=== PATIENT | female | born 1945 | race Caucasian/White ===

== ENCOUNTER 2019-11-03 13:56 | Outpatient (CLI) | payer MEDICARE, SELFPAY ==
--- NOTE | 2019-11-03 14:03 | XR_ITS ---
WS: [id number] DEXA (DUAL ENERGY X-RAY ABSORPTIOMETRY) Bone mineral density was performed using a [employer] machine. HISTORY: POSTMENOPAUSAL STATUS COMPARISON: 07/11/2016 Lumbar spine BMD (L1-L4): 1.429 g/cm2 T score: 2.1 Z score: 4.0 Total hip BMD: Left: 0.907 g/cm2. T score: -0.8 Z score: 1.1 Right: 0.996 g/cm2. T score: -0.1 Z score: 1.8 10 year probability of a major osteoporotic fracture is 18%. Compared to the prior study from 07/11/2016. Lumbar spine bone mineral density has decreased by 3.1%. Bilateral hips bone mineral density has decreased by 4.1%. XR/XR DEXA axial skeleton* 13702 IMPRESSION: NORMAL BONE MINERAL DENSITY based upon the WHO classification for females. Significant decrease in bone mineral density since the prior study.
== END 2019-11-03 13:57 | disposition home or self-care (01) ==
LOC: RADWPI 13:56
PROVIDERS: Family Provider Family Medicine; PCP Family Medicine; Visit Provider Family Medicine
DX: Z78.0 Asymptomatic menopausal state (principal)
CPT/HCPCS: 77080

== ENCOUNTER 2020-03-15 09:49 | Outpatient (CLI) | payer MEDICARE, SELFPAY ==
--- NOTE | 2020-03-15 10:30 | CT_ITS ---
WS: [id number] CTA ABDOMINAL AORTA WITH RUNOFF TECHNIQUE: Contrast enhanced CTA of the abdominal aorta with bilateral lower extremity runoff. Multip lanar reformatted images were obtained. MIP reformats were also reviewed. CLINICAL INFORMATION: lifestyle limiting claudication COMPARISON: None. DLP: 1248.[address] scans at [facility] use at least one of these dose optimization techniques: automat ed exposure control; mA and/or kV adjustment per patient size (includes targeted exams where dose is matched to clinical indication); or iterative reconstruction. FINDINGS: Diffuse fatty infiltration liver. Cholecystectomy clips. Portal veins and splenic vein are patent. Normal spleen. Normal GE junction. Lung bases are well aerated. Adrenal glands are normal. No rmal pancreas. Chronic advanced atrophy right kidney. Normal left renal parenchymal enhancement. No h ydronephrosis. Normal caliber abdominal aorta. Moderate irregular peripheral mural thrombus with mode rate atheromatous disease. Celiac and SMA origins are patent. VIOLETA origin is patent. Aneurysmal right proximal iliac artery measuring 1.5 CM. Slightly aneurysmal infrarenal abdominal aorta measuring 2.4 x 2.4 CM. Sigmoid diverticulosis. No evidence of acute diverticulitis. No evidence of small or large bowel obst ruction. Tiny incidental fat-containing umbilical hernia. RIGHT: Moderate stenosis of the right common iliac artery origin which remains patent. Heavily calcif ied right common iliac artery with approximately 50% stenosis proximally. Right external and internal iliac arteries are patent. Aneurysmal internal iliac artery with small aneurysms measuring 9 and 10 mm. External iliac artery is patent. Common femoral artery is patent. High-grade segmental stenosis in the superficial femoral artery which is nearly occluded in the mid thigh with severe stenosis just proximal to the stent. Superficial femoral to popliteal stent. Persistent flow in the mid and distal stent. Poor flow in the proximal stent occluded/nearly occluded. Dense calcification with severe yazan nosis in the popliteal artery just above the knee and popliteal fossa. Stenotic popliteal is patent t o the trifurcation with dominant two-vessel runoff to the ankle. Poor posterior tibial runoff. LEFT: Left common iliac artery is patent. Dense calcification involving the lower extremities arterie s. Internal iliac artery is occluded at the origin and and reconstitutes in the mid and distal segmen ts. External iliac artery is patent. Common femoral artery is patent with mild to moderate segmental stenosis. Severe stenosis involving the superficial femoral artery which is nearly occluded. Segmenta l moderate to severe stenosis involving the superficial femoral artery in the thigh. Flow is seen to the adductor hiatus. Popliteal artery is tiny but patent. Popliteal artery is patent to the trifurcat ion with dominant two-vessel runoff to the ankle. Poor flow in the posterior tibial artery. CT/CT angio abd aorta runof 18013 IMPRESSION: 1. Moderate atheromatous disease abdominal aorta with irregular mural thrombus . Slightly aneurysmal infrarenal abdominal aorta measuring 2.4 x 2.4 cm. 2. RIGHT: Approximately 50% stenosis involving the right common iliac artery o rigin. Right common iliac artery aneurysm measuring 1.4 CM. 3. RIGHT: High-grade stenosis with poor flow in the superficial femoral artery proximally which is nearly occluded at the level of the stent. Poor flow in th e proximal stent which may be partially occluded. Normal flow is seen in the mi d and distal stent. 4. LEFT: Common iliac, external iliac and left common femoral arteries are pat ent. 5. LEFT: High-grade stenosis involving the proximal superficial femoral artery with persistent diminutive flow to the popliteal artery. Tiny popliteal artery with moderate to severe segmental stenosis. This is patent to the trifurcation . 6. Dominant two-vessel runoff to BOTH lower extremities with poor flow in the posterior tibial arteries bilaterally. 7. Atrophic right kidney. 8. Celiac and SMA are patent. Left renal artery is patent.
[2020-03-15] MEDS: iohexol 350 mg/mL 100 mL Btl IV (11:53)
[2020-03-18 08:25] LABS: Blood Urea Nitrogen 25 mg/dL (8-23)
== END 2020-03-15 09:50 | disposition home or self-care (01) ==
LOC: RADWPI 09:54
PROVIDERS: Family Provider Family Medicine; PCP Family Medicine; Visit Provider Internal Medicine Cardiovascular Disease
DX: I73.9 Peripheral vascular disease, unspecified (principal); I70.0 Atherosclerosis of aorta; I71.4 Abdominal aortic aneurysm, without rupture; N26.1 Atrophy of kidney (terminal)
CPT/HCPCS: 75635; 82565; 84520; Q9967

== ENCOUNTER → 2020-04-07 09:21 | Outpatient (BNVA) | payer MEDICARE, SELFPAY | PROVIDERS: Family Provider Family Medicine; PCP Family Medicine; Visit Provider Internal Medicine Cardiovascular Disease | DX: Z11.59 Encounter for screening for other viral diseases (principal) | CPT/HCPCS: 87635 ==

== ENCOUNTER 2020-04-12 07:39 | Day surgery (SDC) | payer MEDICARE, SELFPAY ==
[2020-04-07 10:30] LABS: Hematocrit 38.7 % (37.0-47.0); Mean Corpuscular Hemoglobin 29.2 pg (28.0-34.0); Mean Corpuscular Volume 94.2 fL (81-99); Mean Platelet Volume 9.6 fL (7.4-10.4); Platelet Count 317 10^3/cmm (130-400); Red Blood Count 4.11 10^6/uL (4.1-5.3); Red Cell Distribution Width 13.4 % (12.1-15.1); White Blood Count 6.5 10^3/uL (4.0-10.0)
[2020-04-07 10:53] LABS: Anion Gap 15.1 (5-19); Blood Urea Nitrogen 29 mg/dL (8-23); Calcium 9.4 mg/dL (8.5-10.5); Carbon Dioxide 24 mmol/L (22-29); Chloride 96 mmol/L (98-107); Glucose 167 mg/dL (65-115); Osmolality Calculated 284 mOsm/kg (285-295); Potassium 3.1 mmol/L (3.5-5.1); Sodium 132 mmol/L (136-145)
[2020-04-07 10:55] LABS: Absolute Eosinophils 0.1 10^3/cmm (0.0-0.7); Absolute Segmented Neutrophil 3.6 10/cmm (1.6-7.1); Band Neutrophils Absolute 0.2 10^3/cmm (0.0-1.2); Eosinophils 3 %; Lymphocytes 31 %; Monocytes Absolute 0.5 10^3/cmm (0.1-0.6); Segmented Neutrophils 56 %; Total Cells Counted 100 (0-100)
[2020-04-07 10:56] LABS: Absolute Neutrophil 3.8 10^3/cmm (1.4-6.5); Platelet Estimate Normal (Normal); Poikilocytosis 1+; Tear Drop Cells 1+
[2020-04-12] VITALS (42 sets, daily range): BP systolic 97–160; BP diastolic 52–93; PULSE 0–83; RESP 16–18; TEMP 36.8–37; O2SAT 90–96; BMI 26.2
--- NOTE | 2020-04-12 07:50 | XACV_ITS ---
Wt: 63 kg BSA: 1.66 m2 Any Known Allergies: No known allergies Gender: Female : 1945 Exam Type: Invasive Peripheral Vascular Procedure(s): Procedure Description: Peripheral Cath Diagnostic Procedure Procedure Description: Lower extremities' angiography Exam Priority: Routine Conclusions Lifestyle limiting claudication despite of optimization of medicine and the patient with severe peripheral vascular disease. Nonpalpable bilateralAtherosclerotic abdominal aorta without aneurysm. Right and left renal artery does not have any significant stenosis 1. Right ostial severe 80% left ostial severe 80% stenosis of the both common iliac artery. 2. Right and left mid to distal common iliac artery is aneurysmal with severe ectasia. Right external iliac artery has 70% stenosis3-right and left internal iliac artery has severe peripheral vascular disease4-left common iliac artery has severe ectasia with 70% stenosis5-Right chronically occluded SFA. Chronically occluded right mid SFA stent6-Proximal to mid severity disease left SFA6-Bilateral patent popliteal arteries 7-good two-vessel runoff noted below the left knee with patent tibioperoneal trunk on the left side8-patent tibioperoneal trunk on the right side. Due to not enough contrast cannot say much about runoff in the right leg probably patient may have 1-2 vessel runoff . Recommendations Refer to vascular surgery due to severe ectasia and multiple 10 mm bilateral iliac lesion and severe peripheral vascular disease and SFAs. Access Site Site: Right Femoral artery Sheath Size: 6 Fr Hemost... Method: Suture Hemost... Success: Successful Procedure Details Findings Procedure Consent Obtained. Pre-Procedure Time Out. Identified patient by full name and date of as verbalized by the patient/guarantor. Does the consent match the physician's order: Yes. Accurate & Complete Informed Consent: Yes. Inpatient/Outpatient History & Physical on Chart: Yes. If H&P is completed, is and addenduem needed: N/A; If yes, is the addendum complete: N/A. Visualize and Verify Site with Patient/Guarantor: N/A. Relevant Radiology Images available: Yes. Pre-op teaching completed and patient verbalized understanding. The risks, benefits, and alternatives of sedation and/or procedure were discussed by physician. The patient agrees to continue. Procedure started. PERRLA. Strong, equal hand dress marker bilaterally. Lungs clear x 5 lobes. IV Site on Arrival: 20 gauge in the left forearm. IV Fluids: 0.9% NaCl at KVO. 0 mL infused prior to medical laboratory technical officer. Pre Procedural Pulses: bilateral dorsalis pedis was Doppled. Pre Procedural Pulses: right posterior tibial was Absent. Pre Procedural Pulses: left posterior tibial was Doppled. Pre Procedural Pulses: bilateral radial was 2+. Oxygen started at 2liters/min via nasal canula. bilateral groins was prepped with chloroprep then draped in the usual sterile fashion. Physician notified. Equipment: 6F - Femoral. Cardiac Cath Pack. ACIST Manifold Kit Model BT 2000. Heparinized Saline (2 units/mL), 1000 mL bag. Kit, Micropuncture. Baseline sample Acquired. HR: 75 BPM. Physician arrived. Physician scrubbed in. Time out performed with cath team. Immediate Pre-Procedure Time Out. Correct Patient: Yes; Correct Procedure: Yes; Correct Site: Yes; Correct Patient Position: Yes; Correct Supplies: Yes; Dried Flammable Prep: Yes; Blood Products Available: No;. Lidocaine 1% infiltrated to the left groin. Ultrasound called. ultrasound arrived. PT area prep. lidocaine 1% inflitrated to right PT. Lidocaine 1% infiltrated to the left groin. Arterial access obtained with micropuncture set. Patient's family updated. Lidocaine 1% infiltrated to the left groin. Hand injection through sheath. Glidewire inserted. A 6 icelandic Angled Pig catheter in over wire. Abdominal aortogram performed in AP @ 10 mL/sec for a total of 30 mL. Catheter out. Left leg runoff 10 ml/sec for a total of 30ml. A Suture was successful obtaining hemostatsis at the Right Femoral artery insertion site. Sheath(s) sutured into position with 2-0 silk and sterile 4x4's and Op-site applied over the site. No oozing or signs and symptoms of hematoma noted. Arterial sheath flushed and connected to tranducer and pressure bag with heparinized saline. Post Procedure: Pulses reassessed and unchanged. PERRLA. Strong, equal hand dress marker bilaterally. No VTE prophylaxis required. Medication's Wasted: Other = versed 2 mg. Medication's Wasted: Other = fentanyl 50 mcg. Medication's Wasted: Lidocaine 1% = 15 mL. Medication's Wasted: Heparin = 4000 units. Total IV fluids: 99 mL. Fluoro: 3:06. Contrast type used: Visipaque 320 mgI/mL, 500 mL bottle. [id number]. Post-op diagnosis: severe PAD. Complications: none. Estimated blood loss: 5mL-10mL. Procedure completed. Patient transferred by bed to 1st floor. Vital chart was stopped. Procedure Medications Start: 8:41 AM Stop: 8:41 AM Medication: Versed Amount: 1 mg Route: I.V. Start: 8:41 AM Stop: 8:41 AM Medication: Fentanyl Amount: 50 mcg Route: I.V. Start: 8:59 AM Stop: 8:59 AM Medication: Versed Amount: 1 mg Route: I.V. Start: 8:59 AM Stop: 8:59 AM Medication: Fentanyl Amount: 25 mcg Route: I.V. Start: 9:31 AM Stop: 9:31 AM Medication: Versed Amount: 1 mg Route: I.V. Start: 9:31 AM Stop: 9:31 AM Medication: Fentanyl Amount: 25 mcg Route: I.V. Start: 9:31 AM Stop: 9:31 AM Medication: Versed Amount: 1 mg Route: I.V. I, the attending physician, have reviewed and verified all procedure medications. Yes, all medications given per verbal order History/Risk Factors Hypertension: Yes Dyslipidemia: No Peripheral Arterial Disease (PAD): Yes Obesity: No Renal Disease: No Tobacco Use: Current/Recent(w/in 1 year) Prior Interventions PCI: No CABG: No Valve Surgery: No Report Signatures Finalized by Reji White MD on 04/25/2020 05:20 PM
[2020-04-12] MEDS: diphenhydrAMINE 50 mg Capsule PO (08:15)
--- NOTE | 2020-04-12 08:31 | W.PM.OPSFHP ---
Same Day Surgery H&P Indication for Procedure/HPI DATE OF PROCEDURE: April 12, 2020 CHIEF COMPLAINT/INDICATIONFOR SURGICAL PROCEDURE: Worsening of bilateral claudication despite of optimal medical management and cilostazol use. PREOP DIAGNOSIS: Lifestyle limiting claudication failed conservative management PLANNED PROCEDRUE: Operation Date: 04/12/20 08:30 Proposed Procedures p Peripheral Diagnostic(Not Applicable) - Reji White MD 75-year-old female past medical history significant for severe peripheral vascular disease, history of hypertension hyperlipidemia and prior intervention to both legs for worsening of lifestyle limiting claudication underwent conservative management with a regular walking exercise and cilostazol. Since she continues to do worse CTA study was ordered which showed bilateral severe peripheral vascular disease including moderate right common iliac and severe SFA near occlusion of mid SFA to distal stent. Similarly she had left SFA occlusion. Today she brought in for peripheral angiogram and intervention. Today we will perform right leg intervention. We have explained in detail all the risk benefit alternative of the procedure. I have discussed in detail all the risk benefits involvement using drug-coated balloon such as warning from FDA such as increase in mortality in cohort of the patient. Patient would like to use it if needed. Medications/Allergies* Home Medications Medication Instructions Recorded Confirmed Type alprazolam 0.25 mg tablet 0.25 mg PO DAILY 02/15/20 04/11/20 History amlodipine 5 mg tablet 5 mg PO BID tab 02/15/20 04/11/20 History ascorbic acid (vitamin C) 500 mg 1,000 mg PO DAILY 02/15/20 04/11/20 History tablet aspirin 325 mg tablet 325 mg PO DAILY 02/15/20 04/11/20 History atorvastatin 80 mg tablet 80 mg PO DAILY tab 02/15/20 04/11/20 History clonidine HCl 0.2 mg tablet 0.2 mg PO TID 02/15/20 04/11/20 History folic acid 0.8 mg capsule 0.8 mg PO DAILY 02/15/20 04/11/20 History furosemide 20 mg tablet 20 mg PO DAILY tab 02/15/20 04/11/20 History hydrochlorothiazide 25 mg tablet 25 mg PO DAILY tab 02/15/20 04/11/20 History labetalol 200 mg tablet 200 mg PO BID 02/15/20 04/11/20 History levothyroxine 75 mcg tablet 75 mcg PO DAILY tab 02/15/20 04/11/20 History levothyroxine 88 mcg tablet 88 mcg PO DAILY 02/15/20 04/11/20 History meclizine 25 mg tablet 25 mg PO BID 02/15/20 04/11/20 History vitamin E 200 unit capsule 400 unit PO DAILY cap 02/15/20 04/11/20 History lisinopril 40 mg PO DAILY 04/11/20 04/11/20 History Allergies/Adverse Reactions Allergy/AdvReac Type Severity Reaction Status Date / Time No Known Allergies Allergy Verified 04/12/20 08:32 Current Medications: Generic Name Dose Route Start Last Admin Trade Name Freq PRN Reason Stop Dose Admin Sodium Chloride 1,000 mls @ 50 mls/hr 04/12/20 07:51 04/12/20 08:15 Sodium Chloride 0.9% IV 04/13/20 03:50 Not Given .Q20H ONE Pertinent History/Comorbid Conditions* Medical History (Updated 02/19/20 @ 17:57 by Reji White MD) History of hypertension History of peripheral arterial disease Social History Smoking and tobacco status: current every day smoker Quit status (tobacco): not considering quitting Pertinent Exam Findings alert, oriented x 3, clear to auscultation bilaterally, regular rate & rhythm and operative site marked Recommendations Surgery/Procedure today Other Plans: Peripheral angiogram with percutaneous intervention of right leg Coding Level of Care Code Acute In Shop Service Technician for Jacinto Ventura
--- NOTE | 2020-04-12 08:39 | W.PM.OPSUD ---
Surgery/Procedure H&P Update DATE OF PROCEDURE: April 12, 2020 DATE H&P PERFORMED: 02/15/20 H&P UPDATE INFORMATION: I have examined patient prior to procedure and No changes to prior documentation PREOP DIAGNOSIS: Lifestyle limiting claudication failed conservative management PLANNED PROCEDURE: Operation Date: 04/12/20 08:30 Proposed Procedures p Peripheral Diagnostic(Not Applicable) - Reji White MD PATIENT REASSESSED PRIOR TO SEDATION, WITH NO CHANGE NOTED: Yes PHYSICAL EXAM: alert, oriented x 3 and clear to auscultation bilaterally AIRWAY EVAL/ANESTHESIA PLAN: ASA II, Risks, benefits & alternatives of sedation and/or procedure discussed and Patient agrees to continue as planned
[2020-04-12] MEDS: clopidogrel 75 mg Tablet PO (11:28)
--- NOTE | 2020-04-12 14:19 | PC.NURSE ---
Removed left 6 fr aterial sheath. Pressure held for 30 min. small 2x2 in hematoma noted. Reported to Dr White. No new orders. Will monitor. cleansed with betadine and covered with 2x2 guaze and tegraderm. Vivi well
[2020-04-12] MEDS: cloNIDine 0.1 mg Tablet 0.2 MG PO ×2 (15:04→19:15)
[2020-04-12] MEDS: acetaminophen 325 mg Tablet 650 MG PO (15:05)
[2020-04-12] MEDS: labetalol 200 mg Tablet PO (18:27)
--- NOTE | 2020-04-12 19:35 | PC.NURSE ---
Patient ambulated in the ma with nurse. Patient's VSS, left groin site WNL. Patient has no complaints at this time. IV was removed with catheter intact.
--- NOTE | 2020-04-12 19:38 | PC.NURSE ---
Patient's oxygen saturation on finger on left hand was 84-87 percent on room air. Pulse ox probe placed on forehead and reading was 92-93 percent on room air. Dr. White notified. Ordered to discharge patient.
--- NOTE | 2020-04-12 19:45 | PC.NURSE ---
Patient was given discharge instructions and verbalized understanding. Patient signed discharge paper. Patient will be leaving by wheelchair with daughter as pick up and delivery driver.
== END 2020-04-12 20:00 | disposition home or self-care (01) ==
LOC: CCL 07:41 → CSU 09:02
PROVIDERS: PCP Family Medicine; Visit Provider Internal Medicine Cardiovascular Disease
DX: I70.203 Unspecified atherosclerosis of native arteries of extremities, bilateral legs (principal); I10 Essential (primary) hypertension; E78.5 Hyperlipidemia, unspecified; Z79.82 Long term (current) use of aspirin; F17.210 Nicotine dependence, cigarettes, uncomplicated
CPT/HCPCS: 12345; 36415; 75625; 80048; 85007; 85027; C1769; C1887; C1894; J1644; J2250; J3010; J7030; Q0163; Q9967

== ENCOUNTER → 2020-04-19 12:02 | Outpatient (BNVA) | payer MEDICARE, SELFPAY | PROVIDERS: PCP Family Medicine; Visit Provider Nurse Practitioner Family | DX: Z86.79 Personal history of other diseases of the circulatory system (principal) | CPT/HCPCS: 80048 ==

== ENCOUNTER 2020-06-02 11:35 | Outpatient (CLI) | payer MEDICARE, SELFPAY ==
--- NOTE | 2020-06-02 12:11 | XR_ITS ---
WS: [id number] CHEST, 1 view. 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 Minimal atelectasis adjacent to the RIGHT heart. No pneumonia. Normal vasculature. No pleural effusio n or pneumothorax. Cardiac size: Normal. Mediastinum/Aorta: Moderate atherosclerosis aorta. No mediastinal widening. No osseous abnormality seen. XR/XR chest 1V 36770 IMPRESSION: 1. Moderate atherosclerosis aorta. 2. Minimal subsegmental atelectasis versus scar adjacent to the RIGHT heart. N o pneumonia.
[2020-06-02 12:48] LABS: Basophils # 0.1 10^3/uL (0.0-0.1); Basophils % 1.4 %; Eosinophils # 0.2 10^3/uL (0.0-0.8); Eosinophils % 2.4 %; Hematocrit 37.7 % (37.0-47.0); Hemoglobin 12.1 g/dL (11.5-15.3); Lymphocytes # 1.7 10^3/uL (0.8-4.8); Lymphocytes % 25.2 %; Mean Corpuscular HGB Conc 32.1 g/dL (30.0-36.0); Mean Corpuscular Hemoglobin 28.7 pg (28.0-34.0); Mean Corpuscular Volume 89.5 fL (81-99); Mean Platelet Volume 9.5 fL (7.4-10.4); Monocytes # 0.5 10^3/uL (0.2-0.9); Monocytes % 7.9 %; Neutrophils # 4.13 10^3/uL (1.8-7.7); Neutrophils % 62.9 %; Nucleated Red Blood Cells % 0 %; Platelet Count 358 10^3/cmm (130-400); Red Blood Count 4.21 10^6/uL (4.1-5.3); Red Cell Distribution Width 13.5 % (12.1-15.1); White Blood Count 6.6 10^3/uL (4.0-10.0)
[2020-06-02 13:13] LABS: Anion Gap 11.7 (5-19); Blood Urea Nitrogen 24 mg/dL (8-23); Calcium 9.6 mg/dL (8.5-10.5); Carbon Dioxide 28 mmol/L (22-29); Chloride 99 mmol/L (98-107); Glucose 111 mg/dL (65-115); Osmolality Calculated 285 mOsm/kg (285-295); Potassium 3.7 mmol/L (3.5-5.1); Sodium 135 mmol/L (136-145)
== END 2020-06-02 11:36 | disposition home or self-care (01) ==
PROVIDERS: PCP Family Medicine; Visit Provider Surgery
DX: I74.09 Other arterial embolism and thrombosis of abdominal aorta (principal); I70.213 Atherosclerosis of native arteries of extremities with intermittent claudication, bilateral legs; I72.3 Aneurysm of iliac artery; I77.1 Stricture of artery; I70.203 Unspecified atherosclerosis of native arteries of extremities, bilateral legs; F17.200 Nicotine dependence, unspecified, uncomplicated; N28.0 Ischemia and infarction of kidney; I71.9 Aortic aneurysm of unspecified site, without rupture; I70.0 Atherosclerosis of aorta; J98.11 Atelectasis
CPT/HCPCS: 36415; 71045; 80048; 85025; 85610

== ENCOUNTER → 2020-07-18 10:37 | Outpatient (BNVA) | payer MEDICARE, SELFPAY | PROVIDERS: PCP Family Medicine; Visit Provider Internal Medicine Cardiovascular Disease | DX: I10 Essential (primary) hypertension (principal); I73.9 Peripheral vascular disease, unspecified; Z86.79 Personal history of other diseases of the circulatory system; Z98.890 Other specified postprocedural states | CPT/HCPCS: 80048 ==

== ENCOUNTER → 2020-08-15 10:18 | Outpatient (BNVA) | payer MEDICARE, SELFPAY | PROVIDERS: PCP Family Medicine; Visit Provider Podiatrist Foot & Ankle Surgery | DX: M79.671 Pain in right foot (principal); L97.512 Non-pressure chronic ulcer of other part of right foot with fat layer exposed; I73.9 Peripheral vascular disease, unspecified | CPT/HCPCS: 73630 ==

== ENCOUNTER 2020-08-18 08:16 | Outpatient (CLI) | payer MEDICARE, SELFPAY | END 2020-08-18 08:17 | disposition home or self-care (01) | LOC: WOUND 08:19 | PROVIDERS: PCP Family Medicine; Visit Provider Nurse Practitioner Family | DX: I73.9 Peripheral vascular disease, unspecified (principal); L97.512 Non-pressure chronic ulcer of other part of right foot with fat layer exposed | CPT/HCPCS: G0463; L3260 ==

== ENCOUNTER 2020-08-25 09:11 | Outpatient (CLI) | payer MEDICARE, SELFPAY | END 2020-08-25 09:12 | disposition home or self-care (01) | LOC: WOUND 09:12 | PROVIDERS: PCP Family Medicine; Visit Provider Nurse Practitioner Family | DX: I73.9 Peripheral vascular disease, unspecified (principal); L97.512 Non-pressure chronic ulcer of other part of right foot with fat layer exposed | CPT/HCPCS: 11042 ==

== ENCOUNTER 2020-09-01 09:24 | Outpatient (CLI) | payer MEDICARE, SELFPAY | END 2020-09-01 09:25 | disposition home or self-care (01) | LOC: WOUND 09:25 | PROVIDERS: PCP Family Medicine; Visit Provider Nurse Practitioner Family | DX: I73.9 Peripheral vascular disease, unspecified (principal); L97.512 Non-pressure chronic ulcer of other part of right foot with fat layer exposed | CPT/HCPCS: 97597 ==

== ENCOUNTER 2020-09-08 09:22 | Outpatient (CLI) | payer MEDICARE, SELFPAY | END 2020-09-08 09:23 | disposition home or self-care (01) | LOC: WOUND 09:24 | PROVIDERS: PCP Family Medicine; Visit Provider Nurse Practitioner Family | DX: I87.2 Venous insufficiency (chronic) (peripheral) (principal); L97.512 Non-pressure chronic ulcer of other part of right foot with fat layer exposed; I96 Gangrene, not elsewhere classified; F17.210 Nicotine dependence, cigarettes, uncomplicated | CPT/HCPCS: 11042 ==

== ENCOUNTER 2020-09-15 09:18 | Outpatient (CLI) | payer MEDICARE, SELFPAY | END 2020-09-15 09:19 | disposition home or self-care (01) | LOC: WOUND 09:19 | PROVIDERS: PCP Family Medicine; Visit Provider Nurse Practitioner Family | DX: I87.2 Venous insufficiency (chronic) (peripheral) (principal); L97.512 Non-pressure chronic ulcer of other part of right foot with fat layer exposed; F17.210 Nicotine dependence, cigarettes, uncomplicated | CPT/HCPCS: 11042 ==

== ENCOUNTER 2020-09-29 09:03 | Outpatient (CLI) | payer MEDICARE, SELFPAY | END 2020-09-29 09:04 | disposition home or self-care (01) | LOC: WOUND 09:05 | PROVIDERS: PCP Family Medicine; Visit Provider Nurse Practitioner Family | DX: I73.9 Peripheral vascular disease, unspecified (principal); L97.512 Non-pressure chronic ulcer of other part of right foot with fat layer exposed | CPT/HCPCS: G0463 ==

== ENCOUNTER 2021-05-24 09:46 | Outpatient (CLI) | payer MEDICARE, SELFPAY ==
--- NOTE | 2021-05-24 09:51 | MM_ITS ---
WS: [id number] Exam: [id number] Date/Time of Exam: 05/24/2021 9:58 AM Reason For Exam: SCREENING VIEWS: MLO and CC views both breasts. Comparison made with prior exam of 10/05/2011, 02/17/2015, 03/26/2019,. Findings: There was no sign of mass, architectural distortion or suspicious calcification in either breast. Fa tty MM/[id number] Impression: BI-RADS: 2-Benign FOLLOW-UP: 1 Year Follow-up This mammogram was also analyzed by the Computer Aided Detection System [employer] [place].
== END 2021-05-24 09:47 | disposition home or self-care (01) ==
LOC: RADSHAW 09:49
PROVIDERS: PCP Family Medicine; Visit Provider Family Medicine
DX: Z12.31 Encounter for screening mammogram for malignant neoplasm of breast (principal)
CPT/HCPCS: 77067

== ENCOUNTER → 2021-11-03 14:26 | Outpatient (BNVA) | payer MEDICARE, SELFPAY | PROVIDERS: PCP Family Medicine; Visit Provider Family Medicine | DX: R73.03 Prediabetes (principal); I10 Essential (primary) hypertension; E03.9 Hypothyroidism, unspecified | CPT/HCPCS: 80053; 83036; 84439; 84443; 85025 ==

== ENCOUNTER → 2021-11-08 13:42 | Outpatient (BNVA) | payer MEDICARE, SELFPAY | PROVIDERS: PCP Family Medicine; Visit Provider Internal Medicine Cardiovascular Disease | DX: I73.9 Peripheral vascular disease, unspecified (principal); I10 Essential (primary) hypertension; J44.9 Chronic obstructive pulmonary disease, unspecified; Z98.890 Other specified postprocedural states; Z86.79 Personal history of other diseases of the circulatory system | CPT/HCPCS: 99213; 99214 ==

== ENCOUNTER 2021-11-08 15:17 | Outpatient (CLI) | payer MEDICARE, SELFPAY ==
--- NOTE | 2021-11-08 16:34 | XR_ITS ---
WS: [id number] LUMBAR SPINE: 3 VIEWS TECHNIQUE: AP, lateral and L5-S1 spot. HISTORY: LOW BACK PAIN COMPARISON: None available. LEFT rotoscoliosis of the lumbar spine. Scoliosis makes it difficult to evaluate the lumbar vertebral bodies in the lateral projection. Disc spaces are narrowed throughout. No fractures are identified. Facet joints are narrowed with diffuse facet joint arthritis. Large clawlike osteophytes at each disc level. SI joints are narrowed. Prior cholecystectomy. Endovascular aortobiiliac graft. Pain pump over the RIGHT abdomen. Prior LEFT hip replacement. XR/XR lumbar spine 2-3V* [id number] IMPRESSION: Advanced degenerative LEFT rotoscoliosis of the lumbar spine. Moderate diffuse facet and disc space narrowing.
== END 2021-11-08 15:18 | disposition home or self-care (01) ==
LOC: RAD 15:23
PROVIDERS: PCP Family Medicine; Visit Provider Family Medicine
DX: M54.16 Radiculopathy, lumbar region (principal); M47.816 Spondylosis without myelopathy or radiculopathy, lumbar region; M41.86 Other forms of scoliosis, lumbar region
CPT/HCPCS: 72100

== ENCOUNTER → 2022-03-01 09:08 | Outpatient (BNVA) | payer MEDICARE, SELFPAY | PROVIDERS: PCP Family Medicine; Visit Provider Family Medicine | DX: Z86.79 Personal history of other diseases of the circulatory system (principal); Z86.39 Personal history of other endocrine, nutritional and metabolic disease | CPT/HCPCS: 80053; 83036; 84439; 84443; 85025 ==

== ENCOUNTER 2022-04-09 07:01 | Outpatient (CLI) | payer MEDICARE, SELFPAY ==
--- NOTE | 2022-04-09 07:15 | US_ITS ---
WS: [id number] RIGHT UPPER QUADRANT ULTRASOUND HISTORY: RUQ abd pain, hepatomegaly, elevated alkaline phosphatase COMPARISON: 03/29/2010 Liver: 11.7 cm in length. Normal size liver. No bile duct dilatation or mass. Portal Vein: Normal hepatopetal flow with monophasic waveform. Gallbladder: Status post cholecystectomy. CBD: 0.3 cm Pancreas: Normal size and echogenicity. Right kidney: 7.4 cm in length. Severe atrophy and severe increased echogenicity involving the entire RIGHT kidney. Marked cortical thinning and very poor corticomedullary differentiation. Progression o f chronic medical renal disease since 2009. Aorta and IVC: Mild atherosclerosis aorta. No aneurysm. Normal IVC. No ascites. US/US abdomen limited [id number] IMPRESSION: 1. Prior cholecystectomy. 2. Severe progressive atrophy and chronic medical renal disease RIGHT kidney s oscar 2009.
== END 2022-04-09 07:02 | disposition home or self-care (01) ==
LOC: RAD 07:02
PROVIDERS: PCP Family Medicine; Visit Provider Family Medicine
DX: R74.8 Abnormal levels of other serum enzymes (principal); R16.0 Hepatomegaly, not elsewhere classified
CPT/HCPCS: 76705

== ENCOUNTER → 2022-05-16 13:47 | Outpatient (BNVA) | payer MEDICARE, SELFPAY | PROVIDERS: PCP Family Medicine; Visit Provider Internal Medicine Cardiovascular Disease | DX: I10 Essential (primary) hypertension (principal); Z86.79 Personal history of other diseases of the circulatory system; Z98.890 Other specified postprocedural states; E78.5 Hyperlipidemia, unspecified; J44.9 Chronic obstructive pulmonary disease, unspecified; Z87.891 Personal history of nicotine dependence | CPT/HCPCS: 99214 ==

== ENCOUNTER 2022-05-25 09:50 | Outpatient (CLI) | payer MEDICARE, SELFPAY ==
--- NOTE | 2022-05-25 09:56 | MM_ITS ---
WS: [id number] SCREENING DIGITAL TOMOSYNTHESIS MAMMOGRAM WITH CAD HISTORY: SCREENING COMPARISON: 05/24/2021, 03/26/2019 and 03/12/2018 Bilateral CC and MLO with tomosynthesis views submitted. Synthetic mammography reviewed. Computer aid ed detection analyzed. Breast composition: The breasts are almost entirely fatty. No suspicious masses, microcalcifications or architectural distortion. Benign calcifications in each breast. MM/[id number] IMPRESSION: BI-RADS: 2-Benign FOLLOW UP: 1 Year Follow-up
== END 2022-05-25 09:51 | disposition home or self-care (01) ==
LOC: RAD 09:50
PROVIDERS: PCP Family Medicine; Visit Provider Family Medicine
DX: Z12.31 Encounter for screening mammogram for malignant neoplasm of breast (principal)
CPT/HCPCS: 77063; 77067

== ENCOUNTER → 2022-05-31 08:51 | Outpatient (BNVA) | payer MEDICARE, SELFPAY | PROVIDERS: PCP Family Medicine; Visit Provider Family Medicine | DX: R16.0 Hepatomegaly, not elsewhere classified (principal); R74.8 Abnormal levels of other serum enzymes; Z86.39 Personal history of other endocrine, nutritional and metabolic disease; Z51.81 Encounter for therapeutic drug level monitoring; E11.9 Type 2 diabetes mellitus without complications; I10 Essential (primary) hypertension | CPT/HCPCS: 80053; 83036; 85025; 86141 ==

== ENCOUNTER → 2022-08-21 09:11 | Outpatient (BNVA) | payer MEDICARE, SELFPAY | PROVIDERS: PCP Family Medicine; Visit Provider Family Medicine | DX: E11.9 Type 2 diabetes mellitus without complications (principal); E03.9 Hypothyroidism, unspecified; E55.9 Vitamin D deficiency, unspecified; I73.9 Peripheral vascular disease, unspecified; R16.0 Hepatomegaly, not elsewhere classified; Z51.81 Encounter for therapeutic drug level monitoring; Z13.220 Encounter for screening for lipoid disorders; Z86.79 Personal history of other diseases of the circulatory system | CPT/HCPCS: 80053; 80061; 82306; 83036; 84439; 84443; 85025 ==

== ENCOUNTER → 2022-11-07 13:43 | Outpatient (BNVA) | payer MEDICARE, SELFPAY | PROVIDERS: PCP Family Medicine; Visit Provider Internal Medicine Cardiovascular Disease | DX: I10 Essential (primary) hypertension (principal); Z98.890 Other specified postprocedural states; E78.5 Hyperlipidemia, unspecified; I73.9 Peripheral vascular disease, unspecified; Z87.891 Personal history of nicotine dependence; Z79.82 Long term (current) use of aspirin | CPT/HCPCS: 99214 ==

== ENCOUNTER → 2022-12-14 08:00 | Outpatient (BNVA) | payer MEDICARE, SELFPAY | PROVIDERS: PCP Family Medicine; Visit Provider Family Medicine | DX: Z51.81 Encounter for therapeutic drug level monitoring (principal); E11.9 Type 2 diabetes mellitus without complications; E03.9 Hypothyroidism, unspecified; I10 Essential (primary) hypertension | CPT/HCPCS: 80053; 83036; 85025 ==

== ENCOUNTER → 2023-04-19 08:14 | Outpatient (BNVA) | payer MEDICARE, SELFPAY | PROVIDERS: PCP Family Medicine; Visit Provider Family Medicine | DX: E53.8 Deficiency of other specified B group vitamins (principal); Z51.81 Encounter for therapeutic drug level monitoring; E11.9 Type 2 diabetes mellitus without complications; E03.9 Hypothyroidism, unspecified; I10 Essential (primary) hypertension | CPT/HCPCS: 80053; 82607; 83036; 84439; 84443; 85025 ==

== ENCOUNTER 2023-05-14 13:27 | Emergency (ER) | payer MEDICARE, SELFPAY ==
[2023-05-14 13:38] VITALS: BP 139/71; PULSE 78; RESP 16; TEMP 36.9; O2SAT 95; BMI 22.1
--- NOTE | 2023-05-14 14:24 | ECG_ITS ---
[facility] Test Date: 2023-05-14 Pat Name: Viry Selby Department: Room: Gender: Female Manager Fire: : 1945 Requested By: Gibson Barreto Order Number: [id number] Phill MD: Carole Jha M.D. Measurements Intervals [place] Rate: 78 P: 63 CT: 199 QRS: -11 QRSD: 111 T: 71 QT: 433 QTc: 495 Interpretive Statements SINUS RHYTHM Nonspecific ST changes. Abnormal EKG No previous ECG available for comparison Electronically Signed On 05-14-2023 16:51:09 BEET FLUMER by Carole Jha M.D. [email or web address] care [id number]
--- NOTE | 2023-05-14 14:24 | W.ED.WEAKNES ---
HPI - Weakness General: Chief complaint: Weakness Stated complaint: falling, weakness, Nausea Time Seen by Provider: 05/14/23 14:47 History of Present Illness: Patient presents to the ER with complaints of nausea and vomiting and weakness for the last 2 days. Patient Nuys any diarrhea or fever. Patient does not had any vomiting this morning. Patient is eating or drinking makes it worse. Patient has not found anything that makes it better. It just comes and goes on its own. Patient is getting weaker to the point of having to rely on her walker now. Patient did not have to use her walker around her house in the past only when she went out. Patient is following twice today and twice yesterday. Patient Nuys any injury. Review of Systems General: Reports: 10 or more systems reviewed and unremarkable except in HPI and below PFSH ED PFSH: Medical History History of hypothyroidism History of COPD Hx of hyperlipidemia History of peripheral arterial disease Surgical History S/P hip replacement Hx of cholecystectomy Hx of section S/P AAA repair Family History Other Clotting disorder Hyperlipidemia Hypertension Lung disease Stroke Social History Smoking and tobacco/nicotine status: former use of tobacco/nicotine Quit status (tobacco/nicotine): has quit using Former quit date comment: 05/18/21 Alcohol intake: never Substance/Drug Use: never Physical Exam Const: COMMON NORMALS: no acute distress, average body habitus, patient oriented x3, no limitations, healthy appearing, alert and well nourished HENMT: COMMON NORMALS: normocephalic, atraumatic, hearing grossly normal bilaterally, external ears normal, Normal external nose present, moist oral mucous membranes and oropharynx normal HEAD & SCALP: normocephalic and atraumatic NOSE: Normal external nose present EXTERNAL EAR: Yes external ears normal Eye: COMMON NORMALS: Equal, round and reactive pupils present, EOMs intact bilaterally, conjunctivae normal and no scleral icterus CONJUNCTIVA: Yes conjunctivae normal PUPIL: Yes Equal, round and reactive pupils present Neck/C-Spine: COMMON NORMALS: full ROM, no lymphadenopathy, supple, no meningeal signs, no JVD and Thyroid normal THYROID: Thyroid normal Chest: COMMONS NORMALS: normal inspection of the chest and normal palpation of entire chest wall Resp: COMMON NORMALS: normal respiratory effort, No retractions, No use of accessory muscles and clear to auscultation bilaterally AUSCULTATION: clear to auscultation bilaterally Cardio: COMMON NORMALS: no JVD, regular rate, regular rhythm, S1 normal heart sound present, S2 normal heart sound present, No gallops present (Cardio), No clicks present (Cardio), No murmurs present (Cardio) and No rub (Cardio) RATE: regular rate RHYTHM: regular rhythm HEART SOUNDS: S1 normal heart sound present and S2 normal heart sound present GI: COMMON NORMALS: Normal to inspection, nondistended, normoactive bowel sounds present, Soft to palpation, non-tender, No hepatosplenomegaly present and no masses PALPATION: Yes Soft to palpation and Yes No hepatosplenomegaly present : COMMON NORMALS: Yes no CVA tenderness BLADDER/KIDNEY EXAM: Yes no CVA tenderness Back/Pelvis: COMMON NORMALS: no CVA tenderness Neuro: COMMON NORMALS: patient oriented x3 SENSORIUM/ORIENTATION: Yes alert MENINGEAL SIGNS: Yes no meningeal signs Course Vital Signs: Vital signs: Vital Signs Temperature 97.6 F 05/14/23 18:31 Pulse Rate 79 05/14/23 18:31 Respiratory Rate 18 05/14/23 18:31 Blood Pressure 121/72 05/14/23 18:31 Pulse Oximetry 93 05/14/23 18:31 Oxygen Delivery Me thod Room Air 05/14/23 16:13 MDM - Weakness Medical Decision Making Patient presented to the ER for nausea vomiting, weakness, multiple falls, patient was worked up with labs and chest x-rays, he EKG, all of which essentially benign. Patient did have elevated BUN/creatinine of 47 and 1.4, and elevated BNP of 2600. Chest x-ray was read off as normal by the radiologist. Patient will be discharged home to follow-up with her PCP for further evaluation and testing. Lab Data 05/14/23 14:39 05/14/23 14:39 Radiology Impressions Chest X-Ray 05/14/23 16:50 IMPRESSION: No acute findings. Laboratory Results WBC 11.09 10^3/uL (3.29-11.43) 05/14/23 14:39 RBC 4.25 10^6/uL (3.85-5.65) 05/14/23 14:39 Hgb 13.10 g/dL (11.27-16.99) 05/14/23 14:39 Hct 39.0 % (36-47) 05/14/23 14:39 MCV 91.8 fl (85-98) 05/14/23 14:39 MCH 30.8 pg (27-33) 05/14/23 14:39 MCHC 33.6 g/dL (30-55) 05/14/23 14:39 RDW 13.1 % (12.1-15.1) 05/14/23 14:39 Plt Count 342 10^3/cmm (157-399) 05/14/23 14:39 MPV 9.8 fL (7.4-10.4) 05/14/23 14:39 Neut % (Auto) 82.8 % 05/14/23 14:39 Lymph % (Auto) 10.8 % 05/14/23 14:39 Kingfisher % (Auto) 4.8 % 05/14/23 14:39 Eos % (Auto) 0.5 % 05/14/23 14:39 Baso % (Auto) 0.6 % 05/14/23 14:39 Neut # (Auto) 9.19 10^3/uL (1.8-7.7) H 05/14/23 14:39 Lymph # (Auto) 1.2 10^3/uL (0.8-4.8) 05/14/23 14:39 Kingfisher # (Auto) 0.5 10^3/uL (0.2-0.9) 05/14/23 14:39 Eos # (Auto) 0.1 10^3/uL (0.0-0.8) 05/14/23 14:39 Baso # (Auto) 0.1 10^3/uL (0.0-0.1) 05/14/23 14:39 Nucleated RBC % (auto) 0 % 05/14/23 14:39 Nucleated RBCs # 0.0 /100WBC 05/14/23 14:39 PT 13.30 SECONDS (12.1-14.9) 05/14/23 14:39 INR 0.98 (0.8-1.2) 05/14/23 14:39 Sodium 135 mmol/L (136-145) L 05/14/23 14:39 Potassium 3.5 mmol/L (3.5-5.1) 05/14/23 14:39 Chloride 94 mmol/L (98-107) L 05/14/23 14:39 Carbon Dioxide 23 mmol/L (22-29) 05/14/23 14:39 Anion Gap 21.5 (5-19) H 05/14/23 14:39 BUN 47 mg/dL (8-23) H 05/14/23 14:39 Creatinine 1.4 mg/dL (0.5-0.9) H 05/14/23 14:39 GFR Calculation Not Reportable 05/14/23 14:39 Glucose 116 mg/dL (65-115) H 05/14/23 14:39 Calculated Osmolality 293 mOsm/kg (285-295) 05/14/23 14:39 Calcium 10.1 mg/dL (8.5-10.5) 05/14/23 14:39 Magnesium 2.1 mg/dL (1.7-2.3) 05/14/23 14:39 Total Bilirubin 0.3 mg/dL (0.15-1.2) 05/14/23 14:39 AST 23 U/L (0-32) 05/14/23 14:39 ALT 14 U/L (0-33) 05/14/23 14:39 Alkaline Phosphatase 186 U/L (35-105) H 05/14/23 14:39 NT-Pro-B Natriuret Pep 2626 pg/mL (0-450) H 05/14/23 14:39 Total Protein 7.3 g/dL (6.6-8.7) 05/14/23 14:39 Albumin 4.6 g/dL (3.5-5.2) 05/14/23 14:39 Globulin 2.7 g/dL (1.3-4.6) 05/14/23 14:39 TSH 0.48 uIU/mL (0.27-4.20) 05/14/23 14:39 Urine Color Yellow (Yellow) 05/14/23 15:24 Urine Appearance Clear (CLEAR) 05/14/23 15:24 Urine pH 5 (5-7) 05/14/23 15:24 Ur Specific Dante 1.015 (1.005-1.030) 05/14/23 15:24 Urine Protein Neg (Negative) 05/14/23 15:24 Urine Glucose (UA) Norm (Normal) 05/14/23 15:24 Urine Ketones Negative (Negative) 05/14/23 15:24 Urine Blood Neg (Negative) 05/14/23 15:24 Urine Nitrate Negative (Negative) 05/14/23 15:24 Urine Bilirubin Neg (Negative) 05/14/23 15:24 Urine Urobilinogen Norm mg/dL (Negative) 05/14/23 15:24 Ur Leukocyte Esterase Negative (Negative) 05/14/23 15:24 All radiology interpretation(s) finalized by discharge EKG Data EKG 1: I personally reviewed and interpreted this EKG as follows: EKG interpretation date: 05/14/23 EKG interpretation time: 15:08 Prior EKG tracings: not available for review Interpretation: EKG showed ventricular rate 78 beats minute, IA interval 199, QRS duration 111, QTc of 466, sinus rhythm, Discharge Plan Discharge Patient Disposition: Home Clinical Impression: Generalized weakness Nausea & vomiting Qualifiers: Vomiting type: unspecified Qualified Code(s): R11.2 - Nausea with vomiting, unspecified Condition: Stable Prescriptions: New ondansetron HCl 4 mg tablet 4 mg PO Q8H PRN (Reason: nausea and vomiting) Qty: 14 0RF No Action ascorbic acid (vitamin C) 500 mg tablet 1,000 mg PO QAM meclizine 25 mg tablet 25 mg PO BID furosemide 20 mg tablet 40 mg PO QAM cyanocobalamin (vitamin B-12) [Vitamin B-12] 500 mcg tablet 500 mcg PO DAILY Qty: 30 6RF cholecalciferol (vitamin D3) 25 mcg (1,000 unit) capsule 25 mcg PO QAM levothyroxine 75 mcg tablet See Rx Instructions .ROUTE .COMPLEX Qty: 180 0RF Dose Instruction: TAKE 1 TABLET BY MOUTH IN THE MORNING ON THE ODD DAYS OF THE MONTH 1/2 HOUR BEFORE BREAKFAST WITH WATER ONLY Rx Instructions: TAKE 1 TABLET BY MOUTH IN THE MORNING ON THE ODD DAYS OF THE MONTH (1/2 HOUR BEFORE BREAKFAST WITH WATER ONLY) levothyroxine 88 mcg tablet See Rx Instructions .ROUTE .COMPLEX Qty: 45 3RF Dose Instruction: TAKE 1 TABLET BY MOUTH IN THE MORNING 1/2 HOUR PRIOR TO EATING TAKE WITH WATER ONLY TAKE ON EVEN DAYS OF THE MONTH Rx Instructions: TAKE 1 TABLET BY MOUTH IN THE MORNING TAKE ON EVEN DAYS OF THE MONTH (1/2 HOUR PRIOR TO EATING TAKE WITH WATER ) aspirin 325 mg Tablet 325 mg PO BEDTIME folic acid 400 mcg Tablet 800 mcg PO QAM Tylenol Ex Str Rapid Release 500 mg Tablet 500 mg PO Q4H PRN (Reason: Pain) ibuprofen 200 mg Tablet 200 mg PO Q4H PRN (Reason: Pain) vitamin E 268 mg (400 unit) Capsule 1 cap PO DAILY metformin 500 mg tablet 500 mg PO QAM atorvastatin 80 mg tablet 80 mg PO BEDTIME labetalol 200 mg tablet 200 mg PO BID clopidogrel 75 mg tablet 75 mg PO QAM amlodipine 5 mg tablet 5 mg PO QAM clonidine HCl 0.2 mg tablet 0.2 mg PO TID alprazolam 0.25 mg tablet 0.25 mg PO BEDTIME potassium chloride 20 mEq tablet,ER particles/crystals 20 meq PO QAM hydrochlorothiazide 25 mg tablet 25 mg PO QAM lisinopril 40 mg tablet 40 mg PO QAM Discharge Orders: Discharge ED (Routine); Ordered 05/14/23 Ordered By: Gibson Barreto Referrals: Jean Claude Nayak MD [Primary Care Provider] - 1 week Patient Instructions: Acute Nausea and Vomiting (ED), Weakness (Generalized) Activity Restrictions/Additional Instructions: Please take all medicine as prescribed. Please get plenty of hydration. Please follow-up with your family practice doctor within the next 7 to 10 days for further evaluation and treatment. If your symptoms worsen please return to the ER. Coding Level of Care Code ED Medical Physics Researcher for Jacinto Ventura
[2023-05-14 14:57] LABS: Basophils # 0.1 10^3/uL (0.0-0.1); Basophils % 0.6 %; Eosinophils # 0.1 10^3/uL (0.0-0.8); Eosinophils % 0.5 %; Lymphocytes # 1.2 10^3/uL (0.8-4.8); Lymphocytes % 10.8 %; Mean Corpuscular HGB Conc 33.6 g/dL (30-55); Mean Corpuscular Hemoglobin 30.8 pg (27-33); Mean Corpuscular Volume 91.8 fl (85-98); Mean Platelet Volume 9.8 fL (7.4-10.4); Monocytes # 0.5 10^3/uL (0.2-0.9); Monocytes % 4.8 %; Neutrophils # 9.19 10^3/uL (1.8-7.7); Neutrophils % 82.8 %; Nucleated Red Blood Cells % 0 %; Platelet Count 342 10^3/cmm (157-399); Red Blood Count 4.25 10^6/uL (3.85-5.65); Red Cell Distribution Width 13.1 % (12.1-15.1); White Blood Count 11.09 10^3/uL (3.29-11.43)
[2023-05-14 15:11] LABS: INR 0.98 (0.8-1.2)
[2023-05-14 15:34] LABS: Alanine Aminotransferase 14 U/L (0-33); Albumin Level 4.6 g/dL (3.5-5.2); Alkaline Phosphatase 186 U/L (35-105); Aspartate Amino Transferase 23 U/L (0-32); Blood Urea Nitrogen 47 mg/dL (8-23); Calcium 10.1 mg/dL (8.5-10.5); Carbon Dioxide 23 mmol/L (22-29); Chloride 94 mmol/L (98-107); Globulin 2.7 g/dL (1.3-4.6); Glucose 116 mg/dL (65-115); Magnesium 2.1 mg/dL (1.7-2.3); NT Pro B Type Natriuretic Pept 2626 pg/mL (0-450); Osmolality Calculated 293 mOsm/kg (285-295); Sodium 135 mmol/L (136-145); Thyroid Stimulating Hormone 0.48 uIU/mL (0.27-4.20); Total Bilirubin 0.3 mg/dL (0.15-1.2); Total Protein 7.3 g/dL (6.6-8.7)
[2023-05-14] MEDS: sodium chloride 0.9% 1,000 ML 999 ML IV (15:36)
[2023-05-14] MEDS: ondansetron 2 mg/ML SDV 2 mL 4 MG IVP (15:37)
[2023-05-14 15:39] LABS: Anion Gap 21.5 (5-19); Potassium 3.5 mmol/L (3.5-5.1)
[2023-05-14 15:45] LABS: Add Urine Microscopic? NO; Charge for UA Resulting for Rev
[2023-05-14 15:50] LABS: Bilirubin Urine Neg (Negative); Blood Urine Neg (Negative); Glucose Urine UA Norm (Normal); Ketones Urine Negative (Negative); Leukocyte Esterase Urine Negative (Negative); Nitrate Urine Negative (Negative); Protein Urine Neg (Negative); Specific Gravity, Urine 1.015 (1.005-1.030); Urine Appearance Clear (CLEAR); Urine Color Yellow (Yellow); Urobilinogen Urine Norm (Negative); pH Urine 5 (5-7)
[2023-05-14 16:13] VITALS: BP 135/50; PULSE 83; RESP 18; O2SAT 92
--- NOTE | 2023-05-14 16:50 | XRR_ITS ---
PROCEDURE INFORMATION: Exam: XR Chest Exam date and time: 05/14/2023 4:59 PM Age: 78 years old Clinical indication: Other: Weakness TECHNIQUE: Imaging protocol: Radiologic exam of the chest. Views: 1 view. COMPARISON: CR XR chest 1V [id number] 06/02/2020 12:19 PM FINDINGS: Lungs: Unremarkable. No consolidation. Pleural spaces: Unremarkable. No pleural effusion. No pneumothorax. Heart/Mediastinum: Unremarkable. No cardiomegaly. Bones/joints: Unremarkable. XR/XR chest 1V portable [id number] IMPRESSION: No acute findings.
[2023-05-14 18:31] VITALS: BP 121/72; PULSE 79; RESP 18; TEMP 36.4; O2SAT 93
== END 2023-05-14 18:33 | disposition home or self-care (01) ==
PROVIDERS: Emergency Provider Emergency Medicine; PCP Family Medicine
DX: R53.1 Weakness (principal); R11.2 Nausea with vomiting, unspecified; Z79.02 Long term (current) use of antithrombotics/antiplatelets; Z79.82 Long term (current) use of aspirin; J44.9 Chronic obstructive pulmonary disease, unspecified; E78.5 Hyperlipidemia, unspecified; Z87.891 Personal history of nicotine dependence
CPT/HCPCS: 36415; 71045; 80053; 81003; 83735; 83880; 84443; 85025; 85610; 93005; 96361; 96374; 99285; J2405; J7030

== ENCOUNTER 2023-06-05 10:10 | Outpatient (CLI) | payer MEDICARE, SELFPAY ==
--- NOTE | 2023-06-05 10:23 | MR_ITS ---
WS: [id number] MRI LUMBAR SPINE NONCONTRAST HISTORY: VERTEBROGENIC LOW BACK PAIN COMPARISON: None available. TECHNIQUE: Sagittal and axial multisequence imaging is submitted. Increase in the cervical lordosis. Disc spaces are narrowed throughout the cervical and thoracic spin es. Very slight anterolisthesis of L3 and L4, less than 2 mm. Mild anterior wedging of T12 from a remote fracture. No retropulsion. Disc spaces are all mildly narrowed. Conus terminates normally at L1-2 disc level. T12-L1: Diffuse annular disc bulging. Moderate bilateral facet joint arthritis encroaching into the t hecal sac. L1-L2: Diffuse annular disc bulging. Shallow LEFT paracentral disc protrusion. Moderate bilateral fac et and ligamentum flavum hypertrophy. Mild central and foraminal narrowing. L2-L3: Diffuse annular disc bulging encroaching upon the ventral thecal sac. Moderate facet arthritis . Mild central, bilateral subarticular recess and foraminal stenosis. L3-L4: Diffuse annular disc bulging. Bilateral foraminal disc protrusions. Severe ligamentum flavum a nd facet arthritis. There is prominent low signal extending superior and posterior to the L3 vertebra l body. This was also present on a CT from 2019 and may be residual of the extruded disc. Not causing any significant compression upon the thecal sac. No contact on the nerve roots. Moderate RIGHT and m ild LEFT foraminal stenosis. Mild central and bilateral subarticular recess encroachment. L4-L5: Diffuse annular disc bulging with ligamentum flavum and facet arthritis. Disc contacts the tra versing L5 nerve roots. Mild central, bilateral subarticular recess and foraminal stenosis. L5-S1: Mild annular disc bulging. Marked facet joint arthritis. Moderate to severe LEFT and moderate RIGHT foraminal stenosis. Atherosclerotic changes within the abdominal aorta. Atrophied RIGHT kidney. IMPRESSION: 1. No acute lumbar spine fracture. 2. Remote 20% T12 compression fracture. 3. Multilevel advanced facet joint arthritis from T12-L1 through L5-S1. 4. L1-2: Shallow LEFT paracentral disc protrusion. Mild central and bilateral foraminal stenosis. 5. L2-3 and L4-5: Mild central, bilateral subarticular recess and foraminal stenosis. 6. L3-4: Bilateral foraminal disc protrusions. Moderate RIGHT and mild LEFT foraminal stenosis. Mild central and bilateral subarticular recess encroachment. 7. L5-S1: Moderate to severe LEFT and moderate RIGHT foraminal stenosis.
== END 2023-06-05 10:11 | disposition home or self-care (01) ==
PROVIDERS: PCP Family Medicine; Visit Provider Nurse Practitioner
DX: M51.26 Other intervertebral disc displacement, lumbar region (principal); M48.061 Spinal stenosis, lumbar region without neurogenic claudication; M48.07 Spinal stenosis, lumbosacral region
CPT/HCPCS: 72148

== ENCOUNTER → 2023-07-10 08:20 | Outpatient (BNVA) | payer MEDICARE, SELFPAY | PROVIDERS: PCP Family Medicine; Visit Provider Family Medicine | DX: Z51.81 Encounter for therapeutic drug level monitoring (principal); E55.9 Vitamin D deficiency, unspecified; R74.8 Abnormal levels of other serum enzymes; Z13.220 Encounter for screening for lipoid disorders; E87.6 Hypokalemia; E11.9 Type 2 diabetes mellitus without complications; E53.8 Deficiency of other specified B group vitamins | CPT/HCPCS: 80053; 80061; 82306; 82607; 83036; 83735; 85025 ==

== ENCOUNTER → 2023-10-04 08:56 | Outpatient (BNVA) | payer MEDICARE, SELFPAY | PROVIDERS: PCP Family Medicine; Visit Provider Family Medicine | DX: Z51.81 Encounter for therapeutic drug level monitoring (principal); E03.9 Hypothyroidism, unspecified; E87.6 Hypokalemia; Z79.899 Other long term (current) drug therapy | CPT/HCPCS: 80053; 83735; 84439; 84443; 85025 ==

== ENCOUNTER → 2023-10-18 08:05 | Outpatient (BNVA) | payer MEDICARE, SELFPAY | PROVIDERS: PCP Family Medicine; Visit Provider Family Medicine | DX: E11.9 Type 2 diabetes mellitus without complications (principal) | CPT/HCPCS: 83036 ==

== ENCOUNTER → 2023-11-28 11:39 | Outpatient (BNVA) | payer MEDICARE, SELFPAY | PROVIDERS: PCP Family Medicine; Visit Provider Internal Medicine Cardiovascular Disease | DX: E11.51 Type 2 diabetes mellitus with diabetic peripheral angiopathy without gangrene (principal); Z98.890 Other specified postprocedural states; Z86.39 Personal history of other endocrine, nutritional and metabolic disease; I10 Essential (primary) hypertension; Z79.4 Long term (current) use of insulin; E03.9 Hypothyroidism, unspecified; Z72.0 Tobacco use | CPT/HCPCS: 99214 ==

== ENCOUNTER → 2024-04-02 08:19 | Outpatient (BNVA) | payer MEDICARE, SELFPAY | PROVIDERS: PCP Family Medicine; Visit Provider Family Medicine | DX: Z51.81 Encounter for therapeutic drug level monitoring (principal); E55.9 Vitamin D deficiency, unspecified; E03.9 Hypothyroidism, unspecified; E53.8 Deficiency of other specified B group vitamins; Z13.220 Encounter for screening for lipoid disorders; E11.9 Type 2 diabetes mellitus without complications | CPT/HCPCS: 80053; 80061; 82306; 82607; 83036; 84439; 84443; 85025 ==

== ENCOUNTER → 2024-06-18 09:16 | Outpatient (BNVA) | payer MEDICARE, SELFPAY | PROVIDERS: PCP Family Medicine; Visit Provider Nurse Practitioner Family | DX: I73.9 Peripheral vascular disease, unspecified (principal); Z98.890 Other specified postprocedural states; I10 Essential (primary) hypertension; J44.9 Chronic obstructive pulmonary disease, unspecified; F17.210 Nicotine dependence, cigarettes, uncomplicated | CPT/HCPCS: 99214 ==

== ENCOUNTER 2024-06-19 09:12 | Outpatient (CLI) | payer MEDICARE, SELFPAY ==
--- NOTE | 2024-06-19 09:16 | MM_ITS ---
WS: [id number] BILATERAL SCREENING DIGITAL TOMOSYNTHESIS MAMMOGRAM WITH CAD HISTORY: SCREENING COMPARISON: 05/25/2022, 05/24/2021 Bilateral CC and MLO views with tomosynthesis and synthetic mammography submitted. Computer aided det ection analyzed. Breast composition: There are scattered areas of fibroglandular density. No suspicious masses, microc alcifications or architectural distortion. Benign calcifications in each breast. MM/MM scr BI tomosynthesis [id number] IMPRESSION: BI-RADS: 2 - Benign. FOLLOW UP: 1 Year Follow-up
== END 2024-06-19 09:13 | disposition home or self-care (01) ==
LOC: RAD 09:13
PROVIDERS: PCP Family Medicine; Visit Provider Family Medicine
DX: Z12.31 Encounter for screening mammogram for malignant neoplasm of breast (principal); R92.323 Mammographic fibroglandular density, bilateral breasts; R92.1 Mammographic calcification found on diagnostic imaging of breast
CPT/HCPCS: 77063; 77067

== ENCOUNTER → 2024-07-03 07:55 | Outpatient (BNVA) | payer MEDICARE, SELFPAY | PROVIDERS: PCP Family Medicine; Visit Provider Family Medicine | DX: Z51.81 Encounter for therapeutic drug level monitoring (principal); E11.9 Type 2 diabetes mellitus without complications; E55.9 Vitamin D deficiency, unspecified; E03.9 Hypothyroidism, unspecified; Z13.220 Encounter for screening for lipoid disorders; E87.6 Hypokalemia; N18.9 Chronic kidney disease, unspecified; Z79.899 Other long term (current) drug therapy | CPT/HCPCS: 80053; 80061; 82306; 83036; 84439; 84443; 85025 ==

== ENCOUNTER → 2024-11-02 09:56 | Outpatient (BNVA) | payer MEDICARE, SELFPAY | PROVIDERS: PCP Family Medicine; Visit Provider Family Medicine | DX: Z51.81 Encounter for therapeutic drug level monitoring (principal); E11.9 Type 2 diabetes mellitus without complications; E53.8 Deficiency of other specified B group vitamins | CPT/HCPCS: 80053; 82607; 83036; 85025 ==

== ENCOUNTER 2024-12-25 07:51 | Observation (INO) | payer MEDICARE, SELFPAY ==
[2024-12-25] VITALS (24 sets, daily range): BP systolic 117–198; BP diastolic 57–88; PULSE 69–92; RESP 13–27; TEMP 36.8–37.1; O2SAT 92–99; BMI 25.1
--- OUTSIDE RECORDS SUMMARY | 2024-12-25 08:02 | XMS_ITS | Encounter Summary ---
Author Organization [facility] Address [address] [place] [address] Care Team Providers Care Hot Saw Helper Name Role Phone Andrey Lanza MD Primary Care Provider Unavailab le Reason for Referral * Radiology Services (Routine) - Closed Specialty Diagnoses / Procedures Referred By Contac t Referred To Contact Diagnoses AAA (abdominal aortic aneurysm) without rupture Procedures IR FLUORO OR OTHER Marito Byoer MD Phone: tel: fax: Referral ID Status Reason Start Date Expiration Date Visits Re quested Visits Authorized [id number] Closed 06/20/2020 07/21/2021 1 1 TION TECHNICIAN Encounter Details Date Type Department Care Team (Late st Contact Info) Description 06/20/2020 Ancillary Orders [facility] Interventional Radiology OR [address] [place] [address] Marito Boyer MD [address] [place] [phone] AAA (abdominal aortic aneurysm) without rupture Social History Tobacco Use Types Packs/Day Years Used Date Smoking Tobacco: Every Day Cigarettes 0.5 40 Smokeless Tobacco: Never Comments:Currently smokes .5 ppd - 05/17/20 Alcohol Use Standard Drinks/Week Comments Not Currently 0 (1 standard drink = 0.6 oz pur e alcohol) Comments No Sex and Gender Information Value Date Recorded Sex Assigned at Not on file Legal Sex Female 3:41 AM AVIATION TECHNICIAN Gender Identity Not on file Sexual Orientation Not on file COVID-19 Exposure Response Date Recorded In the last month, have you been in contact with someone who was confirmed or suspected to have Coronavirus / COVID-19? No / Unsure 06/20/2020 10:40 PM AVIATION TECHNICIAN documented as of this encounter Plan of Treatment Not on file documented as of this encounter Results * IR FLUORO OR OTHER (06/20/2020 3:43 PM AVIATION TECHNICIAN) Narrative 06/20/2020 3:44 PM AVIATION TECHNICIAN Order Auto Finalized. Please see associated Operative Report/Progress Note from the same date. Marito Boyer MD IR ORDERABLES Final R esult documented in this encounter Visit Diagnoses Diagnosis AAA (abdominal aortic aneurysm) without rupture Abdominal aneurysm without mention of rupture AAA (abdominal aortic aneurysm) without rupture Abdominal aneurysm without mention of rupture documented in this encounter Care Teams Hot Saw Helper Relationship Specialty Start Date End Date Andrey Lanza MD NO ADDRESS ON FILE PCP - General 11/27/07 documented as of this encounter
--- OUTSIDE RECORDS SUMMARY | 2024-12-25 08:02 | XMS_ITS | Encounter Summary ---
Author Organization [facility] Address [address] [place] [address] Care Team Providers Care Science Specialist Name Role Phone Andrey Lanza MD Primary Care Provider Emily doran Encounter Details Date Type Department Care Team (Late st Contact Info) Description 10/24/2000 Outpatient Historical [facility] Mark Chavez MD NO ADDRESS ON FILE Calculus of bile duct without mention of cholecystitis or obstruction (Primary Dx) Social History Tobacco Use Types Packs/Day Years Used Date Smoking Tobacco: Never Assessed Comments Unknown Sex and Gender Information Value Date Recorded Sex Assigned at Not on file Legal Sex 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
--- OUTSIDE RECORDS SUMMARY | 2024-12-25 08:02 | XMS_ITS | Encounter Summary ---
Author Organization [facility] Address [address] Alvarez: Epic Prelude ADT [place] [address] Care Team Providers Care Dog And Cat Food Cook Name Role Phone Andrey Lanza MD Primary Care Provider Unavailab le Encounter Details Date Type Department Care Team (Late st Contact Info) Description 09/30/2000 Outpatient Historical Mark Chavez MD NO ADDRESS ON FILE Social History Tobacco Use Types Packs/Day Years Used Date Smoking Tobacco: Never Assessed Comments Unknown Sex and Gender Information Value Date Recorded Sex Assigned at Not on file Legal Sex Female 3:41 AM VP STRATEGY Gender Identity Not on file Sexual Orientation Not on file documented as of this encounter Plan of Treatment Not on file documented as of this encounter Visit Diagnoses Not on filedocumented in this encounter Care Teams Dog And Cat Food Cook Relationship Specialty Start Date End Date Andrey Lanza MD NO ADDRESS ON FILE PCP - General 11/27/07 documented as of this encounter
--- OUTSIDE RECORDS SUMMARY | 2024-12-25 08:02 | XMS_ITS | Clinical Summary ---
Author Organization [facility] tone Address [address] [place] [address] Care Team Providers Care Soap Slabber Name Role Phone Andrey Lanza MD Primary Care Provider Unavailab le Allergies No known active allergies Medications ALPRAZolam (XANAX) 0.25 mg tablet TAKE 1 TABLET BY MOUTH AT BEDTIME NEEDED FOR SLEEP 0 Active amLODIPine (NORVASC) 5 mg tablet Take 5 mg by mouth 2 times daily. BID 0 Active Ascorbic Acid (Vitamin C) 500 mg Capsule, Sustained Release Active aspirin (MARIA LUISA) 325 mg tablet Take 325 mg by mouth daily. Active atorvastatin (LIPITOR) 80 mg tablet Take 80 mg by mouth daily with supper. 0 Active Cholecalciferol , Vitamin D3, (Vitamin D3) 10 mcg (400 unit) capsule Active cloNIDine HCL (CATAPRES) 0.2 mg tablet Take 0.2 mg by mouth 3 times daily. 0 Active clopidogreL (PLAVIX) 75 mg Tablet Take 75 mg by mouth daily. 0 Active furosemide (LASIX) 20 mg tablet Take 20 mg by mouth daily. May take twice daily if needed 0 Active hydroCHLOROthia zide 25 mg tablet Take 25 mg by mouth daily. 0 Active labetaloL (NORMODYNE) 200 mg tablet Take 200 mg by mouth 2 times daily. 0 Active levothyroxine 75 mcg tablet Take 75 mcg by mouth daily. Odd days alternating with 88 mcg on even days 0 Active levothyroxine 88 mcg tablet Take 88 mcg by mouth daily. Alternate with 75 mcg 0 Active lisinopriL (PRINIVIL) 40 mg tablet Take 40 mg by mouth daily. 0 Active meclizine (Motion Sickness, Meclizine,) 25 mg tablet Take 25 mg by mouth 3 times daily as needed. Active vitamin E 400 unit capsule Active folic acid (FOLVITE) 400 mcg Tablet Take 400 mcg by mouth daily. 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 05/17/2020 Atherosclerosis of [place] of both lower extremities with intermittent claudication 05/17/2020 Iliac artery stenosis, bilateral 05/17/2020 Bilateral femoral artery stenosis 05/17/2020 Smoking 05/17/2020 Penetrating atherosclerotic ulcer of aorta 05/17 Renal artery occlusion right side 05/17/2020 Dyspnea on exertion 05/17/2020 Resolved Problems Problem Noted Date Diagnosed Date Resolved Date Hypokalemia 06/24/2020 06/26/2020 Lower GI bleed 06/24/2020 06/26/2020 Femoral artery occlusion, right 06/24/2020 06/26/2020 Aortoiliac occlusive disease 05/17/2020 06/26/2020 Iliac artery aneurysm, right 05/17/2020 06/26/2020 Immunizations Immunization Administration Dates Next Due Influenza Seasonal Unspecified Formulation IM Social History Tobacco Use Types Packs/Day Years Used Date Smoking Tobacco: Every Day Cigarettes 0.5 40 Smokeless Tobacco: Never Comments:Currently smokes .5 ppd - 05/17/20 Alcohol Use Standard Drinks/Week Comments Not Currently 0 (1 standard drink = 0.6 oz pur e alcohol) Comments No Sex and Gender Information Value Date Recorded Sex Assigned at Not on file Legal Sex Female 3:41 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 DESIGNER Gender Identity Not on file Sexual Orientation Not on file Last Filed Vital Signs Vital Sign Reading Time Taken Comments Blood Pressure 128/60 11/18/2020 11:08 AM CDT Pulse 66 11/18/2020 11:08 AM CDT Temperature 37.3 C (99.1 F) 06/26/2020 8:02 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 DESIGNER Respiratory Rate 18 06/26/2020 8:02 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 DESIGNER Oxygen Saturation 96% 11/18/2020 11:08 AM CDT Inhaled Oxygen Concentration - - Weight 61.2 kg (135 lb) 11/18/2020 11:08 AM CDT Height 154.9 cm (5' 1 ) 08/09/2020 12:46 PM INSTRUMENT DESIGNER Body Mass Index 25.51 08/09/2020 12:46 PM INSTRUMENT DESIGNER Plan of Treatment Health Maintenance Due Date Last Done Comments DTAP/TDAP/TD VACCINES (1 - Tdap) 02/02/1963 PNEUMOCOCCAL VACCINE 50+ YEARS (1 of 2 - PCV) 02/02/19 63 ZOSTER VACCINE (1 of 2) 02/02/1994 OSTEOPOROSIS SCREENING 02/02/2009 RSV VACCINE (60+ or ) (1 - 1-dose 75+ series) 02/02/2019 INFLUENZA VACCINE (#1) 2025 03/02/2020 Medical Devices Implanted Type Area Forest Engineer Device Identifier Shelf Expiration Date Model / Serial / Lot Closure Perclose Proglide 88640 - [id number] Implanted:Qty: 1 on 06/20/2020 by Marito Boyer MD at [facility] Closure Device Left: Arterial LEE- VASC DEVICE [id number] 02/14/2022 [id number] / / [id number] Closure Perclose Proglide 27818 - [id number] Implanted:Qty: 1 on 06/20/2020 by Marito Boyer MD at [facility] Closure Device Left: Arterial LEE- VASC DEVICE [id number] 02/14/2022 56799 / / 06/18/03 1 Angio-Seal Vip Closure Dev [id number] - [id number] Implanted:Qty: 1 on 06/20/2020 by Marito Boyer MD at [facility] Closure Device Right: Groin LEE [employer] [id number] 02/14/2021 [id number] / / [id number] Coil Azur Cx Detach 035 19cm [id number] - [id number] Implanted:Qty: 1 on 06/20/2020 by Marito Boyer MD at [facility] Coil Right: Arterial TERUMO- Living Indie DANIEL 06/16/2024 [id number] Description:Right hypogastri c artery Coil Azur Cx Detach 035 19cm [id number] - [id number] Implanted:Qty: 1 on 06/20/2020 by Marito Boyer MD at [facility] Coil Right: Arterial TERUMO- MED DANIEL 11/14/2024 [id number] Description:Right hypogastri c artery Stent Afx Ii Bifur Czg20-32/I16-4 0 - [id number] Implanted:Qty: 1 on 06/20/2020 by Marito Boyer MD at [facility] Stent N/A: Aorta [employer] 11/26/2022 FAN97-10 /I16-40 / [id number] / Stent Lifestream [id number] - [id number] Implanted:Qty: 1 on 06/20/2020 by Marito Boyer MD at [facility] Stent Right: Iliac Artery CR BARD- DERRICK [employer]ASC [employer] [id number] 01/14/2023 [id number] / / [id number] Description:Right external i liac Stent Lifestream [id number] - [id number] Implanted:Qty: 1 on 06/20/2020 by Marito Boyer MD at [facility] Stent Right: Iliac Artery CR BARD- DERRICK [employer]ASC INC [id number] 03/16/2023 [id number] 858 / / [id number] Stent Lifestream Cvr 2b80u16 [id number] - [id number] Implanted:Qty: 1 on 06/20/2020 by Marito Boyer MD at [facility] Stent Right: Iliac Artery CR BARD- DERRICK [employer]ASC [employer] [id number] 06/16/2022 [id number] / / [id number] Stent Lifestream Cvr [id number] - [id number] Implanted:Qty: 1 on 06/24/2020 by Marito Boyer MD at [facility] Stent Left: Leg CR BARD- DERRICK [employer]ASC INC [id number] / / Insurance [facility] DUAL COMPLETE MCR PPO D-SNP RX OPTUM RX Member Subscriber Plan / Payer (Ef fective 2015-Present) Name:Viry Castillo Relation to Subscriber:Self Name:VIRY CASTILLO Payer ID:Not on file Group ID:[id number] Type:RX Medicare Part D Address: [address] Advance Directives For more information, please contact: [phone] Documents on File Type Date Recorded 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
--- OUTSIDE RECORDS SUMMARY | 2024-12-25 08:02 | XMS_ITS | Encounter Summary ---
Author Organization [facility] Address [address] [place] [address] Care Team Providers Care Delinquency Prevention Social Worker Name Role Phone Andrey Lanza MD Primary Care Provider Emily doran Encounter Details Date Type Department Care Team (Latest Contact Info) Description 09/25/2000 Outpatient Historical [facility] Gen Spec Surg [place] [address] [place] [address] Mark Drummond MD NO ADDRESS ON FILE Calculus of gallbladder and bile duct with acute cholecystitis, without mention of obstruction (Primary Dx); Follow-up examination, following unspecified surgery Social History Tobacco Use Types Packs/Day Years Used Date Smoking Tobacco: Never Assessed Comments Unknown Sex and Gender Information Value Date Recorded Sex Assigned at Not on file Legal Sex Female 3:41 AM SECOND RIGGER Gender Identity Not on file Sexual Orientation Not on file documented as of this encounter Plan of Treatment Not on file documented as of this encounter Visit Diagnoses Diagnosis Calculus of gallbladder and bile duct with acute cholecystitis, without mention of obstruction- Primary Follow-up examination, following unspecified surgery documented in this encounter Care Teams Delinquency Prevention Social Worker Relationship Specialty Start Date End Date Andrey Lanza MD NO ADDRESS ON FILE PCP - General 11/27/07 documented as of this encounter
--- OUTSIDE RECORDS SUMMARY | 2024-12-25 08:02 | XMS_ITS | Encounter Summary ---
Author Organization [facility] Address [address] [place] [address] Care Team Providers Care Catering Chef Name Role Phone Andrey Lanza MD Primary Care Provider Unavailab le Reason for Referral * Radiology Services (Routine) - Closed Specialty Diagnoses / Procedures Referred By Contac t Referred To Contact Diagnoses Aortoiliac occlusive disease (CMS/HCC) Iliac artery aneurysm Iliac artery stenosis, bilateral Penetrating ulcer of aorta Procedures US AORTA IVC ILIAC DUPLEX LTD Rochelle Rodriguez NP Phone: tel: fax: Referral ID Status Reason Start Date Expiration Date Visits Re quested Visits Authorized [id number] Closed 08/03/2020 09/03/2021 1 1 TECHNOLOGIST * Radiology Services (Routine) - Closed Specialty Diagnoses / Procedures Referred By Contac t Referred To Contact Diagnoses Aortoiliac occlusive disease (CMS/HCC) Iliac artery aneurysm Iliac artery stenosis, bilateral Penetrating ulcer of aorta Procedures US AORTA Rochelle Rodriguez NP Phone: tel: fax: Referral ID Status Reason Start Date Expiration Date Visits Re quested Visits Authorized [id number] Closed 08/03/2020 09/03/2021 1 1 TECHNOLOGIST Encounter Details Date Type Department Care Team (Late st Contact Info) Description 08/03/2020 Ancillary Orders [facility] Cardiac Thoracic Vascular Surg [place] [address] [place] [id number] Rochelle Rodriguez, CRISTIANA [address] [place] [id number] Aortoiliac occlusive disease (CMS/HCC); Iliac artery aneurysm; Iliac artery stenosis, bilateral; Penetrating ulcer of aorta Social History Tobacco Use Types Packs/Day Years Used Date Smoking Tobacco: Every Day Cigarettes 0.5 40 Smokeless Tobacco: Never Comments:Currently smokes .5 ppd - 05/17/20 Alcohol Use Standard Drinks/Week Comments Not Currently 0 (1 standard drink = 0.6 oz pur e alcohol) Comments No Sex and Gender Information Value Date Recorded Sex Assigned at Not on file Legal Sex Female 3:41 AM CYTOTECHNOLOGIST Gender Identity Not on file Sexual Orientation Not on file documented as of this encounter Plan of Treatment Not on file documented as of this encounter Results * US AORTA IVC ILIAC DUPLEX LTD (08/09/2020 1:25 PM CYTOTECHNOLOGIST) Anatomical Region Laterality Modality Abdomen Ultrasound 08/09/2020 1:25 PM CYTOTECHNOLOGIST Narrative 08/10/2020 12:15 PM CYTOTECHNOLOGIST See the ultrasound of the aorta obtained on the same day for the images and full report (accession number [id number]). Procedure Note Barron Ca MD - 08/10/2020 See the ultrasound of the aorta obtained on the same day for the images and full report (accession number [id number]). us Rochelle Rodriguez NP US ORDERABLES Final Resul t * US AORTA (08/09/2020 1:25 PM CYTOTECHNOLOGIST) Anatomical Region Laterality Modality Abdomen Ultrasound 08/09/2020 1:25 PM CYTOTECHNOLOGIST Impressions 08/11/2020 6:14 AM CYTOTECHNOLOGIST IMPRESSION: 1. Endovascular repair of the infrarenal abdominal aorta and bilateral common iliac arteries. The aorta measures 2.1 x 2.4 cm. 2. Velocities suggest a possible due to a significant stenosis in the right external iliac artery or right external iliac artery. 3. 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 Narrative 08/11/2020 6:14 AM CYTOTECHNOLOGIST EXAM: US AORTA, DIAGNOSIS/REASON FOR EXAM: Aortoiliac occlusive disease; Iliac artery aneurysm; Iliac artery stenosis, bilateral; Penetrating ulcer of aorta. DATE: 08/09/2020. COMPARISON: None. TECHNIQUE: Real-time multiplanar ultrasonography of the aorta using saldivar-scale imaging, supplemented by color and spectral Doppler. FINDINGS: There are postsurgical changes of an endovascular repair of an infrarenal abdominal aorta and bilateral common iliac arteries. Vascular flow is demonstrated within the endovascular stent graft and its limbs. Aortic diameter: * Proximal: 2.1 x 2.5 cm * Mid: 1.6 x 1.6 cm * Distal: 2.1 x 2.4 cm Right common iliac artery diameter: 1.2 cm Left common iliac artery diameter: 1.1 cm Proximal aorta: 0.55 m/s. Right renal artery: 1.5 m/s. Left renal artery: 2.2 m/s. Aorta, proximal stent: 0.53 m/s. Aorta, stent body: 0.63 m/s. Right common iliac artery, proximal: Not visualized. Right common iliac artery, mid: 0.80 m/s. Right common iliac artery, distal: 0.80 m/s. Right internal iliac artery: Not visualized. Right external iliac artery: 2.2 m/s. Right common femoral artery: 2.2 m/s. Right superficial femoral artery: Not visualized. Right profunda femoral artery: Not visualized. Left common iliac artery, proximal: 0.9 m/s. Left common iliac artery, mid: 0.9 m/s. Left common iliac artery, distal: 1.3 m/s. Left internal iliac artery: Not visualized. Left external iliac artery: 1.4 m/s. Left common femoral artery: 1.2 m/s. Left superficial femoral artery: 1.0 m/s. Left profunda femoral artery: 0.5 m/s. Other: In the subcutaneous tissue of the left groin adjacent to the femoral vessels, there is a 2.7 x 1.9 x 2.7 cm ovoid well-circumscribed heterogeneous lesion. No vascular flow is seen within this lesion. Procedure Note Roby, Barron Ross, MD - 08/11/2020 EXAM: US AORTA, DIAGNOSIS/REASON FOR EXAM: Aortoiliac occlusive disease; Iliac artery aneurysm; Iliac artery stenosis, bilateral; Penetrating ulcer of aorta. DATE: 08/09/2020. COMPARISON: None. TECHNIQUE: Real-time multiplanar ultrasonography of the aorta using saldivar-scale imaging, supplemented by color and spectral Doppler. FINDINGS: There are postsurgical changes of an endovascular repair of an infrarenal abdominal aorta and bilateral common iliac arteries. Vascular flow is demonstrated within the endovascular stent graft and its limbs. Aortic diameter: * Proximal: 2.1 x 2.5 cm * Mid: 1.6 x 1.6 cm * Distal: 2.1 x 2.4 cm Right common iliac artery diameter: 1.2 cm Left common iliac artery diameter: 1.1 cm Proximal aorta: 0.55 m/s. Right renal artery: 1.5 m/s. Left renal artery: 2.2 m/s. Aorta, proximal stent: 0.53 m/s. Aorta, stent body: 0.63 m/s. Right common iliac artery, proximal: Not visualized. Right common iliac artery, mid: 0.80 m/s. Right common iliac artery, distal: 0.80 m/s. Right internal iliac artery: Not visualized. Right external iliac artery: 2.2 m/s. Right common femoral artery: 2.2 m/s. Right superficial femoral artery: Not visualized. Right profunda femoral artery: Not visualized. Left common iliac artery, proximal: 0.9 m/s. Left common iliac artery, mid: 0.9 m/s. Left common iliac artery, distal: 1.3 m/s. Left internal iliac artery: Not visualized. Left external iliac artery: 1.4 m/s. Left common femoral artery: 1.2 m/s. Left superficial femoral artery: 1.0 m/s. Left profunda femoral artery: 0.5 m/s. Other: In the subcutaneous tissue of the left groin adjacent to the femoral vessels, there is a 2.7 x 1.9 x 2.7 cm ovoid well-circumscribed heterogeneous lesion. No vascular flow is seen within this lesion. IMPRESSION: 1. Endovascular repair of the infrarenal abdominal aorta and bilateral common iliac arteries. The aorta measures 2.1 x 2.4 cm. 2. Velocities suggest a possible due to a significant stenosis in the right external iliac artery or right external iliac artery. 3. 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 us Rochelle Rodriguez NP US ORDERABLES Final Resul t documented in this encounter Visit Diagnoses Diagnosis Aortoiliac occlusive disease (CMS/HCC) Other arterial embolism and thrombosis of abdominal aorta Iliac artery aneurysm Aneurysm of iliac artery Iliac artery stenosis, bilateral Stricture of artery Penetrating ulcer of aorta Aortoiliac occlusive disease (CMS/HCC) Other arterial embolism and thrombosis of abdominal aorta Iliac artery aneurysm Aneurysm of iliac artery Iliac artery stenosis, bilateral Stricture of artery Penetrating ulcer of aorta Aortoiliac occlusive disease (CMS/HCC) Other arterial embolism and thrombosis of abdominal aorta Iliac artery aneurysm Aneurysm of iliac artery Iliac artery stenosis, bilateral Stricture of artery Penetrating ulcer of aorta documented in this encounter Care Teams Catering Chef Relationship Specialty Start Date End Date Andrey Lanza MD NO ADDRESS ON FILE PCP - General 11/27/07 documented as of this encounter
--- OUTSIDE RECORDS SUMMARY | 2024-12-25 08:02 | XMS_ITS | Encounter Summary ---
Author Organization [facility] Address [address] [facility] Attn: Epic Prelude ADT [place] [address] Care Team Providers Care Real Estate Utilization Officer Name Role Phone Andrey Lanza MD Primary Care Provider Unavailab le Encounter Details Date Type Department Care Team (Late st Contact Info) Description 09/19/2000 Outpatient Historical Mark Drummond MD NO ADDRESS ON FILE Social History Tobacco Use Types Packs/Day Years Used Date Smoking Tobacco: Never Assessed Comments Unknown Sex and Gender Information Value Date Recorded Sex Assigned at Not on file Legal Sex Female 3:41 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
--- OUTSIDE RECORDS SUMMARY | 2024-12-25 08:02 | XMS_ITS | Encounter Summary ---
Author Organization [facility] Address [address] [place] [address] Care Team Providers Care Clinical Technologist Name Role Phone Andrey Lanza MD Primary Care Provider Emily le Encounter Details Date Type Department Care Team (Latest Contact Info) Description 09/13/2000 Outpatient Historical [facility] Gen Spec Surg [place] 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
--- OUTSIDE RECORDS SUMMARY | 2024-12-25 08:02 | XMS_ITS | Encounter Summary ---
Author Organization [facility] Address [address] [place] [address] Care Team Providers Care Long Winder Tender Name Role Phone Andrey Lanza MD Primary Care Provider Emily doran Encounter Details Date Type Department Care Team (Latest Contact Info) Description 10/24/2000 Outpatient Historical [facility] Mark Chavez MD NO ADDRESS ON FILE Obstruction of bile duct (CMS/HCC) (Primary Dx) Social History Tobacco Use Types Packs/Day Years Used Date Smoking Tobacco: Never Assessed Comments Unknown Sex and Gender Information Value Date Recorded Sex Assigned at Not on file 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
--- OUTSIDE RECORDS SUMMARY | 2024-12-25 08:03 | XMS_ITS | Patient Health Record ---
Author Organization [facility] Address [address] [place], [place] [id number] Care Team Providers Care Air Support Control Officer Name Role Phone Jean Claude Nayak MD Primary Care Provider Yessica De La Fuente MD, Mom[place] Unavailable [phone] Demetrius George MD Unavailable Unavailable Allergies No Known Allergies Reason For Referral No Information Medications Medication SIG (Take, Route, Frequency, Duration) Notes Start Date End Date Status furosemide 20 mg 2 tab(s) orally once a day, as needed for swelling Active Vitamin B-12 1000 mcg 1 tab(s) orally on ce a day for 30 day(s) Active Folate as directed Active Tylenol PM as needed/directed Active clopidogrel 75 mg 1 tab(s) orally once a day for 30 day(s) Active Tylenol Extra Strength 500 mg 1 tab oral ly Q6H prn pain Active potassium chloride 20 mEq 1 tab(s) orall y once a day Active levothyroxine 88 mcg (0.088 mg) 1 tab(s) orally once a day for 30 day(s) Active labetalol 200 mg 1 tab(s) orally 2 times a day for 30 day(s) Active vitamin E 1000 intl units 1 cap(s) orall y once a day for 30 day(s) Active ibuprofen 200 mg 1 tab orally Q6H prn pain Active Vitamin D3 125 mcg 1 cap(s) orally once a day for 30 day(s) Active hydroCHLOROthiazide 25 mg 1 tab(s) orall y once a day for 30 day(s) Active Vitamin C 1000 mg 1 tab(s) orally once a day for 30 day(s) Active Alexsandra Aspirin 325 mg 1 tab(s) orally as directed Active atorvastatin 80 mg 1 tab(s) orally once a day for 30 day(s) Active metFORMIN 500 mg 1 tab(s) orally once a day Active amLODIPine 5 mg 1 tab(s) orally once a day for 30 day(s) Active meclizine 25 mg 1 tab(s) orally as directed Active ALPRAZolam 0.25 mg 1 tab(s) orally at bedtime Active lisinopril 40 mg 1 tab(s) orally once a day for 30 day(s) Active Social History Tobacco Use: Social History Observation Description Date Details (start date - stop date) Current Smoker NA - NA alcohol Question Answer Notes Did you have a drink containing alcohol in the p ast year? No Points 0 Interpretation Negative Tobacco use: Question Answer Notes : current smoker Are you interested in quitting? Ready to quit How many cigarettes a day do you smoke? 6-10 How often do you smoke cigarettes? every day How soon after you wake up do you smoke your fir st cigarette? 6-30 min When did you start smoking? 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) Active confirmed Problem Long-term current use of drug therapy (938685131) Other chcf (current) drug therapy (Z79.899) Active confirmed Problem History of artificial joint (331174999) Presence of left artificial hip joint (Z96.642) Active confirmed Problem Low back pain (finding) (606447292) Vertebrogenic low back pain (M54.51) Active confirmed Plan Of Treatment No Information Insurance Providers Payer Name Payer Address Payer Phone Subscriber Number Group Number Insured Name Patient Relationship to Insured Coverage Start Date Coverage End Date MEDICARE [facility] [address] [address] [place] [phone] [id number] Viry Alvarado nd Self - patient is the insured Medical (General) History Medical History History ICD Code Chronic pain Low back pain Lumbar spondylosis, disc disease, scolio sis and spinal stenosis Sacroiliitis Remote 20% T12 compression fracture Severe arterial vascular problems / jose pheral vascular disease Diabetes mellitus Hypertension Thyroid hormone Rx use Tobacco use, possible COPD Sleep disorder, hypersomnia Surgical History Surgery Date(Month/Year) Cholecystectomy Tonsillectomy, 1959 section, 1976 Placement of stents, performed at [facility] in [place], [place], 10/2020 Total hip arthroplasty, left , performed at [facility] in [place], [place] by Dr. Haroon George, 10/2021
--- OUTSIDE RECORDS SUMMARY | 2024-12-25 08:03 | XMS_ITS | Clinical Summary ---
Author Organization [facility] tone Address [address] [place] [address] Care Team Providers Care Leather Toggler Name Role Phone Jean Claude Nayak MD Primary Care Provider [phone] Allergies No known active allergies Medications folic acid (FOLVITE) 400 mcg Tablet Take 400 mcg by mouth daily. 05/17/20 Active ALPRAZolam (XANAX) 0.25 mg tablet Take 0.25 mg by mouth daily at bedtime. 04/27/20 Active Ascorbic Acid 500 mg Capsule, Sustained Release Take 500 mg by mouth daily. Active atorvastatin (LIPITOR) 80 mg tablet Take 80 mg by mouth daily with supper. 04/27/20 Active Cholecalcifero l, Vitamin D3, (VITAMIN D3) 10 mcg (400 unit) capsule Take 1 Capsule by mouth daily. Active cloNIDine HCL (CATAPRES) 0.2 mg tablet Take 0.2 mg by mouth 3 times daily. 04/28/20 Active clopidogreL (PLAVIX) 75 mg Tablet Take 75 mg by mouth daily. 04/27/20 Active furosemide (LASIX) 20 mg tablet Take 40 mg by mouth daily. 02/26/20 Active hydroCHLOROthi azide 25 mg tablet Take 25 mg by mouth daily. 02/26/20 Active labetaloL (NORMODYNE) 200 mg tablet Take 200 mg by mouth 3 times daily. 04/27/20 Active levothyroxine 75 mcg tablet Take 75 mcg by mouth daily. 03/31/20 Active levothyroxine 88 mcg tablet Take 88 mcg by mouth daily. 03/31/20 Active lisinopriL 20 mg tablet (PRINIVIL) Take 10 mg by mouth daily. 02/26/20 Active meclizine (ANTIVERT) 25 mg tablet Take 25 mg by mouth every 8 hours as needed. Active vitamin E 400 unit capsule Active potassium chloride (KLOR-CON) 20 mEq Extended Release tablet Take 20 mEq by mouth daily. 08/04/19 Active acetaminophen (TYLENOL) 500 mg tablet Take 1,000 mg by mouth every 8 hours as needed for Pain. Active metFORMIN (GLUCOPHAGE) 500 mg tablet Take 1 Tablet by mouth daily. 03/28/20 Active aspirin (MARIA LUISA CHEWABLE) 81 mg Tablet, Chewable Take 1 Tablet (81 mg) by mouth daily. 90 Tablet 3 12/12/19 Active amLODIPine (NORVASC) 5 mg tablet Take 1 Tablet (5 mg) by mouth daily. 30 Tablet 12/14/2024 4:12 PM CDT 12/16/19 25 025 Active amLODIPine (NORVASC) 5 mg tablet Take 5 mg by mouth 2 times daily. 02/26/20 025 Discontinued(To ld by provider to stop) aspirin (MARIA LUISA) 325 mg tablet Take 325 mg by mouth daily. 05/17/20 025 Discontinued Active Problems Problem Noted Date Diagnosed Date Peripheral arterial disease with history of revascularization 12/11/2024 Hypertensive urgency 12/11/2024 Silicatosis 03/14/2023 Status post total hip replacement, left 09/03/19 22 Dissection of femoral artery 06/26/2020 Femoral artery occlusion, right 06/24/2020 Lower GI bleed 06/24/2020 Pseudoaneurysm following procedure 05/17/2020 Femoral artery stenosis, right 05/17/2020 Renal artery occlusion right side 05/17/2020 Iliac artery stenosis, bilateral 05/17/2020 Penetrating atherosclerotic ulcer of aorta 05/17 Atherosclerosis of [place] of both lower extremities with intermittent claudication 05/17/2020 Smoking 05/17/2020 Dyspnea on exertion 05/17/2020 Thromboembolism PVD (peripheral vascular disease) Hypothyroidism Hyperlipidemia HTN (hypertension) Arthritis Anxiety Preop general physical exam Primary osteoarthritis of left hip Former smoker S/P insertion of iliac artery stent Resolved Problems Problem Noted Date Diagnosed Date Resolved Date Hypokalemia 06/24/2020 06/26/2020 Femoral artery occlusion, right 06/24/2020 06/26/2020 Lower GI bleed 06/24/2020 06/26/2020 Aortoiliac occlusive disease 05/17/2020 06/26/2020 Iliac artery aneurysm, right 05/17/2020 06/26/2020 Encounters Date Type Department Care Team Description 12/15/2024 External Device Data STL ABSTRACTION Provider, Abstract 12/15/2024 External Device Data STL ABSTRACTION Provider, Abstract 12/11/2024 2:43 PM CDT Anesthesia Event [facility] Operating Room [facility] [place] [phone] Micki Galindo MD Delahay, David M, MD 12/11/2024 1:38 PM CDT - 12/11/2024 3:29 PM CDT Surgery [facility] Operating Room [address] [place] [phone] Madan Dodge MD FEMORAL ANGIOGRAPHY WITH INTERVENTION 12/11/2024 8:05 AM CDT - 12/14/2024 4:18 PM CDT Hospital Encounter [facility] 3E Surgical Intensive Care [address] [place] [phone] Madan Dodge MD Anand, Neesha, MD Melton, Gregory A, DO Kam, MD Luis Peripheral arterial disease with history of revascularization Discharge Disposition: Home or Self Care 12/11/2024 6:47 AM CDT - 12/11/2024 11:59 PM CDT Hospital Encounter [facility] Interventional Radiology OR [address] [phone] Madan Dodge MD Discharge Disposition: Home or Self Care 12/09/[address] [facility] Vascular Surgery [place] [address] [place] [phone] Madan Dodge MD Surgery 12/07/2024 10:30 AM CDT - 12/07/2024 11:59 PM CDT Hospital Encounter [facility] Outpatient Laboratory Services [address] [phone] Madan Dodge MD Discharge Disposition: Home or Self Care 12/07/2024 10:28 AM CDT - 12/07/2024 11:59 PM CDT Hospital Encounter [facility] Respiratory Therapy Services [address] [phone] Madan Dodge MD Discharge Disposition: Home or Self Care 12/04/2024 1:45 PM CDT Office Visit [facility] Vascular Surgery [address] [phone] Madan Dodge MD Peripheral arterial disease with history of revascularization (Primary Dx); Tobacco abuse disorder; Encounter for pre-operative examination; Abnormal coagulation profile 12/04/2024 12:30 PM CDT Ancillary Procedure [facility] V[facility] Lab and [facility] Center[address] [phone] Madan Dodge MD Iliac artery stenosis, bilateral; Femoral artery occlusion, right; S/P insertion of iliac artery stent 12/04/2024 12:00 PM CDT Ancillary Procedure [facility] [phone] Madan Dodge MD Bilateral carotid artery stenosis 12/04/[address] [facility] Vascular Surgery [address] [phone] Madan Dodge MD Surgery Talk 11/05/2024 External Device Data STL ABSTRACTION Provider, Abstract 11/05/2024 External Device Data STL ABSTRACTION Provider, Abstract 11/04/2024 External Device Data STL ABSTRACTION Provider, Abstract 10/23/[address] [facility] Vascular Surgery [address] [phone] Madan Dodge MD Iliac artery stenosis, bilateral (Primary Dx); Femoral artery occlusion, right; S/P insertion of iliac artery stent; Bilateral carotid artery stenosis 10/22/[address] [facility] Vascular Surgery [place] [address] [place] [address] Romero Alvarez MD Needs Appointment 09/29/2024 External Device Data STL ABSTRACTION Provider, Abstract from Last 3 Months Immunizations Immunization Administration Dates Next Due (PREVNAR 20)(6 WKS UP) PNEUM OCOCCAL CONJUGATE VACCINE 20-VALENT (PCV20), POLYSACCHARIDE [id number] CONJUGATE, ADJUVANT 0.5 ML (PF) IM 03/04/2024,02/24/2022 INFLUENZA VACCINE HIGH DOSE QUADRIVALENT 65 YR UP PF IM 02/26/2023,02/24/2022 Influenza Seasonal Unspecified Formulation IM Family History Medical History Relation Name Comments Diabetes Brother Pop Leblanc No Known Problems Daughter 1 No Known Problems Daughter 2 Diabetes Mother Princess Leblanc Heart Disease Mother Princess Leblanc Hypertension Mother Princess Leblanc No Known Problems Son Relation Name Status Comments Brother Pop Leblanc Daughter 1 Alive Daughter 2 Alive Father Mother Princess Leblanc Son Alive Social History Tobacco Use Types Packs/Day Years Used Date Smoking Tobacco: Every Day Cigarettes 0.3 60 Smokeless Tobacco: Never Tobacco Cessation:Ready to Q uit: Not Asked; Counseling Given: Not Answered Alcohol Use Standard Drinks/Week Comments Not Currently 0 (1 standard drink = 0.6 oz pur e alcohol) Feeling Safe Answer Date Recorded Are you in a relationship wi th someone who hurts you emotionally and/or physically? 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 CONSULTANT Gender Identity Not on file Sexual Orientation Not on file Last Filed Vital Signs Vital Sign Reading Time Taken Comments Blood Pressure 159/66 12/14/2024 3:00 PM CDT Pulse 67 12/14/2024 3:15 PM CDT Temperature 36.8 C (98.3 F) 12/14/2024 3:00 PM CDT Respiratory Rate 17 12/14/2024 3:30 PM CDT Oxygen Saturation 93% 12/14/2024 3:15 PM CDT Inhaled Oxygen Concentration - - Weight 54.8 kg (120 lb 13 oz) 12/14/2024 12:20 A M CDT Height 149.9 cm (4' 11 ) 12/11/2024 8:20 AM CDT Body Mass Index 24.4 12/11/2024 8:20 AM CDT Plan of Treatment Upcoming Encounters Date Type Department Care Team (Late st Contact Info) Description 01/28/2025 12:30 PM CDT Ancillary Procedure [facility] V[facility] Lab and Vein Center- [address] [phone] Madan Dodge MD [address] [place] [phone] 01/28/2025 1:45 PM CDT Office Visit [facility] Vascular Surgery [address] [phone] Madan Dodge MD [address] [place] [phone] Health Maintenance Due Date Last Done Comments DTAP/TDAP/TD VACCINES (1 - Tdap) 02/02/1963 ZOSTER VACCINE (1 of 2) 02/02/1994 OSTEOPOROSIS SCREENING 02/02/2009 RSV VACCINE (60+ or ) (1 - 1-dose 75+ series) 02/02/2019 COVID-19 Vaccine (5 - 2023-2 5 season) 2024 03/04/2024, 06/06/2021, 09/29/2020, Additional history exists INFLUENZA VACCINE (#1) 2025 , 02/24/2022, 03/02/2020 PNEUMOCOCCAL VACCINE 50+ YEARS Completed 03/04/2024 , 02/24/2022 Medical Devices Implanted Type Area Commutator Inspector Device Identifier Shelf Expiration Date Model / Serial / Lot Angio-Seal Vip Closure Dev [id number] - [id number] Implanted:Qty : 1 on 06/20/2020 by Marito Boyer MD Closure Device Right: Groin LEE [employer] [id number] 02/14/2021 [id number] / / [id number] Closure Perclose Proglide 04873 - [id number] Implanted:Qty : 1 on 06/20/2020 by Marito Boyer MD Closure Device Left: Arterial LEE- VASC DEVICE [id number] 02/14/2022 63700 / / [id number] Closure Perclose Proglide 67382 - [id number] Implanted:Qty : 1 on 06/20/2020 by Marito Boyer MD Closure Device Left: Arterial LEE- VASC DEVICE [id number] 02/14/2022 28535 / / 06/18/ Coil Azur Cx Detach 035 19cm [id number] - [id number] Implanted:Qty : 1 on 06/20/2020 by Marito Boyer MD Coil Right: Arterial TERUMO- MED DANIEL 11/14/2024 [id number] / / [id number] Description:Right hypogastri c artery Coil Azur Cx Detach 035 19cm 45-129146 - [id number] Implanted:Qty : 1 on 06/20/2020 by Marito Boyer MD Coil Right: Arterial TERUMO- MED DANIEL 06/16/2024 [id number] / / [id number] Description:Right hypogastri c artery Cup [place] Porocoat Acet Shell 52mm 1217-22-052 - [id number] Implanted:Qty : 1 on 08/30/2021 by Demetrius George MD at [facility] Hip Left: Hip J[employer]J- [employer] [id number] 06/16/2031 [id number] / / [id number] Liner [place] Altrx 81n03di Nutr 1221-36-052 - [id number] Implanted:Qty : 1 on 08/30/2021 by Demetrius George MD at [facility] Hip Left: Hip [employer] [id number] 06/16/2026 [id number] / / [id number] Head Fem Art/Jose Luis Cer Sz36 1365-36-320 - [id number] Implanted:Qty : 1 on 08/30/2021 by Demetrius George MD at [facility] Hip Left: Hip J&J- DEPUY KEIRA [id number] 03/16/2026 17314 6320 / / [id number] Stem Fem [place] Por Sz3 1570--090 - [id number] Implanted:Qty : 1 on 08/30/2021 by Demetrius George MD at [facility] Hip Left: Hip [employer] [id number] 12/14/2025 1570--090 / / [id number] Screw Canc [place] 6.5x50mm 1217-50-500 - [id number] Implanted:Qty : 1 on 08/30/2021 by Demetrius George MD at [facility] Screw Left: Hip J[employer] [id number] 12/14/2030 1217-50-500 / / [id number] Stent Afx Ii Bifur Vmx10-81/I16- 40 - [id number] Implanted:Qty : 1 on 06/20/2020 by Marito Boyer MD Stent N/A: Aorta [employer] INC 11/26/2022 XIS96-88/I1 6-40 / [id number] / Stent Lifestream [id number] - [id number] Implanted:Qty : 1 on 06/20/2020 by Marito Boyer MD Stent Right: Iliac Artery CR BARD[employer] DERRICK [employer] [id number] 01/14/2023 [id number] / / [id number] Description:Right external i liac Stent Lifestream [id number] - [id number] Implanted:Qty : 1 on 06/20/2020 by Marito Boyer MD Stent Right: Iliac Artery CR BARD[employer]ICK [employer] [id number] 03/16/2023 [id number] / / [id number] Stent Lifestream Cvr [id number] - [id number] Implanted:Qty : 1 on 06/20/2020 by Marito Boyer MD Stent Right: Iliac Artery CR BARD[employer] [id number] 06/16/2022 [id number] / / [id number] Stent Lifestream Cvr [id number] - [id number] Implanted:Qty : 1 on 06/24/2020 by Marito Boyer MD Stent Left: Leg CR BARD[employer] [id number] / / Procedures Procedure Name Priority Date/Time Associated Diagnosis Comments TELEMETRY REPORT 12/15/2024 3:05 PM CDT POC GLUCOSE Routine 12/14/2024 11:11 AM CDT POC GLUCOSE Routine 12/14/2024 7:22 AM CDT POC GLUCOSE Routine 12/14/2024 3:05 AM CDT POC GLUCOSE Routine 12/13/2024 10:58 PM CDT POC GLUCOSE Routine 12/13/2024 7:26 PM CDT POC GLUCOSE Routine 12/13/2024 4:51 PM CDT POC GLUCOSE Routine 12/13/2024 11:17 AM CDT POC GLUCOSE Routine 12/13/2024 6:46 AM CDT BASIC METABOLIC PANEL Routine 12/13/2024 4:06 AM CDT CBC WITH DIFFERENTIAL Routine 12/13/2024 4:06 AM CDT POC GLUCOSE Routine 12/13/2024 3:56 AM CDT POC GLUCOSE Routine 12/13/2024 12:40 AM CDT POC GLUCOSE Routine 12/12/2024 7:55 PM CDT PT EVAL AND TREAT Pending Discharge 12/12/2024 6:28 PM CDT OT EVAL AND TREAT Pending Discharge 12/12/2024 6:28 PM CDT POC GLUCOSE Routine 12/12/2024 4:52 PM CDT POC GLUCOSE Routine 12/12/2024 10:58 AM CDT POC GLUCOSE Routine 12/12/2024 8:35 AM CDT POC GLUCOSE Routine 12/12/2024 4:51 AM CDT BASIC METABOLIC PANEL Routine 12/12/2024 4:43 AM CDT CBC WITH DIFFERENTIAL Routine 12/12/2024 4:43 AM CDT TROPONIN 6 HR, 5TH GEN Timed Study 12/12/2024 4:43 AM CDT POC GLUCOSE Routine 12/12/2024 1:06 AM CDT POC GLUCOSE Routine 12/11/2024 10:46 PM CDT TROPONIN 2 HR, 5TH GEN Timed Study 12/11/2024 10:44 PM CDT EKG 12-LEAD Pending Discharge 12/11/2024 9:03 PM CDT POC GLUCOSE Routine 12/11/2024 8:36 PM CDT TROPONIN BASELINE, 5TH GEN Stat 12/11/2024 8:32 PM CDT BASIC METABOLIC PANEL Routine 12/11/2024 8:32 PM CDT CBC WITHOUT DIFFERENTIAL Routine 12/11/2024 8:32 PM CDT POC GLUCOSE Routine 12/11/2024 4:54 PM CDT IR FLUORO OR OTHER Routine 12/11/2024 4: 49 PM CDT PVD (peripheral vascular disease) [place] TRLML BALO ANGIOP OPEN/PERQ IMG S&I 1ST ART 12/11/2024 1:38 PM CDT Peripheral vascular disease, unspecified CHG ANGIOGRAPHY EXTREMITY UNILATERAL RS&I 12/11/2024 1:38 PM CDT Peripheral vascular disease, unspecified TYPE AND SCREEN Routine 12/11/2024 9:19 AM CDT POC GLUCOSE Routine 12/11/2024 9:15 AM CDT PROTIME-INR Routine 12/07/2024 10:35 AM CDT Encounter for pre-operative examination Abnormal coagulation profile BASIC METABOLIC PANEL Routine 12/07/2024 10:35 AM CDT Encounter for pre-operative examination CBC WITH DIFFERENTIAL Routine 12/07/2024 10:35 AM CDT Encounter for pre-operative examination REFERENCE LAB PROCESSING FEE Routine 12/07/2024 10:35 AM CDT Preop general physical exam US DUPLEX ARTERIAL LEGS BILATERAL Routine 12/04/2024 1:09 PM CDT Iliac artery stenosis, bilateral Femoral artery occlusion, right S/P insertion of iliac artery stent US CAROTID DOPPLER Routine 12/04/2024 1: 09 PM CDT Bilateral carotid artery stenosis from Last 3 Months Results * TELEMETRY REPORT (12/15/2024 3:05 PM CDT) us Provider Scanning ECG ORDERABLES Final Result * (ABNORMAL) POC GLUCOSE (12/14/2024 11:11 AM CDT) Only the most recent of20 resultswithin the time period is included. GLUCOSE POC 145(H) 74 - 99 mg/dL 12/14/2024 11:11 AM CDT [facility] SPECIMEN SOURCE, GLUCOSE POC Capillary 12/14/2024 11:11 AM CDT [facility] Blood, whole 12/14/2024 11:1 1 AM CDT 12/14/2024 1:59 PM CDT Luis Acosta MD POINT OF CARE TESTING Final Resu lt [facility] # [id number] [facility] [address] * (ABNORMAL) CBC WITH DIFFERENTIAL (12/13/2024 4:06 AM CDT) Only the most recent of3 resultswithin the time period is included. Pathologist [facility] WBC 12.0(H) 4.8 - 10.8 K/uL 12/13/2024 4:13 AM T [facility] RBC 3.43(L) 4.20 - 5.40 M/uL 12/13/2024 4:13 AM [facility] HEMOGLOBIN 10.3(L) 12.0 - 16.0 g/dL 12/13/2024 4:13 AM T [facility] HEMATOCRIT 31.8(L) 36.0 - 46.0 % 12/13/2024 4:13 AM T [facility] MCV 92.7 84.0 - 103.0 fL 12/13/2024 4:13 AM T [facility] MCH 30.0 27.0 - 34.0 pg 12/13/2024 4:13 AM T [facility] MCHC 32.4 30.0 - 35.0 g/dL 12/13/2024 4:13 AM T [facility] PLATELETS 272 140 - 440 K/uL 12/13/2024 4:13 AM [facility] MPV 9.8 8.9 - 12.8 fL 12/13/2024 4:13 AM [facility] RDW 13.7 11.0 - 14.5 % 12/13/2024 4:13 AM [facility] RDW-STDEV 46.5 37.0 - 54.0 fL 12/13/2024 4:13 AM [facility] NEUTROPHILS 77(H) 42 - 75 % 12/13/2024 4:13 AM [facility] LYMPHOCYTES 15(L) 24 - 44 % 12/13/2024 4:13 AM [facility] MONOCYTES 7 2 - 10 % 12/13/2024 4:13 AM [facility] [employer] [facility] EOSINOPHILS 0 0 - 7 % 12/13/2024 4:13 AM [facility] BASOPHILS 0 0 - 1 % 12/13/2024 4:13 AM [facility] IMMATURE GRANULOCYTES 0 0 - 2 % 12/13/2024 4:13 AM [facility] NEUTROPHIL ABSOLUTE 9.26(H) 2.00 - 8.00 K/uL 12/13/2024 4:13 AM [facility] LYMPHOCYTE ABSOLUTE 1.83 1.20 - 4.00 K/uL 12/13/2024 4:13 AM [facility] MONOCYTE ABSOLUTE 0.84(H) 0.10 - 0.60 K/uL 12/13/2024 4:13 AM [facility] EOSINOPHIL ABSOLUTE 0.04 0.00 - 0.70 K/uL 12/13/2024 4:13 AM [facility] BASOPHILS ABSOLUTE 0.04 0.00 - 0.20 K/uL 12/13/2024 4:13 AM [facility] IMMATURE GRANULOCYTES ABSOLUTE 0.03 0.00 - 0.10 K/uL 12/13/2024 4:13 AM [facility] SMEAR REVIEWED: NA - Not Applicable 12/13/2024 4:13 AM CDT [facility] Blood Venipuncture / Unknown 12/13/2024 4:06 AM CDT 12/13/2024 4:08 AM CDT us Adrienne Howard NP HEMATOLOGY ORDERABLES Final Resu lt [facility] CLIA # [id number] [address] [place] [address] [place] [address] * (ABNORMAL) BASIC METABOLIC PANEL (12/13/2024 4:06 AM CDT) Only the most recent of4 resultswithin the time period is included. SODIUM 139 136 - 145 mmol/L 12/13/2024 4:44 AM [facility] POTASSIUM 3.8 3.5 - 5.1 mmol/L 12/13/2024 4:44 AM [facility] CHLORIDE 104 98 - 107 mmol/L 12/13/2024 4:44 AM [facility] CO2 25 22 - 29 mmol/L 12/13/2024 4:44 AM [facility] CALCIUM 8.9 8.8 - 10.2 mg/dL 12/13/2024 4:44 AM [facility] BUN 20 8 - 23 mg/dL 12/13/2024 4:44 AM [facility] CREATININE 1.03(H) 0.51 - 0.95 mg/dL 12/13/2024 4:44 AM [facility] Comment:The GFR result is no t clinically significant on patients <18 or >70 years of age. GLUCOSE 100(H) 74 - 99 mg/dL 12/13/2024 4:44 AM [facility] GFR 55 mL/min/1. 73 sq meter 12/13/2024 4:44 AM [facility] Comment:eGFR calculated with 2020 CKD-EPI equation. Vegetarian diet, extremely high or low muscle mass, and may affect results. Cystatin C with Glomerular Filtration Rate is a suitable alternative for these patients. ANION GAP 10 9 - 20 mmol/L 12/13/2024 4:44 AM CDT [facility] [employer] [facility] Blood Venipuncture / Unknown 12/13/2024 4:06 AM CDT 12/13/2024 4:11 AM CDT Adrienne Howard NP CHEMISTRY ORDERABLES Final Resul t Performing Organization Address [facility] Co de Phone Number [facility] CLIA # [id number] [address] [address] [place] [address] * (ABNORMAL) TROPONIN 6 HR, 5TH GEN (12/12/2024 4:43 AM CDT) TROPONIN T, 6 HR 5TH GEN 37(H) <11 ng/L 12/12/2024 5:31 AM CDT [facility] DELTA 6HR TROPONIN T 2 See Interp. 12/12/2024 5:31 AM CDT [facility] Blood Venipuncture / Unknown 12/12/2024 4:43 AM CDT 12/12/2024 4:56 AM CDT Narrative [facility] [employer] [facility] - 12/12/2024 5:31 AM CDT Troponin elevated. Delta indeterminate. Delay in collection of timed specimen beyond recommended collection interval. Results must be interpreted in clinical context. Padmini Rivera MD CHEMISTRY ORDERABLES Final Resul t Performing Organization Address [facility] Co de Phone Number [facility] CLIA # [id number] [address] [address] * (ABNORMAL) TROPONIN 2 HR, 5TH GEN (12/11/2024 10:44 PM CDT) TROPONIN T, 2 HR 5TH GEN 34(H) <=10 ng/L 12/11/2024 11:21 PM CDT [facility] DELTA 2HR TROPONIN T -1 See Interp. 12/11/2024 11:21 PM CDT [facility] Blood Venipuncture / Unknown 12/11/2024 10:44 PM CDT 12/11/2024 10:49 PM CDT Narrative [facility] LABORATORY [facility] - 12/11/2024 11:21 PM CDT Troponin elevated. Delta not changing. us Padmini Rivera MD CHEMISTRY ORDERABLES Final Resul t [facility] CLIA # [id number] [address] [place] [address] * EKG 12-LEAD (12/11/2024 9:03 PM CDT) 12/11/2024 9:03 PM CDT Narrative INTERFACE SYSTEM - 12/13/2024 12:58 PM CDT [address] [address] Test Date: 2024-12-11 Pat Name: VIRY ARIASAND Department: 12 Room: [address] [place] [address] Gender: Female Carpenter Foreman: [id number] : 1945 Requested By: Order Number: [id number] Reading MD: Tanna Hernandez Measurements Intervals [place] Rate: 84 P: 65 [place]: 174 QRS: -34 QRSD: 78 T: 104 QT: 420 QTc: 496 Interpretive Statements Normal sinus rhythm Left axis deviation Anterior infarct, age undetermined QTcB >= 480 msec Abnormal ECG Electronically Signed On 12-13-2024 12:58:29 CDT by Tanna Hernandez Procedure Note Provider, Historical - 12/13/[address] [address] Test Date: 2024-12-11 Pat Name: [facility] Department: 12 Room: [address] [place] [address] Gender: Female Carpenter Foreman: [id number] : 1945 Requested By: Order Number: [id number] Reading MD: Tanna Hernandez Measurements Intervals [place] Rate: 84 P: 65 [place]: 174 QRS: -34 QRSD: 78 T: 104 QT: 420 QTc: 496 Interpretive Statements Normal sinus rhythm Left axis deviation Anterior infarct, age undetermined QTcB >= 480 msec Abnormal ECG Electronically Signed On 12-13-2024 12:58:29 CDT by Tanna Hernandez Padmini Rivera MD ECG ORDERABLES Final Result INTERFACE SYSTEM Refer to clinic/hospital department * (ABNORMAL) TROPONIN BASELINE, 5TH GEN (12/11/2024 8:32 PM CDT) TROPONIN T, BASELINE 5TH GEN 35(H) <=10 ng/L 12/11/2024 9:24 PM CDT [facility] Blood Venipuncture / Unknown 12/11/2024 8:32 PM CDT 12/11/2024 8:45 PM CDT Narrative [facility] - 12/11/2024 9:24 PM CDT Troponin elevated. Padmini Rivera MD CHEMISTRY ORDERABLES Final Resul t Performing Organization Address [facility] Co de Phone Number [facility] CLIA # [id number] [address] [place] [address] * (ABNORMAL) CBC WITHOUT DIFFERENTIAL (12/11/2024 8:32 PM CDT) WBC 12.9(H) 4.8 - 10.8 K/uL 12/11/2024 8:48 PM CDT [facility] RBC 4.27 4.20 - 5.40 M/uL 12/11/2024 8:48 PM CDT [facility] HEMOGLOBIN 12.6 12.0 - 16.0 g/dL 12/11/2024 8:48 PM CDT [facility] HEMATOCRIT 38.4 36.0 - 46.0 % 12/11/2024 8:48 PM CDT [facility] MCV 89.9 84.0 - 103.0 fL 12/11/2024 8:48 PM CDT [facility] MCH 29.5 27.0 - 34.0 pg 12/11/2024 8:48 PM CDT [facility] MCHC 32.8 30.0 - 35.0 g/dL 12/11/2024 8:48 PM CDT [facility] PLATELETS 311 140 - 440 K/uL 12/11/2024 8:48 PM CDT [facility] MPV 9.7 8.9 - 12.8 fL 12/11/2024 8:48 PM CDT [facility] RDW 13.3 11.0 - 14.5 % 12/11/2024 8:48 PM CDT [facility] RDW-STDEV 44.0 37.0 - 54.0 fL 12/11/2024 8:48 PM CDT [facility] Blood Venipuncture / Unknown 12/11/2024 8:32 PM CDT 12/11/2024 8:42 PM CDT Adrienne Howard NP HEMATOLOGY ORDERABLES Final Resu lt [facility] CLIA # [id number] [address] [place] [id number] * IR FLUORO OR OTHER (12/11/2024 4:49 PM CDT) Narrative 12/11/2024 4:50 PM CDT Order Auto Finalized. Please see associated Operative Report/Progress Note/Procedure Note from the same date. Madan Dodge MD IR ORDERABLES Final Result * TYPE AND SCREEN (12/11/2024 9:19 AM CDT) ABO GROUP O 12/11/2024 10:19 AM CDT [facility] RH (D) TYPE Negative 12/11/2024 10:19 AM CDT [facility] ANTIBODY SCREEN Negative 12/11/2024 10:19 AM CDT [facility] Blood Venipuncture / Unknown 12/11/2024 9:19 AM CDT 12/11/2024 9:39 AM CDT Madan Dodge MD BLOOD BANK ORDERABLES Edited Res ult - Final [facility] CLIA#[id number] [address] [place] [address], * REFERENCE LAB PROCESSING FEE (12/07/2024 10:35 AM CDT) [facility] REFERENCE LAB SENDOUT Sent to Ref Lab 12/07/2024 12:00 PM CDT [facility] Other, specify BLOOD SPECIMEN / Unknown Collection / Unknown 12/07/2024 10:35 AM CDT 12/07/2024 10:53 AM CDT Madan Dodge MD CHEMISTRY ORDERABLES Final Resul t Performing Organization Address City/[facility]/ZIP Co de Phone Number [facility] CLIA # [id number] [address] [place] [id number] * PROTIME-INR (12/07/2024 10:35 AM CDT) Pathologist [facility] INR 0.9 [facility] Comment: Reference Range 0.9-1.1 Moderate-intensity Warfarin Therapy 2.0-3.0 Higher-intensity Warfarin Therapy 3.0-4.0 PROTIME 10.1 9.0 - 11.5 sec [facility] Comment: For additional information, please refer to http://education.[email or web address].Pikanote/faq/SDX276 (This link is being provided for informational/ educational purposes only.) Test Performed at: [facility] [address] [place] [address] Evelyn Alatorre MD Blood 12/07/2024 10:3 5 AM CDT 12/08/2024 2:53 AM CDT us Madan Dodge MD HEMATOLOGY ORDERABLES Final Resu lt [facility] [phone] [facility] [address] [place] [address] * US DUPLEX ARTERIAL LEGS BILATERAL (12/04/2024 1:09 PM CDT) Anatomical Region Laterality Modality Lower Extremity Ultrasound 12/04/2024 12:0 8 PM CDT Narrative 12/07/2024 12:28 PM CDT [facility] [address] [place] [address] Noninvasive Vascular Lab Arterial Exam Complete Lower Extremity Duplex Patient: Viry Castillo Study ID: US DUPLEX ARTERI Gender: F : 1945 Age: 79 Room: Height: 150cm Weight: 56.3kg BSA: 1.55m^2 Pt status: Outpatient Study Date: 12/04/2024 Study Time: 12:08:31 PM BSA: 1.55m^2 Ordering: Madan Dodge Interpreting:Madan Dodge Parts Puller: Tim Parnell Indications: Dx: Iliac artery stenosis, bilateral [I77.1 (ICD-10-CM)]; Femoral artery occlusion, 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 Study demonstrates moderate dense atherosclerosis, involving the right lower extremity and the left lower extremity. 2. Study demonstrates greater than 75% stenosis, involving the right distal superficial femoral artery, distal to the stent. Disease progression from the prior ultrasound of 11/27/2023. 3. Study demonstrates 50-75% stenosis, involving the right deep femoral artery and the right mid superficial femoral artery, proximal to the stent. The right superficial femoral artery stent is patent. 4. Study demonstrates 50-75% stenosis, involving the left popliteal artery. 5. Study demonstrates known occlusion of the right posterior tibial artery. The right peroneal was utilized for the ESTUARDO. No change from the prior. 6. Study demonstrates moderate arterial insufficiency at rest involving the right lower extremity. No change from the prior. 7. Study demonstrates mild arterial insufficiency at rest involving the left lower extremity. Disease regression from the prior ultrasound. Study data: Bilateral lower extremity arterial duplex. Duplex scan and ankle-brachial index. Height: 150cm. Height: 59.1in. Weight: 56.3kg. Weight: 124.1lb. BMI: 25kg/m^2. BSA: 1.55m^2. Location: Vascular laboratory. Patient status: Outpatient. Study status: Routine. Procedure: A vascular evaluation was performed with the patient in the supine position. Imaged vessel(s): the right common femoral, right deep femoral, right femoral, right popliteal, right anterior tibial, right posterior tibial, right dorsal pedal, left common femoral, left deep femoral, left femoral, left popliteal, left anterior tibial, left posterior tibial, and left dorsal pedal arteries. Presentation case quality. Arterial flow: - Right common femoral: Right common femoral 1.54m/sec Biphasic - Right deep femoral: Right deep femoral 2.16m/sec Biphasic - Right femoral proximal: Right femoral proximal 0.78m/sec 0m/sec Biphasic - Right femoral mid: Right femoral mid 2.77m/sec 0m/sec Monophasic - Right femoral distal: Right femoral distal 4.17m/sec 0.29m/sec Monophasic - Right popliteal: Right popliteal 0.4m/sec Monophasic - Right popliteal distal: Right popliteal distal 0.71m/sec 0m/sec Monophasic - Right anterior tibial distal: Right anterior tibial distal 0.55m/sec 0.1m/sec Monophasic - Right posterior tibial distal: Right posterior tibial distal 0m/sec 0m/sec Monophasic - Right peroneal distal: Right peroneal distal 0.3m/sec 0m/sec Monophasic - Left common femoral: Left common femoral 0.93m/sec Biphasic - Left deep femoral: Left deep femoral 1.04m/sec Biphasic - Left femoral proximal: Left femoral proximal 1.73m/sec 0m/sec Biphasic - Left femoral mid: Left femoral mid 1.29m/sec 0m/sec Biphasic - Left femoral distal: Left femoral distal 1.4m/sec 0m/sec Biphasic - Left popliteal: Left popliteal 1.79m/sec Biphasic - Left popliteal distal: Left popliteal distal 2.07m/sec 0m/sec Biphasic - Left anterior tibial distal: Left anterior tibial distal 0.79m/sec 0.06m/sec Monophasic - Left posterior tibial distal: Left posterior tibial distal 0.67m/sec 0m/sec Monophasic - Left peroneal distal: Left peroneal distal 0.75m/sec 0m/sec Monophasic Pulse volume recordings: - R ankle Moderately dampened - L ankle Mildly dampened Photoplethysmography: - R 1st toe Mildly dampened TBI 0.50. - R 2nd toe Mildly dampened - R 3rd toe Mildly dampened - R 4th toe Mildly dampened - R 5th toe Mildly dampened - L 1st toe Mildly dampened TBI 0.48. - L 2nd toe Mildly dampened - L 3rd toe Mildly dampened - L 4th toe Mildly dampened - L 5th toe Mildly dampened Ankle brachial indices Baseline Baseline Rt PT: 151mm Hg Rt DP: 155mm Hg Rt brachial: 209mm Hg Rt PT: 0.72 Rt DP: 0.74 Lt PT: 171mm Hg Lt DP: 169mm Hg Lt Brachial: 202mm Hg Lt PT: 0.82 Lt DP: 0.81 Brachial pressures: - Rt brachial pressure (sys): 209mm Hg - Lt brachial pressure (sys): 202mm Hg - Max brachial pressure (sys): 209mm Hg [facility] is accredited with the Intersocietal Commission for the Accreditation of Vascular Laboratories (ICAVL) Prepared and Electronically Authenticated Madan Dodge Confirmed 12/07/2024 12:28 Procedure Note Madan Dodge MD - 12/07/2024 [facility] [address] [place] [id number] Noninvasive Vascular Lab Arterial Exam Complete Lower Extremity Duplex Patient: Viry Castillo Study ID: US DUPLEX ARTERI Gender: F : 1945 Age: 79 Room: Height: 150cm Weight: 56.3kg BSA: 1.55m^2 Pt status: Outpatient Study Date: 12/04/2024 Study Time: 12:08:31 PM BSA: 1.55m^2 Ordering: Madan Dodge Interpreting:Madan Dodge Parts Puller: Tim Parnell Indications: Dx: Iliac artery stenosis, bilateral [I77.1 (ICD-10-CM)]; Femoral artery occlusion, 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 Study demonstrates moderate dense atherosclerosis, involving theright lower extremity and the left lower extremity. 2. Study demonstrates greater than 75% stenosis, involving the rightdistal superficial femoral artery, distal to the stent. Disease progressionfrom the prior ultrasound of 11/27/2023. 3. Study demonstrates 50-75% stenosis, involving the right deep femoralartery and the right mid superficial femoral artery, proximal to the stent.The right superficial femoral artery stent is patent. 4. Study demonstrates 50-75% stenosis, involving the left poplitealartery. 5. Study demonstrates known occlusion of the right posterior tibialartery. The right peroneal was utilized for the ESTUARDO. No change from theprior. 6. Study demonstrates moderate arterial insufficiency at rest involvingthe right lower extremity. No change from the prior. 7. Study demonstrates mild arterial insufficiency at rest involving theleft lower extremity. Disease regression from the prior ultrasound. Study data: Bilateral lower extremity arterial duplex. Duplex scanand ankle-brachial index. Height: 150cm. Height: 59.1in. Weight:56.3kg. Weight: 124.1lb. BMI: 25kg/m^2. BSA: 1.55m^2. Location:Vascular laboratory. Patient status: Outpatient. Study status: Routine. Procedure: A vascular evaluation was performed with the patient in thesupine position. Imaged vessel(s): the right common femoral, right deepfemoral, right femoral, right popliteal, right anterior tibial, right posteriortibial, right dorsal pedal, left common femoral, left deep femoral, left femoral,left popliteal, left anterior tibial, left posterior tibial, and left dorsalpedal arteries. Presentation case quality. Arterial flow: - Right common femoral: Right common femoral 1.54m/sec Biphasic - Right deep femoral: Right deep femoral 2.16m/sec Biphasic - Right femoral proximal: Right femoral proximal 0.78m/sec 0m/secBiphasic - Right femoral mid: Right femoral mid 2.77m/sec 0m/sec Monophasic - Right femoral distal: Right femoral distal 4.17m/sec 0.29m/secMonophasic - Right popliteal: Right popliteal 0.4m/sec Monophasic - Right popliteal distal: Right popliteal distal 0.71m/sec 0m/secMonophasic - Right anterior tibial distal: Right anterior tibial distal 0.55m/sec 0.1m/sec Monophasic - Right posterior tibial distal: Right posterior tibial distal 0m/sec0m/sec Monophasic - Right peroneal distal: Right peroneal distal 0.3m/sec 0m/secMonophasic - Left common femoral: Left common femoral 0.93m/sec Biphasic - Left deep femoral: Left deep femoral 1.04m/sec Biphasic - Left femoral proximal: Left femoral proximal 1.73m/sec 0m/sec Biphasic - Left femoral mid: Left femoral mid 1.29m/sec 0m/sec Biphasic - Left femoral distal: Left femoral distal 1.4m/sec 0m/sec Biphasic - Left popliteal: Left popliteal 1.79m/sec Biphasic - Left popliteal distal: Left popliteal distal 2.07m/sec 0m/sec Biphasic - Left anterior tibial distal: Left anterior tibial distal 0.79m/sec0.06m/sec Monophasic - Left posterior tibial distal: Left posterior tibial distal 0.67m/sec0m/sec Monophasic - Left peroneal distal: Left peroneal distal 0.75m/sec 0m/sec Monophasic Pulse volume recordings: - R ankle Moderately dampened - L ankle Mildly dampened Photoplethysmography: - R 1st toe Mildly dampened TBI 0.50. - R 2nd toe Mildly dampened - R 3rd toe Mildly dampened - R 4th toe Mildly dampened - R 5th toe Mildly dampened - L 1st toe Mildly dampened TBI 0.48. - L 2nd toe Mildly dampened - L 3rd toe Mildly dampened - L 4th toe Mildly dampened - L 5th toe Mildly dampened Ankle brachial indices Baseline Baseline Rt PT: 151mm Hg Rt DP:155mm Hg Rt brachial: 209mm Hg Rt PT: 0.72 Rt DP: 0.74 Lt PT: 171mm Hg Lt DP:169mm Hg Lt Brachial: 202mm Hg Lt PT: 0.82 Lt DP: 0.81 Brachial pressures: - Rt brachial pressure (sys): 209mm Hg - Lt brachial pressure (sys): 202mm Hg - Max brachial pressure (sys): 209mm Hg [facility] is accredited withthe Intersocietal Commission for the Accreditation of Vascular Laboratories (ICAVL) Prepared and Electronically Authenticated Madan Dodge Confirmed 12/07/2024 12:28 us Madan Dodge MD US ORDERABLES Final Result * US CAROTID DOPPLER (12/04/2024 1:09 PM CDT) Anatomical Region Laterality Modality Neck Ultrasound 12/04/2024 11:4 8 AM CDT Narrative 12/07/2024 12:28 PM CDT [facility] [address] [place] [id number] Noninvasive Vascular Lab Cerebrovascular Exam Carotid Duplex Patient: Viry Castillo Study ID: US CAROTID DOPPL Gender: F : 1945 Age: 79 Room: Height: 150cm Weight: 56.3kg BSA: 1.55m^2 Pt status: Outpatient Study Date: 12/04/2024 Study Time: 11:48:38 AM BSA: 1.55m^2 Ordering: Madan Dodge Interpreting:Madan Dodge Parts Puller: Tim Parnell Indications: Dx: Bilateral carotid artery stenosis [I65.23 (ICD-10-CM)] Summary Impression: 1. Study demonstrates known occlusion of the right internal carotid artery. 2. No evidence of hemodynamically significant extracranial carotid disease involving the left internal carotid artery. 3. Stable findings from the prior ultrasound of 11/14/2022. Study data: Carotid duplex study. Complete study and Doppler flow study including spectral analysis, color and saldivar scale imaging. Height: 150cm. Height: 59.1in. Weight: 56.3kg. Weight: 124.1lb. BMI: 25kg/m^2. BSA: 1.55m^2. Location: Vascular laboratory. Patient status: Outpatient. Study status: Routine. Procedure: A vascular evaluation was performed. Image quality was fair. The study was technically limited due to calcification and acoustic shadowing. Arterial flow: - Right CCA proximal: Right CCA proximal 0.37m/sec 0m/sec - Right CCA distal: Right CCA distal 0.22m/sec 0m/sec - Right ICA proximal: Right ICA proximal 0m/sec 0m/sec 0 Occluded - Right ECA: Right ECA 0.42m/sec 0m/sec - Right vertebral: Right vertebral 0.49m/sec 0.08m/sec Antegrade flow - Left CCA proximal: Left CCA proximal 0.66m/sec 0.05m/sec - Left CCA distal: Left CCA distal 0.63m/sec 0.1m/sec - Left ICA proximal: Left ICA proximal 0.74m/sec 0.09m/sec 1.12 0.87 - Left ICA mid: Left ICA mid 0.43m/sec 0.09m/sec 0.65 0.87 - Left ICA distal: Left ICA distal 0.49m/sec 0.08m/sec 0.74 0.75 - Left ECA: Left ECA 0.69m/sec 0.02m/sec - Left vertebral: Left vertebral 0.53m/sec 0.1m/sec Antegrade flow Velocity ratios: + +-----+ ! !L PSV! + +-----+ !Proximal ICA/prox CCA!1.12 ! + +-----+ [facility] is accredited with the Intersocietal Commission for the Accreditation of Vascular Laboratories (ICAVL) Prepared and Electronically Authenticated Madan Dodge Confirmed 12/07/2024 12:28 Procedure Note Madan Dodge MD - 12/07/2024 [facility] [address] [facility] [address] [place] [address] Noninvasive Vascular Lab Cerebrovascular Exam Carotid Duplex Patient: Viry Castillo Study ID: US CAROTID DOPPL Gender: F : 1945 Age: 79 Room: Height: 150cm Weight: 56.3kg BSA: 1.55m^2 Pt status: Outpatient Study Date: 12/04/2024 Study Time: 11:48:38 AM BSA: 1.55m^2 Ordering: Madan Dodge Interpreting:Madan Dodge Parts Puller: Tim Parnell Indications: Dx: Bilateral carotid artery stenosis [I65.23 (ICD-10-CM)] Summary Impression: 1. Study demonstrates known occlusion of the right internal carotidartery. 2. No evidence of hemodynamically significant extracranial carotiddisease involving the left internal carotid artery. 3. Stable findings from the prior ultrasound of 11/14/2022. Study data: Carotid duplex study. Complete study and Doppler flowstudy including spectral analysis, color and saldivar scale imaging. Height:150cm. Height: 59.1in. Weight: 56.3kg. Weight: 124.1lb. BMI: 25kg/m^2. BSA: 1.55m^2. Location: Vascular laboratory. Patient status:Outpatient. Study status: Routine. Procedure: A vascular evaluation wasperformed. Image quality was fair. The study was technically limited due tocalcification and acoustic shadowing. Arterial flow: - Right CCA proximal: Right CCA proximal 0.37m/sec 0m/sec - Right CCA distal: Right CCA distal 0.22m/sec 0m/sec - Right ICA proximal: Right ICA proximal 0m/sec 0m/sec 0 Occluded - Right ECA: Right ECA 0.42m/sec 0m/sec - Right vertebral: Right vertebral 0.49m/sec 0.08m/sec Antegrade flow - Left CCA proximal: Left CCA proximal 0.66m/sec 0.05m/sec - Left CCA distal: Left CCA distal 0.63m/sec 0.1m/sec - Left ICA proximal: Left ICA proximal 0.74m/sec 0.09m/sec 1.12 0.87 - Left ICA mid: Left ICA mid 0.43m/sec 0.09m/sec 0.65 0.87 - Left ICA distal: Left ICA distal 0.49m/sec 0.08m/sec 0.74 0.75 - Left ECA: Left ECA 0.69m/sec 0.02m/sec - Left vertebral: Left vertebral 0.53m/sec 0.1m/sec Antegrade flow Velocity ratios: + +-----+ ! !L PSV! + +-----+ !Proximal ICA/prox CCA!1.12 ! + +-----+ [facility] is accredited withthe [facility] Commission for the Accreditation of Vascular Laboratories (ICAVL) Prepared and Electronically Authenticated Madan Dodge Confirmed 12/07/2024 12:28 Madan Dodge MD ORDERABLES Final Result from Last 3 Months Insurance [facility] * Guarantor: VIRY CASTILLO Account Type Relation to Patient Date of Phone Billing Address Personal/Family [address] [address] RX [facility] Medicare Part D RX [employer] (INTERNAL) [facility] Advance Directives For more information, please contact: [phone] Documents on File Type Date Recorded 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
--- NOTE | 2024-12-25 08:10 | ECG_ITS ---
[facility]: 2024-12[facility]25 Pat Name: Viry Selby Department: Room: Gender: Female Dentist: : 1945 Requested By: Lester Kumari Order Number: [id number] Phill MD: Sedrick Varma M.D. Measurements Intervals [place] Rate: 75 P: 53 AL: 167 QRS: -14 QRSD: 86 T: 70 QT: 405 QTc: 454 Interpretive Statements SINUS RHYTHM POSSIBLE ANTERIOR MYOCARDIAL INFARCTION , PROBABLY OLD [30 ms Q WAVE IN V3/V4, OR R < 0.2 mV IN V4] Compared to ECG 05/14/2023 15:08:36 Myocardial infarct finding now present ST (T wave) deviation no longer present Electronically Signed On 12-25-2024 15:09:01 CDT by Sedrick Varma M.D. [email or web address]
--- NOTE | 2024-12-25 08:11 | W.ED.GENADLT ---
HPI - General Adult General: Stated complaint: stroke like symptoms, bump on back of head Time Seen by Provider: 12/25/24 07:54 History of Present Illness: Associated symptoms: Deny chest pain, dyspnea or rash Related Data Home Medications ?Medication ?Instructions ?Recorded ?Confirmed ascorbic acid (vitamin C) 500 mg 1,000 mg PO QAM 02/15/20 12/21/24 tablet meclizine 25 mg tablet 25 mg PO BID 02/15/20 12/21/24 cholecalciferol (vitamin D3) 25 25 mcg PO QAM 05/16/22 12/21/24 mcg (1,000 unit) capsule acetaminophen 500 mg tablet 500 mg PO Q4H PRN Pain 05/14/23 12/21/24 aspirin 325 mg tablet 325 mg PO BEDTIME 05/14/23 12/21/24 folic acid 400 mcg tablet 800 mcg PO QAM 05/14/23 12/21/24 ibuprofen 200 mg tablet 200 mg PO Q4H PRN Pain 05/14/23 12/21/24 potassium chloride 20 mEq 20 meq PO QAM 05/14/23 12/21/24 tablet,extended release(part/cryst) vitamin E 268 mg (400 unit) capsule 1 cap PO DAILY 05/14/23 12/21/24 Previous Rx's ?Medication ?Instructions ?Recorded ondansetron HCl 4 mg tablet 4 mg PO Q8H PRN nausea and 05/14/23 vomiting #14 tabs metformin 500 mg tablet 500 mg PO BID #180 tabs 04/07/24 RSV vaccine #1 ea 04/29/24 furosemide 20 mg tablet See Rx Instructions .Route 05/11/24 .COMPLEX #180 tabs hydrochlorothiazide 25 mg tablet See Rx Instructions .Route 05/11/24 .COMPLEX #90 tabs clopidogrel 75 mg tablet See Rx Instructions .Route 06/01/24 .COMPLEX #90 tabs levothyroxine 75 mcg tablet See Rx Instructions .Route 06/11/24 .COMPLEX #50 tabs alprazolam 0.25 mg tablet 0.25 mg PO BEDTIME #30 tabs 10/22/24 lisinopril 10 mg tablet 10 mg PO DAILY #90 tabs 11/04/24 atorvastatin 80 mg tablet See Rx Instructions .Route 11/17/24 .COMPLEX #90 tabs clonidine HCl 0.2 mg tablet See Rx Instructions .Route 11/17/24 .COMPLEX #270 tabs labetalol 200 mg tablet See Rx Instructions .Route 11/17/24 .COMPLEX #180 tabs levothyroxine 88 mcg tablet See Rx Instructions .Route 11/17/24 .COMPLEX #45 tabs Allergies Allergy/AdvReac Type Severity Reaction Status Date / Time No Known Allergies Allergy Verified 06/18/24 09:23 Review of Systems Const: Denies: fever(s) or chills Card: Denies: chest pain Resp: Denies: dyspnea GI: Denies: abdominal pain : Denies: dysuria, urinary frequency or urinary urgency Musc: Denies: neck pain or back pain Skin/Breast: Denies: rash PFSH ED PFSH: Medical History History of hypothyroidism History of COPD Hx of hyperlipidemia History of peripheral arterial disease Surgical History S/P hip replacement Hx of cholecystectomy Hx of section S/P AAA repair Family History Other Clotting disorder Hyperlipidemia Hypertension Lung disease Stroke Social History Smoking and tobacco/nicotine status: never used tobacco/nicotine Quit status (tobacco/nicotine): considering quitting Alcohol intake: never Substance/Drug Use: never Physical Exam Const: ORIENTATION/CONSCIOUSNESS: Yes awake, Yes oriented to person, Yes oriented to place and Yes oriented to time HENMT: COMMON NORMALS: normocephalic, atraumatic and hearing grossly normal bilaterally HEAD & SCALP: normocephalic and atraumatic OTHER: Angioedema of the lips upper and lower mild swelling of the tongue. No stridor Resp: COMMON NORMALS: normal respiratory effort, No retractions, No use of accessory muscles and clear to auscultation bilaterally AUSCULTATION: clear to auscultation bilaterally Cardio: COMMON NORMALS: regular rate, regular rhythm and No murmurs present (Cardio) RATE: regular rate RHYTHM: regular rhythm GI: COMMON NORMALS: Soft to palpation and No hepatosplenomegaly present AUSCULTATION: Yes normoactive bowel sounds PALPATION: Yes Soft to palpation, No Tenderness to palpation present (GI), No Guarding due to palpation present (GI) and Yes No hepatosplenomegaly present Extremity: COMMON NORMALS: normal to inspection, capillary refill normal, no clubbing, cyanosis or edema, no calf tenderness and no pedal edema Neuro: SENSORIUM/ORIENTATION: Yes oriented to person, Yes oriented to place and Yes oriented to time Skin: COMMON NORMALS: no rashes or lesions noted GENERAL SKIN EXAM: no rashes or lesions noted [facility] - General Adult Lab Data 12/25/24 08:05 12/25/24 08:05 Discharge Plan Discharge Condition: Stable Prescriptions: No Action ascorbic acid (vitamin C) 500 mg tablet 1,000 mg PO QAM meclizine 25 mg tablet 25 mg PO BID metformin 500 mg tablet 500 mg PO BID Qty: 180 4RF lisinopril 10 mg tablet 10 mg PO DAILY Qty: 90 3RF cholecalciferol (vitamin D3) 25 mcg (1,000 unit) capsule 25 mcg PO QAM (DME) RSV vaccine See Rx Instructions .ROUTE .MEDSUPPLY Qty: 1 0RF Rx Instructions: Give one dose IM per guidelines. hydrochlorothiazide 25 mg tablet See Rx Instructions .ROUTE .COMPLEX Qty: 90 3RF Dose Instruction: TAKE 1 TABLET BY MOUTH DAILY FOR HIGH BLOOD PRESSURE Rx Instructions: TAKE 1 TABLET BY MOUTH DAILY FOR HIGH BLOOD PRESSURE furosemide 20 mg tablet See Rx Instructions .ROUTE .COMPLEX Qty: 180 3RF Dose Instruction: TAKE 2 TABLETS BY MOUTH DAILY NEEDED FOR SWELLING Rx Instructions: TAKE 2 TABLETS BY MOUTH DAILY NEEDED FOR SWELLING clopidogrel 75 mg tablet See Rx Instructions .ROUTE .COMPLEX Qty: 90 3RF Dose Instruction: TAKE 1 TABLET BY MOUTH DAILY . Rx Instructions: TAKE 1 TABLET BY MOUTH DAILY . levothyroxine 75 mcg tablet See Rx Instructions .ROUTE .COMPLEX Qty: 50 2RF Dose Instruction: TAKE 1 TABLET BY MOUTH IN THE MORNING ON THE ODD DAYS OF THE MONTH 1/2 HOUR BEFORE BREAKFAST WITH WATER ONLY Rx Instructions: TAKE 1 TABLET BY MOUTH IN THE MORNING ON THE ODD DAYS OF THE MONTH 1/2 HOUR BEFORE BREAKFAST WITH WATER ONLY alprazolam 0.25 mg tablet 0.25 mg PO BEDTIME Qty: 30 2RF clonidine HCl 0.2 mg tablet See Rx Instructions .ROUTE .COMPLEX Qty: 270 0RF Dose Instruction: TAKE 1 TABLET BY MOUTH THREE TIMES A DAY Rx Instructions: TAKE 1 TABLET BY MOUTH THREE TIMES A DAY labetalol 200 mg tablet See Rx Instructions .ROUTE .COMPLEX Qty: 180 0RF Dose Instruction: TAKE 1 TABLET BY MOUTH TWICE A DAY Rx Instructions: TAKE 1 TABLET BY MOUTH TWICE A DAY levothyroxine 88 mcg tablet See Rx Instructions .ROUTE .COMPLEX Qty: 45 0RF Dose Instruction: TAKE 1 TABLET BY MOUTH EVERY DAY IN THE MORNING WITH WATER,ON EVEN DAYS OF THE MONTH (1/2HR PRIOR TO EATING) Rx Instructions: TAKE 1 TABLET BY MOUTH EVERY DAY IN THE MORNING WITH WATER,ON EVEN DAYS OF THE MONTH (1/2HR PRIOR TO EATING) atorvastatin 80 mg tablet See Rx Instructions .ROUTE .COMPLEX Qty: 90 0RF Dose Instruction: TAKE 1 TABLET BY MOUTH EVERYDAY AT BEDTIME Rx Instructions: TAKE 1 TABLET BY MOUTH EVERYDAY AT BEDTIME aspirin 325 mg Tablet 325 mg PO BEDTIME folic acid 400 mcg Tablet 800 mcg PO QAM Tylenol Ex Str Rapid Release 500 mg Tablet 500 mg PO Q4H PRN (Reason: Pain) ibuprofen 200 mg Tablet 200 mg PO Q4H PRN (Reason: Pain) vitamin E 268 mg (400 unit) Capsule 1 cap PO DAILY potassium chloride 20 mEq tablet,ER particles/crystals 20 meq PO QAM ondansetron HCl 4 mg tablet 4 mg PO Q8H PRN (Reason: nausea and vomiting) Qty: 14 0RF Referrals: Jean Claude Nayak MD [Primary Care Provider, Family Practice] Print Language: Norwegian Coding Level of Care Code 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
[2024-12-25 08:17] LABS: Hematocrit 35.8 % (36-47); Hemoglobin 11.60 g/dL (11.27-16.99); Mean Corpuscular HGB Conc 32.4 g/dL (30-55); Mean Corpuscular Hemoglobin 30.0 pg (27-33); Mean Corpuscular Volume 92.5 fl (85-98); Nucleated Red Blood Cells % 0 %; Platelet Count 486 10^3/cmm (157-399); Red Blood Count 3.87 10^6/uL (3.85-5.65); White Blood Count 14.77 10^3/uL (3.29-11.43)
[2024-12-25] MEDS: diphenhydrAMINE 50 mg/mL SDV 1mL IVP (08:23)
[2024-12-25] MEDS: methylPREDNISolone sod succ 125 mg/2 mL INJ IVP (08:23)
[2024-12-25] MEDS: tranexamic acid 1,000 MG/100 ML PREMIX 600 MG IV (08:24)
[2024-12-25 08:39] LABS: Alanine Aminotransferase 22 U/L (0-33); Albumin Level 4.2 g/dL (3.5-5.2); Alkaline Phosphatase 212 U/L (35-105); Anion Gap 22.2 (5-19); Aspartate Amino Transferase 27 U/L (0-32); Blood Urea Nitrogen 31 mg/dL (8-23); Calcium 10.1 mg/dL (8.5-10.5); Carbon Dioxide 22 mmol/L (22-29); Chloride 98 mmol/L (98-107); Globulin 3.4 g/dL (1.3-4.6); Glucose 118 mg/dL (65-115); INR 0.90 (0.8-1.2); Osmolality Calculated 294 mOsm/kg (285-295); Potassium 4.2 mmol/L (3.5-5.1); Prothrombin Time 12.80 SECONDS (12.1-14.9); Sodium 138 mmol/L (136-145); Total Protein 7.6 g/dL (6.6-8.7)
[2024-12-25 08:40] LABS: Partial Thromboplastin Time 24.2 SECONDS (23.9-36.7)
[2024-12-25 09:33] LABS: Glucose Urine UA Negative (Normal); Nitrate Urine Negative (Negative); Specific Gravity, Urine 1.007 (1.005-1.030)
[2024-12-25 09:35] LABS: Add Urine Microscopic? YES
--- NOTE | 2024-12-25 10:00 | PC.NURSE ---
Admitted to ICU room 7 via stretcher. No reports of pain or discomfort. Lower Face and lip swelling noted. No reports of shortness of breath. V/S stable.
--- NOTE | 2024-12-25 11:49 | PM.HP ---
Providers/Chief Complaint Admitting Physician: Angel Urban Primary Care Provider: Jean Claude Nayak MD Chief Complaint: stroke like symptoms, bump on back of head History of Present Illness Viry Selby is a 79 year old female with a history of COPD, hypothyroidism, hyperlipidemia, peripheral artery disease and hypertension who presented to the ED this morning after awakening with sudden, painless facial swelling involving the lips and lower cheeks. She reports no prior similar episodes and no family history of angioedema. She denies tongue or throat swelling, dyspnea, dysphagia, choking, fever, chills, cough, sore throat, rash, nausea, vomiting or diarrhea. Oxygen saturation on arrival was 95 % on room air. The patient took no morning medications prior to arrival; her home list includes lisinopril 10 mg daily and ibuprofen. She recalls taking lisinopril yesterday. ED staff administered several injections (unspecified steroids/antihistamines) without clear improvement. Facial swelling has remained stable since presentation. She also reports bilateral leg swelling since a right-leg vascular stent placement on 01/10; right leg worse than left. No recent ultrasounds have been performed since hospital discharge on 01/13. Blood pressure earlier was 159/58 mmHg. No current airway compromise or difficulty eating/drinking noted. She is admitted to ICU for close monitoring. Review of Systems Const: Denies: fever(s), chills, body aches or malaise ENMT: Reports: other (swelling of lower face and lips); Denies: throat pain Card: Denies: chest pain, edema, pre-syncope or dyspnea on exertion Resp: Denies: dyspnea, productive cough, change in phlegm color or hemoptysis GI: Denies: abdominal pain, nausea, vomiting, diarrhea, constipation, hematochezia or melena : Denies: flank pain, urinary frequency or hematuria Musc: Denies: back pain, joint swelling or joint redness Skin/Breast: Denies: rash or new lesions Neuro: Denies: headache(s) or confusion Medications/Allergies Home Medications ?Medication ?Instructions ?Recorded ?Confirmed ?Last Taken ?Type ascorbic acid (vitamin C) 500 mg 1,000 mg PO QAM 02/15/20 12/25/24 2 Days Ago History tablet ~05/12/23 meclizine 25 mg tablet 25 mg PO TID PRN Dizziness Or 02/15/20 12/25/24 12/24/24 History Vertigo cholecalciferol (vitamin D3) 25 25 mcg PO QAM 05/16/22 12/25/24 12/24/24 History mcg (1,000 unit) capsule acetaminophen 500 mg tablet 500 mg PO Q4H PRN Pain 05/14/23 12/25/24 Unknown History aspirin 325 mg tablet 325 mg PO BEDTIME 05/14/23 12/25/24 12/24/24 History folic acid 400 mcg tablet 800 mcg PO QAM 05/14/23 12/25/24 12/21/24 History ibuprofen 200 mg tablet 200 mg PO Q4H PRN Pain 05/14/23 12/25/24 12/24/24 History vitamin E 268 mg (400 unit) capsule 1 cap PO DAILY 05/14/23 12/25/24 12/23/24 History metformin 500 mg tablet 500 mg PO BID #180 tabs 04/07/24 12/25/24 12/24/24 Rx RSV vaccine #1 ea 04/29/24 12/25/24 Unknown Rx furosemide 20 mg tablet See Rx Instructions .Route 05/11/24 12/25/24 Unknown Rx .COMPLEX #180 tabs hydrochlorothiazide 25 mg tablet See Rx Instructions .Route 05/11/24 12/25/24 12/24/24 Rx .COMPLEX #90 tabs clopidogrel 75 mg tablet See Rx Instructions .Route 06/01/24 12/25/24 12/24/24 Rx .COMPLEX #90 tabs levothyroxine 75 mcg tablet See Rx Instructions .Route 06/11/24 12/25/24 12/25/24 06:00 Rx .COMPLEX #50 tabs alprazolam 0.25 mg tablet 0.25 mg PO BEDTIME #30 tabs 10/22/24 12/25/24 12/23/24 20:00 Rx lisinopril 10 mg tablet 10 mg PO DAILY #90 tabs 11/04/24 12/25/24 12/24/24 Rx atorvastatin 80 mg tablet See Rx Instructions .Route 11/17/24 12/25/24 12/24/24 19:00 Rx .COMPLEX #90 tabs clonidine HCl 0.2 mg tablet See Rx Instructions .Route 11/17/24 12/25/24 12/25/24 Rx .COMPLEX #270 tabs labetalol 200 mg tablet See Rx Instructions .Route 11/17/24 12/25/24 12/24/24 Rx .COMPLEX #180 tabs levothyroxine 88 mcg tablet See Rx Instructions .Route 11/17/24 12/25/24 12/24/24 Rx .COMPLEX #45 tabs potassium chloride 10 mEq 10 meq PO DAILY 12/25/24 12/25/24 12/23/24 History tablet,extended release Allergies Allergy/AdvReac Type Severity Reaction Status Date / Time lisinopril AdvReac Severe ALGY-Swell Verified 12/25/24 13:05 Lip/Tongue/Throat PFSH Acute PFSH: Medical History History of hypothyroidism History of COPD Hx of hyperlipidemia History of peripheral arterial disease Surgical History S/P hip replacement Hx of cholecystectomy Hx of section S/P AAA repair Family History Other Clotting disorder Hyperlipidemia Hypertension Lung disease Stroke Social History Smoking and tobacco/nicotine status: never used tobacco/nicotine Quit status (tobacco/nicotine): considering quitting Alcohol intake: never Substance/Drug Use: never Vitals/I&O/Wt Last Vital Signs Temp 98.2 F 12/25/24 10:00 Pulse 84 12/25/24 10:45 Resp 18 12/25/24 10:45 BP 187/64 12/25/24 10:45 Pulse Ox 94 12/25/24 10:45 O2 Del Method Room Air 12/25/24 10:00 12/24/24 12/25/24 12/25/24 22:59 06:59 14:59 Intake Total 100 / 100 Balance 100 / 100 Weight last 48 hrs Weight 56.518 kg Physical Exam Const: COMMON NORMALS: patient oriented x3 and alert GENERAL APPEARANCE: cooperative ORIENTATION/CONSCIOUSNESS: Yes awake HENMT: COMMON NORMALS: oropharynx normal OTHER: No swelling in the back of the throat, gums or tongue. Neck/C-Spine: COMMON NORMALS: no JVD Resp: COMMON NORMALS: normal respiratory effort and clear to auscultation bilaterally AUSCULTATION: clear to auscultation bilaterally Cardio: COMMON NORMALS: no JVD, regular rhythm, S1 normal heart sound present, S2 normal heart sound present and No murmurs present (Cardio) RHYTHM: regular rhythm HEART SOUNDS: S1 normal heart sound present and S2 normal heart sound present GI: COMMON NORMALS: Normal to inspection, nondistended, normoactive bowel sounds present, Soft to palpation and non-tender PALPATION: Yes Soft to palpation Extremity: COMMON NORMALS: no joint enlargement and no pedal edema Neuro: COMMON NORMALS: patient oriented x3 and moves all extremities SENSORIUM/ORIENTATION: Yes alert Skin: COMMON NORMALS: no rashes or lesions noted GENERAL SKIN EXAM: no rashes or lesions noted Data 12/25/24 08:05 12/25/24 08:05 A&P Assessment and plan 1. Angioedema of lips: Facial and lip swelling without tongue or airway involvement occurring after chronic lisinopril use; no prior episodes; familial form unlikely. IV steroids/antihistamines given in ED but benefit uncertain. She denies any prior occurrences to suggest hereditary angioedema nor have there been other family members with attacks. She denies any allergies to anything else or other medications, and denies any rash. Reviewed vitals, CBC, INR, CMP, UA, EKG, ED provider note, discussed with the provider. - Discontinue lisinopril permanently. - Monitor airway and facial swelling in ICU setting. -Monitor for risk of worsening hypertension, hyperglycemia, encephalopathy with IV steroid. - CLD, cautious PO intake until swelling clearly subsides. - Expectant management; anticipate gradual resolution over time. 2. Leukocytosis: Possibly stress related and/for angioedema related. There is no indication of acute infection, no signs of dental infection, no gum or throat or under the chin tenderness. No rash. No GI, urinary or other symptoms. 3. Lower extremity edema: Bilateral leg edema, right greater than left, following right-leg vascular stent on 01/10; no recent imaging since discharge. - Order venous duplex ultrasound of lower extremities to evaluate for DVT. Right leg more swollen than the left. - Continue furosemide - Continue leg elevation and monitor edema. - Follow-up with vascular clinic on 01/28. Plan: Hypertension : Blood pressure 159/58 mmHg; lisinopril stopped due to angioedema. - Hold lisinopril; initiate alternative antihypertensive (medication not yet named) per inpatient team. - Monitor BP routinely during hospitalization. Recent PAD leg stent: Continue Plavix. Maintain vascular surgery appointment 01/28. PDMP PDMP Reviewed: Not Reviewed Attestations Medical Necessity Statement*: Place in observation for additional assessment management of facial angioedema. Diagnoses Angioedema of lips T78.3XXA Leukocytosis D72.829 Lower extremity edema R60.0
[2024-12-26] VITALS (15 sets, daily range): BP systolic 124–189; BP diastolic 56–76; PULSE 63–88; RESP 12–23; TEMP 36.7–36.8; O2SAT 92–99
[2024-12-26 04:42] LABS: Hematocrit 32.8 % (36-47); Hemoglobin 10.90 g/dL (11.27-16.99); Mean Corpuscular HGB Conc 33.2 g/dL (30-55); Mean Corpuscular Hemoglobin 30.1 pg (27-33); Mean Corpuscular Volume 90.6 fl (85-98); Nucleated Red Blood Cells % 0 %; Platelet Count 445 10^3/cmm (157-399); Red Blood Count 3.62 10^6/uL (3.85-5.65); White Blood Count 10.38 10^3/uL (3.29-11.43)
[2024-12-26 05:04] LABS: Anion Gap 18.7 (5-19); Blood Urea Nitrogen 21 mg/dL (8-23); Calcium 9.8 mg/dL (8.5-10.5); Carbon Dioxide 23 mmol/L (22-29); Chloride 99 mmol/L (98-107); Creatinine Clr Calc Pharmacy 44.8029; Glucose 110 mg/dL (65-115); Osmolality Calculated 288 mOsm/kg (285-295); Potassium 3.7 mmol/L (3.5-5.1); Sodium 137 mmol/L (136-145)
--- NOTE | 2024-12-26 13:25 | USR_ITS ---
PROCEDURE INFORMATION: Exam: US Duplex Lower Extremity Veins, Bilateral Exam date and time: 12/26/2024 8:06 AM Age: 79 years old Clinical indication: Screening exam; Assess for dvt TECHNIQUE: Imaging protocol: Real-time duplex ultrasound of the bilateral extremities with 2-D saldivar scale, color Doppler flow and spectral waveform analysis including responses to compression and other maneuvers (when performed) with image documentation. Complete exam focused on the lower extremity veins. COMPARISON: CT angio abd aorta runof [id number] 03/15/2020 11:49 AM FINDINGS: Right deep veins: Unremarkable. The common femoral, femoral, proximal profunda femoral and popliteal veins are patent without thrombus. Normal Doppler waveforms. Normal compressibility and/or augmentation response. Left deep veins: Unremarkable. The common femoral, femoral, proximal profunda femoral and popliteal veins are patent without thrombus. Normal Doppler waveforms. Normal compressibility and/or augmentation response. Superficial veins: Greater saphenous veins at the saphenofemoral junctions are patent bilaterally without thrombus. Soft tissues: Unremarkable. US/CV venous duplex [facility] [id number] IMPRESSION: No evidence of deep vein thrombosis.
--- NOTE | 2024-12-26 14:16 | P.DS_ITS ---
Discharge Providers Date of Admission: 12/25/24 09:42 Date of Discharge: December 26, 2024 Attending Provider at Admission: Angel Urban Attending Provider at Discharge: Anastacio Brito MD Primary Care Provider: Jean Claude Nayak MD Diagnoses at Discharge Discharge Diagnosis 1. Angioedema of lips: Details from hospital stay: Bradykinin mediated and no specific treatment was given. She was observed in the emergency department in the ICU and symptoms have largely resolved. There is a 12% chance of recurrence. If this recurs she should go to the emergency department if swelling is more than minimal and or mild. Additionally if there is any difficulty with breathing or swallowing she should come by ambulance 2. Leukocytosis: Details from hospital stay: Resolved 3. Lower extremity edema: Details from hospital stay: No DVT found in the right lower extremity. Start ARELI hose or compression hose for the legs. Can also wear athletic socks with elasticity Reason for Visit Reason for Visit: stroke like symptoms, bump on back of head Brief History: Viry Selby is a 79 year old female with a history of COPD, hypothyroidism, hyperlipidemia, peripheral artery disease and hypertension who presented to the ED this morning after awakening with sudden, painless facial swelling involving the lips and lower cheeks. She reports no prior similar episodes and no family history of angioedema. She denies tongue or throat swelling, dyspnea, dysphagia, choking, fever, chills, cough, sore throat, rash, nausea, vomiting or diarrhea. Oxygen saturation on arrival was 95 % on room air. The patient took no morning medications prior to arrival; her home list includes lisinopril 10 mg daily and ibuprofen. She recalls taking lisinopril yesterday. ED staff administered several injections (unspecified steroids/antihistamines) without clear improvement. Facial swelling has remained stable since presentation. She also reports bilateral leg swelling since a right-leg vascular stent placement on 01/10; right leg worse than left. No recent ultrasounds have been performed since hospital discharge on 01/13. Blood pressure earlier was 159/58 mmHg. No current airway compromise or difficulty eating/drinking noted. She is admitted to ICU for close monitoring. Hospital Course Hospital Course Patient had decrease in swelling of her face and states he is almost back to normal. She did not have any trouble breathing in the ICU. She did not receive any additional steroids, epinephrine or antihistamines. This is thought to be a bradykinin buildup and not histamine mediated so anti-histamine treatment is not indicated The patient's swelling in the face is almost completely gone as reported by patient and her daughters Negin and Sharon who are present at bedside. Patient reports no difficulties swallowing or breathing and wants to go home. She will be started on a cardiac diet and if tolerated well will discharge today. I counseled her that her leg Dopplers are negative for clot. She should not take KEIRA inhibitors or DPP 4 inhibitors. Angiotensin receptor blockers are okay to be taken if her physician wants her to take that in the future. I started her on spironolactone due to history of hypokalemia and swelling with normal kidney function. The dose I started was 25 mg daily Start ARELI hose on the legs Physical Exam Narrative: General well-developed well-nourished female in no acute cardiopulmonary stress CV regular rate and rhythm Lungs clear to auscultation bilaterally Calves 2+ edema in the ankles and calves right side slightly more than the left Oropharynx Mallampati 1 tongue is not swollen posterior pharynx is not swollen Face she has puffy cheeks right slightly more than the left patient states this is almost normal for her Discharge Data Studies Completed and Pending Completed Studies During Hospitalization Category Date [place] [id number] Routine Ultrasound 12/26/24 13:25 Completed Pending at discharge Category Date Time Status Basic Metabolic Panel AM LABS Lab 12/27/24 04:00 Ordered Basic Metabolic Panel AM LABS Lab 12/28/24 04:00 Ordered Complete Blood Count w/Auto AM LABS Lab 12/27/24 04:00 Ordered Complete Blood Count w/Auto AM LABS Lab 12/28/24 04:00 Ordered Radiology Impressions Venous Duplex 12/26/24 13:25 IMPRESSION: No evidence of deep vein thrombosis. Laboratory Results WBC 10.38 10^3/uL (3.29-11.43) 12/26/24 04:11 RBC 3.62 10^6/uL (3.85-5.65) L 12/26/24 04:11 Hgb 10.90 g/dL (11.27-16.99) L 12/26/24 04:11 Hct 32.8 % (36-47) L 12/26/24 04:11 MCV 90.6 fl (85-98) 12/26/24 04:11 MCH 30.1 pg (27-33) 12/26/24 04:11 MCHC 33.2 g/dL (30-55) 12/26/24 04:11 RDW 13.0 % (12.1-15.1) 12/26/24 04:11 Plt Count 445 10^3/cmm (157-399) H 12/26/24 04:11 MPV 9.3 fL (7.4-10.4) 12/26/24 04:11 Neut % (Auto) 79.4 % 12/26/24 04:11 Lymph % (Auto) 14.0 % 12/26/24 04:11 [place] % (Auto) 6.0 % 12/26/24 04:11 Eos % (Auto) 0.0 % 12/26/24 04:11 Baso % (Auto) 0.2 % 12/26/24 04:11 Neut # (Auto) 8.25 10^3/uL (1.8-7.7) H 12/26/24 04:11 Lymph # (Auto) 1.5 10^3/uL (0.8-4.8) 12/26/24 04:11 [place] # (Auto) 0.6 10^3/uL (0.2-0.9) 12/26/24 04:11 Eos # (Auto) 0.0 10^3/uL (0.0-0.8) 12/26/24 04:11 Baso # (Auto) 0.0 10^3/uL (0.0-0.1) 12/26/24 04:11 Nucleated RBC % (auto) 0 % 12/26/24 04:11 Nucleated RBCs # 0.0 /100WBC 12/26/24 04:11 PT 12.80 SECONDS (12.1-14.9) 12/25/24 08:05 INR 0.90 (0.8-1.2) 12/25/24 08:05 APTT 24.2 SECONDS (23.9-36.7) 12/25/24 08:05 Sodium 137 mmol/L (136-145) 12/26/24 04:11 Potassium 3.7 mmol/L (3.5-5.1) 12/26/24 04:11 Chloride 99 mmol/L (98-107) 12/26/24 04:11 Carbon Dioxide 23 mmol/L (22-29) 12/26/24 04:11 Anion Gap 18.7 (5-19) 12/26/24 04:11 BUN 21 mg/dL (8-23) 12/26/24 04:11 Creatinine 0.9 mg/dL (0.5-0.9) 12/26/24 04:11 GFR Calculation Not Reportable 12/26/24 04:11 Glucose 110 mg/dL (65-115) 12/26/24 04:11 Calculated Osmolality 288 mOsm/kg (285-295) 12/26/24 04:11 Calcium 9.8 mg/dL (8.5-10.5) 12/26/24 04:11 Total Bilirubin 0.3 mg/dL (0.15-1.2) 12/25/24 08:05 AST 27 U/L (0-32) 12/25/24 08:05 ALT 22 U/L (0-33) 12/25/24 08:05 Alkaline Phosphatase 212 U/L (35-105) H 12/25/24 08:05 Total Protein 7.6 g/dL (6.6-8.7) 12/25/24 08:05 Albumin 4.2 g/dL (3.5-5.2) 12/25/24 08:05 Globulin 3.4 g/dL (1.3-4.6) 12/25/24 08:05 Urine Color Yellow (Yellow) 12/25/24 09:20 Urine Appearance Clear (CLEAR) 12/25/24 09:20 Urine pH 7.5 (5-7) 12/25/24 09:20 Ur Specific [employer] 1.007 (1.005-1.030) 12/25/24 09:20 Urine Protein 1+ (Negative) A 12/25/24 09:20 Urine Glucose (UA) Negative (Normal) 12/25/24 09:20 Urine Ketones Negative (Negative) 12/25/24 09:20 Urine Blood Negative (Negative) 12/25/24 09:20 Urine Nitrate Negative (Negative) 12/25/24 09:20 Urine Bilirubin Negative (Negative) 12/25/24 09:20 Urine Urobilinogen 0.2 mg/dL (Negative) 12/25/24 09:20 Ur Leukocyte Esterase Negative (Negative) 12/25/24 09:20 Urine RBC 0-2 /hpf (0-2) 12/25/24 09:20 Urine WBC 0-5 /hpf (0-5) 12/25/24 09:20 Ur Squamous Epith Cells 0-5 /hpf (0-5) 12/25/24 09:20 Amorphous Sediment Not Reportable 12/25/24 09:20 Urine Bacteria None seen /hpf (NONE) 12/25/24 09:20 Hyaline Casts 0-4 /lpf H 12/25/24 09:20 Vitals Last Vital Signs Temp 98.2 F 12/26/24 12:00 Pulse 64 12/26/24 12:00 Resp 14 12/26/24 12:00 BP 124/56 12/26/24 12:00 Pulse Ox 99 12/26/24 08:00 O2 Del Method Room Air 12/26/24 08:00 Discharge Plan Discharge Patient Disposition: Home Health Service Condition: Stable Prescriptions: New spironolactone 25 mg tablet 25 mg PO QAM Qty: 30 0RF Continued ascorbic acid (vitamin C) 500 mg tablet 1,000 mg PO QAM meclizine 25 mg tablet 25 mg PO TID PRN (Reason: Dizziness Or Vertigo) metformin 500 mg tablet 500 mg PO BID Qty: 180 4RF cholecalciferol (vitamin D3) 25 mcg (1,000 unit) capsule 25 mcg PO QAM (DME) RSV vaccine See Rx Instructions .ROUTE .MEDSUPPLY Qty: 1 0RF Rx Instructions: Give one dose IM per guidelines. hydrochlorothiazide 25 mg tablet See Rx Instructions .ROUTE .COMPLEX Qty: 90 3RF Dose Instruction: TAKE 1 TABLET BY MOUTH DAILY FOR HIGH BLOOD PRESSURE Rx Instructions: TAKE 1 TABLET BY MOUTH DAILY FOR HIGH BLOOD PRESSURE furosemide 20 mg tablet See Rx Instructions .ROUTE .COMPLEX Qty: 180 3RF Dose Instruction: TAKE 2 TABLETS BY MOUTH DAILY NEEDED FOR SWELLING Rx Instructions: TAKE 2 TABLETS BY MOUTH DAILY NEEDED FOR SWELLING clopidogrel 75 mg tablet See Rx Instructions .ROUTE .COMPLEX Qty: 90 3RF Dose Instruction: TAKE 1 TABLET BY MOUTH DAILY . Rx Instructions: TAKE 1 TABLET BY MOUTH DAILY . levothyroxine 75 mcg tablet See Rx Instructions .ROUTE .COMPLEX Qty: 50 2RF Dose Instruction: TAKE 1 TABLET BY MOUTH IN THE MORNING ON THE ODD DAYS OF THE MONTH 1/2 HOUR BEFORE BREAKFAST WITH WATER ONLY Rx Instructions: TAKE 1 TABLET BY MOUTH IN THE MORNING ON THE ODD DAYS OF THE MONTH 1/2 HOUR BEFORE BREAKFAST WITH WATER ONLY alprazolam 0.25 mg tablet 0.25 mg PO BEDTIME Qty: 30 2RF clonidine HCl 0.2 mg tablet See Rx Instructions .ROUTE .COMPLEX Qty: 270 0RF Dose Instruction: TAKE 1 TABLET BY MOUTH THREE TIMES A DAY Rx Instructions: TAKE 1 TABLET BY MOUTH THREE TIMES A DAY labetalol 200 mg tablet See Rx Instructions .ROUTE .COMPLEX Qty: 180 0RF Dose Instruction: TAKE 1 TABLET BY MOUTH TWICE A DAY Rx Instructions: TAKE 1 TABLET BY MOUTH TWICE A DAY levothyroxine 88 mcg tablet See Rx Instructions .ROUTE .COMPLEX Qty: 45 0RF Dose Instruction: TAKE 1 TABLET BY MOUTH EVERY DAY IN THE MORNING WITH WATER,ON EVEN DAYS OF THE MONTH (1/2HR PRIOR TO EATING) Rx Instructions: TAKE 1 TABLET BY MOUTH EVERY DAY IN THE MORNING WITH WATER,ON EVEN DAYS OF THE MONTH (1/2HR PRIOR TO EATING) atorvastatin 80 mg tablet See Rx Instructions .ROUTE .COMPLEX Qty: 90 0RF Dose Instruction: TAKE 1 TABLET BY MOUTH EVERYDAY AT BEDTIME Rx Instructions: TAKE 1 TABLET BY MOUTH EVERYDAY AT BEDTIME aspirin 325 mg Tablet 325 mg PO BEDTIME folic acid 400 mcg Tablet 800 mcg PO QAM acetaminophen [Tylenol Ex Str Rapid Release] 500 mg Tablet 500 mg PO Q4H PRN (Reason: Pain) Patient Comments: prn ibuprofen 200 mg Tablet 200 mg PO Q4H PRN (Reason: Pain) vitamin E 268 mg (400 unit) Capsule 1 cap PO DAILY potassium chloride 10 mEq Tablet Extended Release 10 meq PO DAILY Discontinued lisinopril 10 mg tablet 10 mg PO DAILY Qty: 90 3RF Discharge Order = DC NOW: Discharge Order (Routine); Ordered 12/26/24 Ordered By: Anastacio Brito Other Ambulatory Orders: Basic Metabolic Panel (Routine) Timeframe: 5 Days Facility: [facility] - Location: Lab - Main Lab Ordered By: Anastacio Brito Referrals: [facility] [Outside] Jean Claude Nayak MD [Primary Care Provider, Family Practice] - 1 week Discharge Diet: Cardiac and Diabetic Discharge Activity: Increase activity as tolerated Patient Instructions: Opioid Safety, Patient Portal & Santos Instructions Activity Restrictions/Additional Instructions: Stop taking lisinopril and KEIRA inhibitors forever. You should also not take sitagliptin or similar DPP 4 inhibitors which can cross-react with the KEIRA inhibitors to cause angioedema as well There is a 12% chance that you will have a recurrence of the swelling and if that occurs of the face with swelling of the tongue or throat you need to go to the emergency department. Of biggest concern is if you have difficulty breathing or swallowing your saliva and that would represent a medical emergency that you need to go to the emergency department for. There is another medicine called an angiotensin receptor jules such as losartan and studies show that there is no correlation of angioedema from these medicines for people who had angioedema with lisinopril which is an KEIRA inhibitor. Your physician may choose to start you on a angiotensin receptor jules such as losartan in the future and that is okay. Additionally I started you on spironolactone for potassium sparing diuretic and you should take that along with your furosemide and HCTZ and low-dose potassium. Follow-up with your physician next week with a mini panel to see how the swelling and blood pressure and potassium are doing Start wearing ARELI hose on your legs or similar compression hose or ski socks to keep swelling out of the legs daily during the day. Okay to take them off for sleep and elevate your legs Discharge Attestations Time Spent in Discharge Care*: greater than 30 min Time Spent in Smoking Cessation: Not a smoker Quality Metrics Clinical Quality Measures [ No reported AMI, CVA or VTE this stay] Coding Level of Care Code 77713 Diagnoses Angioedema of lips T78.3XXA Leukocytosis D72.829 Lower extremity edema R60.0 Time Spent (min) 45
--- NOTE | 2024-12-26 15:27 | PC.NURSE ---
Discharged to home with daughter.
== END 2024-12-26 15:15 | disposition home health service (06) ==
LOC: ER 09:40 → ICU 09:42
PROVIDERS: Admitting Provider Internal Medicine; Emergency Provider Family Medicine; PCP Family Medicine; Visit Provider Internal Medicine
DX: T78.3XXA Angioneurotic edema, initial encounter (principal); X58.XXXA Exposure to other specified factors, initial encounter; D72.829 Elevated white blood cell count, unspecified; Z79.82 Long term (current) use of aspirin; Z79.84 Long term (current) use of oral hypoglycemic drugs; J44.9 Chronic obstructive pulmonary disease, unspecified; E03.9 Hypothyroidism, unspecified; E78.5 Hyperlipidemia, unspecified; I73.9 Peripheral vascular disease, unspecified; I10 Essential (primary) hypertension; Z87.892 Personal history of anaphylaxis
CPT/HCPCS: 36415; 80048; 80053; 81001; 85025; 85610; 85730; 93005; 93970; 96372; 96374; 96375; 99285; G0378; J0169; J1200; J1650; J2919; J9999

== ENCOUNTER → 2025-01-04 07:57 | Outpatient (BNVA) | payer MEDICARE, SELFPAY | PROVIDERS: PCP Family Medicine; Visit Provider Family Medicine | DX: I10 Essential (primary) hypertension (principal) | CPT/HCPCS: 80048 ==

== ENCOUNTER → 2025-02-18 13:00 | Outpatient (BNVA) | payer MEDICARE, SELFPAY | PROVIDERS: PCP Family Medicine; Visit Provider Thoracic Surgery (Cardiothoracic Vascular Surgery) | DX: I96 Gangrene, not elsewhere classified (principal); T21.31XA Burn of third degree of chest wall, initial encounter; T24.312A Burn of third degree of left thigh, initial encounter; T24.311A Burn of third degree of right thigh, initial encounter; T24.302A Burn of third degree of unspecified site of left lower limb, except ankle and foot, initial encounter; X58.XXXA Exposure to other specified factors, initial encounter | CPT/HCPCS: 97597; 97598; 99203 ==

== ENCOUNTER → 2025-02-24 11:45 | Outpatient (BNVA) | payer MEDICARE, SELFPAY | PROVIDERS: PCP Family Medicine; Visit Provider Family Medicine | DX: E55.9 Vitamin D deficiency, unspecified (principal); Z51.81 Encounter for therapeutic drug level monitoring; E11.9 Type 2 diabetes mellitus without complications; E87.6 Hypokalemia | CPT/HCPCS: 80053; 82306; 83036; 83735; 85025 ==

== ENCOUNTER → 2025-02-25 15:00 | Outpatient (BNVA) | payer MEDICARE, SELFPAY | PROVIDERS: PCP Family Medicine; Visit Provider Thoracic Surgery (Cardiothoracic Vascular Surgery) | DX: I96 Gangrene, not elsewhere classified (principal); T21.31XD Burn of third degree of chest wall, subsequent encounter; T24.311D Burn of third degree of right thigh, subsequent encounter; T24.312D Burn of third degree of left thigh, subsequent encounter; X58.XXXD Exposure to other specified factors, subsequent encounter; Z09 Encounter for follow-up examination after completed treatment for conditions other than malignant neoplasm | CPT/HCPCS: 97597; 97598 ==

== ENCOUNTER → 2025-03-03 14:50 | Outpatient (BNVA) | payer MEDICARE, SELFPAY | PROVIDERS: PCP Family Medicine; Visit Provider Thoracic Surgery (Cardiothoracic Vascular Surgery) | DX: I96 Gangrene, not elsewhere classified (principal); T21.31XD Burn of third degree of chest wall, subsequent encounter; T24.311D Burn of third degree of right thigh, subsequent encounter; T24.312D Burn of third degree of left thigh, subsequent encounter; X58.XXXD Exposure to other specified factors, subsequent encounter | CPT/HCPCS: 97597; 97598; J9999 ==

== ENCOUNTER → 2025-03-10 09:05 | Outpatient (BNVA) | payer MEDICARE, SELFPAY | PROVIDERS: PCP Family Medicine; Visit Provider Thoracic Surgery (Cardiothoracic Vascular Surgery) | DX: I96 Gangrene, not elsewhere classified (principal); T21.31XD Burn of third degree of chest wall, subsequent encounter; T24.311D Burn of third degree of right thigh, subsequent encounter; T24.312D Burn of third degree of left thigh, subsequent encounter; X58.XXXS Exposure to other specified factors, sequela | CPT/HCPCS: 97597 ==

== ENCOUNTER 2025-03-16 16:31 | Outpatient (CLI) | payer MEDICARE, SELFPAY ==
--- NOTE | 2025-03-16 16:39 | XRR_ITS ---
PROCEDURE INFORMATION: Exam: XR Chest Exam date and time: 03/16/2025 4:48 PM Age: 80 years old Clinical indication: Other: Hypoxia; Prior surgery; Surgery date: 6+ months; Surgery type: Stent; Additional info: Hypoxia, fluid overload TECHNIQUE: Imaging protocol: Radiologic exam of the chest. Views: 2 views. COMPARISON: CR XR chest 1V portable [id number] 05/14/2023 4:59 PM FINDINGS: Lungs: There is subtle bilateral perihilar and lower lobe interstitial prominence. No consolidation. Pleural spaces: There has been development of small bilateral pleural effusions.. No pneumothorax. Heart/Mediastinum: Unremarkable. No cardiomegaly. Bones/joints: There are degenerative changes of the thoracic spine. XR/XR chest 2V* [id number] IMPRESSION: Subtle bilateral perihilar and lower lobe interstitial prominence suspicious for mild pulmonary edema with small bilateral pleural effusions
== END 2025-03-16 16:32 | disposition home or self-care (01) ==
PROVIDERS: PCP Family Medicine; Visit Provider Family Medicine
DX: R09.02 Hypoxemia (principal); R06.00 Dyspnea, unspecified
CPT/HCPCS: 71046

== ENCOUNTER → 2025-03-17 09:15 | Outpatient (BNVA) | payer MEDICARE, SELFPAY | PROVIDERS: PCP Family Medicine; Visit Provider Thoracic Surgery (Cardiothoracic Vascular Surgery) | DX: I96 Gangrene, not elsewhere classified (principal); T21.31XD Burn of third degree of chest wall, subsequent encounter; T24.311D Burn of third degree of right thigh, subsequent encounter; T24.312D Burn of third degree of left thigh, subsequent encounter; X58.XXXD Exposure to other specified factors, subsequent encounter | CPT/HCPCS: 97597 ==

== ENCOUNTER 2025-03-18 13:07 | Observation (INO) | payer MEDICARE, SELFPAY ==
--- OUTSIDE RECORDS SUMMARY | 2025-03-11 12:30 | XMS_ITS | Encounter Summary ---
Author Organization [facility] Address [address] [place] [address] Care Team Providers Care Typing Secretary Name Role Phone Jean Claude Nayak MD Primary Care Provider [phone] Reason for Visit * Radiology Services (Routine) - Closed Specialty Diagnoses / Procedures Referred By Contac t Referred To Contact Diagnoses PAD (peripheral artery disease) Procedures US DUPLEX ARTERIAL LEG RIGHT Madan Dodge MD [address] [place] [address] Phone: tel: fax: [facility] Pre-Registration [place] CALL TO MAKE APPOINTMENT ONLY [address] [place] [address] Phone: tel: fax: Referral ID Status Reason Start Date Expiration Date Visits Re quested Visits Authorized [id number] Closed 12/04/2024 01/04/2026 1 1 Encounter Details Date Type Department Care Team (Late st Contact Info) Description 03/11/2025 12:30 PM CDT Ancillary Procedure [facility] [place] [address] [place] [address] Social History Tobacco Use Types Packs/Day Years Used Date Smoking Tobacco: Every Day Cigarettes 0.5 25.8 Started: 1999 Passive Smoke Exposure: Current Smokeless Tobacco: Never Alcohol Use Standard Drinks/Week Comments Not Currently 0 (1 standard drink = 0.6 oz pur e alcohol) Feeling Safe Answer Date Recorded Are you in a relationship wi th someone who hurts you emotionally and/or physically? 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 [address] [place] [address] Jorden Arshad MD [address] [place] [address] 09/13/2025 2:00 PM CDT Ancillary Procedure [facility] [place] [address] [place] [address] Romero Isaac MD [facility] [place] [address] 09/13/2025 2:30 PM CDT Ancillary Procedure [facility] [place] [address] [place] [address] Liss Sher PA-C [address] [facility] [address] [place] [address] 09/13/2025 3:30 PM CDT Office Visit [facility] Vascular Surgery [address] [place] [address] Romero Isaac MD [address] [facility] [address] [place] [address] Ale Carrillo DO [address] [facility] [address] [place] [address] documented as of this encounter Procedures Procedure Name Priority Date/Time Associated Diagnosis Comments US DUPLEX ARTERIAL LEG RIGHT Routine 03/11/2025 2:02 PM CDT documented in this encounter Results * US DUPLEX ARTERIAL LEG RIGHT (03/11/2025 2:02 PM CDT) Anatomical Region Laterality Modality Lower Extremity Ultrasound 03/11/2025 1:14 PM CDT Narrative 03/14/2025 10:34 AM CDT [facility] [address] [address] Noninvasive Vascular Lab Limited Lower Extremity Arterial Duplex Study Patient: Viry Selby Study ID: US DUPLEX ARTERI Gender: F : 1945 Age: 80 Room: Height: 152cm Weight: 50.1kg BSA: 1.46m^2 Pt status: Outpatient Study Date: 03/11/2025 Study Time: 01:14:45 PM BSA: 1.46m^2 Ordering: Madan Dodge Interpreting:Madan Dodge 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 Labs, prior tests, procedures, and surgery: Peripheral stent. Performed right. Summary Impression: 1. 50% stenosis involving the right common femoral artery. 2. 50-75% stenosis involving the right profunda femoral artery. 3. 50% stenosis involving the right popoliteal artery. 4. Patent right femoral artery stent. Mild velocity elevation noted at the distal segment of the stent. 5. Moderate, dense, diffuse atherosclerosis involving the right lower extremity. 6. Right TBI 0.67 Left TBI 0.41. 7. Moderate arterial insufficiency at rest involving the right and left lower extremity. Study data: Limited lower extremity arterial duplex study. Ankle-brachial index. Height: 152cm. Height: 59.8in. Weight: 50.1kg. Weight: 110.4lb. BMI: 21.7kg/m^2. BSA: 1.46m^2. Location: Vascular laboratory. Patient status: Outpatient. Study status: Routine. Procedure: A vascular evaluation was performed with the patient in the supine position. Imaged vessel(s): the right common femoral, right deep femoral, right femoral, right popliteal, right anterior tibial, right posterior tibial, and right dorsal pedal arteries. Presentation case quality. Arterial flow: - Right common femoral: Right common femoral 2.02m/sec Multiphasic - Right deep femoral: Right deep femoral 3.06m/sec Multiphasic - Right femoral proximal: Right femoral proximal 1.07m/sec Multiphasic - Right femoral mid: Right femoral mid 0.69m/sec Multiphasic - Right femoral distal: Right femoral distal 1.97m/sec Multiphasic - Right popliteal: Right popliteal 0.82m/sec Multiphasic - Right popliteal distal: Right popliteal distal 1.78m/sec Multiphasic - Right anterior tibial distal: Right anterior tibial distal 0.43m/sec Multiphasic - Right posterior tibial distal: Right posterior tibial distal 0.56m/sec Multiphasic - Right peroneal distal: Right peroneal distal 0.41m/sec Multiphasic Ankle brachial indices Baseline Baseline Rt PT: 109mm Hg Rt DP: 107mm Hg Rt PT: 0.83 Rt DP: 0.81 Lt PT: 89mm Hg Lt DP: 94mm Hg Lt PT: 0.67 Lt DP: 0.71 Brachial pressures: - Rt brachial pressure (sys): 132mm Hg - Lt brachial pressure (sys): 131mm Hg - Max brachial pressure (sys): 132mm Hg [facility] is accredited with the Intersocietal Commission for the Accreditation of Vascular Laboratories (ICAVL) Prepared and Electronically Authenticated Ale Carrillo Confirmed 03/14/2025 10:34 Procedure Note Ale Carrillo, - 03/14/2025 [facility] [address] [place] [address] Noninvasive Vascular Lab Limited Lower Extremity Arterial Duplex Study Patient: Viry Selby Study ID: US DUPLEX ARTERI Gender: F : 1945 Age: 80 Room: Height: 152cm Weight: 50.1kg BSA: 1.46m^2 Pt status: Outpatient Study Date: 03/11/2025 Study Time: 01:14:45 PM BSA: 1.46m^2 Ordering: Madan Dodge Interpreting:Madan Dodge 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 Labs, prior tests, procedures, and surgery: Peripheral stent. Performed right. Summary Impression: 1. 50% stenosis involving the right common femoral artery. 2. 50-75% stenosis involving the right profunda femoral artery. 3. 50% stenosis involving the right popoliteal artery. 4. Patent right femoral artery stent. Mild velocity elevation noted atthe distal segment of the stent. 5. Moderate, dense, diffuse atherosclerosis involving the right lower extremity. 6. Right TBI 0.67 Left TBI 0.41. 7. Moderate arterial insufficiency at rest involving the right and leftlower extremity. Study data: Limited lower extremity arterial duplex study.Ankle-brachial index. Height: 152cm. Height: 59.8in. Weight: 50.1kg. Weight:110.4lb. BMI: 21.7kg/m^2. BSA: 1.46m^2. Location: Vascular laboratory.Patient status: Outpatient. Study status: Routine. Procedure: A vascular evaluation was performed with the patient in the supine position. Imaged vessel(s): the right common femoral, right deep femoral, right femoral,right popliteal, right anterior tibial, right posterior tibial, and rightdorsal pedal arteries. Presentation case quality. Arterial flow: - Right common femoral: Right common femoral 2.02m/sec Multiphasic - Right deep femoral: Right deep femoral 3.06m/sec Multiphasic - Right femoral proximal: Right femoral proximal 1.07m/sec Multiphasic - Right femoral mid: Right femoral mid 0.69m/sec Multiphasic - Right femoral distal: Right femoral distal 1.97m/sec Multiphasic - Right popliteal: Right popliteal 0.82m/sec Multiphasic - Right popliteal distal: Right popliteal distal 1.78m/sec Multiphasic - Right anterior tibial distal: Right anterior tibial distal 0.43m/sec Multiphasic - Right posterior tibial distal: Right posterior tibial distal 0.56m/sec Multiphasic - Right peroneal distal: Right peroneal distal 0.41m/sec Multiphasic Ankle brachial indices Baseline Baseline Rt PT: 109mm Hg Rt DP:107mm Hg Rt PT: 0.83 Rt DP: 0.81 Lt PT: 89mm Hg Lt DP: 94mm Hg Lt PT: 0.67 LtDP: 0.71 Brachial pressures: - Rt brachial pressure (sys): 132mm Hg - Lt brachial pressure (sys): 131mm Hg - Max brachial pressure (sys): 132mm Hg [facility] is accredited withthe Intersocietal Commission for the Accreditation of Vascular Laboratories (ICAVL) Prepared and Electronically Authenticated Ale Carrillo Confirmed 03/14/2025 10:34 us Madan Dodge MD US ORDERABLES Final Result documented in this encounter Visit Diagnoses Not on filedocumented in this encounter Care Teams Typing Secretary Relationship Specialty Start Date End Date Jean Claude Nayak MD [address] [place] [id number] PCP - General Family Practice 08/14/21 documented as of this encounter
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
--- OUTSIDE RECORDS SUMMARY | 2025-03-18 13:23 | XMS_ITS | Clinical Summary ---
Author Organization [facility] Address [address] 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 Gender Identity Not on file Sexual Orientation Not on file Last Filed Vital Signs Vital Sign Reading Time Taken Comments Blood Pressure 128/60 11/18/2020 11:08 AM CDT Pulse 66 11/18/2020 11:08 AM CDT Temperature 37.3 C (99.1 F) 06/26/2020 8:02 AM APPEALS BOARD REFEREE Respiratory Rate 18 06/26/2020 8:02 AM APPEALS BOARD REFEREE Oxygen Saturation 96% 11/18/2020 11:08 AM CDT Inhaled Oxygen Concentration - - Weight 61.2 kg (135 lb) 11/18/2020 11:08 AM CDT Height 154.9 cm (5' 1 ) 08/09/2020 12:46 PM APPEALS BOARD REFEREE Body Mass Index 25.51 08/09/2020 12:46 PM APPEALS BOARD REFEREE Plan of Treatment Health Maintenance Due Date Last Done Comments DTAP/TDAP/TD VACCINES (1 - Tdap) 02/02/1963 PNEUMOCOCCAL VACCINE 50+ YEARS (1 of 2 - PCV) 02/02/19 63 ZOSTER VACCINE (1 of 2) 02/02/1994 OSTEOPOROSIS SCREENING 02/02/2009 RSV VACCINE (60+ or ) (1 - 1-dose 75+ series) 02/02/2019 INFLUENZA VACCINE (#1) 2025 03/02/2020 Medical Devices Implanted Type Area Police And Fire Dispatcher Device Identifier Shelf Expiration Date Model / Serial / Lot Closure Perclose Proglide 26020 - [id number] Implanted:Qty: 1 on 06/20/2020 by Marito Boyer MD at [facility] Closure Device Left: Arterial LEE- VASC DEVICE [id number] 02/14/2022 [id number] / / [id number] Closure Perclose Proglide 07007 - [id number] Implanted:Qty: 1 on 06/20/2020 by Marito Boyer MD at [facility] Closure Device Left: Arterial LEE- VASC DEVICE [id number] 02/14/2022 68712 / / 06/18/03 1 Angio-Seal Vip Closure Dev [id number] - [id number] Implanted:Qty: 1 on 06/20/2020 by Marito Boyer MD at [facility] Closure Device Right: Groin LEE [employer] [id number] 02/14/2021 [id number] / / [id number] Coil Azur Cx Detach 035 19cm [id number] - [id number] Implanted:Qty: 1 on 06/20/2020 by Marito Boyer MD at [facility] Coil Right: Arterial TERUMO- [employer] DANIEL 06/16/2024 [id number] Description:Right hypogastri c artery Coil Azur Cx Detach 035 19cm [id number] - [id number] Implanted:Qty: 1 on 06/20/2020 by Marito Boyer MD at [facility] Coil Right: Arterial TERUMO- MED DANIEL 11/14/2024 [id number] 2 Description:Right hypogastri c artery Stent Afx Ii Bifur Hfi23-57/I16-4 0 - [id number] Implanted:Qty: 1 on 06/20/2020 by Marito Boyer MD at [facility] Stent N/A: Aorta [employer] 11/26/2022 BNW44-85 /I16-40 / [id number] / Stent Lifestream [id number] - [id number] Implanted:Qty: 1 on 06/20/2020 by Marito Boyer MD at [facility] Stent Right: Iliac Artery CR BARD- [employer] [id number] 01/14/2023 [id number] / / [id number] Description:Right external i liac Stent Lifestream [id number] - [id number] Implanted:Qty: 1 on 06/20/2020 by Marito Boyer MD at [facility] Stent Right: Iliac Artery CR BARD- [employer]ERR[employer] [id number] 03/16/2023 [id number] [id number] / / [id number] Stent Lifestream Cvr [id number] - [id number] Implanted:Qty: 1 on 06/20/2020 by Marito Boyer MD at [facility] Stent Right: Iliac Artery CR BARD- [employer]ERR[employer] [id number] 06/16/2022 [id number] [id number] / / [id number] Stent Lifestream Cvr [id number] - [id number] Implanted:Qty: 1 on 06/24/2020 by Marito Boyer MD at [facility] Stent Left: Leg CR BARD- [employer] [id number] / / Insurance [facility] DUAL COMPLETE MCR PPO D-SNP RX [employer] RX Member Subscriber Plan / Payer (Ef fective 2015-Present) Name:Viry Castillo Relation to Subscriber:Self Name:VIRY CASTILLO Payer ID:Not on file Group ID:[id number] Type:RX Medicare Part D Address: [place] Advance Directives For more information, please contact: [phone] Documents on File Type Date Recorded Patient Gyn Physician Expl anation Advance Directive POA 08/09/2020 12:19 PM Advance Directive POA * Full Code (Latest Code Status on File) Date Activated Date Inactivated Comments 06/25/2020 8:11 AM 06/26/2020 1:02 PM * Full Code Date Activated Date Inactivated Comments 06/20/2020 10:48 AM 06/20/2020 10:29 PM Care Teams Video Game Animator Relationship Specialty Start Date End Date Andrey Lanza MD NO ADDRESS ON FILE PCP - General 11/27/07
--- OUTSIDE RECORDS SUMMARY | 2025-03-18 13:23 | XMS_ITS | Encounter Summary ---
Author Organization [facility] Address [address] [place] [address] Care Team Providers Care Wrapper Rewinder Name Role Phone Andrey Lanza MD Primary Care Provider Emily doran Encounter Details Date Type Department Care Team (Latest Contact Info) Description 09/25/2000 Outpatient Historical [facility] Gen Spec Surg [address] 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
--- OUTSIDE RECORDS SUMMARY | 2025-03-18 13:23 | XMS_ITS | Encounter Summary ---
Author Organization [facility] Address [address] [place] [address] Care Team Providers Care Veneer Stapler Name Role Phone Andrey Lanza MD Primary Care Provider Emily le Encounter Details Date Type Department Care Team (Latest Contact Info) Description 10/24/2000 Outpatient Historical [facility] Mark Chavez MD NO ADDRESS ON FILE Obstruction of bile duct (CMS/HCC) (Primary Dx) Social History Tobacco Use Types Packs/Day Years Used Date Smoking Tobacco: Never Assessed Comments Unknown Sex and Gender Information Value Date Recorded Sex Assigned at Not on file 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
--- OUTSIDE RECORDS SUMMARY | 2025-03-18 13:23 | XMS_ITS | Encounter Summary ---
Author Organization [facility] Address [address] [place]: Epic Prelude ADT [place] [address] Care Team Providers Care Textile Cutting Machine Operator Name Role Phone Andrey Lanza MD Primary [...] on file Legal Sex Female 3:41 AM MEDIA ASSOCIATE Gender Identity Not on file Sexual Orientation Not on file documented as of this encounter Plan of Treatment Not on file documented as of this encounter Visit Diagnoses Not on filedocumented in this encounter Care Teams Textile Cutting Machine Operator Relationship Specialty Start Date End Date Andrey Lanza MD NO ADDRESS ON FILE PCP - General 11/27/07 documented as of this encounter
--- OUTSIDE RECORDS SUMMARY | 2025-03-18 13:23 | XMS_ITS | Encounter Summary ---
Author Organization [facility] Address [address] Alvarez: Epic Prelude ADT [place] [address] Care Team Providers Care Environmental Project Manager Name Role Phone Andrey Lanza MD Primary [...] on file Legal Sex Female 3:41 AM POSTDOCTORAL RESEARCH FELLOW Gender Identity Not on file Sexual Orientation Not on file documented as of this encounter Plan of Treatment Not on file documented as of this encounter Visit Diagnoses Not on filedocumented in this encounter Care Teams Environmental Project Manager Relationship Specialty Start Date End Date Andrey Lanza MD NO ADDRESS ON FILE PCP - General 11/27/07 documented as of this encounter
--- OUTSIDE RECORDS SUMMARY | 2025-03-18 13:23 | XMS_ITS | Encounter Summary ---
Author Organization [facility] Address [address] [place] [address] Care Team Providers Care Oracle Business Intelligence Developer Name Role Phone Andrey Lanza MD Primary [...] Expiration Date Visits Re quested Visits Authorized [id number] Closed 08/03/2020 09/03/2021 1 1 SEWER * Radiology Services (Routine) - Closed Specialty Diagnoses / Procedures Referred By Contac t Referred To Contact Diagnoses Aortoiliac occlusive disease (CMS/HCC) Iliac artery aneurysm Iliac artery stenosis, bilateral Penetrating ulcer of aorta Procedures US AORTA Rochelle Rodriguez NP Phone: tel: fax: Referral ID Status Reason Start Date Expiration Date Visits Re quested Visits Authorized [id number] Closed 08/03/2020 09/03/2021 1 1 SEWER Encounter Details Date Type Department Care Team (Late st Contact Info) Description 08/03/2020 Ancillary Orders [facility] Cardiac Thoracic [facility] [place] [address] [place] [id number] Rochelle Rodriguez, CRISTIANA [address] [place] [phone] Aortoiliac occlusive disease (CMS/HCC); Iliac artery aneurysm; [...] on file Legal Sex Female 3:41 AM WELT SEWER Gender Identity Not on file Sexual Orientation Not on file documented as of this encounter Plan of Treatment Not on file documented as of this encounter Results * US AORTA IVC [employer] (08/09/2020 1:25 PM WELT SEWER) Anatomical Region Laterality Modality Abdomen Ultrasound 08/09/2020 1:25 PM WELT SEWER Narrative 08/10/2020 12:15 PM WELT SEWER See the ultrasound of the aorta obtained on the same day for the images and full report (accession number [id number]). Procedure Note Barron Ca MD - 08/10/2020 See the ultrasound of the aorta obtained on the same day for the images and full report (accession number [id number]). us Rochelle Rodriguez NP US ORDERABLES Final Resul t * US AORTA (08/09/2020 1:25 PM WELT SEWER) Anatomical Region Laterality Modality Abdomen Ultrasound 08/09/2020 1:25 PM WELT SEWER Impressions 08/11/2020 6:14 AM WELT SEWER IMPRESSION: 1. Endovascular repair of the infrarenal [...] cm in diameter. Narrative 08/11/2020 6:14 AM WELT SEWER EXAM: US AORTA, DIAGNOSIS/REASON FOR EXAM: Aortoiliac [...] aorta documented in this encounter Care Teams Oracle Business Intelligence Developer Relationship Specialty Start Date End Date Andrey Lanza MD NO ADDRESS ON FILE PCP - General 11/27/07 documented as of this encounter
--- OUTSIDE RECORDS SUMMARY | 2025-03-18 13:23 | XMS_ITS | Encounter Summary ---
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
--- OUTSIDE RECORDS SUMMARY | 2025-03-18 13:23 | XMS_ITS | Encounter Summary ---
Author Organization [facility] Address [address] [place] [address] Care Team Providers Care Branch Service Representative Name Role Phone Andrey Lanza MD Primary Care Provider Emily le Encounter Details Date Type Department Care Team (Latest Contact Info) Description 09/13/2000 Outpatient Historical [facility] Gen [facility] [place] [place] [address] Mark Drummond MD NO ADDRESS ON FILE Chronic cholecystitis (Primary Dx) Social History Tobacco Use Types Packs/Day Years Used Date Smoking Tobacco: Never Assessed Comments Unknown Sex and Gender Information Value Date Recorded Sex Assigned at Not on file Legal Sex Female 3:41 AM RN INTENSIVE CARE UNIT Gender Identity Not on file Sexual Orientation Not on file documented as of this encounter Plan of Treatment Not on file documented as of this encounter Visit Diagnoses Diagnosis Chronic cholecystitis- Primary documented in this encounter Care Teams Branch Service Representative Relationship Specialty Start Date End Date Andrey Lanza MD NO ADDRESS ON FILE PCP - General 11/27/07 documented as of this encounter
--- OUTSIDE RECORDS SUMMARY | 2025-03-18 13:24 | XMS_ITS | Encounter Summary ---
Author Organization [facility] Address [address] [place] [address] Care Team Providers Care Retail Banker Name Role Phone Jean Claude Nayak MD Primary Care Provider [phone] Reason for Visit * Reason Onset Date Comments Santyl 03/15/2025 Encounter Details Date Type Department Care Team (Late st Contact Info) Description 03/15/2025 Telephone [facility] General and Trauma Surgery-[address] [place] [address] Letty Welch, INSPECTOR CASING [facility] [address] [facility] [address] [place] [address] Tammy Social History Tobacco Use Types Packs/Day Years [...] on file Legal Sex Female 3:08 PM STRAINER TENDER Gender Identity Not on file Sexual Orientation Not on file documented as of this encounter Miscellaneous Notes * Telephone Encounter - Jeanne Mcnair - 03/15/2025 11:42 AM CDT Called and spoke with the daughter she wondered if she could donate the remaining Santyl they had left. Full verbal understanding was given with no further questions at this time. ----- Message from Huma sent at 03/15/2025 9:16 AM CDT ----- Patient got too much Santyl. Facility would like to know what to do with it all. If they can send it back to the manufacture? Sharon: [phone] documented in this encounter Plan of Treatment Upcoming Encounters Date Type Department Care Team (Late st Contact Info) Description 07/20/2025 9:00 AM STRAINER TENDER Office Visit [facility] [address] [place] [address] Jorden Arshad MD [address] [place] [address] 09/13/2025 2:00 PM CDT Ancillary Procedure [facility] [place] [address] [place] [address] Romero Isaac MD [address] [place] [address] 09/13/2025 2:30 PM CDT Ancillary Procedure [facility] [place] [address] [place] [address] Liss Sher PA-C [address] [place] [address] 09/13/2025 3:30 PM CDT Office Visit [facility] Vascular [facility] [place] [address] [place] [address] Romero Isaac MD [address] [place] [address] Ale Carrillo DO [address] [place] [address] documented as of this encounter Visit Diagnoses Not on filedocumented in this encounter Care Teams Retail Banker Relationship Specialty Start Date End Date Jean Claude Nayak MD [address] [place] [phone] PCP - General Family Practice 08/14/21 documented as of this encounter
--- OUTSIDE RECORDS SUMMARY | 2025-03-18 13:24 | XMS_ITS | Clinical Summary ---
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 020 Active meclizine (ANTIVERT) 25 mg tablet Take 25 mg by mouth every 8 hours as needed. Active acetaminophen (TYLENOL) 500 mg tablet Take 1,000 mg by mouth every 8 hours as needed for Pain. Active Ascorbic Acid 500 mg Capsule, Sustained Release Take 500 mg by mouth daily. 30 Capsule 025 Active aspirin (MARIA LUISA CHEWABLE) 81 mg Tablet, Chewable Take 1 Tablet (81 mg) by mouth daily. 90 Tablet 3 025 Active atorvastatin (LIPITOR) 40 mg tablet Take 1 Tablet (40 mg) by mouth daily at bedtime. 30 Tablet 025 Active bacitracin zinc 500 unit/gram Ointment Apply to affected area daily. 28 Gram 025 Active cholecalciferol , Vitamin D3, 125 mcg (5,000 unit) Capsule Take 1 Capsule (5,000 Units) by mouth daily. 30 Capsule 025 Active cloNIDine HCL (CATAPRES) 0.2 mg tablet Take 1 Tablet (0.2 mg) by mouth 3 times daily. 90 Tablet 025 Active collagenase (SANTYL) 250 unit/gram Ointment Apply to affected area daily. Use a thin layer on each wound. Wound length (required) unk cm X wound width (required) unk cm X unk treatment days. 30 Gram 025 Active ferrous sulfate 325 mg (65 mg iron) tablet Take 1 Tablet (325 mg) by mouth every other day. 15 Tablet 025 Active folic acid (FOLVITE) 400 mcg Tablet Take 1 Tablet (0.4 mg) by mouth daily. 30 Tablet 025 Active furosemide (LASIX) 40 mg tablet Take 1 Tablet (40 mg) by mouth daily. Take BID for 3 days then daily 30 Tablet 025 Active hydrALAZINE (APRESOLINE) 50 mg tablet Take 1 Tablet (50 mg) by mouth every 8 hours. 90 Tablet 025 Active hydroCHLOROthia zide 25 mg tablet Take 1 Tablet (25 mg) by mouth daily. 30 Tablet 025 Active levothyroxine 88 mcg tablet Take 1 Tablet (88 mcg) by mouth daily. 30 Tablet 025 Active metoprolol succinate (TOPROL XL) 50 mg Extended Release 24 hour tablet Take 1 Tablet (50 mg) by mouth every 12 hours. 60 Tablet 025 Active miconazole (DAVID,MACARENA,Roxana LAGUNAS AF) 2 % Cream Apply to affected area 2 times daily. 57 Gram 025 Active pantoprazole (PROTONIX) 40 mg Tablet, Delayed Release (E.C.) Take 1 Tablet (40 mg) by mouth 2 times daily. 60 Tablet 025 Active potassium CHLORIDE (K-TAB) 20 mEq Extended Release tablet Take 2 Tablets (40 mEq) by mouth daily with breakfast. 60 Tablet 025 Active vitamin E, dl,tocopheryl acet, (vitamin E, DL,acetate,) 180 mg (400 unit) Capsule Take 1 Capsule (400 Units) by mouth daily. 30 Capsule 025 Active zinc OXIDE-cod liver oil (DESITIN) 40 % Paste Apply to affected area Continuous as needed for Rash or Redness. 57 Gram Active amLODIPine (NORVASC) 10 mg tablet Take 1 Tablet (10 mg) by mouth daily. 30 Tablet Active metFORMIN (GLUCOPHAGE) 500 mg tablet Take 1 Tablet (500 mg) by mouth 2 times daily with meals. 60 Tablet Active polycarbophil calcium (FIBERCON) 625 mg tablet Take 1 Tablet (625 mg) by mouth daily. 30 Tablet Active clopidogreL (PLAVIX) 75 mg Tablet Take 75 mg by mouth. Active folic acid (FOLVITE) 400 mcg Tablet Take 400 mcg by mouth daily. 2024 Discontinued Ascorbic Acid 500 mg Capsule, Sustained Release Take 500 mg by mouth daily. 2024 Discontinued cloNIDine HCL (CATAPRES) 0.2 mg tablet Take 0.2 mg by mouth 3 times daily. 2024 Discontinued hydroCHLOROthia zide 25 mg tablet Take 25 mg by mouth daily. 2024 Discontinued levothyroxine 88 mcg tablet Take 88 mcg by mouth daily. 2024 Discontinued vitamin E 400 unit capsule 2024 Discontinued aspirin (MARIA LUISA CHEWABLE) 81 mg Tablet, Chewable Take 1 Tablet (81 mg) by mouth daily. 90 Tablet 3 2024 Discontinued furosemide (LASIX) 40 mg tablet Take 1 Tablet (40 mg) by mouth daily. Take BID for 3 days then daily 2024 Discontinued atorvastatin (LIPITOR) 40 mg tablet Take 1 Tablet (40 mg) by mouth daily at bedtime. 2024 Discontinued cholecalciferol , Vitamin D3, 125 mcg (5,000 unit) Capsule Take 1 Capsule (5,000 Units) by mouth daily. 2024 Discontinued potassium CHLORIDE (K-TAB) 20 mEq Extended Release tablet Take 2 Tablets (40 mEq) by mouth daily with breakfast. 2024 Discontinued albuterol (PROVENTIL,VENT JAVI) 2.5 mg /3 mL (0.083 %) Solution for Nebulization Take 3 mL (2.5 mg) by inhalation every 6 hours as needed for Wheezing or Shortness of Breath. 2024 Discontinued bacitracin zinc 500 unit/gram Ointment Apply to affected area daily. 2024 Discontinued collagenase (SANTYL) 250 unit/gram Ointment Apply to affected area daily. Use a thin layer on each wound. Wound length (required) unk cm X wound width (required) unk cm X unk treatment days. 2024 Discontinued dilTIAZem (CARDIZEM) 30 mg tablet Take 1 Tablet (30 mg) by mouth 3 times daily. 2024 Discontinued ferrous sulfate 325 mg (65 mg iron) tablet Take 1 Tablet (325 mg) by mouth every other day. 2024 Discontinued hydrALAZINE (APRESOLINE) 25 mg tablet Take 1 Tablet (25 mg) by mouth every 8 hours. 2024 Discontinued magnesium HYDROXIDE (MILK OF MAGNESIA) 400 mg/5 mL suspension Take 30 mL by mouth 1 time daily as needed for Constipation. 2024 Discontinued metoprolol succinate (TOPROL XL) 50 mg Extended Release 24 hour tablet Take 1 Tablet (50 mg) by mouth every 12 hours. 2024 Discontinued miconazole (DAVID,MICEZRA,R BEBO AF) 2 % Cream Apply to affected area 2 times daily. 2024 Discontinued pantoprazole (PROTONIX) 40 mg Tablet, Delayed Release (E.C.) Take 1 Tablet (40 mg) by mouth 2 times daily. 2024 Discontinued zinc OXIDE-cod liver oil (DESITIN) 40 % Paste Apply to affected area see administration instructions. 2024 Discontinued Active Problems Problem Noted Date Diagnosed Date Cognitive impairment 02/01/2025 Bladder incontinence 02/01/2025 Type 2 diabetes mellitus 02/01/2025 History of seizure 02/01/2025 ICAO (internal carotid artery occlusion), right 02/01/2025 Polysubstance abuse 02/01/2025 Rhabdomyolysis 02/01/2025 Diastolic congestive heart failure 01/28/2025 Vitamin D deficiency 01/24/2025 Gastric ulcer with hemorrhage 01/20/2025 Leukocytosis 01/19/2025 History of TIA (transient ischemic attack) and s troke 01/18/2025 Acute on chronic anemia 01/18/2025 Melena 01/18/2025 Acute blood loss anemia 01/18/2025 New onset atrial fibrillation 01/16/2025 Campylobacter diarrhea 01/15/2025 Pneumonia due to infectious organism 01/15/2025 Cerebrovascular accident (CVA) 01/15/2025 Paroxysmal atrial fibrillati on with rapid ventricular response 01/15/2025 Stenosis of right carotid artery 01/12/2025 Toxic Metabolic encephalopathy 01/12/2025 Aspiration pneumonia of both upper lobes 025 Skin rash 01/12/2025 Acute respiratory failure with hypoxia KELLY (acute kidney injury) 01/12/2025 Peripheral vascular disease 01/12/2025 Benign hypertension 01/12/2025 Other hyperlipidemia 01/12/2025 Peripheral arterial disease with history of revascularization 12/11/2024 Hypertensive urgency 12/11/2024 Silicatosis 03/14/2023 Status post total hip replacement, left 09/03/19 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 [address] [place] [address] Lalo Bingham MD 5 Refill [facility] Physical Med [facility]hab [facility] [address] [place] [address] Lalo Bingham MD 5 Telephone [facility] General and Trauma Surgery[address] [place] [phone] Letty Welch NP Santyl 5 Refill [facility] Med [facility] [address] [place] [address] Lalo Bingham MD 5 1:45 PM CDT Office Visit [facility] Vascular Surgery [address] [place] [address] Liss Sher PA-C Peripheral arterial disease with history of revascularization (Primary Dx); Tobacco abuse disorder; Right internal carotid occlusion; Femoral artery stenosis, right 5 12:30 PM CDT Ancillary Procedure [facility]- [address] [place] [address] 5 Telephone [facility] [address] [place] [address] Madan Dodge MD Question 5 External Device Data STL ABSTRACTION Provider, Abstract 5 Telephone [facility] Tra[facility] Surgery[address] [place] [address] Letty Welch NP PA request 5 [facility]phone [facility] [address] [place] [phone] Cayetano Garibay DO Santyl Shipment 5 2:00 PM CDT Office Visit [facility]-[place] [address] [place] [phone] Gtb, Physician Unspecified open wound, right thigh, sequela (Primary Dx); Unspecified open wound, left thigh, sequela 5 6:08 PM CDT - 5 11:20 AM CDT Hospital Encounter [facility] [address] [place] [phone] Jay Mendes, MD Zachery Jenkins Bradley, MD Metabolic encephalopathy Discharge Disposition: Home Health Care Svc 5 Travel 5 Telephone [facility] Vascular [facility] [place] [address] [place] [address] Madan Dodge MD Appointment Notification 5 10:42 AM CDT Anesthesia Event [facility] Endoscopy [address] [place] [phone] Flori Huerta MD 5 10:00 AM CDT - 5 10:20 AM CDT Surgery [facility] [address] [place] [phone] Garret Zuñiga DO SMALL BOWEL ENTEROSCOPY 5 External Device Data STL ABSTRACTION Provider, Abstract 5 External Device Data STL ABSTRACTION Provider, Abstract 5 External Device Data STL ABSTRACTION Provider, Abstract 5 External Device Data STL ABSTRACTION Provider, Abstract 5 External Device Data STL ABSTRACTION Provider, Abstract 5 External Device Data STL ABSTRACTION Provider, Abstract 5 External Device Data STL ABSTRACTION Provider, Abstract 5 External Device Data STL ABSTRACTION Provider, Abstract 5 External Device Data STL ABSTRACTION Provider, Abstract 5 External Device Data STL ABSTRACTION Provider, Abstract 5 External Device Data STL ABSTRACTION Provider, Abstract 5 External Device Data STL ABSTRACTION Provider, Abstract 5 External Device Data STL ABSTRACTION Provider, Abstract 5 External Device Data STL ABSTRACTION Provider, Abstract 5 External Device Data STL ABSTRACTION Provider, Abstract 5 External Device Data STL ABSTRACTION Provider, Abstract 5 External Device Data STL ABSTRACTION Provider, Abstract 5 External Device Data STL ABSTRACTION Provider, Abstract 5 External Device Data STL ABSTRACTION Provider, Abstract 5 External Device Data STL ABSTRACTION Provider, Abstract 5 External Device Data STL ABSTRACTION Provider, Abstract 5 External Device Data STL ABSTRACTION Provider, Abstract 5 External Device Data STL ABSTRACTION Provider, Abstract 5 External Device Data STL ABSTRACTION Provider, Abstract 5 Results [facility] [address] [facility] [address] [place] [address] Garret Zuñiga DO PATHOLOGY, CBC WITH DIFFERENTIAL, MANUAL DIFFERENTIAL 5 11:06 AM CDT Anesthesia Event [facility] Endoscopy [address] [place] [phone] Willem Nunn DO 5 9:20 AM CDT - 5 9:40 AM CDT Surgery [facility] [address] [place] [phone] Garret Zuñiga DO ESOPHAGOGASTRODUODENOSCOPY 5 External Device Data STL ABSTRACTION Provider, Abstract 5 External Device Data STL ABSTRACTION Provider, Abstract 5 Travel 5 5:31 PM CDT - 5 5:46 PM CDT Hospital Encounter [facility] 6CD Neurology [address] [place] [address] Austyn Brown MD Anand, MD Miguel Bruno Mariam, MD Nerella, Ravi V., MD Lohia, MD Mechelle Urias, MD Nichelle Tariq, MD Akila Au, MD Angie Coleman, Jamaal Zamora MD Metabolic encephalopathy Discharge Disposition: Rehab Facility IP 5 External Device Data STL ABSTRACTION Provider, Abstract 5 External Device Data STL ABSTRACTION Provider, Abstract 5 External Device Data STL ABSTRACTION Provider, Abstract 5 External Device Data STL ABSTRACTION Provider, Abstract from Last 3 Months Immunizations Immunization Administration Dates Next Due (PREVNAR 20)(6 WKS UP) PNEUM OCOCCAL CONJUGATE VACCINE 20-VALENT (PCV20), POLYSACCHARIDE [id number] CONJUGATE, ADJUVANT 0.5 ML (PF) IM 03/04/2024,02/24/2022 [...] Problems Son Relation Name Status Comments Brother Ppo Leblanc Daughter 1 Alive Daughter 2 Alive Father Mother Princess Leblanc Son Alive Social History Tobacco Use Types Packs/Day Years Used Date Smoking Tobacco: Every Day Cigarettes 0.5 25.8 Started: 1999 Passive Smoke Exposure: Current Smokeless Tobacco: Never Tobacco Cessation:Ready to Q uit: Not Asked Alcohol Use Standard Drinks/Week Comments Not Currently [...] on file 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 Gender Identity Not on file Sexual Orientation Not on file Last Filed Vital Signs Vital Sign Reading Time Taken Comments Blood Pressure 128/58 03/11/2025 2:02 PM CDT Pulse 69 03/11/2025 2:02 PM CDT Temperature 36.6 C (97.9 F) 02/17/2025 1:12 AM CDT Respiratory Rate 19 02/17/2025 9:11 AM CDT Oxygen Saturation 96% 03/11/2025 2:02 PM CDT Inhaled Oxygen Concentration - - Weight 54.4 kg (120 lb) 03/11/2025 2:02 PM CDT Height 152.4 cm (5') 03/11/2025 2:02 PM CDT Body Mass Index 23.44 03/11/2025 2:02 PM CDT Plan of Treatment Upcoming Encounters Date Type Department Care Team (Late st Contact Info) Description 07/20/2025 9:00 AM 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 Office Visit [facility] [address] [place] [address] Jorden Arshad MD [address] [place] [address] 09/13/2025 2:00 PM CDT Ancillary Procedure [facility]- [place] [address] [place] [address] Romero Isaac MD [facility] [place] [address] 09/13/2025 2:30 PM CDT Ancillary Procedure [facility] [place] [address] [place] [address] Liss Sher PA-C [address] [place] [address] 09/13/2025 3:30 PM CDT Office Visit [facility] V[facility] Surgery [place] [address] [place] [address] Romero Isaac MD [address] [facility] [address] [place] [address] Ale Carrillo DO [address] [place] [address] Health Maintenance Due Date Last Done Comments DIABETES ANNUAL FOOT EXAM 02/02/1962 DIABETES ANNUAL RETINAL EXAM 02/02/1962 DIABETES MICROALBUMIN ANNUAL SCREEN 02/02/1962 DTAP/TDAP/TD VACCINES (1 - Tdap) 02/02/1963 ZOSTER VACCINE (1 of 2) 02/02/1994 OSTEOPOROSIS SCREENING 02/02/2009 RSV VACCINE (60+ or ) (1 - 1-dose 75+ series) 02/02/2019 INFLUENZA VACCINE (#1) 2025 , 02/24/2022, 03/02/2020 DIABETES HBA1C Q 6 MONTHS 07/16/2025 01/13/2025 LDL CHOLESTEROL ANNUAL 01/13/2026 01/13/2025 PNEUMOCOCCAL VACCINE 50+ YEARS Completed 03/04/2024 , 02/24/2022 Medical Devices Implanted Type Area [employer] Records Clerk Device Identifier Shelf Expiration Date Model / Serial / Lot Angio-Seal Vip Closure Dev 071299 - [id number] Implanted:Qty : 1 on 06/20/2020 by Marito Boyer MD Closure Device Right: Groin LEE [employer] [id number] 02/14/2021 [id number] / / [id number] Closure Perclose Proglide 80253 - [id number] Implanted:Qty : 1 on 06/20/2020 by Marito Boyer MD Closure Device Left: Arterial LEE- VASC DEVICE [id number] 02/14/2022 91200 / / [id number] Closure Perclose Proglide 37955 - [id number] Implanted:Qty : 1 on 06/20/2020 by Marito Boyer MD Closure Device Left: Arterial LEE- VASC DEVICE [id number] 02/14/2022 94323 / / 06/18/041 Coil Azur Cx Detach 035 19cm 45-959826 - [id number] Implanted:Qty : 1 on 06/20/2020 by Marito Boyer MD Coil Right: Arterial TERUMO- MED DANIEL 11/14/2024 [id number] / / [id number] Description:Right hypogastri c artery Coil Azur Cx Detach 035 19cm [id number] - [id number] Implanted:Qty : 1 on 06/20/2020 by Marito Boyer MD Coil Right: Arterial TERUMO- MED DANIEL 06/16/2024 [id number] / / [id number] Description:Right hypogastri c artery Cup [place] Porocoat Acet Shell 52mm 1217-22-052 - [id number] Implanted:Qty : 1 on 08/30/2021 by Demetrius George MD at [facility] Hip Left: Hip J[employer]J- [employer] [id number] 06/16/2031 [id number] / / [id number] Liner [place] Altrx 83y46fc Nutrl 1221-36-052 - [id number] Implanted:Qty : 1 on 08/30/2021 by Demetrius George MD at [facility] Hip Left: Hip [employer] [id number] 06/16/2026 [id number] / / [id number] Head Fem Art/Jose Luis Cer Sz36 1365-36-320 - [id number] Implanted:Qty : 1 on 08/30/2021 by Demetrius George MD at [facility] Hip Left: Hip J&J- DEPUY KEIRA [id number] 03/16/2026 [id number] / / [id number] Stem Fem Cole Por Sz3 1570--090 - [id number] Implanted:Qty : 1 on 08/30/2021 by Demetrius George MD at [facility] Hip Left: Hip J[employer] [id number] 12/14/2025 1570--090 / / [id number] Screw Canc [place] 6.5x50mm 1217-50-500 - [id number] Implanted:Qty : 1 on 08/30/2021 by Demetrius George MD at [facility] Screw Left: Hip J[employer]J- [employer] [id number] 12/14/2030 1217-50-500 / / [id number] Stent Afx Ii Bifur Zpb77-08/I16- 40 - [id number] Implanted:Qty : 1 on 06/20/2020 by Marito Boyer MD Stent N/A: Aorta [employer] 11/26/2022 SPP29-56/I1 6-40 / [id number] / Stent Lifestream 6y16l42eg [id number] - [id number] Implanted:Qty : 1 on 06/20/2020 by Marito Boyer MD Stent Right: Iliac Artery CR BARD- [employer]ERRICK [employer] [id number] 01/14/2023 [id number] / / [id number] Description:Right external i liac Stent Lifestream 3v35x48ti [id number] - [id number] Implanted:Qty : 1 on 06/20/2020 by Marito Boyer MD Stent Right: Iliac Artery CR BARD[employer] [id number] 03/16/2023 [id number] / / [id number] Stent Lifestream Cvr 3g09x67 [id number] - [id number] Implanted:Qty : 1 on 06/20/2020 by Marito Boyer MD Stent Right: Iliac Artery CR BARD[employer] [id number] 06/16/2022 [id number] / / [id number] Stent Lifestream Cvr [id number] - [id number] Implanted:Qty : 1 on 06/24/2020 by Marito Boyer MD Stent Left: Leg CR [facility] [id number] / / Procedures Procedure Name Priority Date/Time Associated Diagnosis Comments US DUPLEX ARTERIAL LEG RIGHT Routine 2:02 PM CDT UPPER ENDOSCOPY REPORT 3:12 PM CDT POC GLUCOSE Routine 02/17/2025 7:10 AM CDT CBC WITH DIFFERENTIAL Routine 02/16/2025 4:50 AM CDT POC GLUCOSE Routine 02/15/2025 5:01 PM CDT POC GLUCOSE Routine 02/15/2025 7:10 AM CDT POC GLUCOSE Routine 02/14/2025 4:51 PM CDT POC GLUCOSE Routine 02/14/2025 7:08 AM CDT POC GLUCOSE Routine 02/13/2025 4:49 PM CDT BASIC METABOLIC PANEL Routine 02/13/2025 5:18 AM CDT POC GLUCOSE Routine 02/08/2025 7:00 AM CDT BASIC METABOLIC PANEL Routine 02/07/2025 5:08 AM CDT POC GLUCOSE Routine 02/06/2025 8:10 PM CDT POC GLUCOSE Routine 02/06/2025 4:58 PM CDT POC GLUCOSE Routine 02/06/2025 12:02 PM CDT POC GLUCOSE Routine 02/06/2025 7:01 AM CDT POC GLUCOSE Routine 02/05/2025 8:47 PM CDT POC GLUCOSE Routine 02/05/2025 5:01 PM CDT POC GLUCOSE Routine 02/05/2025 12:10 PM CDT POC GLUCOSE Routine 02/05/2025 7:04 AM CDT POC GLUCOSE Routine 02/04/2025 8:24 PM CDT POC GLUCOSE Routine 02/04/2025 4:56 PM CDT POC GLUCOSE Routine 02/04/2025 12:03 PM CDT POC GLUCOSE Routine 02/04/2025 7:21 AM CDT POC GLUCOSE Routine 2025 5:26 PM CDT ID DEBRIDEMENT SUBCUTANEOUS TISSUE 1ST 20 SQ CM/< Routine 2025 2:00 PM CDT Unspecified open wound, right thigh, sequela Unspecified open wound, left thigh, sequela POC GLUCOSE Routine 2025 12:03 PM CDT POC GLUCOSE Routine 2025 6:54 AM CDT POC GLUCOSE Routine 02/02/2025 9:00 PM CDT POC GLUCOSE Routine 02/02/2025 4:35 PM CDT TELEMETRY REPORT 02/02/2025 3:42 PM CDT POC GLUCOSE Routine 02/02/2025 12:07 PM CDT POC GLUCOSE Routine 02/02/2025 6:59 AM CDT COMPREHENSIVE METABOLIC PANEL Routine 4:20 AM CDT CBC WITH DIFFERENTIAL Routine 02/02/2025 4:20 AM CDT RT ASSESS AND TREAT Routine 02/01/2025 6:59 PM CDT POC GLUCOSE Routine 02/01/2025 4:13 PM CDT POC GLUCOSE Routine 02/01/2025 11:56 AM CDT XR CHEST PA OR AP 1 VW Stat 9:04 AM CDT US ASPIRATION PLEURA RIGHT Routine 02/01 8:15 AM CDT POC GLUCOSE Routine 02/01/2025 7:15 AM CDT BASIC METABOLIC PANEL Routine 02/01/2025 6:57 AM CDT POC GLUCOSE Routine 01/31/2025 8:04 PM CDT POC GLUCOSE Routine 01/31/2025 5:15 PM CDT POC GLUCOSE Routine 01/31/2025 4:52 PM CDT POC GLUCOSE Routine 01/31/2025 11:28 AM CDT POC GLUCOSE Routine 01/31/2025 7:25 AM CDT BASIC METABOLIC PANEL Routine 01/31/2025 1:37 AM CDT CBC WITH DIFFERENTIAL Routine 01/31/2025 1:37 AM CDT TROPONIN 6 HR, 5TH GEN Timed Study 11:17 PM CDT POC GLUCOSE Routine 01/30/2025 9:05 PM CDT TROPONIN 2 HR, 5TH GEN Timed Study 7:44 PM CDT TROPONIN BASELINE, 5TH GEN Stat 01/30 5:40 PM CDT POC GLUCOSE Routine 01/30/2025 5:28 PM CDT PROTIME-INR Routine 01/30/2025 1:54 PM CDT POC GLUCOSE Routine 01/30/2025 12:11 PM CDT XR CHEST PA OR AP 1 VW Stat 10:23 AM CDT EKG 12-LEAD Routine 01/30/2025 9:44 AM CDT MAGNESIUM LEVEL Routine 01/30/2025 9:41 AM CDT BRAIN NATRIURETIC PEPTIDE, B AMPOULE FILLER AND SEALER OR PROBNP Stat 01/30/2025 9:41 AM CDT POC GLUCOSE Routine 01/30/2025 7:44 AM CDT POC GLUCOSE Routine 01/30/2025 12:22 AM CDT POC GLUCOSE Routine 01/29/2025 8:24 PM CDT POC GLUCOSE Routine 01/29/2025 5:05 PM CDT POC GLUCOSE Routine 01/29/2025 11:55 AM CDT POC GLUCOSE Routine 01/29/2025 7:15 AM CDT POC GLUCOSE Routine 01/29/2025 4:45 AM CDT BASIC METABOLIC PANEL Routine 01/29/2025 4:17 AM CDT POC GLUCOSE Routine 01/28/2025 10:18 PM CDT POC GLUCOSE Routine 01/28/2025 5:00 PM CDT POC GLUCOSE Routine 01/28/2025 11:55 AM CDT POC GLUCOSE Routine 01/28/2025 7:26 AM CDT POC GLUCOSE Routine 01/28/2025 4:02 AM CDT BASIC METABOLIC PANEL Routine 01/28/2025 2:26 AM CDT POC GLUCOSE Routine 01/27/2025 11:54 PM CDT POC GLUCOSE Routine 01/27/2025 8:53 PM CDT POC GLUCOSE Routine 01/27/2025 4:41 PM CDT XR CHEST PA OR AP 1 VW Routine 11:51 AM CDT POC GLUCOSE Routine 01/27/2025 11:30 AM CDT ECHO TRANSESOPHAGEAL W DOPPL ER AND COLOR FLOW Routine 01/27/2025 10:48 AM CDT POC GLUCOSE Routine 01/27/2025 7:05 AM CDT POC GLUCOSE Routine 01/27/2025 4:32 AM CDT RT ASSESS AND TREAT Stat 01/27/2025 3:34 AM CDT COMPREHENSIVE METABOLIC PANEL Routine 12:58 AM CDT CBC WITH DIFFERENTIAL Routine 01/27/2025 12:58 AM CDT POC GLUCOSE Routine 01/27/2025 12:26 AM CDT POC GLUCOSE Routine 01/26/2025 9:00 PM CDT POC GLUCOSE Routine 01/26/2025 5:02 PM CDT XR VIDEO SWALLOW W SPEECH Routine 2024 11:29 AM CDT POC GLUCOSE Routine 01/26/2025 7:18 AM CDT POC GLUCOSE Routine 01/26/2025 4:15 AM CDT COMPREHENSIVE METABOLIC PANEL Routine 4:00 AM CDT CBC WITH DIFFERENTIAL Routine 01/26/2025 4:00 AM CDT POC GLUCOSE Routine 01/26/2025 12:47 AM CDT POC GLUCOSE Routine 01/25/2025 10:34 PM CDT DRAFTER CARTOGRAPHIC EVALUATION Routine 01/25/2025 6:08 PM CDT POC GLUCOSE Routine 01/25/2025 5:32 PM CDT POC GLUCOSE Routine 01/25/2025 11:44 AM CDT POC GLUCOSE Routine 01/25/2025 7:38 AM CDT POC GLUCOSE Routine 01/25/2025 4:14 AM CDT COMPREHENSIVE METABOLIC PANEL Routine 3:42 AM CDT CBC WITH DIFFERENTIAL Routine 01/25/2025 3:42 AM CDT POC GLUCOSE Routine 01/25/2025 12:20 AM CDT POC GLUCOSE Routine 01/24/2025 10:08 PM CDT POC GLUCOSE Routine 01/24/2025 5:24 PM CDT CBC WITH DIFFERENTIAL Routine 01/24/2025 2:29 PM CDT POC GLUCOSE Routine 01/24/2025 12:31 PM CDT POC GLUCOSE Routine 01/24/2025 7:34 AM CDT COMPREHENSIVE METABOLIC PANEL Routine 4:26 AM CDT POC GLUCOSE Routine 01/23/2025 10:20 PM CDT POC GLUCOSE Routine 01/23/2025 5:00 PM CDT POC GLUCOSE Routine 01/23/2025 11:35 AM CDT VITAMIN D 25 HYDROXY Routine 01/23/2025 11:00 AM CDT MAGNESIUM LEVEL Routine 01/23/2025 11:00 AM CDT HEMOGLOBIN AND HEMATOCRIT Timed Study 2024 8:34 AM CDT POC GLUCOSE Routine 01/23/2025 7:27 AM CDT COMPREHENSIVE METABOLIC PANEL Routine 1:28 AM CDT CBC WITH DIFFERENTIAL Routine 01/23/2025 1:28 AM CDT HEMOGLOBIN AND HEMATOCRIT Timed Study 2024 9:03 PM CDT POC GLUCOSE Routine 01/22/2025 8:48 PM CDT POC GLUCOSE Routine 01/22/2025 5:13 PM CDT HEMOGLOBIN AND HEMATOCRIT Timed Study 2024 2:34 PM CDT POC GLUCOSE Routine 01/22/2025 11:33 AM CDT CARDIOLOGY REPORT 01/22/2025 10:27 AM CDT HEMOGLOBIN AND HEMATOCRIT Timed Study 2024 6:55 AM CDT DIFFERENTIAL, MANUAL Routine 01/22/2025 12:42 AM CDT COMPREHENSIVE METABOLIC PANEL Routine 12:42 AM CDT CBC WITH DIFFERENTIAL Routine 01/22/2025 12:42 AM CDT HEMOGLOBIN AND HEMATOCRIT Timed Study 2024 8:57 PM CDT POC GLUCOSE Routine 01/21/2025 4:24 PM CDT CRITICAL CARE Routine 01/21/2025 4:22 PM CDT HEMOGLOBIN AND HEMATOCRIT Timed Study 2024 3:12 PM CDT SMALL BOWEL ENTEROSCOPY 01/22/20 10:00 AM CDT HEMOGLOBIN AND HEMATOCRIT Timed Study 2024 7:27 AM CDT POC GLUCOSE Routine 01/21/2025 7:18 AM CDT DIFFERENTIAL, MANUAL Routine 01/21/2025 4:20 AM CDT COMPREHENSIVE METABOLIC PANEL Routine 4:20 AM CDT CBC WITH DIFFERENTIAL Routine 01/21/2025 4:20 AM CDT HEMOGLOBIN AND HEMATOCRIT Timed Study 2024 10:04 PM CDT POC GLUCOSE Routine 01/20/2025 5:56 PM CDT HEMOGLOBIN AND HEMATOCRIT Timed Study 2024 3:21 PM CDT SODIUM LEVEL Timed Study 01/20/2025 1:37 PM CDT POC GLUCOSE Routine 01/20/2025 12:06 PM CDT DIFFERENTIAL, MANUAL Stat 01/20/2025 9:12 AM CDT BILIRUBIN DIRECT Stat 01/20/2025 9:12 AM CDT CBC WITH DIFFERENTIAL Stat 01/20/2025 9:12 AM CDT COMPREHENSIVE METABOLIC PANEL Stat 9:12 AM CDT POC GLUCOSE Routine 01/20/2025 7:47 AM CDT POC GLUCOSE Routine 01/20/2025 5:47 AM CDT HEMOGLOBIN AND HEMATOCRIT Timed Study 2024 11:47 PM CDT POC GLUCOSE Routine 01/19/2025 11:05 PM CDT CBC WITHOUT DIFFERENTIAL Routine 025 6:22 PM CDT SODIUM LEVEL Timed Study 01/19/2025 6:22 PM CDT POC GLUCOSE Routine 01/19/2025 5:[address] CHEST ABDOMEN PELVIS W CONT Stat 0 01/19/2025 4:05 PM CDT TRANSFUSE PACKED RED BLOOD CELLS Routine 01/19/2025 12:54 PM CDT UPPER ENDOSCOPY REPORT 11:39 AM CDT PATHOLOGY Pathology 01/19/2025 11:19 AM CDT ESOPHAGOGASTRODUODENOSCOPY 01/19 9:20 AM CDT LACTIC ACID Stat 01/19/2025 9:08 AM CDT PREPARE RED BLOOD CELLS Routine 01/20/20 8:46 AM CDT POC GLUCOSE Routine 01/19/2025 7:37 AM CDT DIFFERENTIAL, MANUAL Routine 01/19/2025 6:59 AM CDT COMPREHENSIVE METABOLIC PANEL Routine 6:59 AM CDT CBC WITH DIFFERENTIAL Routine 01/19/2025 6:59 AM CDT POC GLUCOSE Routine 01/18/2025 5:25 PM CDT POC GLUCOSE Routine 01/18/2025 3:03 PM CDT XR CHEST PA OR AP 1 VW Routine 1:10 PM CDT PROTIME-INR Routine 01/18/2025 12:39 PM CDT UNFRACTIONATED HEPARIN ACTIVITY Timed Study 01/18/2025 12:39 PM CDT HEMOGLOBIN AND HEMATOCRIT Stat 2024 11:52 AM CDT RT ASSESS AND TREAT Stat 01/18/2025 9:03 AM CDT TRANSFUSE PACKED RED BLOOD CELLS Routine 01/18/2025 7:59 AM CDT POC GLUCOSE Routine 01/18/2025 7:38 AM CDT TYPE AND SCREEN Routine 01/18/2025 6:24 AM CDT PREPARE RED BLOOD CELLS Routine 01/19/20 5:47 AM CDT FERRITIN Routine 01/18/2025 4:39 AM CDT IRON, TIBC, AND PERCENT SATURATION Routine 01/18/2025 4:39 AM CDT DIFFERENTIAL, MANUAL Routine 01/18/2025 4:39 AM CDT UNFRACTIONATED HEPARIN ACTIVITY Timed Study 01/18/2025 4:39 AM CDT COMPREHENSIVE METABOLIC PANEL Routine 4:39 AM CDT CBC WITH DIFFERENTIAL Routine 01/18/2025 4:39 AM CDT POC GLUCOSE Routine 01/18/2025 1:22 AM CDT UNFRACTIONATED HEPARIN ACTIVITY Timed Study 01/17/2025 6:52 PM CDT POC GLUCOSE Routine 01/17/2025 6:06 PM CDT POC GLUCOSE Routine 01/17/2025 12:16 PM CDT UNFRACTIONATED HEPARIN ACTIVITY Timed Study 01/17/2025 11:27 AM CDT POC GLUCOSE Routine 01/17/2025 9:32 AM CDT LACTIC ACID Timed Study 01/17/2025 9:03 AM CDT XR CHEST PA OR AP 1 VW Stat 2:02 AM CDT UNFRACTIONATED HEPARIN ACTIVITY Timed Study 01/17/2025 1:57 AM CDT COMPREHENSIVE METABOLIC PANEL Routine 1:56 AM CDT CBC WITH DIFFERENTIAL Routine 01/17/2025 1:56 AM CDT POC GLUCOSE Routine 01/16/2025 7:16 PM CDT POC GLUCOSE Routine 01/16/2025 6:01 PM CDT UNFRACTIONATED HEPARIN ACTIVITY Timed Study 01/16/2025 5:42 PM CDT PTT Routine 01/16/2025 5:42 PM CDT CBC WITHOUT DIFFERENTIAL Routine 025 5:42 PM CDT LACTIC ACID Timed Study 01/16/2025 5:[address] HEAD WO CONTRAST Stat 01/16/2025 4:01 PM CDT LACTIC ACID Stat 01/16/2025 12:49 PM CDT POC GLUCOSE Routine 01/16/2025 11:55 AM CDT COMPREHENSIVE METABOLIC PANEL Routine 8:06 AM CDT CBC WITH DIFFERENTIAL Routine 01/16/2025 8:06 AM CDT POC GLUCOSE Routine 01/16/2025 7:29 AM CDT POC GLUCOSE Routine 01/15/2025 11:09 PM CDT POC GLUCOSE Routine 01/15/2025 9:03 PM CDT POC GLUCOSE Routine 01/15/2025 5:44 PM CDT POC GLUCOSE Routine 01/15/2025 3:32 PM CDT EKG 12-LEAD Routine 01/15/2025 1:36 PM CDT POC GLUCOSE Routine 01/15/2025 12:04 PM CDT POC GLUCOSE Routine 01/15/2025 8:59 AM CDT MAGNESIUM LEVEL Routine 01/15/2025 4:41 AM CDT COMPREHENSIVE METABOLIC PANEL Routine 4:41 AM CDT CBC WITH DIFFERENTIAL Routine 01/15/2025 4:41 AM CDT POC GLUCOSE Routine 01/15/2025 4:40 AM CDT POC GLUCOSE Routine 01/15/2025 12:55 AM CDT POC GLUCOSE Routine 01/14/2025 8:49 PM CDT POC GLUCOSE Routine 01/14/2025 1:59 PM CDT MAGNESIUM LEVEL Routine 01/14/2025 1:52 PM CDT BASIC METABOLIC PANEL Routine 01/14/2025 1:52 PM CDT EEG VIDEO MONITORING Stat 01/14/2025 9:02 AM CDT POC GLUCOSE Routine 01/14/2025 8:25 AM CDT VANCOMYCIN LEVEL RANDOM Routine 01/15/20 3:26 AM CDT COMPREHENSIVE METABOLIC PANEL Routine 3:26 AM CDT CBC WITH DIFFERENTIAL Routine 01/14/2025 3:26 AM CDT POC GLUCOSE Routine 01/14/2025 3:25 AM CDT POC GLUCOSE Routine 01/13/2025 11:57 PM CDT MRI BRAIN WO CONTRAST Stat 01/13/2025 11:19 PM CDT SEDIMENTATION RATE Routine 01/13/2025 6:12 PM CDT POC GLUCOSE Routine 01/13/2025 3:53 PM CDT C-REACTIVE PROTEIN Routine 01/13/2025 3:51 PM CDT COMPREHENSIVE METABOLIC PANEL Timed Study 3:51 PM CDT AMMONIA LEVEL Routine 01/13/2025 3:51 PM CDT GI PATHOGEN PCR PANEL Routine 01/13/2025 3:51 PM CDT ECHO COMPLETE W BUBBLE STUDY Routine 1:42 PM CDT POC GLUCOSE Routine 01/13/2025 12:27 PM CDT PNEUMONIA PATHOGEN PCR PANEL Stat 5:15 AM CDT SPUTUM CULTURE WITH GRAM STAIN Routine 0 01/13/2025 5:15 AM CDT CK Routine 01/13/2025 4:44 AM CDT TSH Routine 01/13/2025 4:44 AM CDT COMPREHENSIVE METABOLIC PANEL Routine 4:44 AM CDT CBC WITH DIFFERENTIAL Routine 01/13/2025 4:44 AM CDT HEMOGLOBIN A1C Routine 01/13/2025 4:44 AM CDT LIPID PANEL Routine 01/13/2025 4:44 AM CDT POC GLUCOSE Routine 01/13/2025 4:35 AM CDT POC LACTIC ACID Routine 01/13/2025 3:03 AM CDT BLOOD GAS ARTERIAL Routine 01/13/2025 3:03 AM CDT LACTIC ACID Stat 01/13/2025 12:50 AM CDT BLOOD CULTURE Stat 01/13/2025 12:45 AM CDT BLOOD CULTURE Stat 01/13/2025 12:45 AM CDT BLOOD CULTURE Stat 01/13/2025 12:45 AM CDT BLOOD CULTURE Stat 01/13/2025 12:45 AM CDT CHAPIS MTN SPOTTED FEVER AB IGG/IGM Routine 01/13/2025 12:15 AM CDT TICK-BORNE PANEL, PCR Routine 01/13/2025 12:15 AM CDT TROPONIN 6 HR, 5TH GEN Timed Study 12:15 AM CDT XR ABDOMEN FOR FEEDING TUBE 1 VW Stat 01/12/2025 11:16 PM CDT CK Stat 01/12/2025 9:42 PM CDT TROPONIN 2 HR, 5TH GEN Timed Study 9:42 PM CDT PTT Stat 01/12/2025 9:42 PM CDT PROTIME-INR Stat 01/12/2025 9:42 PM CDT CBC WITH DIFFERENTIAL Stat 01/12/2025 9:42 PM CDT POC GLUCOSE Routine 01/12/2025 8:48 PM CDT EXTRA TUBE (URINE ALLEN) Stat 01/13/20 25 7:00 PM CDT DRUG SCREEN, URINE Stat 01/12/2025 7:00 PM CDT URINALYSIS W/REFLEX MICROSCOPIC Stat 01/12/2025 7:00 PM CDT TROPONIN BASELINE, 5TH GEN Stat 01/12 6:50 PM CDT PHOSPHORUS Stat 01/12/2025 6:50 PM CDT MAGNESIUM LEVEL Stat 01/12/2025 6:50 PM CDT HEPATIC FUNCTION PANEL Stat 6:50 PM CDT BASIC METABOLIC PANEL Stat 01/12/2025 6:50 PM CDT XR CHEST PA OR AP 1 VW Stat 6:39 PM CDT BLOOD GAS ARTERIAL Stat 01/12/2025 6:35 PM CDT EKG 12-LEAD Stat 01/12/2025 6:[address] CHEST ABDOMEN PELVIS WO CONT Stat 01/12/2025 6:[address] CERVICAL SPINE WO CONTRAST Stat 6:[address] STROKE ACTIVATION Stat 01/12/2025 6:17 PM CDT POC GLUCOSE Routine 01/12/2025 6:15 PM CDT from Last 3 Months Results * US DUPLEX ARTERIAL LEG RIGHT (03/11/2025 2:02 PM CDT) Anatomical Region Laterality Modality Lower Extremity Ultrasound 03/11/2025 1:14 PM CDT Narrative 03/14/2025 10:34 AM CDT [facility] [address] [place] [address] [place] [id number] Noninvasive Vascular Lab Limited Lower Extremity Arterial Duplex Study Patient: Mary Jane Selby Study ID: US DUPLEX ARTERI Gender: F : 1945 Age: 80 Room: Height: 152cm Weight: 50.1kg BSA: 1.46m^2 Pt status: Outpatient Study Date: 03/11/2025 Study Time: 01:14:45 PM BSA: 1.46m^2 Ordering: Madan Dodge Interpreting:Madan Dodge Product Tester: WESLEY Manager Social Services:KGT Indications: Known disease. Labs, prior tests, procedures, [...] - Max brachial pressure (sys): 132mm Hg [facility] is accredited with the Intersocietal Commission for the Accreditation of Vascular Laboratories (ICAVL) Prepared and Electronically Authenticated Ale Carrillo Confirmed 03/14/2025 10:34 Procedure Note Ale Carrillo DO - 03/14/2025 [facility] [address] [place] [id number] Noninvasive Vascular Lab Limited Lower Extremity Arterial Duplex Study Patient: Mary Jane Selby Study ID: US DUPLEX ARTERI Gender: Rebekah : 1945 Age: 80 Room: Height: 152cm Weight: 50.1kg BSA: 1.46m^2 Pt status: Outpatient Study Date: 03/11/2025 Study Time: 01:14:45 PM BSA: 1.46m^2 Ordering: Madan Dodge Interpreting:Madan Dodge Product Tester: WESLEY Manager Social Services:KGT Indications: Known disease. Labs, prior tests, procedures, [...] - Max brachial pressure (sys): 132mm Hg [facility] is accredited withthe Intersocietal Commission for the Accreditation of Vascular Laboratories (ICAVL) Prepared and Electronically Authenticated Ale Carrillo Confirmed 03/14/2025 10:34 us Madan Dodge MD US ORDERABLES Final Result * UPPER ENDOSCOPY REPORT (02/25/2025 3:12 PM CDT) Narrative Procedure Note Garret Zuñiga DO - 02/25/2025 3:12 PM CDT [facility] GI Patient Name: Mary Jane Selby Procedure Date: 01/21/2025 Date of : 1945 Admit Type: Inpatient Age: 79 Attending MD: Garret Zuñiga DO, Procedure: EGD with small bowel enteroscopy and APC Indications: melena Providers: Garret Zuñiga DO Referring MD: Procedure: After obtaining informed consent, the endoscope was passed under direct vision. Throughout the procedure, the patient's blood pressure, pulse, and oxygen saturations were monitored continuously. The Colonoscope was introduced through mouth e and advanced to the jejunum at the max lengtg. After obtaining informed consent, the endoscope was passed under direct vision. Throughout the procedure, the patient's blood pressure, pulse, and oxygen saturations were monitored continuously. Estimated Blood Loss: Estimated blood loss: none. 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 Please notify if needed Impression: - No specimens collected. Garret Zuñiga DO 01/21/2025 11:14:32 AM This report has been signed electronically. Number of Addenda: 0 Note Initiated On: 01/21/2025 10:33 AM Scope Withdrawal Time Scope In: Scope Out: [address] [place], [place] us Garret Zuñiga DO GI PROCEDURE ORDERABLES Edite d Result - Final [id number] [id number] [place] [address] * (ABNORMAL) POC GLUCOSE (02/17/2025 7:10 AM CDT) Only the most recent of116 resultswithin the time period is included. GLUCOSE POC 128(H) 74 - 99 mg/dL 02/17/2025 7:10 AM CDT [facility] SPECIMEN SOURCE, GLUCOSE POC Whole Blood 02/17/2025 7:10 AM CDT [facility] Blood, whole 02/17/2025 7:10 AM CDT 02/17/2025 7:18 AM CDT us Lalo Bingham MD POINT OF CARE TESTING Michelle zamora Result [facility] CLIA# [id number] [address] [place] [id number], * (ABNORMAL) CBC WITH DIFFERENTIAL (02/16/2025 4:50 AM CDT) Only the most recent of19 resultswithin the time period is included. WBC 6.8 4.8 - 10.8 K/uL 02/16/2025 8:47 AM T [facility] RBC 3.54(L) 4.20 - 5.40 M/uL 02/16/2025 8:47 AM T [facility] HEMOGLOBIN 10.4(L) 12.0 - 16.0 g/dL 02/16/2025 8:47 AM [facility] HEMATOCRIT 34.0(L) 36.0 - 46.0 % 02/16/2025 8:47 AM T [facility] MCV 96.0 84.0 - 103.0 fL 02/16/2025 8:47 AM T [facility] MCH 29.4(L) 31.0 - 37.0 pg 02/16/2025 8:47 AM T [facility] MCHC 30.6 30.0 - 35.0 g/dL 02/16/2025 8:47 AM T [facility] RDW 15.5(H) 11.0 - 14.5 % 02/16/2025 8:47 AM T [facility] RDW-STDEV 54.6(H) 37.0 - 54.0 fL 02/16/2025 8:47 AM CDT [facility] PLATELETS 428 140 - 440 K/uL 02/16/2025 8:47 AM CDT [facility] MPV 9.6 8.9 - 12.8 fL 02/16/2025 8:47 AM CDT [facility] NEUTROPHILS 69 42 - 75 % 02/16/2025 8:47 AM CDT [facility] LYMPHOCYTES 19(L) 24 - 44 % 02/16/2025 8:47 AM CDT [facility] MONOCYTES 9 2 - 10 % 02/16/2025 8:47 AM CDT [facility] EOSINOPHILS 3 0 - 7 % 02/16/2025 8:47 AM CDT [facility] BASOPHILS 1 0 - 1 % 02/16/2025 8:47 AM CDT [facility] IMMATURE GRANULOCYTES 0 0 - 2 % 02/16/2025 8:47 AM CDT [facility] NEUTROPHIL ABSOLUTE 4.65 2.00 - 8.00 K/uL 02/16/2025 8:47 AM CDT [facility] LYMPHOCYTE ABSOLUTE 1.27 1.20 - 4.00 K/uL 02/16/2025 8:47 AM CDT [facility] MONOCYTE ABSOLUTE 0.60 0.10 - 0.60 K/uL 02/16/2025 8:47 AM CDT [facility] EOSINOPHIL ABSOLUTE 0.18 0.00 - 0.70 K/uL 02/16/2025 8:47 AM CDT [facility] BASOPHILS ABSOLUTE 0.07 0.00 - 0.20 K/uL 02/16/2025 8:47 AM CDT [facility] IMMATURE GRANULOCYTES ABSOLUTE 0.03 0.00 - 0.10 K/uL 02/16/2025 8:47 AM [employer] [facility] Blood Venipuncture / Unknown 02/16/2025 4:50 AM CDT 02/16/2025 8:15 AM CDT us Thi Ward ANP HEMATOLOGY ORDERABLES Michelle zamora Result [facility] CLIA #[id number] [address] [id number] * (ABNORMAL) BASIC METABOLIC PANEL (02/13/2025 5:18 AM CDT) Only the most recent of8 resultswithin the time period is included. Pathologist [facility] SODIUM 136 136 - 145 mmol/L 02/13/2025 9:17 AM T [facility] POTASSIUM 4.1 3.5 - 5.1 mmol/L 02/13/2025 9:17 AM [facility] CHLORIDE 100 98 - 107 mmol/L 02/13/2025 9:17 AM T [facility] CO2 23 22 - 29 mmol/L 02/13/2025 9:17 AM [facility] CALCIUM 8.9 8.8 - 10.2 mg/dL 02/13/2025 9:17 AM T [facility] BUN 25(H) 8 - 23 mg/dL 02/13/2025 9:17 AM [facility] CREATININE 1.04(H) 0.51 - 0.95 mg/dL 02/13/2025 9:17 AM [facility] Comment:The GFR result is no t clinically significant on patients <18 or >70 years of age. GLUCOSE 107(H) 74 - 99 mg/dL 02/13/2025 9:17 AM [facility] GFR 54 mL/min/1. 73 sq meter 02/13/2025 9:17 AM [facility] Comment:eGFR calculated with 2020 CKD-EPI equation. Vegetarian diet, extremely high or low muscle mass, and may affect results. Cystatin C with Glomerular Filtration Rate is a suitable alternative for these patients. ANION GAP 13 9 - 20 mmol/L 02/13/2025 9:17 AM CDT [facility] Blood BLOOD SPECIMEN / Unknown Venipuncture / Unknown 02/13/2025 5:18 AM CDT 02/13/2025 8:54 AM CDT Christo Cadena MD CHEMISTRY ORDERABLES Fi nal Result [facility] CLIA # [id number] [facility] [address] [address] [place] [address] * Debridement (2025 2:00 PM CDT) Narrative Cayetano Garibay DO - 2025 2:00 PM CDT Cayetano Garibay DO 02/04/2025 3:07 PM Debridement Date/Time: 2025 2:00 PM Performed by: Cayetano Garibay DO Authorized by: Cayetano Garibay DO Local anesthesia used: no Anesthesia: Local anesthesia used: no Sedation: Patient sedated: no Patient tolerance: patient tolerated the procedure well with no immediate complications Comments: Eschar overlying bilateral anterior thigh wounds was sharply debrided with a scalpel. Excision down to subcutaneous fat, which was deepest layer excised. Resulting wound beds contained subcutaneous fat. Right thigh wound size was 20 cm2. Left thigh wound size was 25 cm2. Cayetano Garibay DO PROCEDURE/MINOR SURGICAL ORDERAB LES Final Result * TELEMETRY REPORT (02/02/2025 3:42 PM CDT) Provider Scanning ECG ORDERABLES Final Result * (ABNORMAL) COMPREHENSIVE METABOLIC PANEL (02/02/2025 4:20 AM CDT) Only the most recent of17 resultswithin the time period is included. SODIUM 139 136 - 145 mmol/L 02/02/2025 8:06 AM CDT [facility] POTASSIUM 3.2(L) 3.4 - 4.5 mmol/L 02/02/2025 8:06 AM CDT [facility] CHLORIDE 95(L) 98 - 107 mmol/L 02/02/2025 8:06 AM [facility] CO2 32(H) 22 - 29 mmol/L 02/02/2025 8:06 AM [facility] CALCIUM 8.7 8.6 - 10.0 mg/dL 02/02/2025 8:06 AM [facility] BUN 18 8 - 23 mg/dL 02/02/2025 8:06 AM [facility] CREATININE 1.07(H) 0.51 - 0.95 mg/dL 02/02/2025 8:06 AM [facility] Comment:The GFR result is no t clinically significant on patients <18 or >70 years of age. GLUCOSE 114(H) 74 - 99 mg/dL 02/02/2025 8:06 AM [facility] Comment:Reference range appl ies to fasting patients only. TOTAL PROTEIN 5.8(L) 6.6 - 8.7 g/dL 02/02/2025 8:06 AM [facility] ALBUMIN 3.0(L) 4.0 - 4.9 g/dL 02/02/2025 8:06 AM [facility] BILIRUBIN TOTAL 0.4 0.0 - 1.0 mg/dL 02/02/2025 8:06 AM [facility] ALKALINE PHOSPHATASE 175(H) 35 - 104 U/L 02/02/2025 8:06 AM [facility] AST 29 5 - 32 U/L 02/02/2025 8:06 AM [facility] ALT 35(H) 5 - 33 U/L 02/02/2025 8:06 AM [facility] GFR 52 mL/min/1.7 3 sq meter 02/02/2025 8:06 AM [facility] Comment:eGFR calculated with 2020 CKD-EPI equation. Vegetarian diet, extremely high or low muscle mass, and may affect results. Cystatin C with Glomerular Filtration Rate is a suitable alternative for these patients. ANION GAP 12 9 - 20 mmol/L 02/02/2025 8:06 AM CDT [facility] Blood BLOOD SPECIMEN / Unknown Venipuncture / Unknown 02/02/2025 4:20 AM CDT 02/02/2025 7:47 AM CDT us Thi Ward ANP CHEMISTRY ORDERABLES Final Result [facility] CLIA #[id number] [address] [place] [address] * XR CHEST PA OR AP 1 VW (02/01/2025 9:04 AM CDT) Only the most recent of6 resultswithin the time period is included. Anatomical Region Laterality Modality Chest Computed Radiogr aphy 02/01/2025 9:04 AM CDT Impressions 02/01/2025 9:20 AM CDT Impression: The cardiomediastinal silhouette appears enlarged and pulmonary vascular congestion and small pleural effusions which have decreased from prior exam. There is no postprocedural pneumothorax. Narrative 02/01/2025 9:20 AM CDT Exam: XR CHEST PA OR AP 1 VW Date/Time of Exam: 02/01/2025 9:04 AM Reason For Exam: Thoracentesis. Diagnosis: Cerebrovascular accident (CVA), unspecified mechanism (CMS/HCC). Comparison: January 30, 2025. Procedure Note Rory Cody MD - 02/01/2025 Exam: XR CHEST PA OR AP 1 VW Date/Time of Exam: 02/01/2025 9:04 AM Reason For Exam: Thoracentesis. Diagnosis: Cerebrovascular accident (CVA), unspecified mechanism (CMS/HCC). Comparison: January 30, 2025. Impression: The cardiomediastinal silhouette appears enlarged and pulmonary vascular congestion and small pleural effusions which have decreased from prior exam. There is no postprocedural pneumothorax. us Dev[facility] ORDERA BLES Final Result * US ASPIRATION PLEURA RIGHT (02/01/2025 8:15 AM CDT) Anatomical Region Laterality Modality Chest Ultrasound 02/01/2025 8:16 AM CDT Impressions 02/01/2025 9:08 AM CDT IMPRESSION: Please see below. Exam: US ASPIRATION PLEURA RIGHT Date/Time of Exam: 02/01/2025 8:15 AM Reason For Exam: Pleural Effusion. This procedure was performed and preliminary findings dictated by Devora Ryan PA-C. Supervision and final interpretation by Dr. Randolph. CONSENT: Risks, benefits, and alternatives of the procedure were discussed with the patient. Specific risks of thoracentesis to include, but not limited to: bleeding, infection, pain, pneumothorax which might require placement of a chest tube or surgery to correct, damage to adjacent tissue/organs, and . The procedure may need to be repeated if the fluid sample obtained is non-diagnostic. Written informed consent was obtained from the patient. Procedure in Detail: A time out was performed to verify the patient and procedure. The patient was placed in a sitting position on the edge of the exam table, and ultrasound was utilized to evaluate the right thorax for largest pocket of free fluid. The area was marked, prepped, and draped in the usual sterile fashion. All elements of maximal sterile barrier technique, including hand hygiene and cutaneous antisepsis with an antisepsis agent, were used. Local anesthesia was achieved with 1% lidocaine overlying the proposed needle course. A 10 cm 5 [place] [employer] centesis catheter was inserted and approximately 400 ml of a clear yellow pleural fluid was then removed via suction. The centesis catheter was removed in its entirety, the chlorhexidine cleansed from the skin, and a sterile dressing placed. The patient tolerated the procedure well without complications. A post procedural expiratory chest film will be ordered. Estimated Blood Loss: None Narrative Procedure Note Zechariah Randolph MD - 02/01/2025 IMPRESSION: Please see below. Exam: US ASPIRATION PLEURA RIGHT Date/Time of Exam: 02/01/2025 8:15 AM Reason For Exam: Pleural Effusion. This procedure was performed and preliminary findings dictated by Devora Ryan PA-C. Supervision and final interpretation by Dr. Randolph. CONSENT: Risks, benefits, and alternatives of the procedure were discussed with the patient. Specific risks of thoracentesis to include, but not limited to: bleeding, infection, pain, pneumothorax which might require placement of a chest tube or surgery to correct, damage to adjacent tissue/organs, and . The procedure may need to be repeated if the fluid sample obtained is non-diagnostic. Written informed consent was obtained from the patient. Procedure in Detail: A time out was performed to verify the patient and procedure. The patient was placed in a sitting position on the edge of the exam table, and ultrasound was utilized to evaluate the right thorax for largest pocket of free fluid. The area was marked, prepped, and draped in the usual sterile fashion. All elements of maximal sterile barrier technique, including hand hygiene and cutaneous antisepsis with an antisepsis agent, were used. Local anesthesia was achieved with 1% lidocaine overlying the proposed needle course. A 10 cm 5 [employer] centesis catheter was inserted and approximately 400 ml of a clear yellow pleural fluid was then removed via suction. The centesis catheter was removed in its entirety, the chlorhexidine cleansed from the skin, and a sterile dressing placed. The patient tolerated the procedure well without complications. A post procedural expiratory chest film will be ordered. Estimated Blood Loss: None us Deepti Wilburn MD US ORDERABLES Final Result * (ABNORMAL) TROPONIN 6 HR, 5TH GEN (01/30/2025 11:17 PM CDT) Only the most recent of2 resultswithin the time period is included. TROPONIN T, 6 HR 5TH GEN 22(H) <11 ng/L 01/30/2025 11:55 PM CDT [facility] DELTA 6HR TROPONIN T 0 See Interp. 01/30/2025 11:55 PM CDT [facility] Blood Venipuncture / Unknown 01/30/2025 11:17 PM CDT 01/30/2025 11:23 PM CDT Narrative [facility] - 01/30/2025 11:55 PM CDT Troponin elevated. Delta indeterminate. Delay in collection of timed specimen beyond recommended collection interval. Results must be interpreted in clinical context. Deepti Wilburn MD CHEMISTRY ORDERABLES Final Resul t Performing Organization Address [facility] Co de Phone Number [facility] CLIA # [id number] [address] [id number] * (ABNORMAL) TROPONIN 2 HR, 5TH GEN (01/30/2025 7:44 PM CDT) Only the most recent of2 resultswithin the time period is included. TROPONIN T, 2 HR 5TH GEN 24(H) <=10 ng/L 01/30/2025 8:46 PM CDT [facility] DELTA 2HR TROPONIN T 2 See Interp. 01/30/2025 8:46 PM CDT [facility] Blood Venipuncture / Unknown 01/30/2025 7:44 PM CDT 01/30/2025 7:59 PM CDT Narrative [facility] - 01/30/2025 8:46 PM CDT Troponin elevated. Delta not changing. Delay in collection of timed specimen beyond recommended collection interval. Results must be interpreted in clinical context. Deepti Wilburn MD CHEMISTRY ORDERABLES Final Resul t Performing Organization Address [facility] Co de Phone Number [facility] CLIA # [id number] [address] [place] [address] * (ABNORMAL) TROPONIN BASELINE, 5TH GEN (01/30/2025 5:40 PM CDT) Only the most recent of2 resultswithin the time period is included. TROPONIN T, BASELINE 5TH GEN 22(H) <=10 ng/L 01/30/2025 6:17 PM CDT [facility] Blood Venipuncture / Unknown 01/30/2025 5:40 PM CDT 01/30/2025 5:44 PM CDT [facility] [facility] - 01/30/2025 6:17 PM CDT Troponin elevated. us Deepti Wiblurn MD CHEMISTRY ORDERABLES Final Resul t Performing Organization Address [facility] Co de Phone Number [facility] CLIA # [id number] [address] [address] [place] [address] * (ABNORMAL) PROTIME-INR (01/30/2025 1:54 PM CDT) Only the most recent of3 resultswithin the time period is included. PROTIME 15.3(H) 12.7 - 14.9 Seconds 01/30/2025 2:31 PM CDT [facility] INR 1.1 0.8 - 1.2 01/30/2025 2:31 PM CDT [facility] Blood Venipuncture / Unknown 01/30/2025 1:54 PM CDT 01/30/2025 2:06 PM CDT [facility] [facility] - 01/30/2025 2:31 PM CDT Expected Values for INR: DVT/PE Goal INR 2.5; range 2.0 - 3.0 Valve Replacement Tissue Goal INR 2.5; range 2.0 - 3.0 Valve Replacement Mechanical Goal INR 3.0; range 2.5 - 3.5 POST-AK Goal INR 2.5; range 2.0 - 3.0 or Goal INR 3.0; range 2.5 - 3.5 Atrial Fibrillation Goal INR 2.5; range 2.0 - 3.0 Ischemic Stroke Goal INR 2.5; range 2.0 - 3.0 us Deepti Wilburn MD HEMATOLOGY ORDERABLES Final Resu lt Performing Organization Address [facility]/ZIP Co de Phone Number [facility] CLIA # [id number] [address] [address] * EKG 12-LEAD (01/30/2025 9:44 AM CDT) Only the most recent of3 resultswithin the time period is included. 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 Head: [id number] : 1945 Requested By: Order Number: [id number] Reading MD: Tanna Hernandez Measurements Intervals [place] Rate: 62 P: 11 ID: [id number] QRS: -14 QRSD: 82 T: 52 QT: 494 QTc: 501 Interpretive Statements Normal sinus rhythm Inferior infarct, age undetermined Anterolateral infarct, age undetermined Prolonged QT Abnormal ECG Electronically Signed On 01-31-2025 13:02:01 CDT by Tanna Hernandez Procedure Note Provider, Historical - 01/31/[address] [address] Test Date: 2025-01-30 Pat Name: MARY JANE SELBY Department: 12 Room: 6217 Gender: Female 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 Head: [id number] : 1945 Requested By: Order Number: [id number] Reading : Tanna Hernandez Measurements Intervals [place] Rate: 62 P: 11 ID: [id number] QRS: -14 QRSD: 82 T: 52 QT: 494 QTc: 501 Interpretive Statements Normal sinus rhythm Inferior infarct, age undetermined Anterolateral infarct, age undetermined Prolonged QT Abnormal ECG Electronically Signed On 01-31-2025 13:02:01 CDT by Tanna Hernandez us Deepti Wilburn MD ECG ORDERABLES Final Result INTERFACE SYSTEM Refer to clinic/hospital department * (ABNORMAL) BRAIN NATRIURETIC PEPTIDE, BNP OR PROBNP (01/30/2025 9:41 AM CDT) PROBNP, N TERMINAL 3,689(H) 0 - 450 pg/mL 01/30/2025 10:29 AM CDT [facility] [employer] [facility] Comment: INTERPRETIVE COMMENT based on diagnosis: Diagnostic NT pro-BNP cutoffs for Heart Failure in the absence of renal failure is suggested for the following ranges <75 years: <125 pg/mL >=75 years: <450 pg/mL Exclusionary rule out cut-point for Acute Decompensated Heart Failure(ADHF) All ages: <300 pg/mL Diagnostic NT pro-BNP cutoffs for Acute Decompensated Heart Failure(ADHF) in the absence of renal failure is suggested for the following ages <50 years: > 450 pg/mL 50-75 years: > 900 pg/mL >75 years: >1800 pg/mL Blood Venipuncture / Unknown 01/30/2025 9:41 AM CDT 01/30/2025 9:49 AM CDT us Deepti Wilburn MD CHEMISTRY ORDERABLES Final Resul t Performing Organization Address [facility] Co de Phone Number [facility] CLIA # [id number] [address] [address] * MAGNESIUM LEVEL (01/30/2025 9:41 AM CDT) Only the most recent of5 resultswithin the time period is included. MAGNESIUM 2.0 1.6 - 2.4 mg/dL 01/30/2025 10:29 AM CDT [facility] Blood Venipuncture / Unknown 01/30/2025 9:41 AM CDT 01/30/2025 9:49 AM CDT us Deepti Wilburn MD CHEMISTRY ORDERABLES Final Resul t Performing Organization Address [facility] Co de Phone Number [facility] CLIA # [id number] [address] [facility] [place] [address] * ECHO TRANSESOPHAGEAL W DOPPLER AND COLOR FLOW (01/27/2025 10:48 AM CDT) EJECTION FRACTION 60 INTERFACE SYSTEM 01/27/2025 10:0 7 AM CDT Narrative INTERFACE SYSTEM - 01/27/2025 10:45 AM CDT [facility] Echocardiography Laboratory [address] [place] [address] Transesophageal Echocardiography Patient: Mary Jane Selby Study ECHO Steffi ID: JESSICA Gender: F : 1945 Age: 79 Room: [facility] Study 01/27/2025 Pt Inpatient Date: Status: Study 10:07:25 AM CSN #: [id number] Time: Ordering:Deepti Wilburn Product Tester: LEIDA Indications and History: Atrial fibrillation. Transient ischemic attack. Summary and Conclusion: - Left ventricle: The cavity size is normal. Wall thickness is normal. Assessment of systolic function was difficult due to image quality. Global systolic function is normal. The estimated ejection fraction is 55-60%. For Epic reporting: the left ventricular ejection fraction is 60%. No diagnostic regional wall motion abnormality identified. - Right ventricle: The cavity size is normal. Systolic function is normal. - Left atrium: There is no evidence of a thrombus in the atrial cavity or appendage. - Right atrium: There is no evidence of a thrombus in the atrial cavity or appendage. - Atrial septum: Agitated saline contrast study shows no fhurb-zn-vlge shunt. - Aortic valve: The valve is trileaflet. The leaflets are mildly thickened. There is mild regurgitation. - Mitral valve: Mildly thickened. There is mild regurgitation. - Tricuspid valve: There is mild regurgitation. - Pulmonic valve: There is mild regurgitation. - Descending aorta: The vessel is normal-sized. There is mild plaque . Comparison: Compared to the prior study, there has been no significant interval change. Procedure information: Comparison is made to the study of 01/13/2025. Study status: Routine. Consent: The risks, benefits, and alternatives to the procedure were explained to the patient and consent was obtained. Procedure: The patient arrived at the laboratory in the fasting state. Intravenous access was obtained. Surface ECG leads, automatic cuff blood pressure measurements, and pulse oximetric signals were monitored. Moderate sedation was administered by nursing staff. Transesophageal echocardiography was performed. Topical anesthesia was obtained using benzocaine spray and viscous lidocaine. An adult multiplane transesophageal probe was inserted by the attending cement mason without difficulty. Image quality was adequate. Intravenous contrast (agitated saline) was administered. Study completion: The patient tolerated the procedure well. There were no complications. Administered medications: Midazolam, 2mg. Fentanyl, 50mcg. Sedation began at 1016 and ended at 1025. Study components: 2D, 3D, complete spectral Doppler, color Doppler, and agitated saline. Height: 152.4cm. Height: 60in. Weight: 60.3kg. Weight: 133lb. BMI: 26kg/m^2. BSA: 1.61m^2. Blood pressure: 179/52 Study date: 01/27/2025. Study time: 10:07 AM. Location: Special procedures room. Cardiac Anatomy: LEFT VENTRICLE: The cavity size is normal. Wall thickness is normal. Assessment of systolic function was difficult due to image quality. Global systolic function is normal. The estimated ejection fraction is 55-60%. For Epic reporting: the left ventricular ejection fraction is 60%. No diagnostic regional wall motion abnormality identified. The ratio of systolic to diastolic pulmonary vein flow is within the normal range (systolic predominant). RIGHT VENTRICLE: The cavity size is normal. Systolic function is normal. LEFT ATRIUM: The atrium is normal in size. There is no evidence of a thrombus in the atrial cavity or appendage. Appendage: The appendage is normal-sized. Emptying velocity is normal. RIGHT ATRIUM: The atrium is normal in size. There is no evidence of a thrombus in the atrial cavity or appendage. ATRIAL SEPTUM: No obvious PFO or ASD identified by 2D imaging and color Doppler. Agitated saline contrast study shows no ddnso-ey-limu shunt. AORTIC VALVE: The valve is trileaflet. The leaflets are mildly thickened. Cusp separation is normal. There is mild regurgitation. MITRAL VALVE: Mildly thickened. Leaflet separation is normal. There is mild regurgitation. TRICUSPID VALVE: Structurally normal valve. Leaflet separation is normal. There is mild regurgitation. PULMONIC VALVE: The valve appears to be grossly normal. There is mild regurgitation. PERICARDIUM: A minimal pericardial effusion and/or fat pad was identified. AORTA: Aorta: No evidence of dissection or atheroma. Aortic root: The root is normal-sized. Ascending aorta: The vessel is normal-sized. Aortic arch: The vessel is normal-sized. Descending aorta: The vessel is normal-sized. There is mild plaque . PULMONARY ARTERY: The main pulmonary artery is normal-sized. [facility] are accredited with the Intersocietal Accreditation Commission - Echocardiography. Prepared and Electronically Authenticated Randall Eason MD Confirmed 01/27/2025 10:45 Procedure Note Randall Eason MD - 01/27/2025 [facility] Echocardiography Laboratory [address] [place] [id number] Transesophageal Echocardiography Patient: Mary Jane Selby Study ECHO Steffi ID:JESSICA Gender: F : 1945 Age: 79 Room: [facility] Study 01/27/2025 Pt Inpatient Date: Status: Study 10:07:25 AM CSN #: [id number] Time: Ordering:Deepti Wilburn Product Tester: LEIDA Indications and History: Atrial fibrillation. Transient ischemicattack. Summary and Conclusion: - Left ventricle: The cavity size is normal. Wall thickness is normal. Assessment of systolic function was difficult due to image quality.Global systolic function is normal. The estimated ejection fraction is 55-60%.For Epic reporting: the left ventricular ejection fraction is 60%. Nodiagnostic regional wall motion abnormality identified. - Right ventricle: The cavity size is normal. Systolic function isnormal. - Left atrium: There is no evidence of a thrombus in the atrial cavityor appendage. - Right atrium: There is no evidence of a thrombus in the atrial cavityor appendage. - Atrial septum: Agitated saline contrast study shows no ospvc-ho-sjzfycpjh. - Aortic valve: The valve is trileaflet. The leaflets are mildlythickened. There is mild regurgitation. - Mitral valve: Mildly thickened. There is mild regurgitation. - Tricuspid valve: There is mild regurgitation. - Pulmonic valve: There is mild regurgitation. - Descending aorta: The vessel is normal-sized. There is mild plaque . Comparison: Compared to the prior study, there has been no significant interval change. Procedure information: Comparison is made to the study of 01/13/2025.Study status: Routine. Consent: The risks, benefits, and alternatives tothe procedure were explained to the patient and consent was obtained.Procedure: The patient arrived at the laboratory in the fasting state. Intravenousaccess was obtained. Surface ECG leads, automatic cuff blood pressuremeasurements, and pulse oximetric signals were monitored. Moderate sedation was administered by nursing staff. Transesophageal echocardiography wasperformed. Topical anesthesia was obtained using benzocaine spray and viscouslidocaine. An adult multiplane transesophageal probe was inserted by the attending cement mason without difficulty. Image quality was adequate. Intravenous contrast (agitated saline) was administered. Study completion: Thepatient tolerated the procedure well. There were no complications. Administered medications: Midazolam, 2mg. Fentanyl, 50mcg. Sedation began at 1016and ended at 1025. Study components: 2D, 3D, complete spectralDoppler, color Doppler, and agitated saline. Height: 152.4cm. Height: 60in. Weight: 60.3kg. Weight: 133lb. BMI: 26kg/m^2. BSA: 1.61m^2.Blood pressure: 179/52 Study date: 01/27/2025. Study time: 10:07 AM. Location: Special procedures room. Cardiac Anatomy: LEFT VENTRICLE: The cavity size is normal. Wall thickness is normal. Assessment of systolic function was difficult due to image quality.Global systolic function is normal. The estimated ejection fraction is 55-60%.For Epic reporting: the left ventricular ejection fraction is 60%. Nodiagnostic regional wall motion abnormality identified. The ratio of systolic to diastolic pulmonary vein flow is within the normal range (systolic predominant). RIGHT VENTRICLE: The cavity size is normal. Systolic function isnormal. LEFT ATRIUM: The atrium is normal in size. There is no evidence of a thrombus in the atrial cavity or appendage. Appendage: The appendage is normal-sized. Emptying velocity is normal. RIGHT ATRIUM: The atrium is normal in size. There is no evidence of a thrombus in the atrial cavity or appendage. ATRIAL SEPTUM: No obvious PFO or ASD identified by 2D imaging and color Doppler. Agitated saline contrast study shows no sjgje-co-fber shunt. AORTIC VALVE: The valve is trileaflet. The leaflets are mildlythickened. Cusp separation is normal. There is mild regurgitation. MITRAL VALVE: Mildly thickened. Leaflet separation is normal. There ismild regurgitation. TRICUSPID VALVE: Structurally normal valve. Leaflet separation isnormal. There is mild regurgitation. PULMONIC VALVE: The valve appears to be grossly normal. There ismild regurgitation. PERICARDIUM: A minimal pericardial effusion and/or fat pad wasidentified. AORTA: Aorta: No evidence of dissection or atheroma. Aortic root: The root is normal-sized. Ascending aorta: The vessel is normal-sized. Aortic arch: The vessel is normal-sized. Descending aorta: The vessel is normal-sized. There is mild plaque . PULMONARY ARTERY: The main pulmonary artery is normal-sized. [facility] are accredited with the[facility] Accreditation Commission - Echocardiography. Prepared and Electronically Authenticated Randall Eason MD Confirmed 01/27/2025 10:45 us Deepti Wilburn MD ORDERABLES Final Result Performing Organization Address City/State/[facility] Co de Phone Number INTERFACE SYSTEM Refer to clinic/hospital department * XR VIDEO SWALLOW W SPEECH (01/26/2025 11:29 AM CDT) Anatomical Region Laterality Modality Chest Computed Radiogr aphy 01/26/2025 11:3 0 AM CDT Impressions 01/26/2025 12:15 PM CDT IMPRESSION: Please see below. Exam: XR VIDEO SWALLOW W SPEECH Date/Time of Exam: 01/26/2025 11:29 AM Reason For Exam: Difficulty Swallowing. This procedure was performed and preliminary findings dictated by JAMES Herrera. Supervision and final interpretation by Dr. Jack. Fluoroscopy was used for performance of video swallow study. The patient was given multiple consistencies of contrast material. The cervical esophagus is patent without stricture or obstruction. Airway penetration. Mild impression on the posterior cervical esophagus secondary to cervical spine degenerative change with anterior bridging osteophyte formation. For further details regarding swallowing, please see detailed speech pathology report. Significant carotid artery calcification. Narrative Procedure Note Nixon Jack, DO - 01/26/2025 IMPRESSION: Please see below. Exam: XR VIDEO SWALLOW W SPEECH Date/Time of Exam: 01/26/2025 11:29 AM Reason For Exam: Difficulty Swallowing. This procedure was performed and preliminary findings dictated by JAMES Herrera. Supervision and final interpretation by Dr. Jack. Fluoroscopy was used for performance of video swallow study. The patient was given multiple consistencies of contrast material. The cervical esophagus is patent without stricture or obstruction. Airway penetration. Mild impression on the posterior cervical esophagus secondary to cervical spine degenerative change with anterior bridging osteophyte formation. For further details regarding swallowing, please see detailed speech pathology report. Significant carotid artery calcification. Deepti Wilburn MD DIAGNOSTIC IMAGING ORDERABLES Fi nal Result * (ABNORMAL) VITAMIN D 25 HYDROXY (01/23/2025 11:00 AM CDT) VITAMIN D TOTAL (25OH) 23(L) 30 - 100 ng/mL 01/23/2025 7:29 PM CDT [facility] [facility] Blood Venipuncture / Unknown 01/23/2025 11:00 AM CDT 01/23/2025 12:09 PM CDT Narrative [facility] [facility] - 01/23/2025 7:29 PM CDT Interpretive Data Chart: Deficient: 0 - 20 ng/mL Insufficient: 21 - 29 ng/mL Sufficient: 30 - 100 ng/mL Increased Risk of Hypercalciuria: >100 ng/ml Toxic: >150 ng/ml Deepti Wilburn MD CHEMISTRY ORDERABLES Final Resul t [facility] CLIA # [id number] [address] [address] * (ABNORMAL) HEMOGLOBIN AND HEMATOCRIT (01/23/2025 8:34 AM CDT) Only the most recent of11 resultswithin the time period is included. [facility] HEMOGLOBIN 8.3(L) 12.0 - 16.0 g/dL 01/23/2025 9:59 AM CDT [facility] HEMATOCRIT 27.0(L) 36.0 - 46.0 % 01/23/2025 9:59 AM CDT [facility] Blood Venipuncture / Unknown 01/23/2025 8:34 AM CDT 01/23/2025 9:57 AM CDT Garret Zuñiga DO HEMATOLOGY ORDERABLES Final R esult [facility] CLIA # [id number] [address] [place] [address] * CARDIOLOGY REPORT (01/22/2025 10:27 AM CDT) Garret Zuñiga DO CARDIAC SERVICES ORDERABLES E dited Result - Final * (ABNORMAL) MANUAL DIFFERENTIAL (01/22/2025 12:42 AM CDT) Only the most recent of5 resultswithin the time period is included. [facility] SEGMENTED NEUTROPHILS 73(H) 36 - 66 % 01/22/2025 2:06 AM CDT [facility] LYMPHOCYTES RELATIVE 12(L) 24 - 44 % 01/22/2025 2:06 AM CDT [facility] MONOCYTES RELATIVE 10 4 - 10 % 2024 2:06 AM CDT [facility] METAMYELOCYTES RELATIVE 3(H) 0 - 1 % 01/22/2025 2:06 AM CDT [facility] MYELOCYTES - REL (DIFF) 2(H) 0 - 1 % 01/22/2025 2:06 AM T [facility] PLATELET EST. Adequate 01/22/2025 2:06 AM T [facility] NEUTROPHILS ABSOLUTE COUNT 11.97(H) 2.00 - 8.00 K/uL 01/22/2025 2:06 AM CDT [facility] LYMPHOCYTES ABSOLUTE 1.97 1.20 - 4.00 K/uL 01/22/2025 2:06 AM CDT [facility] ATYPICAL LYMPHS ABSOLUTE 01/22/2025 2:06 AM T [facility] MONOCYTES ABSOLUTE 1.64(H) 0.10 - 0.60 K/uL 01/22/2025 2:06 AM T [facility] ANISOCYTOSIS 1+ /hpf 01/22/2025 2:06 AM T [facility] POIKILOCYTES 1+ /hpf 01/22/2025 2:06 AM T [facility] POLYCHROMASIA 1+ /hpf 01/22/2025 2:06 AM T [facility] BASOPHILIC STIPPLING 1+ /hpf 01/22/2025 2:06 AM T [facility] OVALOCYTES 1+ /hpf 01/22/2025 2:06 AM T [facility] TOTAL CELLS COUNTED IN DIFF 100 01/22/2025 2:06 AM T [facility] Blood Venipuncture / Unknown 01/22/2025 12:42 AM CDT 01/22/2025 1:23 AM CDT us Garret Zuñiga DO HEMATOLOGY ORDERABLES COM Fin al Result [facility] CLIA # [id number] [address] [address] [place] [address] * Critical Care (01/21/2025 4:22 PM CDT) Narrative 01/21/2025 4:22 PM CDT Austyn Brown MD 01/13/2025 5:59 PM Critical Care Performed by: Austyn Brown MD Authorized by: Austyn Brown MD Critical care provider statement: Critical care time (minutes): 35 Critical care time was exclusive of: Separately billable procedures and treating other patients and teaching time Critical care was necessary to treat or prevent imminent or life-threatening deterioration of the following conditions: 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 and respiratory failure Critical care was time spent personally by me on the following activities: Blood draw for specimens, ordering and performing treatments and interventions, development of treatment plan with patient or surrogate, ordering and review of laboratory studies, ordering and review of radiographic studies, discussions with consultants, pulse oximetry, re-evaluation of patient's condition, evaluation of patient's response to treatment, review of old charts, examination of patient and obtaining history from patient or surrogate I assumed direction of critical care for this patient from another provider in my specialty: no Care discussed with: admitting provider Comments: Intubated Code Stroke activation Procedure Note Austyn Brown MD - 01/12/2025 5:31 PM CDT HISTORY OF PRESENT ILLNESS HPI This is a 79-year-old female history of chronic ICA occlusion andperipheral vascular disease, hypertension, diabetes, found outsideunresponsive and altered last seen normal at 9 AM. Patient was found byfamily called 911 and EMS arrived intubated patient on the scene forconcerns of poor GCS and impending respiratory failure/airway compromise.Patient arrives as a code stroke activation was seen immediately onarrival. History limited secondary to patient's medical condition andacuity. Patient was a code stroke activation medical alert seenimmediately on arrival. Per chart review patient is not onanticoagulation. 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 SURGICAL: Patient has a past surgical history that includes pr transcath stent initvessel,percut (Bilateral, 06/20/2020); surgical other (Left, 06/20/2020);pr transcath stent init vessel,percut (N/A, 06/20/2020); pr intro ofneedle or intracatheter upr/lxtr artery (Right, 06/24/2020); vascularprocedure (06/2019); cholecystectomy; section; pr arthrpacetblr/prox fem prostc agrft/algrft (Left, 08/30/2021); chg angiographyextremity unilateral rs&i (Right, 12/11/2024); pr trlml balo angiopopen/perq img s&i 1st art (Right, 12/11/2024); and insert midline iv(01/12/2025). ALLERGIES Lisinopril PHYSICAL EXAM INITIAL VS BP: (!) 143/55 (01/12/251739), Heart Rate: 95 bpm (01/12/251800), Resp:17 (01/12/251739), Pulse: 88 (01/12/251739), Temp: 98.6 F (37 C)(01/12/251819), Temp src: Axillary (01/12/252099), SpO2: 97 % (), Height: 5' (152.4 cm) (01/12/252099), Weight: 57.2 kg (126 lb 1.7oz) (01/12/251739), BMI (Calculated): (!) 25.1 (01/12/252099) No LMPrecorded. Patient is postmenopausal. Physical Exam Vitals and nursing note reviewed. Constitutional: General: She is in acute distress. Appearance: She is ill-appearing. HENT: Head: Normocephalic and atraumatic. Nose: Nose normal. Mouth/Throat: Mouth: Mucous membranes are moist. Eyes: General: No scleral icterus. Right eye: No discharge. Left eye: No discharge. Extraocular Movements: Extraocular movements intact. Conjunctiva/sclera: Conjunctivae normal. Pupils: Pupils are equal, round, and reactive to light. Neck: Vascular: No JVD. Trachea: No tracheal deviation. Comments: In c collar Cardiovascular: Rate and Rhythm: Normal rate and regular rhythm. Pulses: Normal pulses. Heart sounds: No murmur heard. No friction rub. No gallop. Pulmonary: Effort: Pulmonary effort is normal. No respiratory distress. Breath sounds: No stridor. No wheezing, rhonchi or rales. Abdominal: General: There is no distension. Palpations: Abdomen is soft. Tenderness: There is no abdominal tenderness. There is no guarding orrebound. Musculoskeletal: General: No swelling, tenderness, deformity or signs of injury. Normalrange of motion. Right lower leg: No edema. Left lower leg: No edema. Skin: General: Skin is warm and dry. Capillary Refill: Capillary refill takes less than 2 seconds. Coloration: Skin is not jaundiced or pale. Findings: No rash. Neurological: Comments: GCS 3T Psychiatric: Behavior: Behavior normal. DIAGNOSTICS LAB: BASIC METABOLIC PANEL - Abnormal Result Value SODIUM 134 (*) POTASSIUM 4.4 CHLORIDE 100 CO2 14 (*) CALCIUM 9.2 BUN 43 (*) CREATININE 1.65 (*) GLUCOSE 114 (*) GFR 24 ANION GAP 20 HEPATIC FUNCTION PANEL - Abnormal TOTAL PROTEIN 7.4 ALBUMIN 4.0 BILIRUBIN TOTAL 0.3 BILIRUBIN DIRECT <0.1 ALKALINE PHOSPHATASE 191 (*) AST 58 (*) ALT 28 PHOSPHORUS - Abnormal PHOSPHORUS 4.6 (*) TROPONIN BASELINE, 5TH GEN - Abnormal TROPONIN T, BASELINE 5TH GEN 41 (*) URINALYSIS WITH REFLEX MICROSCOPIC - Abnormal COLOR UA Yellow CLARITY UA Clear SPECIFIC GRAVITY UA 1.019 PH UA 6.0 LEUKOCYTE ESTERASE UA Negative NITRITE UA Negative PROTEIN UA 1+ (*) GLUCOSE UA Negative KETONES UA Negative UROBILINOGEN UA <2.0 BILIRUBIN UA Negative BLOOD UA 1+ (*) WBC UA 0-2 RBC UA 0-2 BACTERIA UA Negative EPITHELIAL CELLS, URINE 0-5 HYALINE CAST 6-10 (*) DRUG SCREEN, URINE - Abnormal AMPHETAMINE QUAL, URINE Presumptive Positive (*) BARBITURATE QUAL, URINE Negative BENZODIAZEPINE QUAL, URINE Presumptive Positive (*) COCAINE QUAL URINE Negative OPIATE QUAL, URINE Negative CANNABINOIDS QUAL, URINE Negative OXYCODONE QUAL, URINE Negative METHADONE QUAL, URINE Negative FENTANYL QUAL, URINE Presumptive Positive (*) CREATININE, URINE 51.9 BLOOD GAS ARTERIAL - Abnormal PH BLOOD POC 7.27 (*) PCO2 POC 42 PO2 POC 78 (*) HCO3 (CALC) POC 19 (*) HEMOGLOBIN POC 12.0 BASE EXCESS POC -8 (*) O2 SATURATION POC 95 SODIUM POC 134 (*) POTASSIUM POC 3.5 HEMATOCRIT POC 36 (*) PH TEMP CORRECT 7.27 (*) PCO2 TEMP CORRECT 42 PO2 TEMP CORRECT 78 (*) SPECIMEN SOURCE, GASES POC Arterial CALCIUM IONIZED POC 5.0 TCO2 (CALC) POC 21 (*) [facility] POC ART PUNCT POC GLUCOSE - Abnormal GLUCOSE POC 159 (*) SPECIMEN SOURCE, GLUCOSE POC Capillary MAGNESIUM LEVEL - Normal MAGNESIUM 2.0 POC GLUCOSE RADIOLOGY: CT CHEST ABDOMEN PELVIS WO CONT Non-public Result IMPRESSION: Please see below. Exam: CT CHEST ABDOMEN PELVIS WO CONT Date/Time of Exam: 01/12/2025 6:19 PM Reason For Exam: Polytrauma, blunt Diagnosis: See Reason for Exam Technique: CT of the chest, abdomen, and pelvis was performed without the administration of intravenous contrast. Findings: Comparison CT cervical spine same day. Musculoskeletal findings: Age indeterminate mild compression fracture. T12. Is a fracture identified within the spine. Sacrum bilateral pelvis is intact. There is left hip arthroplasty which is unremarkable as visualized. The proximal femurs appear intact. No evidence of perisplenic fracture involving the femur. There is a contusion of the left lateral hip region (series 3 image 69) impression since exam. No depressed sternal fracture. The bilateral scapulae, clavicles and humeri are intact as visualized. No displaced rib fractures. CHEST: Heart size normal without pericardial effusion. The disease. The thoracic aorta is nonaneurysmal. There is moderate atherosclerotic calcification. Descending thoracic aorta is normal in caliber without evidence of acute vascular injury. The main pulmonary artery is mildly enlarged. The tracheal tube thoracic position. A small hypersecretion distal trachea. There prominent enlarged mediastinal hilar lymph nodes with coarse calcification which are at least partially granulomatous in nature. There are linear areas of atelectasis present in the mid and lower lung zones. No significant pulmonary contusion or laceration. No pleural fluid collection or pneumothorax. There is airspace opacity in the lateral right upper lobe which is nonspecific represent focal scarring (series 3 image 97) 0.6 x 1.4 cm. Additional airspace opacity central upper lobe (series 3 image 45) 3 x 4 mm. Chest wall demonstrates no acute findings. ABDOMEN/PELVIS: The liver is normal in size and contour. No evidence of hepatic laceration. Gallbladder surgically absent without biliary ductal dilatation. Portal venous system is well-opacified. Pancreas unremarkable. Spleen is unremarkable. Adrenal glands are unremarkable. There is severe cortical atrophy right kidney. There is colonic contrast the right intrarenal collecting system. There are centimeters right lesions too small to characterize pseudocyst. The kidneys normal in size. No concerning liver lesions evidence of injury. There is contrast upper collecting system. No contrast extravasation from the ureters urinary bladder identified. Evaluation of the pelvis structures is degraded by the artifact from the left hip arthroplasty. Evaluation is degraded by beam artifact from left hip arthroplasty Previous aortobiiliac stent graft repair without evidence of acute complication No direct or indirect evidence of bowel injury. There is a hernia in the right anterior abdominal wall measuring 3.2 cm which contains small bowel does not appear to be incarcerated with mildly prominent fluid-filled bowel intracranially hernia. The ileal bowel appears diffusely prominent and fluid-filled measuring up to 2.3 cm without pathologic distention or see transition point, this may represent mild ileus. Appendix appears normal. There is diverticulosis without diverticulitis. IMPRESSION: 1. Age-related mild compression fracture at T12, correlation for point areas of consolidated. No evidence of acute fracture of the chest, pelvis. 2. No evidence of pulmonary contusion or laceration scattered areas of atelectasis. There are more focal pulmonary opacities without favored focal scarring. Follow up CT chest in three months recommended to confirm stability/resolution. 3. Mild distention of the small bowel favoring ileus, there is a hernia of the right intra-abdominal wall containing dilated bowel which does not appear to be the source of obstruction 4. Severe cortical atrophy right kidney. 5. There may be a contusion of the lateral left thigh not fully included on this exam. Articulations are recommended. 6. Additional findings as above. CT CERVICAL SPINE WO CONTRAST Radiologist Impression IMPRESSION: Please see below. Exam: CT CERVICAL SPINE WO CONTRAST Date/Time of Exam: 01/12/2025 6:19 PM Reason For Exam: fall Diagnosis: See Reason for Exam Technique: CT of the cervical spine was performed without the administration of intravenous contrast. Findings: Comparison made to CT cervical spine same day. There is maintenance normal cervical lordosis. There is moderate disc space narrowing at C6-7. This anterolisthesis C5 on C6. There is no evidence of acute fracture fracture or subluxation within the cervical spine. Atlantooccipital interval is maintained. The dens is intact. Occipital condyles are intact. The C1 is intact. There is leftward rotation of C1 relative to C2 is likely positional. Visualized ribs are intact. Lung apices unremarkable. There is vascular gas related to injection. Endotracheal tube is only partially included. IMPRESSION: 1. Degenerative changes as above without evidence of acute fracture. CT STROKE ACTIVATION Radiologist Impression IMPRESSION: Please see below. Exam: CT STROKE ACTIVATION Date/Time of Exam: 01/12/2025 6:17 PM Reason For Exam: Neuro deficit, acute, stroke suspected. Diagnosis: See Reason for Exam. Technique: 3-D reconstructions were performed on an independent workstation. TECHNIQUE: Rapid LVO Detection Software Utilized. Non-contrast head CT was obtained. Subsequently, computed tomographic angiography was obtained from the aortic arch to the vertex following the uneventful administration of intravenous contrast. 3D images were generated on a dedicated workstation. The examination was performed with the adjustment of mA according to the patient size and/or the use of iterative reconstruction technique. Contrast: IOPAMIDOL 61 % INTRAVENOUS SOLUTION (MULTI-DOSE BULK PACK) Given:125 mL Findings: Comparison 01/12/[address] Remote infarction within the right frontoparietal junction. Moderate sequela small vessel ischemic disease and diffuse parenchymal volume loss. No definite acute loss of allen-white matter differentiation. No acute intracranial hemorrhage. No hydrocephalus. Basal cisterns are patent. No acute osseous abnormality. Scattered mucosal thickening in the paranasal sinuses. No mastoid effusion. The orbits are intact. Increased Tmax throughout the right MCA territory with a volume of 142 cc. Matched perfusion defect within the right frontal and parietal lobes with a volume of 12 cc. 130 cc of mismatch perfusion. Nonopacification of the intracranial right internal carotid artery. Nonopacification of the mid cervical right ICA with severe narrowing of the proximal right ICA just distal to bifurcation. The ACAs are patent. The left MCA is patent. The right MCA is patent, but attenuated when compared to the left. The intradural vertebral arteries are patent. Basilar artery is patent. The cement grinding mill operator are patent. Three-vessel origin of the aortic arch. The common carotid arteries demonstrate peripheral plaque without significant stenosis. Heavily calcified right carotid bifurcation. There is calcified and noncalcified plaque of the left carotid bifurcation. No significant stenosis of left internal carotid artery. Calcified and noncalcified plaque at the origins of the vertebral arteries with mild narrowing of the origin the left vertebral artery. The vertebral arteries are patent throughout the course in the neck. Lung apices demonstrate no acute abnormality. Endotracheal tube present. Soft tissues in the neck demonstrate no acute abnormality. Multilevel degenerative change of the cervical spine without aggressive osseous lesion. IMPRESSION: Remote infarction within the right frontoparietal junction. No acute intracranial hemorrhage. Moderate sequela of small vessel ischemic disease. Increased Tmax throughout the right MCA territory. Matched perfusion defect within the right frontal and parietal lobes with a volume of 12 cc. Mismatch volume is 130 cc. Severe narrowing of the origin of the right internal carotid artery with tapering of contrast and nonopacification of the mid cervical right ICA to the carotid terminus. The right MCA is patent, but attenuated when compared to the left. The remaining intracranial vasculature is patent. Mild narrowing of the origin the left vertebral artery. The remaining neck vasculature is patent. EKG: Intervals [place] Rate: 98 P: 68 ID: [id number] QRS: 7 QRSD: 80 T: 87 QT: 390 QTc: 497 Interpretive Statements Normal sinus rhythm Nonspecific ST and T wave abnormality PROCEDURES Critical Care Performed by: Austyn Brown MD Authorized by: Austyn Brown MD Critical care provider statement: Critical care time (minutes): 35 Critical care time was exclusive of: Separately billable procedures andtreating other patients and teaching time Critical care was necessary to treat or prevent imminent orlife-threatening deterioration of the following conditions: GYM SUPERVISOR failureor compromise and respiratory failure Critical care was time spent personally by me on the followingactivities: Blood draw for specimens, ordering and performing treatmentsand interventions, development of treatment plan with patient orsurrogate, ordering and review of laboratory studies, ordering and reviewof radiographic studies, discussions with consultants, pulse oximetry,re-evaluation of patient's condition, evaluation of patient's response totreatment, review of old charts, examination of patient and obtaininghistory from patient or surrogate I assumed direction of critical care for this patient from anotherprovider in my specialty: no Care discussed with: admitting provider Comments: Intubated Code Stroke activation MEDICAL DECISION MAKING AND PLAN OF CARE ED Course as of 01/13/25 175SatJan 12, [address] STROKE ACTIVATION Core R MCA infarct w/ ischemic penumbra , to occlusion or string sign Marlee with via [facility] [HM] [id number] Luis Acosta MD Physician Specialty: Family Practice Discharge Summary Signed Date of Service: 12/14/2024 2:35 PM [facility] Hospitalist- Discharge Summary HOSPITAL COURSE: Please see H and P for full details on admission, symptoms and initialcare. 79-year-old female with chronic right internal carotid artery occlusionand asymptomatic <50% left internal carotid artery stenosis in the settingof ongoing tobacco use disorder. Patient also has Jerica 3 chroniclimb-threatening ischemia of bilateral lower extremities with ultrasoundevidence of impending stent failure involving her right superficialfemoral artery stent. Patient was admitted by vascular service for plannedright lower extremity angiogram with endovascular revascularization. Sheis now status post revascularization of the right superficial femoralartery and right popliteal artery as of 12/12. Patient was hypertensivepostoperatively and was transferred to ICU for blood pressure control. Shewas placed on nicardipine drip to maintain systolic blood pressure <160mmHg. Patient reports no cardiac pain. [facility] Patient's family has been assigned and the [facility] plan to assist with discharge. Patient plans on living with [facility] for about one week post-discharge. She was resumed on labetalol 200 mg TID, clonidine 0.2 mg q8hr. Started onamlodipine 5 mg daily and lisinopril 20 mg bid prior to discharge. GoalSBP<140. [HM] 1856 CT STROKE ACTIVATION IMPRESSION: 1. Occlusion versus string sign origin right internal carotid artery.There is some filling of the right middle cerebral artery and branches but notas robust as normal-appearing left middle cerebral artery likely accountingfor decreased profusion as noted on perfusion study within the right middle cerebral artery territory. 2. Otherwise no intracranial large vessel occlusion . IMPRESSION: 1. This case was discussed withDr. Brown at 6:45 p.m. centralstandard time on 01/12/2025. 2. There is occlusion versus string sign right internal carotid arteryat its origin with a large area of calcification at the level of occludedproximal right internal carotid artery. 3. Atherosclerotic change throughout the left common carotid artery with segmental narrowing but no occlusion. Atherosclerotic change origin leftcommon carotid artery with less than 50% narrowing. 4. The vertebral arteries are patent in the neck with no evidence of dissection or critical stenosis. FINDINGS: Perfusion study demonstrates a core infarct right middle cerebral artery territory with ischemic penumbra. This is likely due to occlusive diseaseas noted CTA head and neck. IMPRESSION: This case was discussed withDr. Brown at 6:45 p.m. central standardtime on 01/12/2025. Perfusion study demonstrates a core infarct right middle cerebral artery territory with ischemic penumbra. This is likely due to occlusive diseaseas noted CTA head and neck. [] [address] results discussed with neurology who is aware of findings. Dr. Fallon Trendelenburg and fluids also recommends EEG and continuingantiepileptics. [] 1901 EKG 12 lead Intervals [place] Rate: 98 P: 68 ID: [id number] QRS: 7 QRSD: 80 T: 87 QT: 390 QTc: 497 Interpretive Statements Normal sinus rhythm Nonspecific ST and T wave abnormality [] 1953 CT CHEST ABDOMEN PELVIS WO CONT IMPRESSION: 1. Age-related mild compression fracture at T12, correlation for point areas of consolidated. No evidence of acute fracture of the chest, pelvis. 2. No evidence of pulmonary contusion or laceration scattered areas of atelectasis. There are more focal pulmonary opacities without favored focal scarring. Follow up CT chest in three months recommended to confirm stability/resolution. 3. Mild distention of the small bowel favoring ileus, there is a hernia of the right intra-abdominal wall containing dilated bowel which does not appear to be the source of obstruction 4. Severe cortical atrophy right kidney. 5. There may be a contusion of the lateral left thigh not fully included on this exam. Articulations are recommended. 6. Additional findings as above. [] 1954 Discussed the case with Dr. Posada neurology regarding is patientendovascular candidate. She will review the imaging results. Hediscussed the case with Dr. Ramon neurology indicates patient is not anendovascular candidate and will put a functional consult note [] ED Course User Index [] Austyn Brown MD Medical Decision Making Amount and/or Complexity of Data Reviewed Labs: ordered. Radiology: ordered. Decision-making details documented in ED Course. ECG/medicine tests: ordered. Decision-making details documented in EDCourse. Risk Prescription drug management. Decision regarding hospitalization. Clinical Scoring & Consults Summary * Initiated stroke protocol due to witnessed unresponsiveness andaltered mental status, warranting CT head/neck/perfusion to evaluate foracute ischemic changes and large vessel occlusion given concern for acutestroke. Multiple CT scans were ordered to evaluate the patient'spresenting symptoms. * While seizure could present with altered mental status, the imagingfindings were showing possible ischemic stroke, favoring this diagnosis.Intracranial hemorrhage was considered given the patient's fall, but ruledless likely due to absence of acute hemorrhage on CT head. * Admission is appropriate given the acute CVA diagnosis, need forcontinuous neurological monitoring, further workup, and initiation ofappropriate medical management, including antiepileptics due to Dr. Ramonneurology recommendations. * Discussed plan of care and disposition with neurology and hospitalistteams. Shared decision-making took place with the patient's familyregarding the plan of care, including risks and benefits of admission.Every reasonable effort was made to provide timely [id number] high patient volume. Medications Administered During the ED Stay from 01/12/2025 1731 to01/12/2025 2042 Date/Time Order Dose Route Action 01/12/2025 1815 CDT levETIRAcetam (KEPPRA) 500 mg/5 mL injection 2,000mg 2,000 mg IV Given 01/12/2025 1745 CDT fentaNYL PF (SUBLIMAZE) 50 mcg/mL injection 200 [id number] mcg IV Given 01/12/2025 1800 CDT propofoL (DIPRIVAN) injection -- IV Canceled Entry 01/12/2025 1830 CDT propofol (DIPRIVAN) 10 mg/mL continuous infusion 25mcg/kg/min IV New Bag Current Discharge Medication List CONTINUE these medications which have NOT CHANGED Details amLODIPine (NORVASC) 5 mg tablet Take 1 Tablet (5 mg) by mouth daily. Qty: 30 Tablet, Refills: 0 aspirin (MARIA LUISA CHEWABLE) 81 mg Tablet, Chewable Take 1 Tablet (81 mg) bymouth daily. Qty: 90 Tablet, Refills: 3 metFORMIN (GLUCOPHAGE) 500 mg tablet Take 1 Tablet by mouth daily. potassium chloride (KLOR-CON) 20 mEq Extended Release tablet Take 20 mEqby mouth daily. acetaminophen (TYLENOL) 500 mg tablet Take 1,000 mg by mouth every 8 hoursas needed for Pain. ALPRAZolam (XANAX) 0.25 mg tablet Take 0.25 mg by mouth daily at bedtime. Ascorbic Acid 500 mg Capsule, Sustained Release Take 500 mg by mouthdaily. atorvastatin (LIPITOR) 80 mg tablet Take 80 mg by mouth daily with supper. Cholecalciferol, Vitamin D3, (VITAMIN D3) 10 mcg (400 unit) capsule Take 1Capsule by mouth daily. cloNIDine HCL (CATAPRES) 0.2 mg tablet Take 0.2 mg by mouth 3 times daily. clopidogreL (PLAVIX) 75 mg Tablet Take 75 mg by mouth daily. furosemide (LASIX) 20 mg tablet Take 40 mg by mouth daily. hydroCHLOROthiazide 25 mg tablet Take 25 mg by mouth daily. labetaloL (NORMODYNE) 200 mg tablet Take 200 mg by mouth 3 times daily. !! levothyroxine 75 mcg tablet Take 75 mcg by mouth daily. !! levothyroxine 88 mcg tablet Take 88 mcg by mouth daily. lisinopriL 20 mg tablet (PRINIVIL) Take 10 mg by mouth daily. meclizine (ANTIVERT) 25 mg tablet Take 25 mg by mouth every 8 hours asneeded. vitamin E 400 unit capsule folic acid (FOLVITE) 400 mcg Tablet Take 400 mcg by mouth daily. !! - Potential duplicate medications found. Please discuss with provider. LAST VS BP: 107/84 (01/13/251714), Heart Rate: (!) 112 bpm (01/13/251714), Resp:22 (01/13/25 1715), Pulse: (!) 111 (01/13/25 1715), Temp: 99.3 F (37.4 C) (01/13/25 1600), Temp src: Axillary (01/13/25 1600), SpO2: 93 %(01/13/251714) CLINICAL IMPRESSION Final diagnoses: [I63.9] Cerebrovascular accident (CVA), unspecified mechanism (CMS/HCC)(Primary) DISPOSITION, EDUCATION AND MEDICATION RECONCILIATION Medications reconciled. See after visit summary for patient education ondischarged patients. ED Disposition ED Disposition Admit Condition Stable User Austyn Brown MD Date/Time SatJan 12, 2025 6:59 PM Comment -- ATTESTATION STATEMENTS Diagnosis Diagnosis Comment Added By Time Added Cerebrovascular accident (CVA), unspecified mechanism (CMS/HCC) [I63.9]Austyn Brown MD 01/12/2025 6:59 PM us Austyn Brown MD PROCEDURE/MINOR SURGIC AL ORDERABLES Final Result * SODIUM LEVEL (01/20/2025 1:37 PM CDT) Only the most recent of2 resultswithin the time period is included. SODIUM 143 136 - 145 mmol/L 01/20/2025 2:13 PM CDT [facility] Blood Venipuncture / Unknown 01/20/2025 1:37 PM CDT 01/20/2025 1:43 PM CDT Jeanmarie Min MD CHEMISTRY ORDERABLES Fin al Result Performing Organization Address City/[facility]/ZIP Co de Phone Number [facility] CLIA # [id number] [address] [address] * BILIRUBIN DIRECT (01/20/2025 9:12 AM CDT) BILIRUBIN DIRECT 0.2 0.0 - 0.3 mg/dL 01/20/2025 9:57 AM CDT [facility] Blood Venipuncture / Unknown 01/20/2025 9:12 AM CDT 01/20/2025 9:16 AM CDT us Jeanmarie Min MD CHEMISTRY ORDERABLES Fin al Result [facility] CLIA # [id number] [address] [address] [place] [address] * (ABNORMAL) CBC WITHOUT DIFFERENTIAL (01/19/2025 6:22 PM CDT) Only the most recent of2 resultswithin the time period is included. [facility] WBC 19.2(H) 4.8 - 10.8 K/uL 01/19/2025 6:59 PM CDT [facility] NRBCS 7(H) <1 % 01/19/2025 6:59 PM CDT [facility] RBC 3.43(L) 4.20 - 5.40 M/uL 01/19/2025 6:59 PM CDT [facility] HEMOGLOBIN 10.1(L) 12.0 - 16.0 g/dL 01/19/2025 6:59 PM CDT [facility] HEMATOCRIT 31.4(L) 36.0 - 46.0 % 01/19/2025 6:59 PM CDT [facility] MCV 91.5 84.0 - 103.0 fL 01/19/2025 6:59 PM CDT [facility] MCH 29.4 27.0 - 34.0 pg 01/19/2025 6:59 PM CDT [facility] MCHC 32.2 30.0 - 35.0 g/dL 01/19/2025 6:59 PM CDT [facility] PLATELETS 219 140 - 440 K/uL 01/19/2025 6:59 [facility] MPV 10.8 8.9 - 12.8 fL 01/19/2025 6:59 PM [facility] RDW 15.1(H) 11.0 - 14.5 % 01/19/2025 6:59 PM [facility] RDW-STDEV 49.6 37.0 - 54.0 fL 01/19/2025 6:59 PM [facility] Blood Venipuncture / Unknown 01/19/2025 6:22 PM CDT 01/19/2025 6:50 PM CDT Garret Zuñiga DO HEMATOLOGY ORDERABLES Final R esult [id number] [address] [facility] [place] [address] * TRANSFUSE RED BLOOD CELLS (01/19/2025 4:54 PM CDT) Only the most recent of2 resultswithin the time period is included. Garret Joey Yogesh DO BLOOD TRANSFUSION ORDERABLES Final Result * CT CHEST ABDOMEN PELVIS W CONT (01/19/2025 4:05 PM CDT) Anatomical Region Laterality Modality Chest Computed Tomogra phy 01/19/2025 3:53 PM CDT Impressions 01/19/2025 4:34 PM CDT IMPRESSION: Please see below. Exam: CT CHEST ABDOMEN PELVIS W CONT Date/Time of Exam: 01/19/2025 4:05 PM Reason For Exam: Sepsis. Diagnosis: Cerebrovascular accident (CVA), unspecified mechanism (CMS/HCC). Technique: CT of the chest, abdomen, and pelvis was performed following the administration of intravenous contrast. Contrast: IOPAMIDOL 61 % INTRAVENOUS SOLUTION (MULTI-DOSE BULK PACK) Given:75 mL. Comparison: January 12, 2025. FINDINGS: CHEST: No thyroid nodules. Multiple calcified mediastinal and hilar lymph nodes. Small pericardial effusion. Coronary artery calcification. Small layering pleural effusions. Linear airspace disease in the lower lobes. There is interlobular septal thickening with linear airspace disease in the right upper and right middle lobes. There is no pneumothorax. ABDOMEN: Aortobiiliac stent graft. Dilatation of abdominal aorta. Atrophic right kidney. No left hydronephrosis. Cholecystectomy. Large amount of stool is seen throughout the colon. Mild stranding and trace ascites in the pelvis. Small large bowel not significant when distended. Appendix is normal. Streak artifact from left hip arthroplasty. Extensive vascular calcifications. No destructive lytic or sclerotic bone lesions. Body wall edema. There is chronic vertebral body height loss at T12. IMPRESSION: 1. Nonspecific pulmonary findings bilaterally may reflect interstitial edema. Other etiologies such as infection or atelectasis could appear similar. There are small layering pleural effusions. 2. Large amount of stool seen throughout the visualized colon. 3. Atrophic kidney. Narrative Procedure Note Rory Cody MD - 01/19/2025 IMPRESSION: Please see below. Exam: CT CHEST ABDOMEN PELVIS W CONT Date/Time of Exam: 01/19/2025 4:05 PM Reason For Exam: Sepsis. Diagnosis: Cerebrovascular accident (CVA), unspecified mechanism (CMS/HCC). Technique: CT of the chest, abdomen, and pelvis was performed following the administration of intravenous contrast. Contrast: IOPAMIDOL 61 % INTRAVENOUS SOLUTION (MULTI-DOSE BULK PACK) Given:75 mL. Comparison: January 12, 2025. FINDINGS: CHEST: No thyroid nodules. Multiple calcified mediastinal and hilar lymph nodes. Small pericardial effusion. Coronary artery calcification. Small layering pleural effusions. Linear airspace disease in the lower lobes. There is interlobular septal thickening with linear airspace disease in the right upper and right middle lobes. There is no pneumothorax. ABDOMEN: Aortobiiliac stent graft. Dilatation of abdominal aorta. Atrophic right kidney. No left hydronephrosis. Cholecystectomy. Large amount of stool is seen throughout the colon. Mild stranding and trace ascites in the pelvis. Small large bowel not significant when distended. Appendix is normal. Streak artifact from left hip arthroplasty. Extensive vascular calcifications. No destructive lytic or sclerotic bone lesions. Body wall edema. There is chronic vertebral body height loss at T12. IMPRESSION: 1. Nonspecific pulmonary findings bilaterally may reflect interstitial edema. Other etiologies such as infection or atelectasis could appear similar. There are small layering pleural effusions. 2. Large amount of stool seen throughout the visualized colon. 3. Atrophic kidney. Jeanmarie Ladan Min MD CT ORDERABLES Final Re sult * UPPER ENDOSCOPY REPORT (01/19/2025 11:39 AM CDT) Narrative Procedure Note Garret Zuñiga DO - 01/19/2025 11:39 AM CDT [facility] GI Patient Name: Mary Jane Selby Procedure Date: 01/19/2025 Date of : 1945 Admit Type: Inpatient Age: 79 Attending MD: Garret Zuñiga DO, Procedure: Upper GI endoscopy with bx Indications: Melena Providers: Garret Zuñiga DO Referring MD: Medicines: Propofol per Anesthesia Complications: No immediate complications. Procedure: Pre-Anesthesia Assessment: - Prior to the procedure, a History and Physical was performed, and patient medications, allergies and sensitivities were reviewed. The patient's tolerance of previous anesthesia was reviewed. - The risks and benefits of the procedure and the sedation options and risks were discussed with the patient. All questions were answered and informed consent was obtained. - ASA Grade Assessment: III - A patient with severe systemic disease. After obtaining informed consent, the endoscope was passed under direct vision. Throughout the procedure, the patient's blood pressure, pulse, and oxygen saturations were monitored continuously. The Endoscope was introduced through the mouth, and advanced to the second part of duodenum. The upper GI endoscopy was accomplished without difficulty. The patient tolerated the procedure well. Estimated Blood Loss: Estimated blood loss: none. Findings: Normal esophagus In the fundus a slight shallow ulceration was seen with raised edges. This was biopsied to rule out atypical mass. No bleeding was seen. In the antrum erosions were seen but again no active bleeding Normal duodenum Plan: Continue PPI IV while here then orally twice daily for the next 2 months. Await biopsies Recommendation: - Await pathology results. Garret Zuñiga DO 01/19/2025 11:39:06 AM This report has been signed electronically. Number of Addenda: 0 Note Initiated On: 01/19/2025 11:10 AM Scope Withdrawal Time Scope In: Scope Out: [address] [place], [place] Garret Zuñiga DO GI PROCEDURE ORDERABLES Final Result * PATHOLOGY (01/19/2025 11:19 AM CDT) CASE REPORT Surgical Pathology Report Case: [id number] Authorizing Provider: Garret Zuñiga DO Collected: 01/19/2025 11:19 AM Ordering Location: [facility] Received: 01/19/2025 02:13 PM Endoscopy Pathologist: Tania Machuca MD Specimen: Stomach, fundus 9:00 AM CDT [facility] FINAL DIAGNOSIS A. Stomach, fundus, biopsy - Gastric mucosa with reactive/reparative epithelial and stromal changes, consistent with resolving injury - No active gastritis, intestinal metaplasia, dysplasia, or malignancy Tania Machuca MD [id number] 9:00 AM T [facility] at 0900 CDT GROSS DESCRIPTION A. Received in formalin labeled [facility] -stomach biopsy fundus is a single fragment of arshad-pink soft tissue, 0.4 cm in greatest dimension. The specimen is submitted entirely in A1. Ольга Zamora Agsunod 9:00 AM T [facility] OPERATIVE PROCEDURE 1: ESOPHAGOGASTRODUODENOSCO PY 9:00 AM CDT [facility] CLINICAL INFORMATION YeahFundal biopsy 9:00 AM T [facility] COMMENT The GMEX voice-activated dictation system may have been used in the creation of this report. Inherent to this system is the possibility of errors in syntax, grammar, punctuation, or other areas that could impact interpretation. If there are interpretive questions about the report, please contact the performing pathologist. Unless gross only is specified in the diagnosis, the microscopic examination substantiates the above cited diagnosis. The performance characteristics of all immunohistochemical stains cited in this report (if any) were determined by the Diagnostic Immunohist[facility] Laboratory of [facility] in compliance with CLIA'88 regulations. Some of these tests rely on the use of analyte specific reagents and are subject to specific labeling requirements by the FDA. All controls show appropriate reactivity. This testing was developed by the [facility]ohist[facility] of [facility]. It has not been cleared or approved by the FDA. The FDA has determined that such clearance or approval is not necessary. 9:00 AM T [facility] Tissue ENTIRE STOMACH / Unknown Collection / Unknown 01/19/2025 11:19 AM CDT 01/19/2025 2:13 PM CDT Comment:Fundal biopsy Garret Zuñiga DO PATHOLOGY/CYTOLOGY ORDERABLES Final Result Performing Organization Address [facility] Co de Phone Number [facility] [facility] CLIA # [id number] [address] [address] * LACTIC ACID (01/19/2025 9:08 AM CDT) Only the most recent of5 resultswithin the time period is included. LACTIC ACID 1.8 <=2.0 mmol/L 01/19/2025 9:46 AM CDT [facility] [place] Blood Venipuncture / Unknown 01/19/2025 9:08 AM CDT 01/19/2025 9:12 AM CDT Jeanmarie Min MD CHEMISTRY ORDERABLES Fin al Result Performing Organization Address [facility] Co de Phone Number [facility] [employer] [facility] CLIA # [id number] [address] [address] * PREPARE RED BLOOD CELLS (01/19/2025 8:46 AM CDT) Only the most recent of2 resultswithin the time period is included. COMPONENT TYPE [id number] [facility] [place] COMPONENT IDENTIFICATION [id number] [facility] [place] UNIT ABO O [facility] [place] UNIT RH NEG [facility] [place] CROSSMATCH Compatible [facility] [place] COMPONENT STATUS Transfused [facility] [place] COMPONENT EXPIRATION DATE/TIME [id number] [facility] [place] COMPONENT CODING SYSTEM 9500 [facility] [place] VOLUME, BLOOD PRODUCT 250 [facility] [place] Other, specify 01/19/2025 8: 46 AM CDT Jeanmarie Min MD LAB TRANSFUSION ORDERABL ES Edited Result - Final Performing Organization Address City/[facility]/ZIP Co de Phone Number [facility] CLIA#[id number] [address] [place] [address], * UNFRACTIONATED HEPARIN MONITORING (01/18/2025 12:39 PM CDT) Only the most recent of6 resultswithin the time period is included. ANTI-XA UNFRAC HEP 0.18 See Interpretation IU/mL 01/18/2025 1:28 PM CDT [facility] Blood Venipuncture / Unknown 01/18/2025 12:39 PM CDT 01/18/2025 1:09 PM CDT Narrative [facility] [place] - 01/18/2025 1:28 PM CDT Therapeutic Range: PT/DVT Heparin Protocol 0.3 - 0.7 IU/ml Cardiac Heparin Protocol 0.3 - 0.6 IU/ml The reference range for this test is specific to the anticoagulant and is not appropriate for monitoring patients on a DOAC protocol. Jeanmarie Min MD HEMATOLOGY ORDERABLES Fi nal Result Performing Organization Address [facility]/ZIP Co de Phone Number [facility] CLIA # [id number] [address] [address] * TYPE AND SCREEN (01/18/2025 6:24 AM CDT) ABO GROUP O 01/18/2025 7:33 AM CDT [facility] [place] RH (D) TYPE Negative 01/18/2025 7:33 AM CDT [facility] ANTIBODY SCREEN Negative 01/18/2025 7:33 AM CDT [facility] Blood Venipuncture / Unknown 01/18/2025 6:24 AM CDT 01/18/2025 6:39 AM CDT Reji Johns MD BLOOD BANK ORDERABLES E dited Result - Final Performing Organization Address [facility] Co de Phone Number [facility] [employer] [facility] CLIA#[id number] [address] [place] [address] * (ABNORMAL) IRON, TIBC, AND PERCENT SATURATION (01/18/2025 4:39 AM CDT) IRON 268(H) 37 - 145 ug/dL 01/18/2025 2:43 PM CDT [facility] TIBC 01/18/2025 2:43 PM CDT [facility] Comment:Unable to calculate due to low UIBC. IRON % SATURATION 01/18/2025 2:43 PM CDT [facility] Comment:Unable to calculate due to low UIBC. Blood Venipuncture / Unknown 01/18/2025 4:39 AM CDT 01/18/2025 5:01 AM CDT Jeanmarie Min MD CHEMISTRY ORDERABLES Fin al Result Performing Organization Address [facility] Co de Phone Number [facility] CLIA # [id number] [address] [place] [address] * (ABNORMAL) FERRITIN (01/18/2025 4:39 AM CDT) FERRITIN 457.4(H) 13.0 - 150.0 ng/mL 01/18/2025 2:43 PM CDT [facility] Blood Venipuncture / Unknown 01/18/2025 4:39 AM CDT 01/18/2025 5:01 AM CDT Jeanmarie Min MD CHEMISTRY ORDERABLES Fin al Result Performing Organization Address [facility] Co de Phone Number [facility] CLIA # [id number] [address] [address] * PTT (01/16/2025 5:42 PM CDT) Only the most recent of2 resultswithin the time period is included. PTT 35.3 24.8 - 37.2 seconds 01/16/2025 6:30 PM CDT [facility] [facility] Blood Venipuncture / Unknown 01/16/2025 5:42 PM CDT 01/16/2025 5:50 PM CDT Narrative [facility] [facility] - 01/16/2025 6:30 PM CDT Therapeutic Range: Hi-level PE/DVT heparin protocol 80.1 - 95.0 sec Lo-level PE/DVT heparin protocol 70.1 - 85.0 sec Cardiac Heparin Protocol 70.1 - 100.0 sec Jeanmarie Ladan Min MD HEMATOLOGY ORDERABLES Fi nal Result Performing Organization Address [facility] Co de Phone Number [facility] CLIA # [id number] [address] [address] * CT HEAD WO CONTRAST (01/16/2025 4:01 PM CDT) Anatomical Region Laterality Modality Head Computed Tomogra phy 01/16/2025 4:01 PM CDT Impressions 01/16/2025 4:31 PM CDT IMPRESSION: 1. Prominent generalized parenchymal atrophy and chronic small vessel disease are present. 2. 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 3. No change since the prior study. Narrative 01/16/2025 4:31 PM CDT Exam: CT HEAD WO CONTRAST Date/Time of Exam: 01/16/2025 4:01 PM Reason For Exam: Transient ischemic attack (TIA), Stroke, follow up. Technique: Contiguous axial images were obtained through the head without IV contrast. Comparison is to a study from 01/12/2025. Findings: Prominent generalized atrophy is present. Diffuse hypodensity is seen in the periventricular white matter, consistent with changes of chronic small vessel disease. Focal areas of encephalomalacia consistent with old infarcts are again seen laterally in the right frontal and parietal lobes. There is no evidence of any intracranial hemorrhage or abnormal extra axial fluid collections. There is no midline shift or mass effect and the basilar cisterns are patent. No fractures are seen at the levels that were scanned. No change is seen since the prior study. Procedure Note Momo Lambert MD - 01/16/2025 Exam: CT HEAD WO CONTRAST Date/Time of Exam: 01/16/2025 4:01 PM Reason For Exam: Transient ischemic attack (TIA), Stroke, follow up. Technique: Contiguous axial images were obtained through the head without IV contrast. Comparison is to a study from 01/12/2025. Findings: Prominent generalized atrophy is present. Diffuse hypodensity is seen in the periventricular white matter, consistent with changes of chronic small vessel disease. Focal areas of encephalomalacia consistent with old infarcts are again seen laterally in the right frontal and parietal lobes. There is no evidence of any intracranial hemorrhage or abnormal extra axial fluid collections. There is no midline shift or mass effect and the basilar cisterns are patent. No fractures are seen at the levels that were scanned. No change is seen since the prior study. IMPRESSION: 1. Prominent generalized parenchymal atrophy and chronic small vessel disease are present. 2. 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 3. No change since the prior study. Jeanmarie Ladan Min MD CT ORDERABLES Final Re sult * EEG VIDEO MONITORING (01/14/2025 9:02 AM CDT) Narrative Erna Aguilera MD - 01/14/2025 9:02 AM CDT Erna Aguilera MD 01/14/2025 9:07 AM [facility] EEG REPORT Mary Jane Selby [id number] DATE(s) OF TEST: 01/13/2025 - 01/14/2025 DATE OF REPORT: 01/14/2025 Start time: 12:25 PM, 01/13 Stop time: 8:06 AM, 01/14 HISTORY: 79-year-old female is being evaluated for altered mental status MEDICATIONS THAT COULD AFFECT THE EEG: Levetiracetam, propofol TECHNICAL SUMMARY: This is a digital video EEG recorded with 32 input channels on a [employer] system, reviewed with bipolar and referential montages using the International 10--20 System. Overnight the EEG record was intermittently obscured by excessive artifact thus limiting interpretation. DESCRIPTION OF RECORD: During the maximally alert state no clearly discernible posterior dominant rhythm was noted. Background was symmetric, continuous, reactive and was represented by delta activity admixed with theta range frequency. No organized sleep architecture was noted. HV: Hyperventilation was not performed. PHOTIC STIMULATION: Photic stimulation was not done. VIDEO EVENTS: None Noted ELECTROCARDIOGRAM EVENTS: Regular rhythm IMPRESSION: Abnormal lethargic video EEG due to: Continuous, slow, generalized, delta/theta range, reactive CLINICAL CORRELATION: This EEG record is noted for a moderate degree of encephalopathy of nonspecific etiology. No epileptiform discharges or ictal patterns were recorded. Clinical correlation is recommended. For any questions, kindly page. Erna Aguilera MD Epilepsy/ Clinical Neurophysiology/ Neurology [facility] us Padmini Kennedy MD NEUROLOGY ORDERABLES Edited Resu lt - Final * VANCOMYCIN LEVEL RANDOM (01/14/2025 3:26 AM CDT) VANCOMYCIN, RANDOM 10.6 5.0 - 50.0 ug/mL 01/14/2025 4:31 AM CDT [facility] Blood Venipuncture / Unknown 01/14/2025 3:26 AM CDT 01/14/2025 3:57 AM CDT Narrative [facility] - 01/14/2025 4:31 AM CDT Vancomycin Therapeutic Ranges: Vancomycin Trough: 10 - 20 mcg/mL Vancomycin Peak: 25 - 50 mcg/mL Kiana Suarez MD CHEMISTRY ORDERABLES Final Resul t [facility] CLIA # [id number] [address] [place] [address] * MRI BRAIN WO CONTRAST (01/13/2025 11:19 PM CDT) Anatomical Region Laterality Modality Head Magnetic Resonan ce 01/14/2025 12:1 0 AM CDT Impressions 01/14/2025 4:23 AM CDT IMPRESSION: Please see below. Exam: MRI BRAIN WO CONTRAST Date/Time of Exam: 01/13/2025 11:19 PM Reason For Exam: Neuro deficit, acute, stroke suspected. Diagnosis: Cerebrovascular accident (CVA), unspecified mechanism (CMS/HCC). Technique: MRI of the brain was performed without intravenous contrast. Findings: No acute/recent infarct. Chronic right frontoparietal infarct and encephalomalacia. No acute hemorrhage or extra-axial fluid collection. No mass effect, midline shift or other herniation. Prominence of ventricles and sulci compatible with moderate generalized parenchymal volume loss. No hydrocephalus.. Sellar structures are grossly unremarkable for age. Near confuluent subcortical and periventricular supratentorial white matter T2 hyperintensities are nonspecific, however are compatible with severe chronic microvascular ischemic changes.. No expansile edema. No evidence of intracranial mass. A few small foci of susceptibility artifact present possibly sequelae of hypertensive microhemorrhages. Larger vascular flow voids are unremarkable. Normal bony marrow signal intact. Minor scattered mucosal thickening in the paranasal sinuses. IMPRESSION: No acute infarct. Redemonstration of chronic right frontoparietal infarct and associated encephalomalacia. Extensive white matter disease and redemonstration of generalized senescent changes. Narrative Procedure Note Vitor Brito MD - 01/14/2025 IMPRESSION: Please see below. Exam: MRI BRAIN WO CONTRAST Date/Time of Exam: 01/13/2025 11:19 PM Reason For Exam: Neuro deficit, acute, stroke suspected. Diagnosis: Cerebrovascular accident (CVA), unspecified mechanism (CMS/HCC). Technique: MRI of the brain was performed without intravenous contrast. Findings: No acute/recent infarct. Chronic right frontoparietal infarct and encephalomalacia. No acute hemorrhage or extra-axial fluid collection. No mass effect, midline shift or other herniation. Prominence of ventricles and sulci compatible with moderate generalized parenchymal volume loss. No hydrocephalus.. Sellar structures are grossly unremarkable for age. Near confuluent subcortical and periventricular supratentorial white matter T2 hyperintensities are nonspecific, however are compatible with severe chronic microvascular ischemic changes.. No expansile edema. No evidence of intracranial mass. A few small foci of susceptibility artifact present possibly sequelae of hypertensive microhemorrhages. Larger vascular flow voids are unremarkable. Normal bony marrow signal intact. Minor scattered mucosal thickening in the paranasal sinuses. IMPRESSION: No acute infarct. Redemonstration of chronic right frontoparietal infarct and associated encephalomalacia. Extensive white matter disease and redemonstration of generalized senescent changes. Kiana Suarez MD MR ORDERABLES Final Result * (ABNORMAL) SEDIMENTATION RATE (01/13/2025 6:12 PM CDT) [facility] ESR (SEDIMENTATION RATE) 37(H) 0 - 20 mm/Hr 01/13/2025 6:37 PM CDT [facility] Blood Venipuncture / Unknown 01/13/2025 6:12 PM CDT 01/13/2025 6:17 PM CDT Kiana Suarez MD HEMATOLOGY ORDERABLES Final Resu lt [facility] CLIA # [id number] [address] [place] [address] * (ABNORMAL) GI PATHOGEN PCR PANEL (01/13/2025 3:51 PM CDT) [facility] Campylobacter by PCR DETECTED( A) Not Detected 01/13/2025 6:25 PM CDT [facility] Comment: Campylobacter enterocolitis is a self-limiting infection in otherwise healthy children and adults. In cases with high fever, bloody stools, and symptoms lasting greater than one week, antimicrobial treatment may be indicated and can reduce the symptoms and severity as well as reduce the likelihood of serious complications, such as Guillain-Atwood syndrome. Stool STOOL SPECIMEN / Unknown Collection / Unknown 01/13/2025 3:51 PM CDT 01/13/2025 4:05 PM CDT Narrative [facility] [facility] - 01/13/2025 6:25 PM CDT Positive GI panel called to China Toscano RN 4E by WARREN SHARPE on 01/13/2025 at 6:20 PM with verbal readback. The Film Array GI Panel is a multiplexed nucleic acid detection test for 22 targets of bacteria, viruses, and parasites in stool that cause infectious diarrhea. Bacteria: Campylobacter C. difficile Plesiomonas shigelloides Salmonella Vibrio Vibrio cholerae Yersinia enterocolitica Enteroaggregative E. Coli (EAEC) Enteropathogenic E. Coli (EPEC) Enterotoxigenic E. Coli (ETEC) Shiga-like toxin-producing E. Coli (STEC) E. Coli O157 Shigella/Enteroinvasive E. Coli (EIEC) Viruses: Adenovirus F 40/41 Astrovirus Norovirus GI/GII Rotavirus A Sapovirus Parasites: Cryptosporidium Cyclospora cayetanensis Entamoeba histolytica Giardia duodenalis Kiana Suarez MD MICROBIOLOGY - GENERAL ORDERABLE S Final Result Performing Organization Address City/[facility] Co de Phone Number [facility] CLIA # [id number] [address] [place] [address] [id number] * (ABNORMAL) C-REACTIVE PROTEIN (01/13/2025 3:51 PM CDT) CRP 60.8(H) 0.0 - 5.0 mg/L 01/13/2025 6:23 PM CDT [facility] Blood Venipuncture / Unknown 01/13/2025 3:51 PM CDT 01/13/2025 4:01 PM CDT Kiana Suarez MD CHEMISTRY ORDERABLES Final Resul t Performing Organization Address [facility] Co de Phone Number [facility] CLIA # [id number] [address] [place] [address] * AMMONIA LEVEL (01/13/2025 3:51 PM CDT) AMMONIA 12.2 11.0 - 51.0 umol/L 01/13/2025 4:27 PM CDT [facility] Blood, venous Venipuncture / Unknown 01/13/2025 3:51 PM CDT 01/13/2025 4:14 PM CDT Briana Serna [employer] CHEMISTRY ORDERABLES Final Result [facility] CLIA # [id number] [address] [id number] * ECHO COMPLETE W BUBBLE STUDY (01/13/2025 1:42 PM CDT) EJECTION FRACTION 56 INTERFACE SYSTEM 01/13/2025 12:5 5 PM CDT Narrative INTERFACE SYSTEM - 01/13/2025 3:09 PM CDT [facility] Cardiovascular Services Echocardiography Laboratory [address] [place] [id number] Transthoracic Echocardiography Patient: Mary Jaen Selby Study ECHO COMPLETE W Steffi ID: Gender: F : 1945 Age: 79 Room: [facility] Study 01/13/2025 Pt Inpatient Date: Status: Study 12:55:16 PM CSN #: [id number] Time: Ordering:Padmini Kennedy Product Tester: Bibiana Castaneda RD Indications and History: Chest Pain, unspecified. Risk factors: Hypertension. Diabetes mellitus. Summary and Conclusion: - Left ventricle: The cavity size is normal. Wall thickness is increased in a pattern of moderate septal LVH. Hypertrophy is noted. Global systolic function is normal. The estimated ejection fraction is 55-60%. For Epic reporting: the left ventricular ejection fraction is 56% by biplane method of disks. No diagnostic regional wall motion abnormality identified. Grade I diastolic dysfunction. Myocardial performance and contractility assessed using 2D global longitudinal strain imaging. The global longitudinal strain is -15% (Normal range is -18 to -25). - Right ventricle: The cavity size is normal. Systolic function is normal. Systolic pressure is within the normal range. - Aortic valve: There is trivial to mild regurgitation. - Mitral valve: The mean diastolic gradient is 5mm Hg. Comparison: No previous study was available for comparison. Procedure information: No prior study is available for comparison. Study status: Routine. Procedure: A transthoracic echocardiogram was performed. Image quality was adequate. Scanning was performed from the parasternal, apical, subcostal, and suprasternal notch acoustic windows. Intravenous contrast (agitated saline) was administered. There were no complications. There were no contrast reactions. Study components: M-mode, 2D, complete spectral Doppler, and color Doppler. Height: 152.4cm. Height: 60in. Weight: 57.9kg. Weight: 127.6lb. BMI: 24.9kg/m^2. BSA: 1.58m^2. Blood pressure: 143/54 Study date: 01/13/2025. Study time: 12:55 PM. Location: ICU/CCU Cardiac Anatomy: LEFT VENTRICLE: The cavity size is normal. Wall thickness is increased in a pattern of moderate septal LVH. Hypertrophy is noted. Global systolic function is normal. The estimated ejection fraction is 55-60%. For Epic reporting: the left ventricular ejection fraction is 56% by biplane method of disks. No diagnostic regional wall motion abnormality identified. The longitudinal strain is -15.2% (Normal range is -18 to -25). Myocardial performance and contractility assessed using 2D global longitudinal strain imaging. The global longitudinal strain is -15% (Normal range is -18 to -25). Grade I diastolic dysfunction. RIGHT VENTRICLE: The cavity size is normal. Systolic function is normal. Systolic pressure is within the normal range. LEFT ATRIUM: The atrium is normal in size. RIGHT ATRIUM: The atrium is normal in size. ATRIAL SEPTUM: No obvious PFO or ASD identified by 2D imaging and color Doppler. AORTIC VALVE: Not well visualized. There is trivial to mild regurgitation. MITRAL VALVE: Structurally normal valve. Mobility is not restricted. No evidence for prolapse. There is no evidence for stenosis. There is no significant regurgitation. TRICUSPID VALVE: Structurally normal valve. Mobility is unrestricted. There is no evidence for stenosis. There is no significant regurgitation. PULMONIC VALVE: Not well visualized. The valve appears to be grossly normal. There is no evidence for stenosis. There is no significant regurgitation. PERICARDIUM: There is no pericardial effusion. AORTA: Aortic root: The root is not dilated. Aortic arch: The vessel is not dilated. INTRACARDIAC MASS THROMBUS: No apparent intracavitary masses or thrombi detected. Measurements Left ventricle Value Right ventricle Value GLS, 2D -15.2 % MAKENNA, LAX 1.5 cm IVS, ED, LAX 1.1 cm MAKENNA minor ax, A4C base 2.9 cm ESD, LAX 2.5 cm MAKENNA minor ax, A4C mid 2.3 cm ESD/bsa, LAX 1.6 cm/m^2 MAKENNA 1.5 cm FS, LAX 34 % TAPSE, 2D 2.2 cm FS, LAX chord 34 % TAPSE, MM 2.2 cm ESD major ax, A4C 5.8 cm S' lateral 18.0 cm/sec ESD/bsa major ax, A4C 3.7 cm/m^2 MAKENNA minor ax, A4C 5.8 cm Left atrium Value MAKENNA/bsa minor ax, A4C 3.7 cm/m^2 AP dim, ES 2.3 cm ROBINSON, A4C 20.0 cm^2 AP dim index, ES 1.5 cm/m^2 SCOOBY, A4C 12.4 cm^2 Area ES, A4C 11 cm^2 FAC, A4C 38 % SI dim, A2C 5.1 cm MAKENNA major ax, A2C 6.6 cm Vol, ES, 1-p A4C 17 ml MAKENNA/bsa major ax, A2C 4.2 cm/m^2 Vol/bsa, ES, 1-p A4C 11 ml/m^2 ROBINSON, A2C 23.5 cm^2 Vol, ES, 1-p A2C 26 ml SCOOBY, A2C 13.9 cm^2 Vol/bsa, ES, 1-p A2C 16 ml/m^2 FAC, A2C 41 % Vol, ES, 2-p 21 ml IVS, ED 1.1 cm Vol/bsa, ES, 2-p 13 ml/m^2 PW, ED 1.0 cm IVS/PW, ED 1.1 Right atrium Value EDV 60 ml Area, ES, A4C 8 cm^2 ESV 22 ml EF 64 % Aortic valve Value SV 55 ml Peak v, S 154 cm/sec EDV/bsa 38 ml/m^2 Peak grad, S 9 mm Hg ESV/bsa 14 ml/m^2 LVOT/AV, Vpeak ratio 0.75 SV/bsa 35 ml/m^2 FILOMENA, Vmax 1.9 cm^2 EDV, 1-p A2C 65 ml FILOMENA/bsa, Vmax 1.2 cm^2/m^2 ESV, 1-p A2C 35 ml EF, 1-p A2C 53 % Mitral valve Value SV, 1-p A2C 38 ml Mean v, D 102 cm/sec EDV/bsa, 1-p A2C 41 ml/m^2 Peak E 97.5 cm/sec ESV/bsa, 1-p A2C 22 ml/m^2 Peak A 134 cm/sec SV/bsa, 1-p A2C 24.1 ml/m^2 VTI leaflet coapt 29.3 cm EDV, 1-p A4C 52 ml MiV/LVOT VTI 1.4 ESV, 1-p A4C 23 ml Decel time 187 ms EF, 1-p A4C 57 % Mean grad, D 5 mm Hg SV, 1-p A4C 37 ml Peak grad, D 4 mm Hg EDV/bsa, 1-p A4C 33 ml/m^2 Peak E/A ratio 0.7 ESV/bsa, 1-p A4C 14 ml/m^2 E-VTI 29.3 cm SV/bsa, 1-p A4C 24 ml/m^2 A-VTI 29.3 cm EDV, 2-p 61 ml VTI E/A 1.0 ESV, 2-p 27 ml MVA 1.87 cm^2 EF, 2-p 56 % MVA/bsa 1.18 cm^2/m^2 SV, 2-p 34 ml MVA, LVOT cont 1.9 cm^2 EDV/bsa, 2-p 39 ml/m^2 MVA/bsa, LVOT cont 1.18 cm^2/m^2 ESV/bsa, 2-p 17 ml/m^2 Bonnie VTI 29.3 cm SV/bsa, 2-p 19.1 ml/m^2 Vena contracta width 1.5 cm EDV, MM Teich. 60 ml EF, MM Teich. 64 % Tricuspid valve Value EDV/bsa, MM Teich. 38 ml/m^2 TR vena contracta width 1.8 cm EF, MM on 2D Teich. 64 % Peak RV-RA grad, S 28 mm Hg E', lat bonnie, TDI 8.8 cm/sec E/e', lat bonnie, TDI 17 Ascending aorta Value E', med bonnie, TDI 5.8 cm/sec AAo AP diam, S 2.9 cm E/e', med bonnie, TDI 17 AAo AP diam/bsa, S 1.8 cm/m^2 E', avg, TDI 7.3 cm/sec E/e', avg, TDI 13 Descending aorta Value Karthik diam 2.3 cm LVOT Value Diam, S 1.8 cm Inferior vena cava Value Area 2.5 cm^2 Diam 1.1 cm Peak roman, S 115 cm/sec VTI, S 21.6 cm Peak grad, S 5 mm Hg SV 55 ml SV/bsa 35 ml/m^2 Legend: (L) and (H) tanya values outside specified reference range. [facility] are accredited with the Intersocietal Accreditation Commission - Echocardiography. Prepared and Electronically Authenticated Reji Mar Confirmed 01/13/2025 15:09 Procedure Note Reji Mar DO - 01/13/2025 [facility] Cardiovascular Services Echocardiography Laboratory [address] [place] [id number] Transthoracic Echocardiography Patient: Mary Jane Selby Study ECHOCOMPLETJaja Kapadia ID: Gender: F : 1945 Age: 79 Room: [facility] Study 01/13/2025 Pt Inpatient Date: Status: Study 12:55:16 PM [facility] #: [id number] Time: Ordering:Padmini Kennedy Product Tester: Bibiana Castaneda [facility] Indications and History: Chest Pain, unspecified. Risk factors: Hypertension. Diabetes mellitus. Summary and Conclusion: - Left ventricle: The cavity size is normal. Wall thickness is increasedin a pattern of moderate septal LVH. Hypertrophy is noted. Global systolic function is normal. The estimated ejection fraction is 55-60%. ForEpic reporting: the left ventricular ejection fraction is 56% by biplanemethod of disks. No diagnostic regional wall motion abnormality identified.Grade I diastolic dysfunction. Myocardial performance and contractilityassessed using 2D global longitudinal strain imaging. The global longitudinalstrain is -15% (Normal range is -18 to -25). - Right ventricle: The cavity size is normal. Systolic function isnormal. Systolic pressure is within the normal range. - Aortic valve: There is trivial to mild regurgitation. - Mitral valve: The mean diastolic gradient is 5mm Hg. Comparison: No previous study was available for comparison. Procedure information: No prior study is available for comparison.Study status: Routine. Procedure: A transthoracic echocardiogram wasperformed. Image quality was adequate. Scanning was performed from the parasternal, apical, subcostal, and suprasternal notch acoustic windows. Intravenous contrast (agitated saline) was administered. There were nocomplications. There were no contrast reactions. Study components: M-mode, 2D, complete spectral Doppler, and color Doppler. Height: 152.4cm.Height: 60in. Weight: 57.9kg. Weight: 127.6lb. BMI: 24.9kg/m^2. BSA: 1.58m^2. Blood pressure: 143/54 Study date: 01/13/2025. Studytime: 12:55 PM. Location: ICU/CCU Cardiac Anatomy: LEFT VENTRICLE: The cavity size is normal. Wall thickness is increased elizabeth pattern of moderate septal LVH. Hypertrophy is noted. Global systolicfunction is normal. The estimated ejection fraction is 55-60%. For Epic reporting:the left ventricular ejection fraction is 56% by biplane method of disks. No diagnostic regional wall motion abnormality identified. The longitudinal strain is -15.2% (Normal range is -18 to -25). Myocardial performanceand contractility assessed using 2D global longitudinal strain imaging. Theglobal longitudinal strain is -15% (Normal range is -18 to -25). Grade Idiastolic dysfunction. RIGHT VENTRICLE: The cavity size is normal. Systolic function isnormal. Systolic pressure is within the normal range. LEFT ATRIUM: The atrium is normal in size. RIGHT ATRIUM: The atrium is normal in size. ATRIAL SEPTUM: No obvious PFO or ASD identified by 2D imaging and color Doppler. AORTIC VALVE: Not well visualized. There is trivial to mildregurgitation. MITRAL VALVE: Structurally normal valve. Mobility is not restricted.No evidence for prolapse. There is no evidence for stenosis. There is no significant regurgitation. TRICUSPID VALVE: Structurally normal valve. Mobility isunrestricted. There is no evidence for stenosis. There is no significantregurgitation. PULMONIC VALVE: Not well visualized. The valve appears to be grosslynormal. There is no evidence for stenosis. There is no significantregurgitation. PERICARDIUM: There is no pericardial effusion. AORTA: Aortic root: The root is not dilated. Aortic arch: The vessel is not dilated. INTRACARDIAC MASS THROMBUS: No apparent intracavitary masses or thrombi detected. Measurements Left ventricle Value Right ventricle Value GLS, 2D -15.2 % MAKENNA, LAX 1.5 cm IVS, ED, LAX 1.1 cm MAKENNA minor ax, A4C base 2.9 cm ESD, LAX 2.5 cm MAKENNA minor ax, A4C mid 2.3 cm ESD/bsa, LAX 1.6 cm/m^2 MAKENNA 1.5 cm FS, LAX 34 % TAPSE, 2D 2.2 cm FS, LAX chord 34 % TAPSE, MM 2.2 cm ESD major ax, A4C 5.8 cm S' lateral 18.0cm/sec ESD/bsa major ax, A4C 3.7 cm/m^2 MAKENNA minor ax, A4C 5.8 cm Left atrium Value MAKENNA/bsa minor ax, A4C 3.7 cm/m^2 AP dim, ES 2.3 cm ROBINSON, A4C 20.0 cm^2 AP dim index, ES 1.5cm/m^2 SCOOBY, A4C 12.4 cm^2 Area ES, A4C 11cm^2 FAC, A4C 38 % SI dim, A2C 5.1 cm MAKENNA major ax, A2C 6.6 cm Vol, ES, 1-p A4C 17 ml MAKENNA/bsa major ax, A2C 4.2 cm/m^2 Vol/bsa, ES, 1-p A4C 11ml/m^2 ROBINSON, A2C 23.5 cm^2 Vol, ES, 1-p A2C 26 ml SCOOBY, A2C 13.9 cm^2 Vol/bsa, ES, 1-p A2C 16ml/m^2 FAC, A2C 41 % Vol, ES, 2-p 21 ml IVS, ED 1.1 cm Vol/bsa, ES, 2-p 13ml/m^2 PW, ED 1.0 cm IVS/PW, ED 1.1 Right atrium Value EDV 60 ml Area, ES, A4C 8cm^2 ESV 22 ml EF 64 % Aortic valve Value SV 55 ml Peak v, S 154cm/sec EDV/bsa 38 ml/m^2 Peak grad, S 9 mmHg ESV/bsa 14 ml/m^2 LVOT/AV, Vpeak ratio 0.75 SV/bsa 35 ml/m^2 FILOMENA, Vmax 1.9cm^2 EDV, 1-p A2C 65 ml FILOMENA/bsa, Vmax 1.2cm^2/m^2 ESV, 1-p A2C 35 ml EF, 1-p A2C 53 % Mitral valve Value SV, 1-p A2C 38 ml Mean v, D 102cm/sec EDV/bsa, 1-p A2C 41 ml/m^2 Peak E 97.5cm/sec ESV/bsa, 1-p A2C 22 ml/m^2 Peak A 134cm/sec SV/bsa, 1-p A2C 24.1 ml/m^2 VTI leaflet coapt 29.3 cm EDV, 1-p A4C 52 ml MiV/LVOT VTI 1.4 ESV, 1-p A4C 23 ml Decel time 187 ms EF, 1-p A4C 57 % Mean grad, D 5 mmHg SV, 1-p A4C 37 ml Peak grad, D 4 mmHg EDV/bsa, 1-p A4C 33 ml/m^2 Peak E/A ratio 0.7 ESV/bsa, 1-p A4C 14 ml/m^2 E-VTI 29.3 cm SV/bsa, 1-p A4C 24 ml/m^2 A-VTI 29.3 cm EDV, 2-p 61 ml VTI E/A 1.0 ESV, 2-p 27 ml MVA 1.87cm^2 EF, 2-p 56 % MVA/bsa 1.18cm^2/m^2 SV, 2-p 34 ml MVA, LVOT cont 1.9cm^2 EDV/bsa, 2-p 39 ml/m^2 MVA/bsa, LVOT cont 1.18cm^2/m^2 ESV/bsa, 2-p 17 ml/m^2 Bonnie VTI 29.3 cm SV/bsa, 2-p 19.1 ml/m^2 Vena contracta width 1.5 cm EDV, MM Teich. 60 ml EF, MM Teich. 64 % Tricuspid valve Value EDV/bsa, MM Teich. 38 ml/m^2 TR vena contracta width 1.8 cm EF, MM on 2D Teich. 64 % Peak RV-RA grad, S 28 mmHg E', lat bonnie, TDI 8.8 cm/sec E/e', lat bonnie, TDI 17 Ascending aorta Value E', med bonnie, TDI 5.8 cm/sec AAo AP diam, S 2.9 cm E/e', med bonnie, TDI 17 AAo AP diam/bsa, S 1.8cm/m^2 E', avg, TDI 7.3 cm/sec E/e', avg, TDI 13 Descending aorta Value Karthik diam 2.3 cm LVOT Value Diam, S 1.8 cm Inferior vena cava Value Area 2.5 cm^2 Diam 1.1 cm Peak roman, S 115 cm/sec VTI, S 21.6 cm Peak grad, S 5 mm Hg SV 55 ml SV/bsa 35 ml/m^2 Legend: (L) and (H) tanya values outside specified reference range. [facility] are accredited with theDign[facility] Hospitalsocietal Accreditation Commission - Echocardiography. Prepared and Electronically Authenticated Reji Mar Confirmed 01/13/2025 15:09 us Padmini Kennedy MD ORDERABLES Final Result INTERFACE SYSTEM Refer to clinic/hospital department * (ABNORMAL) PNEUMONIA PATHOGEN PCR PANEL (01/13/2025 5:15 AM CDT) Escherichia coli by PCR DETECTED(A) Not Detected 01/13/2025 7:27 AM CDT [facility] Klebsiella pneumoniae group by PCR DETECTED(A) Not Detected 01/13/2025 7:27 AM CDT [facility] Staphylococcus aureus by PCR DETECTED(A) Not Detected 01/13/2025 7:27 AM CDT [facility] mecA/C and MREJ (methicillin-resi stance gene) by PCR NOT DETECTED Not Detected 01/13/2025 7:27 AM CDT [facility] Comment:Indicates presumptiv e methicillin (oxacillin) sensitivity. Sputum SPUTUM SPECIMEN OBTAINED BY ASPIRATION / Unknown Collection / Unknown 01/13/2025 5:15 AM CDT 01/13/2025 5:29 AM CDT Narrative [facility] - 01/13/2025 7:27 AM CDT NOTE: Per the mounting inspector, this current lot of reagent may be insensitive for the full detection of adenoviruses. If adenovirus is within the differential diagnosis, the specimen may be submitted to a reference laboratory for further testing. If desired, order [id number] Lab Test, stating Adenovirus by PCR testing in the ordering comment and notify the Microbiology lab. A negative result does not exclude the possibility of infection. A semi-quantitative (copies/mL) result is provided for bacteria. This panel does not distinguish between nucleic acid from live or bacteria or virus. Culture is needed for recovery of bacterial isolates and antimicrobial susceptibility testing. The Film Array Pneumonia Pathogen PCR Panel is a multiplexed nucleic acid detection test for 33 targets of bacteria, viruses, and resistance markers in respiratory specimens that cause pneumonia. Bacteria: Acinetobacter calcoaceticus-baumannii complex Enterobacter cloacae complex Escherichia coli Haemophilus influenzae Klebsiella aerogenes Klebsiella oxytoca Klebsiella pneumoniae group Moraxella catarrhalis Proteus spp. Pseudomonas aeruginosa Serratia marcescens Staphylococcus aureus Streptococcus agalactiae Streptococcus pneumoniae Streptococcus pyogenes Atypical Bacteria: Chlamydia pneumoniae Legionella pneumophila Mycoplasma pneumoniae Viruses: Adenovirus Coronavirus (229E, OC43, HKU1, NL63) Human Metapneumovirus Human Rhinovirus/Enterovirus Influenza A Influenza B Parainfluenza Virus Respiratory Syncytial Virus Antimicrobial Resistance Genes: CTX-M IMP KPC NDM OXA-48-like VIM mecA/C and MREJ Padmini Kennedy MD MICROBIOLOGY - GENERAL ORDERABLE S Final Result [facility] CLIA # [id number] [address] [place] [address] * (ABNORMAL) SPUTUM CULTURE WITH GRAM STAIN (01/13/2025 5:15 AM CDT) [facility] CULTURE ESCHERICHIA COLI(A) RASHEED MCG/ML 01/16/2025 9:24 AM CDT [facility] CULTURE KLEBSIELLA PNEUMONIAE(A) RASHEED MCG/ML 01/16/2025 9:24 AM CDT [facility] CULTURE STAPHYLOCOCCUS AUREUS(A) RASHEED MCG/ML 01/16/2025 9:24 AM CDT [facility] GRAM STAIN Smear contains </=10 squamous epithelial cells per low power field 01/16/2025 9:24 AM T [facility] GRAM STAIN >25 PMN WBC/LPF 9:24 AM CDT [facility] GRAM STAIN 4+ (Heavy) Gram positive cocci 01/16/2025 9:[address] [facility] GRAM STAIN 2+ (Few) Gram negative rods 01/16/2025 9:24 AM T [facility] Sputum SPUTUM SPECIMEN OBTAINED BY ASPIRATION / Unknown Collection / Unknown 01/13/2025 5:15 AM CDT 01/13/2025 5:29 AM CDT Narrative Organism Antibiotic Method Susceptibility Escherichia coli CEFTRIAXONE RASHEED MCG/ML <=1 mcg/mL: Susceptible Escherichia coli GENTAMICIN RASHEED MCG/ML <=1 mcg/mL: Susceptible Escherichia coli TOBRAMYCIN RASHEED MCG/ML <=1 mcg/mL: Susceptible Escherichia coli CIPROFLOXACIN RASHEED MCG/ML <=0.25 mcg/mL: Susceptible Escherichia coli LEVOFLOXACIN RASHEED MCG/ML <=0.12 mcg/mL: Susceptible Escherichia coli TRIMETHOPRIM/ SULFAMETHOXAZOLE RASHEED MCG/ML <=20 mcg/mL: Susceptible Escherichia coli AMPICILLIN RASHEED MCG/ML 8 mcg/mL: Susceptible Escherichia coli AMPICILLIN/ SULBACTAM RASHEED MCG/ML 4 mcg/mL: Susceptible Escherichia coli PIPERACILLIN/ TAZOBACTAM RASHEED MCG/ML <=4 mcg/mL: Susceptible Comment:Aminoglycosides shou ld not be used as monotherapy for infections outside the urinary tract. Consultation with an infectious diseases specialist is recommended. Klebsiella pneumoniae CEFTRIAXONE RASHEED MCG/ML <=1 mcg/mL: Susceptible Klebsiella pneumoniae GENTAMICIN RASHEED MCG/ML <=1 mcg/mL: Susceptible Klebsiella pneumoniae TOBRAMYCIN RASHEED MCG/ML <=1 mcg/mL: Susceptible Klebsiella pneumoniae CIPROFLOXACIN RASHEED MCG/ML <=0.25 mcg/mL: Susceptible Klebsiella pneumoniae LEVOFLOXACIN RASHEED MCG/ML <=0.12 mcg/mL: Susceptible Klebsiella pneumoniae TRIMETHOPRIM/ SULFAMETHOXAZOLE RASHEED MCG/ML <=20 mcg/mL: Susceptible Klebsiella pneumoniae AMPICILLIN RASHEED MCG/ML 16 mcg/mL: Resistant Klebsiella pneumoniae AMPICILLIN/ SULBACTAM RASHEED MCG/ML <=2 mcg/mL: Susceptible Klebsiella pneumoniae PIPERACILLIN/ TAZOBACTAM RASHEED MCG /ML <=4 mcg/mL: Susceptible Comment:Aminoglycosides shou ld not be used as monotherapy for infections outside the urinary tract. Consultation with an infectious diseases specialist is recommended. Staphylococcus aureus OXACILLIN (Nafcillin) RASHEED MCG/ML 0.5 mcg/mL: Susceptible Comment:Oxacillin (N afcillin) susceptible Staphylococcus species are predictably susceptible to cefazolin, ceftriaxone, cephalexin, and amoxicillin-clavulanate Staphylococcus aureus VANCOMYCIN RASHEED MCG/ML 1 mcg/mL: Susceptible Staphylococcus aureus ERYTHROMYCIN RASHEED MCG/ML <=0.25 mcg/mL: Susceptible Staphylococcus aureus CLINDAMYCIN RASHEED MCG/ML <=0.12 mcg/mL: Susceptible Staphylococcus aureus DOXYCYCLINE RASHEED MCG/ML <=0.5 mcg/mL: Susceptible Staphylococcus aureus TRIMETHOPRIM/ SULFAMETHOXAZOLE RASHEED MCG/ML <=10 mcg/mL: Susceptible us Padmini Kennedy MD MICROBIOLOGY - GENERAL ORDERABLE S Final Result Performing Organization Address [facility] Co de Phone Number [facility] CLIA # [id number] [address] [address] [place] [address] * TSH (01/13/2025 4:44 AM CDT) TSH 3.60 0.27 - 4.20 uIU/mL 01/13/2025 3:35 PM CDT [facility] Blood Venipuncture / Unknown 01/13/2025 4:44 AM CDT 01/13/2025 4:49 AM CDT us Briana Serna NP CHEMISTRY ORDERABLES Final Result Performing Organization Address [facility] Co de Phone Number [facility] CLIA # [id number] [facility] [address] [place] [address] * (ABNORMAL) HEMOGLOBIN A1C (01/13/2025 4:44 AM CDT) HEMOGLOBIN A1C 6.6(H) <=5.6 % 01/14/2025 11:26 AM CDT [facility] EST. AVG GLUCOSE, A1C 143 mg/dL 01/14/2025 11:26 AM CDT [facility] Blood Venipuncture / Unknown 01/13/2025 4:44 AM CDT 01/13/2025 4:49 AM CDT Narrative [facility] - 01/14/2025 11:26 AM CDT HGB A1C INTERPRETATION NORMAL: <5.7% PRE-DIABETES: 5.7 - 6.4% DIABETES: 6.5% OR GREATER us Padmini Kennedy MD CHEMISTRY ORDERABLES Final Resul t Performing Organization Address [facility] Co de Phone Number [facility] CLIA # [id number] [facility] [address] [address] [place] [address] * (ABNORMAL) CK (01/13/2025 4:44 AM CDT) Only the most recent of2 resultswithin the time period is included. CK 565(H) 26 - 192 U/L 01/13/2025 3:45 PM CDT [facility] Blood Venipuncture / Unknown 01/13/2025 4:44 AM CDT 01/13/2025 4:49 AM CDT us Briana Serna NP CHEMISTRY ORDERABLES Final Result Performing Organization Address [facility] Co de Phone Number [facility] CLIA # [id number] [facility] [address] * (ABNORMAL) LIPID PANEL (01/13/2025 4:44 AM CDT) CHOLESTEROL 90 <200 mg/dL 01/13/2025 5:29 AM CDT [facility] TRIGLYCERIDE 181(H) <150 mg/dL 01/13/2025 5:29 AM CDT [facility] HDL 35(L) 40 - 59 mg/dL 01/13/2025 5:29 AM CDT [facility] LDL CALCULATED 19 <100 mg/dL 01/13/2025 5:29 AM CDT [facility] NON-HDL CHOLESTEROL 55 <130 mg/dL 01/13/2025 5:29 AM CDT [facility] Blood Venipuncture / Unknown 01/13/2025 4:44 AM CDT 01/13/2025 4:49 AM CDT [facility] - 01/13/2025 5:29 AM CDT TOTAL CHOLESTEROL mg/dL Desirable <200 Borderline high 200-239 High >=240 TRIGLYCERIDES mg/dL Normal <150 Borderline high 150-199 High 200-499 Very high >=500 HDL CHOLESTEROL mg/dL Low <40 Normal 40-59 Desirable >=60 NON HDL CHOLESTEROL mg/dL Optimal <130 Near Optimal 130-159 Borderline High 160-189 Very High >=190 CALCULATED LDL mg/dL LDL <70, OPTIMAL if have Atherosclerotic cardiovascular disease (ASCVD) or intermediate or higher (>7.5%) 10 year risk of ASCVD including most adults with diabetes. LDL <100, Optimal in adult patients with low (<7.5%) 10 year ASCVD risk LDL 100-160, Suboptimal LDL >160, High LDL >190, Very high LDL calculated using the Friedewald equation. ATPIII Guidelines Reference Ranges for Lipid Panels (NCEP/AMA) . us Padmini Kennedy MD CHEMISTRY ORDERABLES Final Resul t [facility] CLIA # [id number] [address] [place] [address] [place] [address] * POC LACTIC ACID (01/13/2025 3:03 AM CDT) LACTIC ACID POC 1.1 <=2.0 mmol/L 01/13/2025 3:03 AM CDT [facility] SPECIMEN SOURCE, GASES POC Arterial 01/13/2025 3:03 AM CDT [facility] PUN SITE POC ART PUNCT 01/13/2025 3:03 AM CDT [facility] Blood 01/13/2025 3:03 AM CDT 01/13/2025 3:05 AM CDT Narrative [facility] - 01/13/2025 3:03 AM CDT References ranges displayed are for Arterial samples. us Padmini Kennedy MD POINT OF CARE TESTING Final Resu lt [facility] SHAUNA # [id number] [address] [address] [place] [address] * (ABNORMAL) BLOOD GAS ARTERIAL (01/13/2025 3:03 AM CDT) Only the most recent of2 resultswithin the time period is included. PH BLOOD POC 7.43 7.35 - 7.45 01/13/2025 3:03 AM [facility] PCO2 POC 26(L) 35 - 45 mm Hg 01/13/2025 3:03 AM [facility] PO2 POC 129(H) 80 - 105 mm Hg 01/13/2025 3:03 AM [facility] HCO3 (CALC) POC 17(L) 22 - 26 mmol/L 01/13/2025 3:03 AM [facility] HEMOGLOBIN POC 11.3(L) 12.0 - 18.0 g/dL 01/13/2025 3:03 AM [facility] BASE EXCESS POC -7(L) -2 - 3 mmol/L 01/13/2025 3:03 AM [facility] O2 SATURATION POC 100(H) 95 - 98 % 025 3:03 AM [facility] SODIUM POC 137(L) 138 - 146 mmol/L 01/13/2025 3:03 AM [facility] POTASSIUM POC 3.1(L) 3.5 - 4.9 mmol/L 01/13/2025 3:03 AM [facility] HEMATOCRIT POC 34(L) 38 - 51 % 01/13/2025 3:03 AM [facility] PH TEMP CORRECT 7.43 7.35 - 7.45 01/13/2025 3:03 AM T [facility] PCO2 TEMP CORRECT 26(L) 35 - 45 mm Hg 01/13/2025 3:03 AM T [facility] PO2 TEMP CORRECT 129(H) 80 - 105 mm Hg 01/13/2025 3:03 AM T [facility] SPECIMEN SOURCE, GASES POC Arterial 01/13/2025 3:03 AM T [facility] CALCIUM IONIZED POC 4.5(L) 4.8 - 5.2 mg/dL 01/13/2025 3:03 AM T [facility] TCO2 (CALC) POC 18(L) 23 - 27 mmol/L 01/13/2025 3:03 AM T [facility] FIO2 40.0 21.0 - 100.0 % 01/13/2025 3:03 AM [facility] Comment:FIO2 values reported <21.0 indicate O2 flow in Liters/minute. Values >/= 21.0 indicate percent O2. P/F RATIO POC 323 01/13/2025 3:03 AM [facility] Comment: P/F Ratio Interpretation ARDS SEVERITY PaO2/FiO2 Mild 200-300 Moderate 100-200 Severe <100 PEEP POC 8 01/13/2025 3:03 AM [facility] PUNC SITE POC ART PUNCT 01/13/2025 3:03 AM [facility] Blood, arterial 01/13/2025 3 :03 AM CDT 01/13/2025 3:05 AM CDT us Padmini Kennedy MD ABG ORDERABLES Final Result [facility] CLIA # [id number] [address] [place] [address] * BLOOD CULTURE (01/13/2025 12:45 AM CDT) Only the most recent of2 resultswithin the time period is included. BLOOD CULTURE No growth 01/18/2025 1:06 AM CDT [facility] Blood (Peripheral) Venipuncture / Unknown 01/13/2025 12:45 AM CDT 01/13/2025 12:49 AM CDT us Padmini Kennedy MD MICROBIOLOGY - GENERAL ORDERABLE S Final Result [facility] CLIA # [id number] [address] [place] [address] * TICK-BORNE PANEL, PCR (01/13/2025 12:15 AM CDT) Pathologist [facility] EHRLICHIA CHAFFEENSIS PCR NOT DETECTED 01/18/2025 12:17 AM CDT [facility] Comment: REFERENCE RANGE: NOT DETECTED This test was developed and its analytical performance characteristics have been determined by [facility]. It has not been cleared or approved by FDA. This assay has been validated pursuant to the CLIA regulations and is used for clinical purposes. BABESIA MICROTI PCR NOT DETECTED 09/2024 12:17 AM CDT [facility] Comment: REFERENCE RANGE: NOT DETECTED This test was developed and its analytical performance characteristics have been determined by [facility]. It has not been cleared or approved by FDA. This assay has been validated pursuant to the CLIA regulations and is used for clinical purposes. ANAPLASMA PHAGOCYTOPHILUM PCR NOT DETECTED 01/18/2025 12:17 AM CDT [facility] Comment: REFERENCE RANGE: NOT DETECTED This test was developed and its analytical performance characteristics have been determined by [facility]. It has not been cleared or approved by FDA. This assay has been validated pursuant to the CLIA regulations and is used for clinical purposes. EHRLICHIA EWINGII DNA, QL REAL TIME PCR NOT DETECTED 01/18/2025 12:17 AM CDT [facility] Comment: REFERENCE RANGE: NOT DETECTED This test was developed and its analytical performance characteristics have been determined by [facility]. It has not been cleared or approved by FDA. This assay has been validated pursuant to the CLIA regulations and is used for clinical purposes. BORRELIA MIYAMOTOI PCR NOT DETECTED 01/18/2025 12:17 AM CDT [facility] Comment: REFERENCE RANGE: NOT DETECTED This test detects but does not distinguish between B. miyamotoi and B. hermsii. This test was developed and its analytical performance characteristics have been determined by [facility]. It has not been cleared or approved by FDA. This assay has been validated pursuant to the CLIA regulations and is used for clinical purposes. COMMENT INFECTIOUS DISEASE SEE COMMENT 01/18/2025 12:17 AM CDT [facility] Comment: A negative result does not exclude Borrelia infection as the concentration of the organism in blood may be low or non-existent in patients with Lyme disease, and may depend on timing of specimen collection from onset of symptoms. Clinical correlation is recommended and additional studies such as serologic testing may be indicated. BORRELIA SP, PCR, BLOOD NOT DETECTED 01/18/2025 12:17 AM CDT [facility] Comment: REFERENCE RANGE: NOT DETECTED This test was developed and its analytical performance characteristics have been determined by [facility]. It has not been cleared or approved by FDA. This assay has been validated pursuant to the CLIA regulations and is used for clinical purposes. For additional information, please refer to https://education.[employer]/faq/xgc743 (This link is being provided for informational/ educational purposes only.) Blood Venipuncture / Unknown 01/13/2025 12:15 AM CDT 01/13/2025 12:20 AM CDT Narrative [facility] - 01/18/2025 12:17 AM CDT Performing Organization Information: Site ID: EZ Name: [facility], Address: [address] [place] [phone] Director: Sunitha Lopez MD,PhD,MADISYN Performing Organization Information: Site ID: EZ Name: [facility], Address: [address] [place] [phone] Director: Sunitha Lopez MD,PhD,MADISYN Performing Organization Information: Site ID: EZ Name: [facility], Address: [address] [place] [phone] Director: Sunitha Lopez MD,PhD,MADISYN Performing Organization Information: Site ID: EZ Name: [facility], Address: [address] [place] [phone] Director: Sunitha Lopez MD,PhD,MADISYN Performing Organization Information: Site ID: EZ Name: [facility], Address: [address] [place] [phone] Director: Sunitha Lopez MD,PhD,MADISYN Padmini Kennedy MD CHEMISTRY ORDERABLES Final Resul t Performing Organization Address [facility] de Phone Number [facility] * [facility] SPOTTED FEVER IGG/IGM (01/13/2025 12:15 AM CDT) [facility] RMSF IGG Not Detected Not Detected 01/19/2025 6:38 PM CDT [facility] RMSF IGM Not Detected Not Detected 01/19/2025 6:38 PM CDT [facility] Blood Venipuncture / Unknown 01/13/2025 12:15 AM CDT 01/13/2025 12:20 AM CDT Narrative [facility] - 01/19/2025 6:38 PM CDT Performing Organization Information: Site ID: AMD Name: [facility] Address: [id number] [place] [address] [place] [address] Director: Cuba Chang M.D.,PhD us Padmini Kennedy MD CHEMISTRY ORDERABLES Final Resul t Performing Organization Address [facility] Co de Phone Number [facility] * XR ABDOMEN FOR FEEDING TUBE 1 VW (01/12/2025 11:16 PM CDT) Anatomical Region Laterality Modality Abdomen Computed Radiogr aphy 01/12/2025 11:1 7 PM CDT Impressions 01/13/2025 1:04 AM CDT IMPRESSION: See below. EXAMINATION: XR ABDOMEN FOR FEEDING TUBE 1 VW ASSOCIATED DIAGNOSIS: Check Tube Placement ORDERING PROVIDER: PADMINI KENNEDY COMPARISON: None FINDINGS/IMPRESSION: Lines, tubes, and devices: Interval placement of enteric tube with proximal side-port near the level of the GE junction and tip overlying the region of the gastric body. No large effusion or consolidation. Aortoiliac stent graft is present. Partial demonstration of left hip arthroplasty. Cholecystectomy. Narrative Procedure Note Vitor Brito MD - 01/13/2025 IMPRESSION: See below. EXAMINATION: XR ABDOMEN FOR FEEDING TUBE 1 VW ASSOCIATED DIAGNOSIS: Check Tube Placement ORDERING PROVIDER: PADMINI KENNEDY COMPARISON: None FINDINGS/IMPRESSION: Lines, tubes, and devices: Interval placement of enteric tube with proximal side-port near the level of the GE junction and tip overlying the region of the gastric body. No large effusion or consolidation. Aortoiliac stent graft is present. Partial demonstration of left hip arthroplasty. Cholecystectomy. Padmini Kennedy MD DIAGNOSTIC IMAGING ORDERABLES Fi nal Result * EXTRA TUBE (URINE ALLEN) (01/12/2025 7:00 PM CDT) Urine URINE SPECIMEN OBTAINED BY CLEAN CATCH PROCEDURE / Unknown Collection / Unknown 01/12/2025 7:00 PM CDT 01/12/2025 7:05 PM CDT Austyn Brown MD URINE ORDERABLES Final Result [facility] CLIA # [id number] [address] [place] [address] [place], [place] [address] * (ABNORMAL) DRUG SCREEN, URINE (01/12/2025 7:00 PM CDT) AMPHETAMINE QUAL, URINE Presumptive Positive(A) Negative 01/12/2025 7:54 PM CDT [facility] BARBITURATE QUAL, URINE Negative Negative 01/12/2025 7:54 PM CDT [facility] BENZODIAZEPINE QUAL, URINE Presumptive Positive(A) Negative 01/12/2025 7:54 PM CDT [facility] COCAINE QUAL URINE Negative Negative 01/12/2025 7:54 PM CDT [facility] OPIATE QUAL, URINE Negative Negative 01/12/2025 7:54 PM T [facility] CANNABINOIDS QUAL, URINE Negative Negative 01/12/2025 7:54 PM T [facility] OXYCODONE QUAL, URINE Negative Negative 01/12/2025 7:54 PM CDT [facility] METHADONE QUAL, URINE Negative Negative 01/12/2025 7:54 PM CDT [facility] FENTANYL QUAL, URINE Presumptive Positive(A) Negative 01/12/2025 7:54 PM CDT [facility] CREATININE, URINE 51.9 29.0 - 226.0 mg/dL 01/12/2025 7:54 PM [facility] Comment:Reference Range vari es with fluid intake and diet. Urine URINE SPECIMEN OBTAINED BY CLEAN CATCH PROCEDURE / Unknown Collection / Unknown 01/12/2025 7:00 PM CDT 01/12/2025 7:05 PM CDT Narrative [facility] - 01/12/2025 7:54 PM CDT This test is a qualitative screen. The presumptive positive results should not be used for legal purposes. If confirmation of results is desired, the lab must be contacted without delay. Drug Ref. Range Screening Threshold Amphetamines Negative 500 ng/mL Barbiturates Negative 200 ng/mL Benzodiazepines Negative 100 ng/mL Cannabinoids Negative 50 ng/mL Cocaine Metabolite Negative 300 ng/mL Opiate Negative 300 ng/mL Oxycodone Negative 100 ng/mL Methadone Negative 300 ng/mL Fentanyl Negative 5 ng/mL us Austyn Brown MD URINE ORDERABLES Final Result [facility] CLIA # [id number] [address] [place] [address] [place] [address] * (ABNORMAL) URINALYSIS WITH REFLEX MICROSCOPIC (01/12/2025 7:00 PM CDT) COLOR UA Yellow Pale to Dark Yellow 01/12/2025 7:24 PM T [facility] CLARITY UA Clear Clear 01/12/2025 7:24 PM [facility] SPECIFIC GRAVITY UA 1.019 1.003 - 1.035 01/12/2025 7:24 PM T [facility] PH UA 6.0 5.0 - 8.0 01/12/2025 7:24 PM T [facility] LEUKOCYTE ESTERASE UA Negative Negative 01/12/2025 7:24 PM T [facility] NITRITE UA Negative Negative 01/12/2025 7:24 PM [facility] PROTEIN UA 1+(A) Negative 01/12/2025 7:24 PM [facility] GLUCOSE UA Negative Negative 01/12/2025 7:24 PM [facility] KETONES UA Negative Negative 01/12/2025 7:24 PM [facility] UROBILINOGEN UA <2.0 <2.0 mg/dL 7:24 PM [facility] BILIRUBIN UA Negative Negative 01/12/2025 7:24 PM [facility] BLOOD UA 1+(A) Negative 01/12/2025 7:24 PM T [facility] WBC UA 0-2 0 - 2 /hpf 01/12/2025 7:24 PM T [facility] RBC UA 0-2 0 - 2 /hpf 01/12/2025 7:24 PM [facility] BACTERIA UA Negative Negative /hpf 01/12/2025 7:24 PM [facility] EPITHELIAL CELLS, URINE 0-5 0 - 5 /hpf 01/12/2025 7:24 PM [facility] HYALINE CAST 6-10(A) None Seen, 0-2 /lpf 01/12/2025 7:24 PM [facility] Urine URINE SPECIMEN OBTAINED BY CLEAN CATCH PROCEDURE / Unknown Collection / Unknown 01/12/2025 7:00 PM CDT 01/12/2025 7:05 PM CDT Austyn rBown MD URINE ORDERABLES Final Result Performing Organization Address [facility] Co de Phone Number [facility] CLIA # [id number] [address] [address] [place] [address] * (ABNORMAL) PHOSPHORUS (01/12/2025 6:50 PM CDT) PHOSPHORUS 4.6(H) 2.5 - 4.5 mg/dL 01/12/2025 7:50 PM CDT [facility] Blood Venipuncture / Unknown 01/12/2025 6:50 PM CDT 01/12/2025 7:00 PM CDT Austyn Brown MD CHEMISTRY ORDERABLES F inal Result Performing Organization Address [facility] Co de Phone Number [facility] CLIA # [id number] [facility] [id number] * (ABNORMAL) HEPATIC FUNCTION PANEL (01/12/2025 6:50 PM CDT) TOTAL PROTEIN 7.4 6.4 - 8.3 g/dL 01/12/2025 7:50 PM CDT [facility] ALBUMIN 4.0 3.5 - 5.2 g/dL 01/12/2025 7:50 PM CDT [facility] BILIRUBIN TOTAL 0.3 0.0 - 1.0 mg/dL 01/12/2025 7:50 PM CDT [facility] BILIRUBIN DIRECT <0.1 0.0 - 0.3 mg/dL 01/12/2025 7:50 PM CDT [facility] Comment:Hemolyzed: Result un reliable. ALKALINE PHOSPHATASE 191(H) 35 - 104 U/L 01/12/2025 7:50 PM CDT [facility] AST 58(H) 10 - 35 U/L 01/12/2025 7:50 PM CDT [facility] Comment:Hemolysis present. R esult may be falsely elevated. ALT 28 <=35 U/L 01/12/2025 7:50 PM CDT [facility] Comment:Hemolysis present. R esult may be falsely elevated. Blood Venipuncture / Unknown 01/12/2025 6:50 PM CDT 01/12/2025 7:00 PM CDT Austyn Brown MD CHEMISTRY ORDERABLES F inal Result [facility] # [id number] [address] [place] [address] * CT CHEST ABDOMEN PELVIS WO CONT (01/12/2025 6:19 PM CDT) Anatomical Region Laterality Modality Chest Computed Tomogra phy 01/12/2025 6:02 PM CDT Impressions 01/13/2025 7:34 AM CDT IMPRESSION: Please see below. Exam: CT CHEST ABDOMEN PELVIS WO CONT Date/Time of Exam: 01/12/2025 6:19 PM Reason For Exam: Polytrauma, blunt Diagnosis: See Reason for Exam Technique: CT of the chest, abdomen, and pelvis was performed without the administration of intravenous contrast. Findings: Comparison CT cervical spine same day. Musculoskeletal findings: Age indeterminate mild compression fracture at T12. No additional areas of fracture identified within the spine. Sacrum bilateral pelvis is intact. There is left hip arthroplasty which is unremarkable as visualized. No visualized periprosthetic fracture. The proximal femurs appear intact. There is a contusion of the left lateral hip region (series 3 image 69) not fully included on this exam. No depressed sternal fracture. The bilateral scapulae, clavicles and humeri are intact as visualized. No displaced rib fractures. CHEST: Heart size normal without pericardial effusion. There is coronary artery disease. The thoracic aorta is nonaneurysmal. There is atherosclerotic calcification aorta. Descending thoracic aorta is normal in caliber without evidence of acute vascular injury. The main pulmonary artery is mildly enlarged. Intraventricular tube is in satisfactory position. There is a secretion of the distal trachea. There prominent enlarged mediastinal hilar lymph nodes with coarse calcification which are at least partially granulomatous in nature. There are linear areas of atelectasis present in the mid and lower lung zones. No significant pulmonary contusion or laceration. No pleural fluid collection or pneumothorax. There is airspace opacity in the lateral right upper lobe which is nonspecific represent focal scarring (series 3 image 97) 0.6 x 1.4 cm. Additional airspace opacity central upper lobe (series 3 image 45) 3 x 4 mm. Chest wall demonstrates no acute findings. ABDOMEN/PELVIS: The liver is normal in size with smooth contour. No evidence of hepatic laceration. Gallbladder surgically absent without biliary ductal dilatation. Portal venous system is well-opacified. Pancreas unremarkable. Spleen is unremarkable. Adrenal glands are unremarkable. There is severe cortical atrophy right kidney. There is minimal excreted contrast the right intrarenal collecting system. There are subcentimeter right lesions too small to characterize favoring cysts. Left kidney is normal in size. No concerning renal lesions or evidence of acute injury. There is contrast in the upper collecting system and urinary bladder without visualized contrast extravasation to suggest collecting system injury. Evaluation of the pelvis structures is degraded by the artifact from the left hip arthroplasty. Evaluation is degraded by beam artifact from left hip arthroplasty Previous aortobiiliac stent graft repair without evidence of acute complication No direct or indirect evidence of bowel injury. The ileal bowel appears diffusely prominent and fluid-filled measuring up to 2.3 cm without pathologic distention or distinct transition point, this may represent mild ileus. There is a hernia in the right anterior abdominal wall measuring 3.2 cm which contains small bowel, this is not appear to be incarcerated with mildly prominent fluid-filled bowel infiltrate and exiting the hernia without transition point. Appendix appears normal. There is diverticulosis without diverticulitis. IMPRESSION: 1. Age-related mild compression fracture at T12, correlation for point tenderness at this level needed. Otherwise no evidence of acute fracture of the chest, pelvis. 2. No evidence of pulmonary contusion or laceration with scattered areas of atelectasis. There are more focal pulmonary opacities detailed above. Focal scarring. Follow up CT chest in three months recommended to confirm stability/resolution. 3. Prominent fluid-filled small bowel without significant transition point favoring ileus. There is a hernia of the right intra-abdominal wall containing dilated bowel which does not appear to be the source of obstruction 4. Severe cortical atrophy right kidney. 5. Mild contusion of the lateral left thigh not fully included on this exam. 6. Additional minor findings as above. Narrative Procedure Note Nixon Patricia MD - 01/13/2025 IMPRESSION: Please see below. Exam: CT CHEST ABDOMEN PELVIS WO CONT Date/Time of Exam: 01/12/2025 6:19 PM Reason For Exam: Polytrauma, blunt Diagnosis: See Reason for Exam Technique: CT of the chest, abdomen, and pelvis was performed without the administration of intravenous contrast. Findings: Comparison CT cervical spine same day. Musculoskeletal findings: Age indeterminate mild compression fracture at T12. No additional areas of fracture identified within the spine. Sacrum bilateral pelvis is intact. There is left hip arthroplasty which is unremarkable as visualized. No visualized periprosthetic fracture. The proximal femurs appear intact. There is a contusion of the left lateral hip region (series 3 image 69) not fully included on this exam. No depressed sternal fracture. The bilateral scapulae, clavicles and humeri are intact as visualized. No displaced rib fractures. CHEST: Heart size normal without pericardial effusion. There is coronary artery disease. The thoracic aorta is nonaneurysmal. There is atherosclerotic calcification aorta. Descending thoracic aorta is normal in caliber without evidence of acute vascular injury. The main pulmonary artery is mildly enlarged. Intraventricular tube is in satisfactory position. There is a secretion of the distal trachea. There prominent enlarged mediastinal hilar lymph nodes with coarse calcification which are at least partially granulomatous in nature. There are linear areas of atelectasis present in the mid and lower lung zones. No significant pulmonary contusion or laceration. No pleural fluid collection or pneumothorax. There is airspace opacity in the lateral right upper lobe which is nonspecific represent focal scarring (series 3 image 97) 0.6 x 1.4 cm. Additional airspace opacity central upper lobe (series 3 image 45) 3 x 4 mm. Chest wall demonstrates no acute findings. ABDOMEN/PELVIS: The liver is normal in size with smooth contour. No evidence of hepatic laceration. Gallbladder surgically absent without biliary ductal dilatation. Portal venous system is well-opacified. Pancreas unremarkable. Spleen is unremarkable. Adrenal glands are unremarkable. There is severe cortical atrophy right kidney. There is minimal excreted contrast the right intrarenal collecting system. There are subcentimeter right lesions too small to characterize favoring cysts. Left kidney is normal in size. No concerning renal lesions or evidence of acute injury. There is contrast in the upper collecting system and urinary bladder without visualized contrast extravasation to suggest collecting system injury. Evaluation of the pelvis structures is degraded by the artifact from the left hip arthroplasty. Evaluation is degraded by beam artifact from left hip arthroplasty Previous aortobiiliac stent graft repair without evidence of acute complication No direct or indirect evidence of bowel injury. The ileal bowel appears diffusely prominent and fluid-filled measuring up to 2.3 cm without pathologic distention or distinct transition point, this may represent mild ileus. There is a hernia in the right anterior abdominal wall measuring 3.2 cm which contains small bowel, this is not appear to be incarcerated with mildly prominent fluid-filled bowel infiltrate and exiting the hernia without transition point. Appendix appears normal. There is diverticulosis without diverticulitis. IMPRESSION: 1. Age-related mild compression fracture at T12, correlation for point tenderness at this level needed. Otherwise no evidence of acute fracture of the chest, pelvis. 2. No evidence of pulmonary contusion or laceration with scattered areas of atelectasis. There are more focal pulmonary opacities detailed above. Focal scarring. Follow up CT chest in three months recommended to confirm stability/resolution. 3. Prominent fluid-filled small bowel without significant transition point favoring ileus. There is a hernia of the right intra-abdominal wall containing dilated bowel which does not appear to be the source of obstruction 4. Severe cortical atrophy right kidney. 5. Mild contusion of the lateral left thigh not fully included on this exam. 6. Additional minor findings as above. Autsyn Brown MD CT ORDERABLES Final Result * CT CERVICAL SPINE WO CONTRAST (01/12/2025 6:19 PM CDT) Anatomical Region Laterality Modality Spine Computed Tomogra phy 01/12/2025 5:43 PM CDT Impressions 01/12/2025 7:02 PM CDT IMPRESSION: Please see below. Exam: CT CERVICAL SPINE WO CONTRAST Date/Time of Exam: 01/12/2025 6:19 PM Reason For Exam: fall Diagnosis: See Reason for Exam Technique: CT of the cervical spine was performed without the administration of intravenous contrast. Findings: Comparison made to CT cervical spine same day. There is maintenance normal cervical lordosis. There is moderate disc space narrowing at C6-7. This anterolisthesis C5 on C6. There is no evidence of acute fracture fracture or subluxation within the cervical spine. Atlantooccipital interval is maintained. The dens is intact. Occipital condyles are intact. The C1 is intact. There is leftward rotation of C1 relative to C2 is likely positional. Visualized ribs are intact. Lung apices unremarkable. There is vascular gas related to injection. Endotracheal tube is only partially included. IMPRESSION: 1. Degenerative changes as above without evidence of acute fracture. Narrative Procedure Note Nixon Patricia MD - 01/12/2025 IMPRESSION: Please see below. Exam: CT CERVICAL SPINE WO CONTRAST Date/Time of Exam: 01/12/2025 6:19 PM Reason For Exam: fall Diagnosis: See Reason for Exam Technique: CT of the cervical spine was performed without the administration of intravenous contrast. Findings: Comparison made to CT cervical spine same day. There is maintenance normal cervical lordosis. There is moderate disc space narrowing at C6-7. This anterolisthesis C5 on C6. There is no evidence of acute fracture fracture or subluxation within the cervical spine. Atlantooccipital interval is maintained. The dens is intact. Occipital condyles are intact. The C1 is intact. There is leftward rotation of C1 relative to C2 is likely positional. Visualized ribs are intact. Lung apices unremarkable. There is vascular gas related to injection. Endotracheal tube is only partially included. IMPRESSION: 1. Degenerative changes as above without evidence of acute fracture. Austyn Brown MD CT ORDERABLES Final Result * CT STROKE ACTIVATION (01/12/2025 6:17 PM CDT) Anatomical Region Laterality Modality Head Computed Tomogra phy 01/12/2025 5:46 PM CDT Impressions 01/12/2025 7:44 PM CDT IMPRESSION: Please see below. Exam: CT STROKE ACTIVATION Date/Time of Exam: 01/12/2025 6:17 PM Reason For Exam: Neuro deficit, acute, stroke suspected. Diagnosis: See Reason for Exam. Technique: 3-D reconstructions were performed on an independent workstation. TECHNIQUE: Rapid LVO Detection Software Utilized. Non-contrast head CT was obtained. Subsequently, computed tomographic angiography was obtained from the aortic arch to the vertex following the uneventful administration of intravenous contrast. 3D images were generated on a dedicated workstation. The examination was performed with the adjustment of mA according to the patient size and/or the use of iterative reconstruction technique. Contrast: IOPAMIDOL 61 % INTRAVENOUS SOLUTION (MULTI-DOSE BULK PACK) Given:125 mL Findings: Comparison 01/12/[address] Remote infarction within the right frontoparietal junction. Moderate sequela small vessel ischemic disease and diffuse parenchymal volume loss. No definite acute loss of allen-white matter differentiation. No acute intracranial hemorrhage. No hydrocephalus. Basal cisterns are patent. No acute osseous abnormality. Scattered mucosal thickening in the paranasal sinuses. No mastoid effusion. The orbits are intact. Increased Tmax throughout the right MCA territory with a volume of 142 cc. Matched perfusion defect within the right frontal and parietal lobes with a volume of 12 cc. 130 cc of mismatch perfusion. Nonopacification of the intracranial right internal carotid artery. Nonopacification of the mid cervical right ICA with severe narrowing of the proximal right ICA just distal to bifurcation. The ACAs are patent. The left MCA is patent. The right MCA is patent, but attenuated when compared to the left. The intradural vertebral arteries are patent. Basilar artery is patent. The cement grinding mill operator are patent. Three-vessel origin of the aortic arch. The common carotid arteries demonstrate peripheral plaque without significant stenosis. Heavily calcified right carotid bifurcation. There is calcified and noncalcified plaque of the left carotid bifurcation. No significant stenosis of left internal carotid artery. Calcified and noncalcified plaque at the origins of the vertebral arteries with mild narrowing of the origin the left vertebral artery. The vertebral arteries are patent throughout the course in the neck. Lung apices demonstrate no acute abnormality. Endotracheal tube present. Soft tissues in the neck demonstrate no acute abnormality. Multilevel degenerative change of the cervical spine without aggressive osseous lesion. IMPRESSION: Remote infarction within the right frontoparietal junction. No acute intracranial hemorrhage. Moderate sequela of small vessel ischemic disease. Increased Tmax throughout the right MCA territory. Matched perfusion defect within the right frontal and parietal lobes with a volume of 12 cc. Mismatch volume is 130 cc. Severe narrowing of the origin of the right internal carotid artery with tapering of contrast and nonopacification of the mid cervical right ICA to the carotid terminus. The right MCA is patent, but attenuated when compared to the left. The remaining intracranial vasculature is patent. Mild narrowing of the origin the left vertebral artery. The remaining neck vasculature is patent. Narrative Procedure Note Cuba Burns, DO - 01/12/2025 IMPRESSION: Please see below. Exam: CT STROKE ACTIVATION Date/Time of Exam: 01/12/2025 6:17 PM Reason For Exam: Neuro deficit, acute, stroke suspected. Diagnosis: See Reason for Exam. Technique: 3-D reconstructions were performed on an independent workstation. TECHNIQUE: Rapid LVO Detection Software Utilized. Non-contrast head CT was obtained. Subsequently, computed tomographic angiography was obtained from the aortic arch to the vertex following the uneventful administration of intravenous contrast. 3D images were generated on a dedicated workstation. The examination was performed with the adjustment of mA according to the patient size and/or the use of iterative reconstruction technique. Contrast: IOPAMIDOL 61 % INTRAVENOUS SOLUTION (MULTI-DOSE BULK PACK) Given:125 mL Findings: Comparison 01/12/[address] Remote infarction within the right frontoparietal junction. Moderate sequela small vessel ischemic disease and diffuse parenchymal volume loss. No definite acute loss of allen-white matter differentiation. No acute intracranial hemorrhage. No hydrocephalus. Basal cisterns are patent. No acute osseous abnormality. Scattered mucosal thickening in the paranasal sinuses. No mastoid effusion. The orbits are intact. Increased Tmax throughout the right MCA territory with a volume of 142 cc. Matched perfusion defect within the right frontal and parietal lobes with a volume of 12 cc. 130 cc of mismatch perfusion. Nonopacification of the intracranial right internal carotid artery. Nonopacification of the mid cervical right ICA with severe narrowing of the proximal right ICA just distal to bifurcation. The ACAs are patent. The left MCA is patent. The right MCA is patent, but attenuated when compared to the left. The intradural vertebral arteries are patent. Basilar artery is patent. The cement grinding mill operator are patent. Three-vessel origin of the aortic arch. The common carotid arteries demonstrate peripheral plaque without significant stenosis. Heavily calcified right carotid bifurcation. There is calcified and noncalcified plaque of the left carotid bifurcation. No significant stenosis of left internal carotid artery. Calcified and noncalcified plaque at the origins of the vertebral arteries with mild narrowing of the origin the left vertebral artery. The vertebral arteries are patent throughout the course in the neck. Lung apices demonstrate no acute abnormality. Endotracheal tube present. Soft tissues in the neck demonstrate no acute abnormality. Multilevel degenerative change of the cervical spine without aggressive osseous lesion. IMPRESSION: Remote infarction within the right frontoparietal junction. No acute intracranial hemorrhage. Moderate sequela of small vessel ischemic disease. Increased Tmax throughout the right MCA territory. Matched perfusion defect within the right frontal and parietal lobes with a volume of 12 cc. Mismatch volume is 130 cc. Severe narrowing of the origin of the right internal carotid artery with tapering of contrast and nonopacification of the mid cervical right ICA to the carotid terminus. The right MCA is patent, but attenuated when compared to the left. The remaining intracranial vasculature is patent. Mild narrowing of the origin the left vertebral artery. The remaining neck vasculature is patent. Austyn Brown MD CT ORDERABLES Final Result from Last [address] 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 intubation): No Mechanical Ventilation (for respiratory distress) - Non-Invasive (i.e. BiPAP, CPAP): Yes * NO CPR (In Event of Cardiopulmonary Arrest) Date Activated Date Inactivated Comments 01/23/2025 9:49 AM 02/01/2025 6:08 PM Question Answer Comments Mechanical Ventilation (for respiratory distress) - Invasive (i.e. intubation): No Mechanical Ventilation (for respiratory distress) - Non-Invasive (i.e. 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
--- OUTSIDE RECORDS SUMMARY | 2025-03-18 13:24 | XMS_ITS | Encounter Summary ---
Author Organization [facility] Address 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 [address] [place] [address] Jorden Arshad MD [address] [facility] [address] [place] [address] 09/13/2025 2:00 PM CDT Ancillary Procedure [facility] V[facility]- [place] [address] [place] [address] Romero Isaac MD [address] [place] [address] 09/13/2025 2:30 PM CDT Ancillary Procedure [facility]- [place] [address] [place] [address] Liss Sher PA-C [address] [place] [address] 09/13/2025 3:30 PM CDT Office Visit [facility] Vascular Surgery [place] [address] [place] [address] Romero Isaac MD [address] [place] [address] Ale Carrillo DO [address] [place] [address] documented as of this encounter Visit Diagnoses Not on filedocumented in this encounter Care Teams Patient Registration Clerk Relationship Specialty Start Date End Date Jean Claude Nayak MD [facility] [place] [address] PCP - General Family Practice 08/14/21 documented as of this encounter
--- OUTSIDE RECORDS SUMMARY | 2025-03-18 13:24 | XMS_ITS | Encounter Summary ---
Author Organization [facility] Address [address] [place] [address] Care Team Providers Care Biomedical Engineering Supervisor Name Role Phone Jean Claude Nayak MD Primary Care Provider [phone] Reason for Visit * Reason Comments Med Refill Encounter Details Date Type Department Care Team (Late st Contact Info) Description 03/15/2025 Refill [facility] Physical Med and Rehab [facility] [address] [place] [phone] Lalo Bingham MD [address] [facility] [address] [place] [address] Social History Tobacco Use Types Packs/Day Years [...] on file 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 Gender Identity Not on file Sexual Orientation Not on file documented as of this encounter Plan of Treatment Upcoming Encounters Date Type Department Care Team (Late st Contact Info) Description 07/20/2025 9:00 AM CHAIN SALES CONSULTANT Office Visit [facility] [address] [facility] [address] [place] [address] Jorden Arshad MD [address] [facility] [address] [place] [address] 09/13/2025 2:00 PM CDT Ancillary Procedure [facility] Lab [facility]- [place] [address] [place] [address] Romero Isaac MD [address] [place] [address] 09/13/2025 2:30 PM CDT Ancillary Procedure [facility] Lab [facility]- [place] [address] [place] [address] Liss Sher PA-C [address] [place] [address] 09/13/2025 3:30 PM CDT Office Visit [facility] Vascular Surgery [place] [address] [place] [address] Romero Isaac MD [address] [place] [address] Ale Carrillo DO [address] [place] [address] documented as of this encounter Visit Diagnoses Not on filedocumented in this encounter Care Teams Biomedical Engineering Supervisor Relationship Specialty Start Date End Date Jean Claude Nayak MD [facility] [place] [address] PCP - General Family Practice 08/14/21 documented as of this encounter
--- OUTSIDE RECORDS SUMMARY | 2025-03-18 13:24 | XMS_ITS | Encounter Summary ---
Author Organization [facility] Address [address] [place] [address] Care Team Providers Care Internal Combustion Engine Assembler Name Role Phone Jean Claude Nayak MD Primary Care Provider [phone] Reason for Visit * Reason Comments Med Refill Encounter Details Date Type Department Care Team (Late st Contact Info) Description 03/17/2025 Refill [facility] Physical Med and Rehab [facility] [address] [place] [phone] Lalo Bingham MD [address] [facility] [address] [place] [address] Social History Tobacco Use Types Packs/Day Years [...] on file 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 Gender Identity Not on file Sexual Orientation Not on file documented as of this encounter Plan of Treatment Upcoming Encounters Date Type Department Care Team (Late st Contact Info) Description 07/20/2025 9:00 AM PACKER INSULATION Office Visit [facility] [address] [facility] [address] [place] [address] Jorden Arshad MD [address] [facility] [address] [place] [address] 09/13/2025 2:00 PM CDT Ancillary Procedure [facility] Lab [facility]- [place] [address] [place] [address] Romero Isaac MD [address] [place] [address] 09/13/2025 2:30 PM CDT Ancillary Procedure [facility]- [place] [address] [place] [address] Liss Sher PA-C [address] [place] [address] 09/13/2025 3:30 PM CDT Office Visit [facility] Vascular Surgery [place] [address] [place] [address] Romero Isaac MD [address] [place] [address] Ale Carrillo DO [address] [place] [address] documented as of this encounter Visit Diagnoses Not on filedocumented in this encounter Care Teams Internal Combustion Engine Assembler Relationship Specialty Start Date End Date Jean Claude Nayak MD [facility] [place] [address] PCP - General Family Practice 08/14/21 documented as of this encounter
--- OUTSIDE RECORDS SUMMARY | 2025-03-18 13:24 | XMS_ITS | Encounter Summary ---
Author Organization [facility] Address [address] [place] [address] Care Team Providers Care Linux Vmware Administrator Name Role Phone Andrey Lanza MD Primary Care Provider Unavailab le Reason for Referral * Radiology Services (Routine) - Closed Specialty Diagnoses / Procedures Referred By Contac t Referred To Contact Diagnoses AAA (abdominal aortic aneurysm) without rupture Procedures IR FLUORO OR OTHER Marito Boyer MD Phone: tel: fax: Referral ID Status Reason Start Date Expiration Date Visits Re quested Visits Authorized [id number] Closed 06/20/2020 07/21/2021 1 1 SYSTEMS ANALYST Encounter Details Date Type Department Care Team (Late st Contact Info) Description 06/20/2020 Ancillary Orders [facility] Interventional Radiology [place] [address] [place] [address] [place] [address] Marito Boyer MD [address] [place] [phone] AAA (abdominal aortic aneurysm) without rupture Social [...] on file Legal Sex Female 3:41 AM LAB SYSTEMS ANALYST Gender Identity Not on file Sexual Orientation Not on file COVID-19 Exposure Response Date Recorded In the last month, have you been in contact with someone who was confirmed or suspected to have Coronavirus / COVID-19? No / Unsure 06/20/2020 10:40 PM LAB SYSTEMS ANALYST documented as of this encounter Plan of Treatment Not on file documented as of this encounter Results * IR FLUORO OR OTHER (06/20/2020 3:43 PM LAB SYSTEMS ANALYST) Narrative 06/20/2020 3:44 PM LAB SYSTEMS ANALYST Order Auto Finalized. Please see associated Operative Report/Progress Note from the same date. Marito Boyer MD IR ORDERABLES Final R esult documented in this encounter Visit Diagnoses Diagnosis AAA (abdominal aortic aneurysm) without rupture Abdominal aneurysm without mention of rupture AAA (abdominal aortic aneurysm) without rupture Abdominal aneurysm without mention of rupture documented in this encounter Care Teams Linux Vmware Administrator Relationship Specialty Start Date End Date Andrey Lanza MD NO ADDRESS ON FILE PCP - General 11/27/07 documented as of this encounter
[2025-03-18 13:44] VITALS: BP 147/60; PULSE 72; RESP 20; TEMP 36.7; O2SAT 89; BMI 24.2
--- NOTE | 2025-03-18 15:09 | XRR_ITS ---
PROCEDURE INFORMATION: Exam: XR Chest Exam date and time: 03/18/2025 3:31 PM Age: 80 years old Clinical indication: Shortness of breath; Additional info: SOB TECHNIQUE: Imaging protocol: Radiologic exam of the chest. Views: 1 view. COMPARISON: CR XR chest 2V* [id number] 03/16/2025 4:48 PM FINDINGS: Lungs: Unremarkable. No consolidation. Pleural spaces: Unremarkable. No pleural effusion. No pneumothorax. Heart/Mediastinum: Unremarkable. No cardiomegaly. Vasculature: There is atherosclerosis of the aorta. Bones/joints: Unremarkable. XR/XR chest 1V portable [id number] IMPRESSION: Stable findings. No acute abnormality identified.
--- NOTE | 2025-03-18 15:10 | ECG_ITS ---
[facility] Date: 2025-03-18 Pat Name: Viry Selby Department: Room: Gender: Female Bill Clerk: : 1945 Requested By: Madan Fajardo Order Number: [id number] Phill MD: Sedrick Varma M.D. Measurements Intervals [place] Rate: 70 P: 59 VT: 173 QRS: -14 QRSD: 83 T: 68 QT: 440 QTc: 476 Interpretive Statements SINUS RHYTHM POSSIBLE LEFT ATRIAL ENLARGEMENT [-0.1mV P-WAVE IN V1/V2] POSSIBLE ANTERIOR MYOCARDIAL INFARCTION , OF INDETERMINATE AGE [30 ms Q WAVE IN V3/V4, OR R < 0.2 mV IN V4] Compared to ECG 12/25/2024 08:10:45 No significant changes Electronically Signed On 03-18-2025 17:11:30 CDT by Sedrick Varma M.D. [email or web address]
--- NOTE | 2025-03-18 15:36 | W.ED.SOB ---
Documented by User: LATHA Castellano 03/18/25 19:05 HPI - SOB/Dyspnea General: Chief Complaint: Shortness of Breath/Dyspnea Stated Complaint: (fluid)sent by kellie Time Seen by Provider: 03/18/25 15:12 Source: patient Mode of arrival: ambulatory Limitations: no limitations History of Present Illness: HPI Narrative: Patient is an 80-year-old female who presents the emergency department referred by primary care's office due to worsening peripheral edema and weight gain over the past week. Patient arrives hypoxic 8889% during triage, is placed on 2 L of oxygen. She does not have a history of oxygen requirement, no diagnosis of CHF. Patient states that she has been having shortness of breath with exertion and this has been worsening, she was recently seen by primary care and had her dose of Lasix increased to 160 mg daily. She also has a history of chronic kidney disease. She states the swelling has gotten so bad that her legs are starting to hurt, also noting some abdominal swelling. However she is not reporting any chest pain at this time. No abdominal pain, nausea or vomiting, diaphoresis, dizziness or lightheadedness. Reviewing her prior medical history it does not appear that she has had any recent echocardiogram or stress testing or cardiac workup in general. At this time she states that she is asymptomatic, she is not endorsing orthopnea however family in the room states that she has been notably more labored with her breathing when she lays down at night. On 2 L of oxygen at this time, 95%. Rest of her vitals are stable. No obvious respiratory distress. MD elicited complaint: shortness of breath Pertinent past history: COPD Onset (ago): week(s) Timing: progressively worsening Exacerbating factors: lying flat and exertion Known history of: COPD Associated symptoms: Reports orthopnea; Deny abdominal pain, chest pain, fever(s), lightheadedness, nausea, palpitations or vomiting Treatment prior to arrival: diuretics Related Data Home Medications ?Medication ?Instructions ?Recorded ?Confirmed ascorbic acid (vitamin C) 500 mg 1,000 mg PO QAM 02/15/20 03/17/25 tablet meclizine 25 mg tablet 25 mg PO TID PRN Dizziness Or 02/15/20 03/17/25 Vertigo cholecalciferol (vitamin D3) 25 25 mcg PO QAM 05/16/22 03/17/25 mcg (1,000 unit) capsule acetaminophen 500 mg tablet 500 mg PO Q4H PRN Pain 05/14/23 03/17/25 ibuprofen 200 mg tablet 200 mg PO Q4H PRN Pain 05/14/23 03/17/25 vitamin E 268 mg (400 unit) capsule 1 cap PO DAILY 05/14/23 03/17/25 amlodipine 10 mg tablet 10 mg PO DAILY 02/24/25 03/17/25 aspirin 81 mg tablet 81 mg PO DAILY 02/24/25 03/17/25 atorvastatin 40 mg tablet (Lipitor) 40 mg PO DAILY 02/24/25 03/17/25 folic acid 400 mcg tablet 400 mcg PO QAM 02/24/25 03/17/25 potassium chloride 20 mEq 40 meq PO DAILY 02/24/25 03/17/25 tablet,extended release(part/cryst) (Klor-Con M) furosemide 40 mg tablet (Lasix) 80 mg PO BID 03/16/25 03/16/25 Previous Rx's ?Medication ?Instructions ?Recorded RSV vaccine #1 ea 04/29/24 clopidogrel 75 mg tablet See Rx Instructions .Route 06/01/24 .COMPLEX #90 tabs metformin 500 mg tablet 500 mg PO BID #180 tabs 01/11/25 clonidine HCl 0.2 mg tablet See Rx Instructions .Route 02/16/25 .COMPLEX #270 tabs hydrochlorothiazide 25 mg tablet See Rx Instructions .Route 02/16/25 .COMPLEX #90 tabs levothyroxine 75 mcg tablet See Rx Instructions .Route 02/16/25 .COMPLEX #50 tabs levothyroxine 88 mcg tablet See Rx Instructions .Route 02/16/25 .COMPLEX #45 tabs spironolactone 25 mg tablet 25 mg PO QAM #90 tabs 03/01/25 magnesium oxide 400 mg PO DAILY #30 caps 03/04/25 metoprolol succinate 50 mg 50 mg PO BID #180 tabs 03/15/25 tablet,extended release 24 hr alprazolam 0.25 mg tablet 0.25 mg PO BEDTIME #30 tabs 03/17/25 hydralazine 50 mg tablet 50 mg PO TID #90 tabs 03/17/25 Allergies Allergy/AdvReac Type Severity Reaction Status Date / Time lisinopril AdvReac Severe ALGY-Swell Verified 12/25/24 13:05 Lip/Tongue/Throat Review of Systems General: Reports: 10 or more systems reviewed and unremarkable except in HPI and below Const: Reports: change in weight; Denies: fever(s), chills or fatigue Eyes: Denies: change in vision ENMT: Denies: throat pain, ear or mastoid pain or nasal discharge Card: Reports: edema, swelling of feet/ankles, dyspnea on exertion and orthopnea; Denies: chest pain, palpitations or lightheadedness Resp: Reports: dyspnea; Denies: productive cough or wheezing GI: Denies: abdominal pain, nausea, vomiting, diarrhea or constipation : Denies: flank pain, difficulty voiding, dysuria or urinary frequency Musc: Denies: neck pain, back pain or joint pain Skin/Breast: Denies: rash Neuro: Denies: headache(s), numbness in extremities or weakness in extremities PFSH ED PFSH: Medical History History of hypothyroidism History of COPD Hx of hyperlipidemia History of peripheral arterial disease Surgical History S/P hip replacement Hx of cholecystectomy Hx of section S/P AAA repair Family History Other Clotting disorder Hyperlipidemia Hypertension Lung disease Stroke Social History Smoking and tobacco/nicotine status: former use of tobacco/nicotine Quit status (tobacco/nicotine): has quit using Former quit date comment: Quit smoking December 2024 Alcohol intake: never Substance/Drug Use: never Physical Exam Const: COMMON NORMALS: no acute distress, patient oriented x3 and no limitations GENERAL APPEARANCE: cooperative, comfortable and well developed ORIENTATION/CONSCIOUSNESS: Yes awake, Yes oriented to person, Yes oriented to place and Yes oriented to time HENMT: COMMON NORMALS: normocephalic, atraumatic and hearing grossly normal bilaterally HEAD & SCALP: normocephalic and atraumatic Eye: COMMON NORMALS: Equal, round and reactive pupils present, EOMs intact bilaterally and conjunctivae normal CONJUNCTIVA: Yes conjunctivae normal PUPIL: Yes Equal, round and reactive pupils present Neck/C-Spine: COMMON NORMALS: full ROM, supple and no JVD Resp: COMMON NORMALS: normal respiratory effort, No retractions and No use of accessory muscles AUSCULTATION: crackles (Bilateral bases) and wheezes (Mild wheezing throughout) Cardio: COMMON NORMALS: no JVD, regular rate, regular rhythm, No clicks present (Cardio), No murmurs present (Cardio) and No rub (Cardio) RATE: regular rate RHYTHM: regular rhythm GI: COMMON NORMALS: Soft to palpation and non-tender AUSCULTATION: Yes normoactive bowel sounds PALPATION: Yes Soft to palpation RECTAL EXAM: deferred OTHER: Mild abdominal edema Extremity: COMMON NORMALS: full ROM and capillary refill normal NARRATIVE EXTREMITY EXAM: 3+ pitting edema to bilateral lower extremities Neuro: COMMON NORMALS: patient oriented x3, moves all extremities, no focal motor deficits and no sensory deficits noted SENSORIUM/ORIENTATION: Yes oriented to person, Yes oriented to place and Yes oriented to time Skin: COMMON NORMALS: no rashes or lesions noted GENERAL SKIN EXAM: no rashes or lesions noted Course Vital Signs: Vital signs: Vital Signs Temperature 98.0 F 03/18/25 13:44 Pulse Rate 72 03/18/25 17:00 Respiratory Rate 20 H 03/18/25 13:44 Blood Pressure 166/73 03/18/25 17:00 Pulse Oximetry 95 03/18/25 17:00 Oxygen Delivery Me thod Nasal Cannula 03/18/25 17:00 Oxygen Flow Rate 2 03/18/25 16:45 MDM - SOB/Dyspnea Medical Decision Making Patient presented referred by primary care's office due to retaining fluid and worsening shortness of breath. Also has positive weight gain over the past week of approximately 10 pounds, is currently taking 80 mg of Lasix twice a day. Patient had endorsed shortness of breath with lying flat and worsening with exertion, no chest pain. Here does have quite a bit of peripheral edema and some crackles at the bases, some clinical signs of fluid overload. However most notably she is hypoxic with triage, 88 and 89 SpO2 room air, so she is placed on 2 L. She is attempted to be weaned off of this throughout ED stay but frequently drops into the 80s. BNP elevated to 3000 though this is not significant elevated from prior. EKG not showing any acute rhythm changes, chest x-ray does not reveal any large pleural effusion. Delta troponin is negative, rest of her lab work reviewed and unremarkable. Specifically however her kidney function is normal, and she has been making urine here in the emergency department, following IV 100 mg Lasix. She is failing outpatient diuresis, and with new acute hypoxic respiratory failure I consulted Dr. Adrian, hospitalist, who consults the patient in the emergency department and accepts. All of the questions concerns addressed with patient and family, and Dr. Garcia informed of this patient's case and put in admit orders. DBD The case was discussed with: the nurse practitioner. Evaluation and management service: I agree with the evaluation and management decisions made in this patient's care. Results interpretation: I agree with the study interpretation in this patient's care, I agree with the documentation of the study interpretation. . Lab Data 03/18/25 15:25 03/18/25 15: Labs/Radiology: Radiology Impressions Chest X-Ray 03/18/25 15:09 IMPRESSION: Stable findings. No acute abnormality identified. Laboratory Results WBC 7.71 10^3/uL (3.29-11.43) 03/18/25 15: RBC 3.50 10^6/uL (3.85-5.65) L 03/18/25 15: Hgb 10.00 g/dL (11.27-16.99) L 03/18/25 15: Hct 32.6 % (36-47) L 03/18/25 15: MCV 93.1 fl (85-98) 03/18/25 15: MCH 28.6 pg (27-33) 03/18/25 15: MCHC 30.7 g/dL (30-55) 03/18/25 15: RDW 15.1 % (12.1-15.1) 03/18/25 15: Plt Count 360 10^3/cmm (157-399) 03/18/25 15: MPV 9.6 fL (7.4-10.4) 03/18/25 15: Neut % (Auto) 62.9 % 03/18/25 15: Lymph % (Auto) 23.2 % 03/18/25 15:25 [place] % (Auto) 10.9 % 03/18/25 15: Eos % (Auto) 1.6 % 03/18/25 15:25 Baso % (Auto) 1.0 % 03/18/25 15:25 Neut # (Auto) 4.85 10^3/uL (1.8-7.7) 03/18/25 15:25 Lymph # (Auto) 1.8 10^3/uL (0.8-4.8) 03/18/25 15:25 [place] # (Auto) 0.8 10^3/uL (0.2-0.9) 03/18/25 15:25 Eos # (Auto) 0.1 10^3/uL (0.0-0.8) 03/18/25 15:25 Baso # (Auto) 0.1 10^3/uL (0.0-0.1) 03/18/25 15:25 Nucleated RBC % (auto) 0 % 03/18/25 15:25 Nucleated RBCs # 0.0 /100WBC 03/18/25 15:25 Sodium 136 mmol/L (136-145) 03/18/25 15:25 Potassium 3.8 mmol/L (3.5-5.1) 03/18/25 15:25 Chloride 97 mmol/L (98-107) L 03/18/25 15:25 Carbon Dioxide 24 mmol/L (22-29) 03/18/25 15:25 Anion Gap 18.8 (5-19) 03/18/25 15:25 BUN 23 mg/dL (8-23) 03/18/25 15:25 Creatinine 0.9 mg/dL (0.5-0.9) 03/18/25 15:25 GFR Calculation Not Reportable 03/18/25 15:25 Glucose 109 mg/dL (65-115) 03/18/25 15:25 Calculated Osmolality 286 mOsm/kg (285-295) 03/18/25 15:25 Calcium 9.4 mg/dL (8.5-10.5) 03/18/25 15:25 Total Bilirubin 0.3 mg/dL (0.15-1.2) 03/18/25 15:25 AST 23 U/L (0-32) 03/18/25 15:25 ALT 23 U/L (0-33) 03/18/25 15:25 Alkaline Phosphatase 168 U/L (35-105) H 03/18/25 15:25 Troponin T Baseline 32 ng/L (0-10) H 03/18/25 15:25 Troponin T 120 Minute 29.03 ng/L (0-10) H 03/18/25 17:08 Delta Troponin T -2.97 ABS# (0-10) L 03/18/25 17:08 NT-Pro-B Natriuret Pep 3006 pg/mL (0-450) H 03/18/25 15:25 Total Protein 7.3 g/dL (6.6-8.7) 03/18/25 15:25 Albumin 3.7 g/dL (3.5-5.2) 03/18/25 15:25 Globulin 3.6 g/dL (1.3-4.6) 03/18/25 15:25 All radiology interpretation(s) finalized by discharge Discharge Plan Discharge Patient Disposition: Admitted As Inpatient Clinical Impression: Edema, peripheral Hypoxic respiratory failure Qualifiers: Chronicity: acute Qualified Code(s): J96.01 - Acute respiratory failure with hypoxia Condition: Stable Coding Level of Care Code ED Dramatic Reader for Chg Fwd Documented by User: Lena Jones MD 03/18/25 18:41 HPI - SOB/Dyspnea General: Chief Complaint: Shortness of Breath/Dyspnea Stated Complaint: (fluid)sent by kellie Time Seen by Provider: 03/18/25 15:12 Related Data Home Medications ?Medication ?Instructions ?Recorded ?Confirmed ascorbic acid (vitamin C) 500 mg 1,000 mg PO QAM 02/15/20 03/17/25 tablet meclizine 25 mg tablet 25 mg PO TID PRN Dizziness Or 02/15/20 03/17/25 Vertigo cholecalciferol (vitamin D3) 25 25 mcg PO QAM 05/16/22 03/17/25 mcg (1,000 unit) capsule acetaminophen 500 mg tablet 500 mg PO Q4H PRN Pain 05/14/23 03/17/25 ibuprofen 200 mg tablet 200 mg PO Q4H PRN Pain 05/14/23 03/17/25 vitamin E 268 mg (400 unit) capsule 1 cap PO DAILY 05/14/23 03/17/25 amlodipine 10 mg tablet 10 mg PO DAILY 02/24/25 03/17/25 aspirin 81 mg tablet 81 mg PO DAILY 02/24/25 03/17/25 atorvastatin 40 mg tablet (Lipitor) 40 mg PO DAILY 02/24/25 03/17/25 folic acid 400 mcg tablet 400 mcg PO QAM 02/24/25 03/17/25 potassium chloride 20 mEq 40 meq PO DAILY 02/24/25 03/17/25 tablet,extended release(part/cryst) (Klor-Con M) furosemide 40 mg tablet (Lasix) 80 mg PO BID 03/16/25 03/16/25 Previous Rx's ?Medication ?Instructions ?Recorded RSV vaccine #1 ea 04/29/24 clopidogrel 75 mg tablet See Rx Instructions .Route 06/01/24 .COMPLEX #90 tabs metformin 500 mg tablet 500 mg PO BID #180 tabs 01/11/25 clonidine HCl 0.2 mg tablet See Rx Instructions .Route 02/16/25 .COMPLEX #270 tabs hydrochlorothiazide 25 mg tablet See Rx Instructions .Route 02/16/25 .COMPLEX #90 tabs levothyroxine 75 mcg tablet See Rx Instructions .Route 02/16/25 .COMPLEX #50 tabs levothyroxine 88 mcg tablet See Rx Instructions .Route 02/16/25 .COMPLEX #45 tabs spironolactone 25 mg tablet 25 mg PO QAM #90 tabs 03/01/25 magnesium oxide 400 mg PO DAILY #30 caps 03/04/25 metoprolol succinate 50 mg 50 mg PO BID #180 tabs 03/15/25 tablet,extended release 24 hr alprazolam 0.25 mg tablet 0.25 mg PO BEDTIME #30 tabs 03/17/25 hydralazine 50 mg tablet 50 mg PO TID #90 tabs 03/17/25 Allergies Allergy/AdvReac Type Severity Reaction Status Date / Time lisinopril AdvReac Severe ALGY-Swell Verified 12/25/24 13:05 Lip/Tongue/Throat [facility] ED PFSH: Medical History History of hypothyroidism History of COPD Hx of hyperlipidemia History of peripheral arterial disease Surgical History S/P hip replacement Hx of cholecystectomy Hx of section S/P AAA repair Family History Other Clotting disorder Hyperlipidemia Hypertension Lung disease Stroke Social History Smoking and tobacco/nicotine status: former use of tobacco/nicotine Quit status (tobacco/nicotine): has quit using Former quit date comment: Quit smoking December 2024 Alcohol intake: never Substance/Drug Use: never Course Vital Signs: Vital signs: Vital Signs Temperature 98.0 F 03/18/25 13:44 Pulse Rate 72 03/18/25 17:00 Respiratory Rate 20 H 03/18/25 13:44 Blood Pressure 166/73 03/18/25 17:00 Pulse Oximetry 95 03/18/25 17:00 Oxygen Delivery Me thod Nasal Cannula 03/18/25 17:00 Oxygen Flow Rate 2 03/18/25 16:45 MDM - SOB/Dyspnea Medical Decision Making The case was discussed with: the nurse practitioner. Evaluation and management service: I agree with the evaluation and management decisions made in this patient's care. Results interpretation: I agree with the study interpretation in this patient's care, I agree with the documentation of the study interpretation. . Lab Data 03/18/25 15:25 03/18/25 15:25 Labs/Radiology: Radiology Impressions Chest X-Ray 03/18/25 15:09 IMPRESSION: Stable findings. No acute abnormality identified. Laboratory Results WBC 7.71 10^3/uL (3.29-11.43) 03/18/25 15:25 RBC 3.50 10^6/uL (3.85-5.65) L 03/18/25 15:25 Hgb 10.00 g/dL (11.27-16.99) L 03/18/25 15: Hct 32.6 % (36-47) L 03/18/25 15:25 MCV 93.1 fl (85-98) 03/18/25 15: MCH 28.6 pg (27-33) 03/18/25 15: MCHC 30.7 g/dL (30-55) 03/18/25 15:25 RDW 15.1 % (12.1-15.1) 03/18/25 15:25 Plt Count 360 10^3/cmm (157-399) 03/18/25 15:25 MPV 9.6 fL (7.4-10.4) 03/18/25 15:25 Neut % (Auto) 62.9 % 03/18/25 15:25 Lymph % (Auto) 23.2 % 03/18/25 15:25 [place] % (Auto) 10.9 % 03/18/25 15:25 Eos % (Auto) 1.6 % 03/18/25 15: Baso % (Auto) 1.0 % 03/18/25: Neut # (Auto) 4.85 10^3/uL (1.8-7.7) 03/18/25 15: Lymph # (Auto) 1.8 10^3/uL (0.8-4.8) 03/18/25 15:25 [place] # (Auto) 0.8 10^3/uL (0.2-0.9) 03/18/25 15:25 Eos # (Auto) 0.1 10^3/uL (0.0-0.8) 03/18/25:25 Baso # (Auto) 0.1 10^3/uL (0.0-0.1) 03/18/25 15:25 Nucleated RBC % (auto) 0 % 03/18/25 15: Nucleated RBCs # 0.0 /100WBC 03/18/25 15:25 Sodium 136 mmol/L (136-145) 03/18/25 15:25 Potassium 3.8 mmol/L (3.5-5.1) 03/18/25 15:25 Chloride 97 mmol/L (98-107) L 03/18/25 15:25 Carbon Dioxide 24 mmol/L (22-29) 03/18/25 15:25 Anion Gap 18.8 (5-19) 03/18/25 15:25 BUN 23 mg/dL (8-23) 03/18/25 15:25 Creatinine 0.9 mg/dL (0.5-0.9) 03/18/25 15:25 GFR Calculation Not Reportable 03/18/25 15:25 Glucose 109 mg/dL (65-115) 03/18/25 15:25 Calculated Osmolality 286 mOsm/kg (285-295) 03/18/25 15:25 Calcium 9.4 mg/dL (8.5-10.5) 03/18/25 15:25 Total Bilirubin 0.3 mg/dL (0.15-1.2) 03/18/25 15:25 AST 23 U/L (0-32) 03/18/25 15:25 ALT 23 U/L (0-33) 03/18/25 15:25 Alkaline Phosphatase 168 U/L (35-105) H 03/18/25 15:25 Troponin T Baseline 32 ng/L (0-10) H 03/18/25 15:25 Troponin T 120 Minute 29.03 ng/L (0-10) H 03/18/25 17:08 Delta Troponin T -2.97 ABS# (0-10) L 03/18/25 17:08 NT-Pro-B Natriuret Pep 3006 pg/mL (0-450) H 03/18/25 15:25 Total Protein 7.3 g/dL (6.6-8.7) 03/18/25 15:25 Albumin 3.7 g/dL (3.5-5.2) 03/18/25 15:25 Globulin 3.6 g/dL (1.3-4.6) 03/18/25 15:25 Discharge Plan Discharge Patient Disposition: Admitted As Inpatient Clinical Impression: Edema, peripheral Hypoxic respiratory failure Qualifiers: Chronicity: acute Qualified Code(s): J96.01 - Acute respiratory failure with hypoxia Condition: Stable Coding Level of Care Code ED Dramatic Reader for Jacinto Ventura
[2025-03-18 15:44] LABS: Hematocrit 32.6 % (36-47); Hemoglobin 10.00 g/dL (11.27-16.99); Mean Corpuscular HGB Conc 30.7 g/dL (30-55); Mean Corpuscular Hemoglobin 28.6 pg (27-33); Mean Corpuscular Volume 93.1 fl (85-98); Nucleated Red Blood Cells % 0 %; Platelet Count 360 10^3/cmm (157-399); Red Blood Count 3.50 10^6/uL (3.85-5.65); White Blood Count 7.71 10^3/uL (3.29-11.43)
[2025-03-18 16:07] LABS: Troponin(5th) Baseline 32 ng/L (0-10)
[2025-03-18 16:16] VITALS: BP 150/63; PULSE 75; O2SAT 97
[2025-03-18 16:23] LABS: Alanine Aminotransferase 23 U/L (0-33); Albumin Level 3.7 g/dL (3.5-5.2); Alkaline Phosphatase 168 U/L (35-105); Anion Gap 18.8 (5-19); Aspartate Amino Transferase 23 U/L (0-32); Blood Urea Nitrogen 23 mg/dL (8-23); Calcium 9.4 mg/dL (8.5-10.5); Carbon Dioxide 24 mmol/L (22-29); Chloride 97 mmol/L (98-107); Creatinine Clr Calc Pharmacy 42.1252; Globulin 3.6 g/dL (1.3-4.6); Glucose 109 mg/dL (65-115); NT Pro B Type Natriuretic Pept 3006 pg/mL (0-450); Osmolality Calculated 286 mOsm/kg (285-295); Potassium 3.8 mmol/L (3.5-5.1); Sodium 136 mmol/L (136-145); Total Protein 7.3 g/dL (6.6-8.7)
[2025-03-18] MEDS: FUROsemide 10 mg/mL SDV 10mL 100 MG IVP (16:44)
[2025-03-18 16:45] VITALS: BP 154/71; PULSE 73; O2SAT 95
[2025-03-18 17:00] VITALS: BP 166/73; PULSE 72; O2SAT 95
--- NOTE | 2025-03-18 17:10 | ECG_ITS ---
[facility] 2025-03-18 Pat Name: Viry Selby Department: Room: Gender: Female Night Nurse: : 1945 Requested By: Madan Fajardo Order Number: [id number] Phill MD: Sedrick Varma M.D. Measurements Intervals [place] Rate: 73 P: 61 RI: 174 QRS: -11 QRSD: 86 T: 71 QT: 423 QTc: 467 Interpretive Statements SINUS RHYTHM POSSIBLE ANTERIOR MYOCARDIAL INFARCTION , OF INDETERMINATE AGE [30 ms Q WAVE IN V3/V4, OR R < 0.2 mV IN V4] Compared to ECG 03/18/2025 15:17:16 No significant changes Electronically Signed On 03-18-2025 18:54:07 CDT by Sedrick Varma M.D. [email or web address]
[2025-03-18 17:47] LABS: Troponin 5 2HR 29.03 ng/L (0-10)
[2025-03-18 17:48] LABS: Troponin 5 2HR Delta -2.97 ABS# (0-10)
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
[2025-03-18 19:00] VITALS: BP 152/49; PULSE 74; O2SAT 97
[2025-03-18 19:31] LABS: Glucose Urine UA Negative (Normal); Nitrate Urine Negative (Negative); Specific Gravity, Urine 1.007 (1.005-1.030)
[2025-03-18 19:49] LABS: Add Urine Microscopic? YES; UA Manual Slide Review YES
--- NOTE | 2025-03-18 21:30 | ECG_ITS ---
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 Measurements Intervals Mobile Rate: 74 P: 116 [place]: 171 QRS: 220 QRSD: 82 T: 112 QT: 423 QTc: 470 Interpretive Statements SINUS RHYTHM ARM LEADS REVERSED [INVERTED P AND QRS IN I] Poor R wave progression Compared to ECG 03/18/2025 17:07:06 Myocardial infarct finding no longer present Electronically Signed On 03-18-2025 23:28:42 CDT by Sedrick Varma M.D. [email or web address]
[2025-03-18 21:49] LABS: Troponin 5 6HR 32.85 ng/L (0-10); Troponin 5 6HR Delta 0.85 ng/L (0-12)
[2025-03-18 22:01] VITALS: BP 156/69; PULSE 74; O2SAT 96
[2025-03-18 22:14] VITALS: BMI 24.5
[2025-03-19] VITALS (13 sets, daily range): BP systolic 134–181; BP diastolic 63–94; PULSE 69–122; RESP 16–22; TEMP 36.6–36.9; O2SAT 91–97
[2025-03-19] MEDS: metoprolol succinate ER (24 HR) 50 mg Tablet PO ×2 (04:19→16:08)
[2025-03-19] MEDS: bumetanide 0.25 mg/mL SDV 4 mL 1 MG IVP ×2 (05:06→16:08)
[2025-03-19 05:18] LABS: Anion Gap 20.6 (5-19); Blood Urea Nitrogen 22 mg/dL (8-23); Calcium 10.3 mg/dL (8.5-10.5); Carbon Dioxide 28 mmol/L (22-29); Chloride 94 mmol/L (98-107); Creatinine Clr Calc Pharmacy 42.5656; Glucose 92 mg/dL (65-115); Magnesium 1.6 mg/dL (1.7-2.3); Osmolality Calculated 291 mOsm/kg (285-295); Potassium 3.6 mmol/L (3.5-5.1); Sodium 139 mmol/L (136-145)
--- NOTE | 2025-03-19 07:38 | ECG_ITS ---
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 Measurements Intervals [place] Rate: 125 P: 0 [place]: 0 QRS: -9 QRSD: 79 T: 73 QT: 350 QTc: 505 Interpretive Statements ATRIAL FIBRILLATION WITH RAPID VENTRICULAR RESPONSE MODERATE ST DEPRESSION [0.05+ mV ST DEPRESSION] Compared to ECG 03/18/2025 21:30:20 ST (T wave) deviation now present Sinus rhythm no longer present Poor R-wave progression no longer present Electronically Signed On 03-20-2025 14:37:08 CDT by Sedrick Varma M.D. [email or web address]
[2025-03-19] MEDS: metoprolol tartrate 1 mg/1 mL SDV 5 mL 5 MG IVP (08:11)
--- NOTE | 2025-03-19 10:44 | USR_ITS ---
PROCEDURE INFORMATION: Exam: US Duplex Lower Extremity Veins, Bilateral Exam date and time: 03/19/2025 4:37 PM Age: 80 years old Clinical indication: Swelling (edema) of limb; Lower extremity, bilateral; Additional info: Lower limb swelling TECHNIQUE: Imaging protocol: Real-time duplex ultrasound of the bilateral extremities with 2-D saldivar scale, color Doppler flow and spectral waveform analysis including responses to compression and other maneuvers (when performed) with image documentation. Complete exam focused on the lower extremity veins. COMPARISON: US CV venous duplex [facility] [id number] 12/26/2024 8:06 AM FINDINGS: Right deep veins: Unremarkable. The common femoral, femoral, proximal profunda femoral and popliteal veins are patent without thrombus. Normal Doppler waveforms. Normal compressibility and/or augmentation response. Left deep veins: Unremarkable. The common femoral, femoral, proximal profunda femoral and popliteal veins are patent without thrombus. Normal Doppler waveforms. Normal compressibility and/or augmentation response. Superficial veins: Greater saphenous veins at the saphenofemoral junctions are patent bilaterally without thrombus. Soft tissues: Unremarkable. US/[place] [id number] IMPRESSION: No evidence of deep vein thrombosis.
[2025-03-19 11:17] LABS: Iron 26 ug/dL (37-145); Thyroid Stimulating Hormone 12.37 uIU/mL (0.27-4.20); Total Iron Binding Capacity 293 mcg/dl; Unsaturated Iron Binding 267 ug/dL (112-347)
[2025-03-19] MEDS: ferrous sulfate EC 325 mg Tablet PO (11:53)
[2025-03-19] MEDS: magnesium sulfate premix 1 GM/100 ML PIGGYBACK IV (11:53)
--- NOTE | 2025-03-19 11:59 | CT_ITS ---
WS: [id number] CT CHEST ANGIOGRAPHY WITH REFORMATS HISTORY: Shortness of breath, elevated D-dimer TECHNIQUE: Contiguous axial images are obtained through the chest during arterial injection of intravenous contrast. Images are reconstructed to evaluate the pulmonary arteries. MIP imaging also reviewed. All CT scans at [facility] use at least one of these dose optimization techniques: automated exposure control; mA and/or kV adjustment per patient size (includes targeted exams where dose is matched to clinical indication); or iterative reconstruction. CONTRAST: Omnipaque 350; 100 mL IV. DLP: 283.31 mGy.cm COMPARISON: 10/09/2018 Good opacification of the pulmonary arteries. Normal size pulmonary artery. No emboli identified. Ectatic atherosclerotic aorta. No aneurysm. Heart is slightly enlarged. No RIGHT heart strain. No significant pericardial effusion. There is mild scattered groundglass attenuation throughout both lungs with subsegmental areas of atelectasis and volume loss. No pneumothorax. Mediastinal and hilar lymphadenopathy is identified. Largest lymph node at the AP window measures 1.9 cm. Smaller RIGHT paratracheal lymph nodes. Indeterminate hilar lymphadenopathy. Calcification within the suprarenal abdominal aorta. No adrenal mass identified. CT/CT angio chest PE protcl [id number] IMPRESSION: 1. No pulmonary embolism. 2. No pneumonia. 3. Poor inspiration resulting in crowding of the lung markings. There are area s of groundglass attenuation and atelectasis which may improve with better insp iration. Consider pneumonitis or hypersensitivity pneumonia. 4. Increasing size and number of mediastinal and hilar lymph nodes since 2019. AP window lymph node measures 1.9 cm. These may be reactive lymph nodes.
--- NOTE | 2025-03-19 12:00 | P.PN_ITS ---
Subjective 2 Subjective: Hospital course, labs appreciated. Seen with family at bedside. Today morning patient had episode of elevated heart rate going up to 130s consistent with A- fib with RVR. Patient was asymptomatic. States her breathing is stable. She was admitted yesterday with concerns for increased lower limb swelling worsening over last 3 to 4 weeks along with difficulty in breathing. Patient does not use oxygen at baseline other than when on exertion. Currently on 2 L oxygen supplementation. Vitals/I&O/Wt Last Vital Signs Temp 98.0 F 03/19/25 11:23 Pulse 72 03/19/25 11:23 Resp 16 03/19/25 11:23 BP 147/68 03/19/25 11:23 Pulse Ox 93 03/19/25 11:23 O2 Del Method Nasal Cannula 03/19/25 11:23 O2 Flow Rate 2 03/18/25 16:45 03/18/25 03/19/25 03/19/25 22:59 06:59 14:59 Intake Total 200 / 200 120 / 120 Balance 200 / 200 120 / 120 Weight last 48 hrs Weight 54.885 kg Weight 55 kg Weight 54.431 kg Physical Exam 2 Narrative: General well-developed well-nourished, chronically sick appearing female in no acute cardiopulmonary stress on 2 L nasal cannula CV irregularly irregular, tachycardia, no murmurs rubs or gallops Lungs clear to auscultation bilaterally no rales or wheezes Abdomen positive bowel tones soft Calves 2+ bilateral pretibial edema right greater than left Skin multiple ulcerations over the lower abdomen and upper thighs that are healing in various stages she has dressings in place Data 03/18/25 15:25 03/19/25 04:38 A&P Assessment and plan 1. Acute respiratory failure with hypoxemia: Continue with oxygen via nasal cannula for O2 sat greater than 90%. Check echocardiogram. Check D-dimer. If elevated will plan for CTA. Continue with current IV diuresis. Hold off on metolazone. Patient does have history of COPD. Will start on nebulization with Pulmicort twice daily, ipratropium, Xopenex every 6 hour. 2. Atrial fibrillation with RVR: Does have history of A-fib in the past. Most likely paroxysmal. Continue with home dose of metoprolol. Gave 5 mg of IV metoprolol stat. If heart rate continues to remain elevated we will plan for 150 mg of IV amiodarone bolus along with gtt. Transfer to [facility]. Echocardiogram as above. Discussed anticoagulation in detail with the patient and patient's daughter at bedside. As per daughter and patient she has had recurrent falls. Discussed merits versus demerits with high risk of bleeding specially in setting of falls and being on anticoagulation versus risk of stroke when not on anticoagulation. Patient states she has had similar discussions in the past with her PCP and would not want to be on anticoagulation for stroke prevention. She would be okay with anticoagulation if needed for thromboembolism. She is okay with full dose anticoagulation while in hospital for now. 1 mg/kg body weight every 12 hourly Lovenox. 3. Fluid overload: 4. Edema, peripheral: Left more than right. Will check lower limb Dopplers and D-dimer. 5. Controlled type 2 diabetes mellitus without complication, with long-term current use of insulin: Hold metformin. Start sliding scale insulin 6. CKD (chronic kidney disease): As above. Single kidney. 7. Hypertension: Goal blood pressure less than 140/90 Standard. Continue with home dose of clonidine, metoprolol. If needed will restart home dose of hydralazine. Holding off on amlodipine for now. 8. Hypothyroidism: Check TSH, free T3 and free T4. Continue with home dose of levothyroxine. Plan: DNR/DNI Cardiac diet Protonix for PUD prophylaxis Full dose Lovenox 1 mg/kg body weight every 12 hourly for DVT prophylaxis PDMP PDMP Reviewed: Not Reviewed Attestations 2 Medical Necessity Statement*: Requires further hospitalization for management of shortness of breath with hypoxia while PE is ruled out, CHF, A-fib with RVR Diagnoses Acute respiratory failure with hypoxemia J96.01 Atrial fibrillation with RVR I48.91 Fluid overload E87.70 Edema, peripheral R60.0 Controlled type 2 diabetes mellitus without complication, with long-term current use of insulin E11.9 CKD (chronic kidney disease) N18.9 Hypertension I10 Hypothyroidism E03.9
[2025-03-19 12:32] LABS: Free T4 Free Thyroxine 1.16 ng/dL (0.82-1.77)
[2025-03-19] MEDS: iohexol 350 mg/mL 500 mL Btl (per mL) IV (15:44)
[2025-03-20] VITALS (10 sets, daily range): BP systolic 137–178; BP diastolic 64–80; PULSE 67–95; RESP 15–27; TEMP 36.3–36.8; O2SAT 90–96
[2025-03-20 04:20] LABS: Hematocrit 35.3 % (36-47); Hemoglobin 11.10 g/dL (11.27-16.99); Mean Corpuscular HGB Conc 31.4 g/dL (30-55); Mean Corpuscular Hemoglobin 28.3 pg (27-33); Mean Corpuscular Volume 90.1 fl (85-98); Nucleated Red Blood Cells % 0 %; Platelet Count 461 10^3/cmm (157-399); Red Blood Count 3.92 10^6/uL (3.85-5.65); White Blood Count 8.54 10^3/uL (3.29-11.43)
[2025-03-20 04:45] LABS: Alanine Aminotransferase 20 U/L (0-33); Albumin Level 3.6 g/dL (3.5-5.2); Alkaline Phosphatase 191 U/L (35-105); Anion Gap 17.1 (5-19); Aspartate Amino Transferase 21 U/L (0-32); Blood Urea Nitrogen 29 mg/dL (8-23); Calcium 9.9 mg/dL (8.5-10.5); Carbon Dioxide 29 mmol/L (22-29); Chloride 92 mmol/L (98-107); Creatinine Clr Calc Pharmacy 42.2305; Globulin 3.7 g/dL (1.3-4.6); Glucose 114 mg/dL (65-115); Osmolality Calculated 287 mOsm/kg (285-295); Potassium 3.1 mmol/L (3.5-5.1); Sodium 135 mmol/L (136-145); Total Protein 7.3 g/dL (6.6-8.7)
[2025-03-20] MEDS: metoprolol succinate ER (24 HR) 50 mg Tablet PO (04:51)
[2025-03-20] MEDS: ferrous sulfate EC 325 mg Tablet PO (04:52)
[2025-03-20 04:54] LABS: Magnesium 1.9 mg/dL (1.7-2.3)
[2025-03-20] MEDS: bumetanide 0.25 mg/mL SDV 4 mL 1 MG IVP (04:55)
--- NOTE | 2025-03-20 12:01 | USCV_ITS ---
Viry Selby Age: 80 Gender: F : 1945 Exam Date: 03/20/2025 06:31 Ordering Phys: Doug Singh MD Technologist: Ishan Muhammad Exam Location: [facility] – [place] Indication: afib rvr difficulty breathing BP: 143 / 69 HR: 64 Rhythm: Sinus Technical Quality: Adequate MEASUREMENTS (Male / Female) Normal Values 2D ECHO LV Diastolic Diameter PLAX 3.8 cm 4.2 - 5.9 / 3.9 - 5.3 cm IVS Diastolic Thickness 1.0 cm 0.6 - 1.0 / 0.6 - 0.9 cm IVS Systolic Thickness 1.5 cm LVPW Diastolic Thickness 0.9 cm 0.6 - 1.0 / 0.6 - 0.9 cm LVPW Systolic Thickness 1.3 cm LVOT Diameter 2.0 cm LV Ejection Fraction 2D Teich 72.4 % LV Ejection Fraction MOD 4C 59.6 % LV Ejection Fraction MOD 2C 63.4 % LV Ejection Fraction 2C AL 66.0 % LA Diameter 3.1 cm RA Systolic Volume 4C AL 20.1 ml RA Systolic Volume 4C MOD 20.0 ml Aorta at Sinotubular Diameter 2.5 cm IVC Diameter 1.4 cm M-MODE LA Ao Ratio MM 1.1 AV Cusp Separation MM 1.2 cm DOPPLER AV Peak Velocity 102.0 cm/s LVOT Peak Velocity 85.0 cm/s AV Area Cont Eq vti 2.5 cm squared AV Area Cont Eq pk 2.6 cm squared MV Peak Velocity 85.0 cm/s MV Area PHT 3.5 cm squared Mitral E to A Ratio 0.6 TR Peak Velocity 199.0 cm/s TR Peak Gradient 15.8 mmHg TR Mean Velocity 166.0 cm/s TR Mean Gradient 11.8 mmHg TR Velocity Time Integral 55.3 cm PV Peak Velocity 67.0 cm/s RV Ejection Time 0.3 s FINDINGS Left Ventricle Normal LV size and ejection fraction of 63%.moderate left ventricular hypertrophy. No regional wall motion abnormalities. Grade I/IV diastolic dysfunction (abnormal relaxation filling pattern), normal to mildly elevated filling pressures. Right Ventricle Normal right ventricular size and systolic function. Right Atrium Normal right atrial size. Left Atrium Normal left atrial size. IA Septum Normal appearance of the interatrial septum. Mitral Valve Trace mitral valve regurgitation. Aortic Valve Moderate aortic valve calcification. Tricuspid Valve Trace tricuspid valve regurgitation. Pulmonic Valve Minimally thickened pulmonic leaflets Pericardium No pericardial effusion. Aorta Normal aortic annulus size. IVC Normal inferior vena cava. CONCLUSIONS Normal LV size and ejection fraction of 63%.moderate left ventricular hypertrophy. No regional wall motion abnormalities. Grade I/IV diastolic dysfunction (abnormal relaxation filling pattern), normal to mildly elevated filling pressures. Normal right ventricular size and systolic function. Trace mitral valve regurgitation. Moderate aortic valve calcification. Trace tricuspid valve regurgitation. Estimated pulmonary artery peak systolic pressure possibly within normal limits. There are no intracardiac masses. There is no pericardial effusion. No similar previous studies are available for comparison Dr Sedrick Varma MD FACC (Electronically Signed) Final Date: 20 March 2025 08:30 S
--- NOTE | 2025-03-20 12:25 | P.DS_ITS ---
Discharge Providers Date of Admission: 03/18/25 19:06 Date of Discharge: March 20, 2025 Attending Provider at Admission: Anastacio Brito MD Attending Provider at Discharge: Doug Singh MD Primary Care Provider: Jean Claude Nayak MD Diagnoses at Discharge Discharge Diagnosis 1. Acute respiratory failure with hypoxemia: 2. Atrial fibrillation with RVR: 3. Fluid overload: 4. Edema, peripheral: 5. Controlled type 2 diabetes mellitus without complication, with long-term current use of insulin: 6. CKD (chronic kidney disease): 7. Primary hypertension: 8. Acquired hypothyroidism: Reason for Visit Reason for Visit: (fluid)sent by kellie Brief History : Per HPI: Viry Selby is a 80 year old female with history of peripheral vascular disease, strokes with recent fall with rhabdomyolysis, severe sunburn with open wounds requiring wound care has had leg edema requiring escalating diuretics. Patient states that legs started swelling a week ago left greater than right and weight went from 110 pounds to 120 pounds. Diuretics were at 40 mg a day and Dr. Nayak doubled it to 80 mg twice a day on the . Weight remained at 120 pounds not decreasing. Patient was referred to emergency department for worsened peripheral edema not responding to diuretics. Patient required 2 L of oxygen at this time typically does not require it at home. Hospital Course Hospital Course She was admitted to the hospital further evaluation and management of fluid overload with concerns for diastolic heart failure. She was started on IV diuresis. She responded well to the treatment. D-dimer slightly elevated. CTA chest rule out PE, lower limb Dopplers ruled out DVT. She did have a brief episode of A-fib with RVR which converted back to sinus rhythm by itself. Patient did not have any further episodes of A-fib during hospitalization. Anticoagulation were discussed in detail with the patient and her family. Given her history of recurrent falls family declined anticoagulation. Home O2 delaney luation has been done. She is been discharged in hemodynamically stable condition on oral Bumex and lifestyle modification for congestive heart failure. Physical Exam Narrative: General well-developed well-nourished, chronically sick appearing female in no acute cardiopulmonary stress on 2 L nasal cannula CV irregularly irregular, tachycardia, no murmurs rubs or gallops Lungs clear to auscultation bilaterally no rales or wheezes Abdomen positive bowel tones soft Calves 2+ bilateral pretibial edema right greater than left Skin multiple ulcerations over the lower abdomen and upper thighs that are healing in various stages she has dressings in place Discharge Data Studies Completed and Pending Completed Studies During Hospitalization Category Date Time Status CTA chest [CT angio chest PE protcl [id number]] Routine Cat Scan 03/19/25 11:59 Completed XR chest 1V portable [id number] Stat Exams 03/18/25 15:09 [place] [id number] Routine Ultrasound 03/19/25 10:44 Completed CV. echo complete* [id number] Routine Ultrasound 03/20/25 12:01 Completed Pending at discharge Category Date Time Status MAG [Magnesium] AM LABS Lab 03/21/25 04:00 Ordered MAG [Magnesium] AM LABS Lab 03/22/25 04:00 Ordered Radiology Impressions Chest X-Ray 03/18/25 15:09 IMPRESSION: Stable findings. No acute abnormality identified. Venous Duplex 03/19/25 10:44 IMPRESSION: No evidence of deep vein thrombosis. Chest CTA 03/19/25 11:59 IMPRESSION: 1. No pulmonary embolism. 2. No pneumonia. 3. Poor inspiration resulting in crowding of the lung markings. There are areas of groundglass attenuation and atelectasis which may improve with better inspiration. Consider pneumonitis or hypersensitivity pneumonia. 4. Increasing size and number of mediastinal and hilar lymph nodes since 2019. AP window lymph node measures 1.9 cm. These may be reactive lymph nodes. Laboratory Results WBC 8.54 10^3/uL (3.29-11.43) 03/20/25 03:23 RBC 3.92 10^6/uL (3.85-5.65) 03/20/25 03:23 Hgb 11.10 g/dL (11.27-16.99) L 03/20/25 03:23 Hct 35.3 % (36-47) L 03/20/25 03:23 MCV 90.1 fl (85-98) 03/20/25 03:23 MCH 28.3 pg (27-33) 03/20/25 03:23 MCHC 31.4 g/dL (30-55) 03/20/25 03:23 RDW 14.6 % (12.1-15.1) 03/20/25 03:23 Plt Count 461 10^3/cmm (157-399) H 03/20/25 03:23 MPV 9.4 fL (7.4-10.4) 03/20/25 03:23 Neut % (Auto) 63.3 % 03/20/25 03:23 Lymph % (Auto) 24.0 % 03/20/25 03:23 Burt % (Auto) 10.1 % 03/20/25 03:23 Eos % (Auto) 1.4 % 03/20/25 03:23 Baso % (Auto) 0.8 % 03/20/25 03:23 Neut # (Auto) 5.41 10^3/uL (1.8-7.7) 03/20/25 03:23 Lymph # (Auto) 2.1 10^3/uL (0.8-4.8) 03/20/25 03:23 Burt # (Auto) 0.9 10^3/uL (0.2-0.9) 03/20/25 03:23 Eos # (Auto) 0.1 10^3/uL (0.0-0.8) 03/20/25 03:23 Baso # (Auto) 0.1 10^3/uL (0.0-0.1) 03/20/25 03:23 Nucleated RBC % (auto) 0 % 03/20/25 03:23 Nucleated RBCs # 0.0 /100WBC 03/20/25 03:23 D-Dimer 0.93 ug/mLFEU (0-0.59) H 03/19/25 11:05 Sodium 135 mmol/L (136-145) L 03/20/25 03:23 Potassium 3.1 mmol/L (3.5-5.1) L 03/20/25 03:23 Chloride 92 mmol/L (98-107) L 03/20/25 03:23 Carbon Dioxide 29 mmol/L (22-29) 03/20/25 03:23 Anion Gap 17.1 (5-19) 03/20/25 03:23 BUN 29 mg/dL (8-23) H 03/20/25 03:23 Creatinine 0.9 mg/dL (0.5-0.9) 03/20/25 03:23 GFR Calculation Not Reportable 03/20/25 03:23 Glucose 114 mg/dL (65-115) 03/20/25 03:23 POC Glucose 220 mg/dL (70-110) H 03/20/25 10:16 Calculated Osmolality 287 mOsm/kg (285-295) 03/20/25 03:23 Calcium 9.9 mg/dL (8.5-10.5) 03/20/25 03:23 Phosphorus 4.7 mg/dL (2.5-4.5) H 03/19/25 04:38 Magnesium 1.9 mg/dL (1.7-2.3) 03/20/25 03:23 Iron 26 ug/dL (37-145) L 03/19/25 04:38 TIBC 293 mcg/dl 03/19/25 04:38 % Saturation 8.8 % (20-50) L 03/19/25 04:38 Unsat Iron Binding 267 ug/dL (112-347) 03/19/25 04:38 Total Bilirubin 0.2 mg/dL (0.15-1.2) 03/20/25 03:23 AST 21 U/L (0-32) 03/20/25 03:23 ALT 20 U/L (0-33) 03/20/25 03:23 Alkaline Phosphatase 191 U/L (35-105) H 03/20/25 03:23 Troponin T Baseline 32 ng/L (0-10) H 03/18/25 15:25 Troponin T 120 Minute 29.03 ng/L (0-10) H 03/18/25 17:08 Delta Troponin T -2.97 ABS# (0-10) L 03/18/25 17:08 Troponin T Hi Sens 6Hr 32.85 ng/L (0-10) H 03/18/25 21:08 Troponin T Hi Sens 6Hr Delta 0.85 ng/L (0-12) 03/18/25 21:08 NT-Pro-B Natriuret Pep 3006 pg/mL (0-450) H 03/18/25 15:25 Total Protein 7.3 g/dL (6.6-8.7) 03/20/25 03:23 Albumin 3.6 g/dL (3.5-5.2) 03/20/25 03:23 Globulin 3.7 g/dL (1.3-4.6) 03/20/25 03:23 Folate > 20.0 ng/mL (4.8-37.3) 03/20/25 03:23 TSH 12.37 uIU/mL (0.27-4.20) H 03/19/25 04:38 Free T4 1.16 ng/dL (0.82-1.77) 03/19/25 04:38 Free T3 1.7 PG/ML (2.0-4.4) L 03/19/25 04:38 Urine Color Yellow (Yellow) 03/18/25 16:00 Urine Appearance Clear (CLEAR) 03/18/25 16:00 Urine pH 6.5 (5-7) 03/18/25 16:00 Ur Specific [place] 1.007 (1.005-1.030) 03/18/25 16:00 Urine Protein 1+ (Negative) A 03/18/25 16:00 Urine Glucose (UA) Negative (Normal) 03/18/25 16:00 Urine Ketones Negative (Negative) 03/18/25 16:00 Urine Blood Negative (Negative) 03/18/25 16:00 Urine Nitrate Negative (Negative) 03/18/25 16:00 Urine Bilirubin Negative (Negative) 03/18/25 16:00 Urine Urobilinogen 0.2 mg/dL (Negative) 03/18/25 16:00 Ur Leukocyte Esterase Trace (Negative) A 03/18/25 16:00 Urine RBC None /hpf (0-2) 03/18/25 16:00 Urine WBC 5-10 /hpf (0-5) H 03/18/25 16:00 Ur Squamous Epith Cells 0-4 /hpf (0-5) H 03/18/25 16:00 Amorphous Sediment Not Reportable 03/18/25 16:00 Urine Bacteria 2+ /hpf (NONE) H 03/18/25 16:00 Vitals Last Vital Signs Temp 98.0 F 03/20/25 12:00 Pulse 95 03/20/25 12:00 Resp 27 H 03/20/25 12:00 BP 178/80 03/20/25 12:00 Pulse Ox 90 03/20/25 12:00 O2 Del Method Nasal Cannula 03/20/25 12:00 O2 Flow Rate 2 03/20/25 08:19 Discharge Plan Discharge Patient Disposition: Home Health Service Condition: Stable Prescriptions: New bumetanide 1 mg tablet 1 mg PO BID Qty: 60 0RF dapagliflozin propanediol [Farxiga] 10 mg tablet 10 mg PO DAILY Qty: 30 0RF Continued ascorbic acid (vitamin C) 500 mg tablet 1,000 mg PO QAM aspirin 81 mg tablet 81 mg PO DAILY atorvastatin [Lipitor] 40 mg tablet 40 mg PO DAILY potassium chloride [Klor-Con M20] 20 mEq tablet,ER particles/crystals 40 meq PO DAILY cholecalciferol (vitamin D3) 25 mcg (1,000 unit) capsule 25 mcg PO QAM (DME) RSV vaccine See Rx Instructions .ROUTE .MEDSUPPLY Qty: 1 0RF Rx Instructions: Give one dose IM per guidelines. clopidogrel 75 mg tablet See Rx Instructions .ROUTE .COMPLEX Qty: 90 3RF Dose Instruction: TAKE 1 TABLET BY MOUTH DAILY . Rx Instructions: TAKE 1 TABLET BY MOUTH DAILY . levothyroxine 88 mcg tablet See Rx Instructions .ROUTE .COMPLEX Qty: 45 3RF Dose Instruction: TAKE 1 TABLET BY MOUTH EVERY DAY IN THE MORNING WITH WATER,ON EVEN DAYS OF THE MONTH (1/2HR PRIOR TO EATING) Rx Instructions: TAKE 1 TABLET BY MOUTH EVERY DAY IN THE MORNING WITH WATER,ON EVEN DAYS OF THE MONTH (1/2HR PRIOR TO EATING) clonidine HCl 0.2 mg tablet See Rx Instructions .ROUTE .COMPLEX Qty: 270 3RF Dose Instruction: TAKE 1 TABLET BY MOUTH THREE TIMES A DAY Rx Instructions: TAKE 1 TABLET BY MOUTH THREE TIMES A DAY levothyroxine 75 mcg tablet See Rx Instructions .ROUTE .COMPLEX Qty: 50 3RF Dose Instruction: TAKE 1 TABLET BY MOUTH IN THE MORNING ON THE ODD DAYS OF THE MONTH 1/2 HOUR BEFORE BREAKFAST WITH WATER ONLY Rx Instructions: TAKE 1 TABLET BY MOUTH IN THE MORNING ON THE ODD DAYS OF THE MONTH 1/2 HOUR BEFORE BREAKFAST WITH WATER ONLY hydrochlorothiazide 25 mg tablet See Rx Instructions .ROUTE .COMPLEX Qty: 90 3RF Dose Instruction: TAKE 1 TABLET BY MOUTH DAILY FOR HIGH BLOOD PRESSURE Rx Instructions: TAKE 1 TABLET BY MOUTH DAILY FOR HIGH BLOOD PRESSURE magnesium oxide 400 mg magnesium capsule 400 mg PO DAILY Qty: 30 3RF metoprolol succinate 50 mg tablet extended release 24 hr 50 mg PO BID Qty: 180 3RF hydralazine 50 mg tablet 50 mg PO TID Qty: 90 3RF alprazolam 0.25 mg tablet 0.25 mg PO BEDTIME Qty: 30 2RF acetaminophen 500 mg Tablet 500 mg PO Q4H PRN (Reason: Pain) Patient Comments: prn vitamin E 268 mg (400 unit) Capsule 1 cap PO DAILY folic acid 400 mcg tablet 400 mcg PO QAM ferrous sulfate 325 mg (65 mg iron) tablet 325 mg PO DIRECTED Discontinued amlodipine 10 mg tablet 10 mg PO DAILY furosemide [Lasix] 40 mg tablet 80 mg PO BID metformin 500 mg tablet 500 mg PO BID Qty: 180 4RF spironolactone 25 mg tablet 25 mg PO QAM Qty: 90 2RF ibuprofen 200 mg Tablet 200 mg PO Q4H PRN (Reason: Pain) furosemide 20 mg tablet 20 mg PO DAILY PRN (Reason: SWELLING) Referrals: Jean Claude Nayak MD [Primary Care Provider, Family Practice] - 7-10 days Referral Note: We have notified your physician's clinic of the need for a follow-up appointment to be scheduled. If you have not heard from them within the next 2 business days, please call them directly. Discharge Diet: Cardiac and Diabetic Discharge Activity: Resume usual activity and Increase activity as tolerated Patient Instructions: Atrial Fibrillation, Bumetanide (By mouth), Dapagliflozin (By mouth), Chronic Kidney Disease (DC), Chronic Hypertension (DC), Edema (DC), Acute Respiratory Failure (GEN), Opioid Safety, Patient Portal & Santos Instructions Activity Restrictions/Additional Instructions: Restrict fluid intake to less than 1500 cc, salt intake to less than 2 g daily. Advised to check his weight daily at home. Is advised that weight today would be the dry weight and if body weight increases by around 5 pounds, patient is to take an extra dose of Bumex daily till body weight comes down to weight today. If not able to come down to dry body weight in 1 week, then is to call c ardiology office for further recommendations. Patient was counseled in detail to take medications regularly as prescribed. Patient is to stop taking her home dose of metformin, ibuprofen, spironolactone and amlodipine. Metformin has been changed to Farxiga. Discharge Attestations Time Spent in Discharge Care*: greater than 30 min Specific Discharge Activities: educating patient, educating and/or supporting family/caregiver, discussing with pcp/other providers, discussing with telephonic nurse case manager/social workers/dc planners, documenting/other paperwork and evaluating patient/reviewing data Status at Discharge: Cognitive status at discharge: cognitively intact , Behavioral status at discharge: cooperative , Functional status at discharge: uses cane/walker , Overall status at discharge: patient is back to baseline Quality Metrics Clinical Quality Measures [ No reported AMI, CVA or VTE this stay] Coding Level of Care Code 15861 Total time (in minutes) for Discharge: 65 Diagnoses Acute respiratory failure with hypoxemia J96.01 Atrial fibrillation with RVR I48.91 Fluid overload E87.70 Edema, peripheral R60.0 Controlled type 2 diabetes mellitus without complication, with long-term current use of insulin E11.9 CKD (chronic kidney disease) N18.9 Primary hypertension I10 Hypertension type: primary hypertension Acquired hypothyroidism E03.9 Hypothyroidism type: acquired
--- OUTSIDE RECORDS SUMMARY | 2025-03-23 14:21 | XMS_ITS | Encounter Summary ---
Author Organization [facility] Address [address] [place] [address] Care Team Providers Care Stamp Collector Name Role Phone Andrey Lanza MD Primary Care Provider Emily doran Encounter Details Date Type Department Care Team (Latest Contact Info) Description 09/25/2000 Outpatient Historical [facility] Gen Spec Surg [address] [place] [address] Makr Drummond MD NO ADDRESS ON FILE Calculus of gallbladder and bile duct with acute cholecystitis, without mention of obstruction (Primary Dx); Follow-up examination, following unspecified surgery Social History Tobacco Use Types Packs/Day Years Used Date Smoking Tobacco: Never Assessed Comments Unknown Sex and Gender Information Value Date Recorded Sex Assigned at Not on file Legal Sex Female 3:41 AM [employer] Gender Identity Not on file Sexual Orientation Not on file documented as of this encounter Plan of Treatment Not on file documented as of this encounter Visit Diagnoses Diagnosis Calculus of gallbladder and bile duct with acute cholecystitis, without mention of obstruction- Primary Follow-up examination, following unspecified surgery documented in this encounter Care Teams Stamp Collector Relationship Specialty Start Date End Date Andrey Lanza MD NO ADDRESS ON FILE PCP - General 11/27/07 documented as of this encounter
--- OUTSIDE RECORDS SUMMARY | 2025-03-23 14:21 | XMS_ITS | Encounter Summary ---
Author Organization [facility] Address [address] [place] [address] Care Team Providers Care Strategic Communications Manager Name Role Phone Andrey Lanza MD Primary Care Provider Unavailab le Reason for Referral * Radiology Services (Routine) - Closed Specialty Diagnoses / Procedures Referred By Contac t Referred To Contact Diagnoses AAA (abdominal aortic aneurysm) without rupture Procedures IR FLUORO OR OTHER Marito Boyer MD Phone: tel: fax: Referral ID Status Reason Start Date Expiration Date Visits Re quested Visits Authorized [id number] Closed 06/20/2020 07/21/2021 1 1 [employer] Encounter Details Date Type Department Care Team (Late st Contact Info) Description 06/20/2020 Ancillary Orders [facility] Interventional Radiology [address] [address] [place] [address] Marito Boyer MD [address] [place] [phone] AAA (abdominal aortic aneurysm) without rupture Social [...] on file Legal Sex Female 3:41 AM [employer] Gender Identity Not on file Sexual Orientation Not on file COVID-19 Exposure Response Date Recorded In the last month, have you been in contact with someone who was confirmed or suspected to have Coronavirus / COVID-19? No / Unsure 06/20/2020 10:40 PM [employer] documented as of this encounter Plan of Treatment Not on file documented as of this encounter Results * IR FLUORO OR OTHER (06/20/2020 3:43 PM [employer]) Narrative 06/20/2020 3:44 PM [employer] Order Auto Finalized. Please see associated Operative Report/Progress Note from the same date. Marito Boyer MD IR ORDERABLES Final R esult documented in this encounter Visit Diagnoses Diagnosis AAA (abdominal aortic aneurysm) without rupture Abdominal aneurysm without mention of rupture AAA (abdominal aortic aneurysm) without rupture Abdominal aneurysm without mention of rupture documented in this encounter Care Teams Strategic Communications Manager Relationship Specialty Start Date End Date Andrey Lanza MD NO ADDRESS ON FILE PCP - General 11/27/07 documented as of this encounter
--- OUTSIDE RECORDS SUMMARY | 2025-03-23 14:21 | XMS_ITS | Clinical Summary ---
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 0 Active meclizine (ANTIVERT) 25 mg tablet Take 25 mg by mouth every 8 hours as needed. Active acetaminophen (TYLENOL) 500 mg tablet Take 1,000 mg by mouth every 8 hours as needed for Pain. Active Ascorbic Acid 500 mg Capsule, Sustained Release Take 500 mg by mouth daily. 30 Capsule 5 Active aspirin (MARIA LUISA CHEWABLE) 81 mg Tablet, Chewable Take 1 Tablet (81 mg) by mouth daily. 90 Tablet 3 5 Active atorvastatin (LIPITOR) 40 mg tablet Take 1 Tablet (40 mg) by mouth daily at bedtime. 30 Tablet 5 Active bacitracin zinc 500 unit/gram Ointment Apply to affected area daily. 28 Gram 5 Active cholecalciferol , Vitamin D3, 125 mcg (5,000 unit) Capsule Take 1 Capsule (5,000 Units) by mouth daily. 30 Capsule 5 Active cloNIDine HCL (CATAPRES) 0.2 mg tablet Take 1 Tablet (0.2 mg) by mouth 3 times daily. 90 Tablet 5 Active collagenase (SANTYL) 250 unit/gram Ointment Apply to affected area daily. Use a thin layer on each wound. Wound length (required) unk cm X wound width (required) unk cm X unk treatment days. 30 Gram 5 Active ferrous sulfate 325 mg (65 mg iron) tablet Take 1 Tablet (325 mg) by mouth every other day. 15 Tablet 5 Active folic acid (FOLVITE) 400 mcg Tablet Take 1 Tablet (0.4 mg) by mouth daily. 30 Tablet 5 Active furosemide (LASIX) 40 mg tablet Take 1 Tablet (40 mg) by mouth daily. Take BID for 3 days then daily 30 Tablet 5 Active hydrALAZINE (APRESOLINE) 50 mg tablet Take 1 Tablet (50 mg) by mouth every 8 hours. 90 Tablet 5 Active hydroCHLOROthia zide 25 mg tablet Take 1 Tablet (25 mg) by mouth daily. 30 Tablet 5 Active levothyroxine 88 mcg tablet Take 1 Tablet (88 mcg) by mouth daily. 30 Tablet 5 Active metoprolol succinate (TOPROL XL) 50 mg Extended Release 24 hour tablet Take 1 Tablet (50 mg) by mouth every 12 hours. 60 Tablet 5 Active miconazole (MACARENA HERNANDEZ,Roxana LAGUNAS AF) 2 % Cream Apply to affected area 2 times daily. 57 Gram 5 Active pantoprazole (PROTONIX) 40 mg Tablet, Delayed Release (E.C.) Take 1 Tablet (40 mg) by mouth 2 times daily. 60 Tablet 5 Active potassium CHLORIDE (K-TAB) 20 mEq Extended Release tablet Take 2 Tablets (40 mEq) by mouth daily with breakfast. 60 Tablet 5 Active vitamin E, dl,tocopheryl acet, (vitamin E, DL,acetate,) 180 mg (400 unit) Capsule Take 1 Capsule (400 Units) by mouth daily. 30 Capsule 5 Active zinc OXIDE-cod liver oil (DESITIN) 40 % Paste Apply to affected area Continuous as needed for Rash or Redness. 57 Gram 5 Active amLODIPine (NORVASC) 10 mg tablet Take 1 Tablet (10 mg) by mouth daily. 30 Tablet 5 Active metFORMIN (GLUCOPHAGE) 500 mg tablet Take 1 Tablet (500 mg) by mouth 2 times daily with meals. 60 Tablet 5 Active polycarbophil calcium (FIBERCON) 625 mg tablet Take 1 Tablet (625 mg) by mouth daily. 30 Tablet Active clopidogreL (PLAVIX) 75 mg Tablet Take 75 mg by mouth. Active Active Problems Problem Noted Date Diagnosed [...] atherosclerotic ulcer of aorta 05/17 Atherosclerosis of ely [place] ju[place] of both lower extremities with [...] Type Department Care Team Description 5 Refill [facility] Physical Med and Rehab [facility] [address] [place] [address] Lalo Bingham MD 5 Refill [facility] Physical Med and Rehab [facility] [address] [place] [address] Lalo Bingham MD 5 Telephone [facility] General and Trauma Surgery-[place] [address] [place] [phone] Letty Welch NP Santyl 5 Refill [facility] Physical Med and Rehab [facility] [address] [place] [address] Lalo Bingham MD 5 1:45 PM CDT Office Visit [facility] Vascular Surgery [place] [address] [place] [phone] Liss Sher PA-C Peripheral arterial disease with history of revascularization (Primary Dx); Tobacco abuse disorder; Right internal carotid occlusion; Femoral artery stenosis, right 5 12:30 PM CDT Ancillary Procedure [facility] Vascular Lab and Vein Center- [place] [address] [place] [phone] 5 Telephone [facility] Vascular Surgery [place] [address] [place] [phone] Madan Dodge MD Question 5 External Device Data STL ABSTRACTION Provider, Abstract 5 Telephone [facility] General and Trauma Surgery[address] [place] [phone] Letty Welch NP PA request 5 Telephone [facility] General and Trauma Surgery-[address] [place] [phone] Cayetano Garibay DO Santyl Shipment 5 2:00 PM CDT Office Visit [facility] General and Trauma Surgery[address] [place] [phone] Gtb, Physician Unspecified open wound, right thigh, sequela (Primary Dx); Unspecified open wound, left thigh, sequela 5 6:08 PM CDT - 5 11:20 AM CDT Hospital Encounter [facility] [address] [place] [phone] Jay Mendes, MD Zachery Jenkins Bradley, MD Metabolic encephalopathy Discharge Disposition: Home Health Care Svc 5 Travel 5 Telephone [facility] Vascular Surgery [place] [address] [place] [phone] Madan Dodge MD Appointment Notification 5 10:42 AM CDT Anesthesia Event [facility] [address] [place] [phone] Flori Huerta MD 5 10:00 AM CDT - 5 10:20 AM CDT Surgery [facility] [address] [place] [phone] Garret Zuñiga, DO SMALL BOWEL ENTEROSCOPY 5 External Device [...] STL ABSTRACTION Provider, Abstract 5 Results Follow-Up [facility] Gastroenterology- [place] [address] [place] [phone] Garret Zuñiga, DO PATHOLOGY, CBC WITH DIFFERENTIAL, MANUAL DIFFERENTIAL 5 11:06 AM CDT Anesthesia Event [facility] [address] [place] [phone] Willem Nunn DO 5 9:20 AM CDT - 5 9:40 AM CDT Surgery [facility] [address] [place] [phone] Garret Zuñiga, DO ESOPHAGOGASTRODUODENOSCOPY 5 External Device Data STL ABSTRACTION Provider, Abstract 5 External Device Data STL ABSTRACTION Provider, Abstract 5 Travel 5 5:31 PM CDT - 5 5:46 PM CDT Hospital Encounter [facility] Neurology [address] [place] [phone] Austyn Brown MD Anand, MD Miguel Bruno [...] PNEUM OCOCCAL CONJUGATE VACCINE 20-VALENT (PCV20), POLYSACCHARIDE FEY482 CONJUGATE, ADJUVANT 0.5 ML (PF) IM 03/04/2024,02/24/2022 INFLUENZA VACCINE HIGH DOSE QUADRIVALENT 65 YR UP PF IM 02/26/2023,02/24/2022 Influenza Seasonal Unspecified Formulation IM Family History Medical History Relation Name Comments Diabetes Brother Pop Leblanc No Known Problems Daughter 1 No Known Problems Daughter 2 Diabetes Mother Princess Lebalnc Heart Disease Mother Princess Leblanc Hypertension Mother [...] on file Legal Sex Female 3:08 PM 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 Gender Identity Not on file Sexual Orientation [...] st Contact Info) Description 07/20/2025 9:00 AM 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 Office Visit [facility] [address] [place] [phone] Jorden Arshad MD [address] [place] [phone] 09/13/2025 2:00 PM CDT Ancillary Procedure [facility] Vascular Lab and Vein [facility] [place] [address] [place] [address] Romero Isaac MD [address] [place] [address] 09/13/2025 2:30 PM CDT Ancillary Procedure [facility] [place] [address] [place] [address] Liss Sher PA-C [address] [place] [address] 09/13/2025 3:30 PM CDT Office Visit [facility] Vascular Surgery [place] [address] [place] [address] Romero Isaac MD [address] [place] [address] Ale Carrillo DO [address] [place] [address] Health Maintenance Due Date Last Done Comments DIABETES ANNUAL FOOT EXAM 02/02/1962 DIABETES ANNUAL RETINAL EXAM 02/02/1962 DIABETES MICROALBUMIN ANNUAL SCREEN 02/02/1962 DTAP/TDAP/TD VACCINES (1 - Tdap) 02/02/1963 ZOSTER VACCINE (1 of 2) 02/02/1994 OSTEOPOROSIS SCREENING 02/02/2009 RSV VACCINE (60+ or ) (1 - 1-dose 75+ series) 02/02/2019 Medicare Advantage (NE) Prev entative Visit/Annual Wellness Visit 06/17/2024 INFLUENZA VACCINE (#1) 2025 3, 02/24/2022, 03/02/2020 DIABETES HBA1C Q 6 MONTHS 07/16/2025 01/13/2025 LDL CHOLESTEROL ANNUAL 01/13/2026 01/13/2025 PNEUMOCOCCAL VACCINE 50+ YEARS Completed 03/04/2024 , 02/24/2022 Medical Devices Implanted Type Area Market Analysis Director Device Identifier Shelf Expiration Date Model / Serial / Lot Angio-Seal Vip Closure Dev 200944 - [id number] Implanted:Qty : 1 on 06/20/2020 by Marito Boyer MD Closure Device Right: Groin LEE [employer] [id number] 02/14/2021 [id number] / / [id number] Closure Perclose Proglide 90310 - [id number] Implanted:Qty : 1 on 06/20/2020 by Marito Boyer MD Closure Device Left: Arterial LEE- VASC DEVICE [id number] 02/14/2022 50463 / / [id number] Closure Perclose Proglide 63281 - [id number] Implanted:Qty : 1 on 06/20/2020 by Marito Boyer MD Closure Device Left: Arterial LEE- VASC DEVICE [id number] 02/14/2022 03330 / / 06/18/ Coil Azur Cx Detach 035 19cm 45-591823 - [id number] Implanted:Qty : 1 on 06/20/2020 by Marito Boyer MD Coil Right: Arterial TERUMO- MED DANIEL 11/14/2024 [id number] / / [id number] Description:Right hypogastri c artery Coil Azur Cx Detach 035 19cm 45-148911 - [id number] Implanted:Qty : 1 on 06/20/2020 by Marito Boyer MD Coil Right: Arterial TERUMO- MED DANIEL 06/16/2024 [id number] / / [id number] Description:Right hypogastri c artery Cup [place] Porocoat Acet Shell 52mm 1217-22-052 - [id number] Implanted:Qty : 1 on 08/30/2021 by Demetrius George MD at [facility] Hip Left: Hip J[employer]J- [employer] [id number] 06/16/2031 [id number] / / [id number] Liner [place] Altrx 58l33dc Nutrl 1221-36-052 - [id number] Implanted:Qty : 1 on 08/30/2021 by Demetrius George MD at [facility] Hip Left: Hip [employer] [id number] 06/16/2026 [id number] / / [id number] Head Fem Art/Jose Luis Cer Sz36 1365-36-320 - [id number] Implanted:Qty : 1 on 08/30/2021 by Demetrius George MD at [facility] Hip Left: Hip J&J- DEPUY KEIRA [id number] 03/16/2026 73227 6320 / / [id number] Stem Fem Baird Por Sz3 1570--090 - [id number] Implanted:Qty : 1 on 08/30/2021 by Demetrius George MD at [facility] Hip Left: Hip J[employer] [id number] 12/14/2025 1570--090 / / [id number] Screw Canc [place] 6.5x50mm 1217-50-500 - [id number] Implanted:Qty : 1 on 08/30/2021 by Demetrius George MD at [facility] Screw Left: Hip J&J- [employer] [id number] 12/14/2030 1217-50-500 / / [id number] Stent Afx Ii Bifur Ged36-49/I16- 40 - [id number] Implanted:Qty : 1 on 06/20/2020 by Marito Boyer MD Stent N/A: Aorta [employer]IX INC 11/26/2022 SSI08-94/I1 6-40 / [id number] / Stent Lifestream [id number] [id number] - [id number] Implanted:Qty : 1 on 06/20/2020 by Marito Boyer MD Stent Right: Iliac Artery CR BARD- DERRICK VASC INC [id number] 01/14/2023 [id number] / / [id number] Description:Right external i liac Stent Lifestream 7x17o98mp [id number] - [id number] Implanted:Qty : 1 on 06/20/2020 by Marito Boyer MD Stent Right: Iliac Artery CR BARD- DERRICK VASC INC [id number] 03/16/2023 [id number] / / [id number] Stent Lifestream Cvr [id number] - [id number] Implanted:Qty : 1 on 06/20/2020 by Marito Boyer MD Stent Right: Iliac Artery CR BARD- DERRICK VASC INC [id number] 06/16/2022 [id number] / / [id number] Stent Lifestream Cvr [id number] - [id number] Implanted:Qty : 1 on 06/24/2020 by Marito Boyer MD Stent Left: Leg CR BARD- DERRICK [employer]ASC INC [id number] / / Procedures Procedure Name Priority Date/Time [...] POC GLUCOSE Routine 2025 5:26 PM CDT PA DEBRIDEMENT SUBCUTANEOUS TISSUE 1ST 20 SQ CM/< [...] 9:41 AM CDT BRAIN NATRIURETIC PEPTIDE, B OUTREACH ANALYST OR PROBNP Stat 01/30/2025 9:41 AM CDT [...] POC GLUCOSE Routine 01/25/2025 10:34 PM CDT PROGRAM DIRECTOR SCOUTING EVALUATION Routine 01/25/2025 6:08 PM CDT POC [...] CULTURE Stat 01/13/2025 12:45 AM CDT [facility] SPOTTED FEVER AB IGG/IGM Routine 01/13/2025 12:15 [...] CDT EXTRA TUBE (URINE ALLEN) Stat 01/13/20 7:00 PM CDT DRUG SCREEN, URINE Stat [...] PM CDT Narrative 03/14/2025 10:34 AM CDT [facility] V[facility] Lab and Vein Center [address] [place] [address] [place] [address] Noninvasive Vascular Lab Limited Lower Extremity Arterial Duplex Study Patient: Mary Jane Selby Study ID: US DUPLEX ARTERI Gender: F : 1945 Age: 80 Room: Height: 152cm Weight: 50.1kg BSA: 1.46m^2 Pt status: Outpatient Study Date: 03/11/2025 Study Time: 01:14:45 PM BSA: 1.46m^2 Ordering: Madan Dodge Interpreting:Madan Dodge Truck Sales Representative: WESLEY Blackjack Supervisor:KGT Indications: Known disease. Labs, prior tests, procedures, [...] - Max brachial pressure (sys): 132mm Hg [facility] V[facility] Lab and Vein Center is accredited with the Intersocietal Commission for the Accreditation of Vascular Laboratories (ICAVL) Prepared and Electronically Authenticated Ale Carrillo Confirmed 03/14/2025 10:34 Procedure Note Ale Carrillo DO - 03/14/2025 [facility] Lab [facility] Ve[facility] [address] [place] [address] Noninvasive Vascular Lab Limited Lower Extremity Arterial Duplex Study Patient: Mary Jane Selby Study ID: US DUPLEX ARTERI Gender: Rebekah : 1945 Age: 80 Room: Height: 152cm Weight: 50.1kg BSA: 1.46m^2 Pt status: Outpatient Study Date: 03/11/2025 Study Time: 01:14:45 PM BSA: 1.46m^2 Ordering: Madan Dodge Interpreting:Madan Dodge Truck Sales Representative: WESLEY Blackjack Supervisor:KGT Indications: Known disease. Labs, prior tests, procedures, [...] - Max brachial pressure (sys): 132mm Hg [facility] is accredited withthe [facility] Commission for the Accreditation of Vascular Laboratories (ICAVL) Prepared and Electronically Authenticated Ale Carrillo Confirmed 03/14/2025 10:34 us Madan Dodge MD ORDERABLES Final Result * UPPER ENDOSCOPY REPORT (02/25/2025 3:12 PM CDT) Narrative Procedure Note Garret Zuñiga DO - 02/25/2025 3:12 PM CDT [facility] GI Patient Name: Mary Jane Selby Procedure [...] needed Impression: - No specimens collected. Garret Cook DO Yogesh 01/21/2025 11:14:32 AM This report has been signed electronically. Number of Addenda: 0 Note Initiated On: 01/21/2025 10:33 AM Scope Withdrawal Time Scope In: Scope Out: [address] [place], [place] Garret Cook Yogesh DO GI PROCEDURE ORDERABLES Edite d Result - Final Performing Organization Address City/[facility] Co de Phone Number [facility] CLIA# [id number] [address] [place] [address] * (ABNORMAL) POC GLUCOSE (02/17/2025 7:10 AM CDT) Only the most recent of116 resultswithin the time period is included. GLUCOSE POC 128(H) 74 - 99 mg/dL 02/17/2025 7:10 AM CDT [facility] SPECIMEN SOURCE, GLUCOSE POC Whole Blood 02/17/2025 7:10 AM CDT [facility] Blood, whole 02/17/2025 7:10 AM CDT 02/17/2025 7:18 AM CDT us Lalo Bingham MD POINT OF CARE TESTING Michelle l Result Performing Organization Address [facility] Co de Phone Number [facility] CLIA# [id number] [address] [place], [place] [id number] [place] [address] * (ABNORMAL) CBC WITH DIFFERENTIAL (02/16/2025 4:50 AM CDT) Only the most recent of19 resultswithin the time period is included. WBC 6.8 4.8 - 10.8 K/uL 02/16/2025 8:47 AM CDT [facility] RBC 3.54(L) 4.20 - 5.40 M/uL 02/16/2025 8:47 AM CDT [facility] HEMOGLOBIN 10.4(L) 12.0 - 16.0 g/dL 02/16/2025 8:47 AM CDT [facility] HEMATOCRIT 34.0(L) 36.0 - 46.0 % 02/16/2025 8:47 AM CDT [facility] [employer] MCV 96.0 84.0 - 103.0 fL 02/16/2025 8:47 AM CDT [employer] MCH 29.4(L) 31.0 - 37.0 pg 02/16/2025 8:47 AM CDT [employer] MCHC 30.6 30.0 - 35.0 g/dL 02/16/2025 8:47 AM CDT [employer] RDW 15.5(H) 11.0 - 14.5 % 02/16/2025 8:47 AM CDT [employer] [facility] [employer] RDW-STDEV 54.6(H) 37.0 - 54.0 fL 02/16/2025 8:47 AM CDT [facility] PLATELETS 428 140 - 440 K/uL 02/16/2025 8:47 AM CDT [employer] [facility] [employer] MPV 9.6 8.9 - 12.8 fL 02/16/2025 8:47 AM CDT [employer] NEUTROPHILS 69 42 - 75 % 02/16/2025 8:47 AM CDT [facility] LYMPHOCYTES 19(L) 24 - 44 % 02/16/2025 8:47 AM CDT [facility] MONOCYTES 9 2 - 10 % 02/16/2025 8:47 AM CDT [facility] EOSINOPHILS 3 0 - 7 % 02/16/2025 8:47 AM CDT [facility] BASOPHILS 1 0 - 1 % 02/16/2025 8:47 AM CDT [facility] IMMATURE GRANULOCYTES 0 0 - 2 % 02/16/2025 8:47 AM CDT [facility] NEUTROPHIL ABSOLUTE 4.65 2.00 - 8.00 K/uL 02/16/2025 8:47 AM CDT [facility] LYMPHOCYTE ABSOLUTE 1.27 1.20 - 4.00 K/uL 02/16/2025 8:47 AM CDT [facility] MONOCYTE ABSOLUTE 0.60 0.10 - 0.60 K/uL 02/16/2025 8:47 AM CDT [facility] EOSINOPHIL ABSOLUTE 0.18 0.00 - 0.70 K/uL 02/16/2025 8:47 AM CDT [facility] BASOPHILS ABSOLUTE 0.07 0.00 - 0.20 K/uL 02/16/2025 8:47 AM CDT [facility] IMMATURE GRANULOCYTES ABSOLUTE 0.03 0.00 - 0.10 K/uL 02/16/2025 8:47 AM [facility] Blood Venipuncture / Unknown 02/16/2025 4:50 AM CDT 02/16/2025 8:15 AM CDT us Thi Ward ANP HEMATOLOGY ORDERABLES Michelle zamora Result [facility] CLIA #[id number] [facility] [place] [address] * (ABNORMAL) BASIC METABOLIC PANEL (02/13/2025 5:18 AM CDT) Only the most recent of8 resultswithin the time period is included. SODIUM 136 136 - 145 mmol/L 02/13/2025 9:17 AM CDT [facility] POTASSIUM 4.1 3.5 - 5.1 mmol/L 02/13/2025 9:17 AM CDT [facility] CHLORIDE 100 98 - 107 mmol/L 02/13/2025 9:17 AM CDT [facility] CO2 23 22 - 29 mmol/L 02/13/2025 9:17 AM CDT [facility] CALCIUM 8.9 8.8 - 10.2 mg/dL 02/13/2025 9:17 AM T [facility] BUN 25(H) 8 - 23 mg/dL 02/13/2025 9:17 AM CDT [facility] CREATININE 1.04(H) 0.51 - 0.95 mg/dL 02/13/2025 9:17 AM CDT [facility] Comment:The GFR result is no t clinically significant on patients <18 or >70 years of age. GLUCOSE 107(H) 74 - 99 mg/dL 02/13/2025 9:17 AM T [facility] GFR 54 mL/min/1. 73 sq meter 02/13/2025 9:17 AM CDT [facility] Comment:eGFR calculated with 2020 CKD-EPI equation. Vegetarian diet, extremely high or low muscle mass, and may affect results. Cystatin C with Glomerular Filtration Rate is a suitable alternative for these patients. ANION GAP 13 9 - 20 mmol/L 02/13/2025 9:17 AM CDT [facility] Blood BLOOD SPECIMEN / Unknown Venipuncture / Unknown 02/13/2025 5:18 AM CDT 02/13/2025 8:54 AM CDT Christo Cadena MD CHEMISTRY ORDERABLES Fi nal Result Performing Organization Address City/State/[facility] Co de Phone Number [facility] CLIA # [id number] [address] [place] [address] * Debridement (2025 2:00 PM CDT) Narrative [...] 136 - 145 mmol/L 02/02/2025 8:06 AM [facility] POTASSIUM 3.2(L) 3.4 - 4.5 mmol/L 02/02/2025 8:06 AM [facility] CHLORIDE 95(L) 98 - 107 mmol/L 02/02/2025 8:06 AM [facility] CO2 32(H) 22 - 29 mmol/L 02/02/2025 8:06 AM [facility] CALCIUM 8.7 8.6 - 10.0 mg/dL 02/02/2025 8:06 AM [facility] BUN 18 8 - 23 mg/dL 02/02/2025 8:06 AM [facility] CREATININE 1.07(H) 0.51 - 0.95 mg/dL 02/02/2025 8:06 AM [facility] Comment:The GFR result is no t clinically significant on patients <18 or >70 years of age. GLUCOSE 114(H) 74 - 99 mg/dL 02/02/2025 8:06 AM [facility] Comment:Reference range appl ies to fasting patients only. TOTAL PROTEIN 5.8(L) 6.6 - 8.7 g/dL 02/02/2025 8:06 AM [facility] ALBUMIN 3.0(L) 4.0 - 4.9 g/dL 02/02/2025 8:06 AM [facility] BILIRUBIN TOTAL 0.4 0.0 - 1.0 mg/dL 02/02/2025 8:06 AM [facility] ALKALINE PHOSPHATASE 175(H) 35 - 104 U/L 02/02/2025 8:06 AM [facility] AST 29 5 - 32 U/L 02/02/2025 8:06 AM [facility] ALT 35(H) 5 - 33 U/L 02/02/2025 8:06 AM [facility] GFR 52 mL/min/1.7 3 sq meter 02/02/2025 8:06 AM [facility] Comment:eGFR calculated with 2020 CKD-EPI equation. Vegetarian diet, extremely high or low muscle mass, and may affect results. Cystatin C with Glomerular Filtration Rate is a suitable alternative for these patients. ANION GAP 12 9 - 20 mmol/L 02/02/2025 8:06 AM [facility] Blood BLOOD SPECIMEN / Unknown Venipuncture / Unknown 02/02/2025 4:20 AM CDT 02/02/2025 7:47 AM CDT us Thi Ward ANP CHEMISTRY ORDERABLES Final Result [facility] CLIA #[id number] [facility] [place] [address] * XR CHEST PA OR AP 1 [...] There is no postprocedural pneumothorax. us Devora Ryan PA-C DIAGNOSTIC IMAGING ORDERA BLES Final Result * [...] proposed needle course. A 10 cm 5 Kazakh Yueh centesis catheter was inserted and approximately 400 [...] proposed needle course. A 10 cm 5 Kazakh Yueh centesis catheter was inserted and approximately 400 [...] 22(H) <11 ng/L 01/30/2025 11:55 PM CDT [facility] DELTA 6HR TROPONIN T 0 See Interp. 01/30/2025 11:55 PM CDT [facility] Blood Venipuncture / Unknown 01/30/2025 11:17 PM CDT 01/30/2025 11:23 PM CDT [facility] - 01/30/2025 11:55 PM CDT Troponin elevated. Delta indeterminate. Delay in collection of timed specimen beyond recommended collection interval. Results must be interpreted in clinical context. Deepti Wilburn MD CHEMISTRY ORDERABLES Final Resul t [facility] CLIA # [id number] [address] [place] [address] * (ABNORMAL) TROPONIN 2 HR, 5TH GEN (01/30/2025 7:44 PM CDT) Only the most recent of2 resultswithin the time period is included. TROPONIN T, 2 HR 5TH GEN 24(H) <=10 ng/L 01/30/2025 8:46 PM CDT [facility] DELTA 2HR TROPONIN T 2 See Interp. 01/30/2025 8:46 PM CDT [facility] Blood Venipuncture / Unknown 01/30/2025 7:44 PM CDT 01/30/2025 7:59 PM CDT [facility] - 01/30/2025 8:46 PM CDT Troponin elevated. Delta not changing. Delay in collection of timed specimen beyond recommended collection interval. Results must be interpreted in clinical context. Deepti Wilburn MD CHEMISTRY ORDERABLES Final Resul t Performing Organization Address [facility] Co de Phone Number [facility] CLIA # [id number] [address] [place] [address] * (ABNORMAL) TROPONIN BASELINE, 5TH GEN (01/30/2025 5:40 PM CDT) Only the most recent of2 resultswithin the time period is included. TROPONIN T, BASELINE 5TH GEN 22(H) <=10 ng/L 01/30/2025 6:17 PM CDT [facility] Blood Venipuncture / Unknown 01/30/2025 5:40 PM CDT 01/30/2025 5:44 PM CDT Narrative [facility] - 01/30/2025 6:17 PM CDT Troponin elevated. Deepti Wilburn MD CHEMISTRY ORDERABLES Final Resul t Performing Organization Address [facility] Co de Phone Number [facility] [employer] [facility] CLIA # [id number] [address] [place] [address] * (ABNORMAL) PROTIME-INR (01/30/2025 1:54 PM CDT) Only the most recent of3 resultswithin the time period is included. PROTIME 15.3(H) 12.7 - 14.9 Seconds 01/30/2025 2:31 PM CDT [facility] INR 1.1 0.8 - 1.2 01/30/2025 2:31 PM CDT [facility] Blood Venipuncture / Unknown 01/30/2025 1:54 PM CDT 01/30/2025 2:06 PM CDT Narrative [facility] - 01/30/2025 2:31 PM CDT Expected Values for INR: DVT/PE Goal INR 2.5; range 2.0 - 3.0 Valve Replacement Tissue Goal INR 2.5; range 2.0 - 3.0 Valve Replacement Mechanical Goal INR 3.0; range 2.5 - 3.5 POST-NV Goal INR 2.5; range 2.0 - 3.0 or Goal INR 3.0; range 2.5 - 3.5 Atrial Fibrillation Goal INR 2.5; range 2.0 - 3.0 Ischemic Stroke Goal INR 2.5; range 2.0 - 3.0 us Deepti Wilburn MD HEMATOLOGY ORDERABLES Final Resu lt [facility] CLIA # [id number] [address] [place] [address] * EKG 12-LEAD (01/30/2025 9:44 AM CDT) Only the most recent of3 resultswithin the time period is included. 01/30/2025 9:44 AM CDT Narrative INTERFACE SYSTEM - 01/31/2025 1:[address] [address] Test Date: 2025-01-30 Pat Name: MARY JANE SELBY Department: 12 Room: [address] [place] [address] Gender: Female 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: [id number] : 1945 Requested By: Order Number: [id number] Reading MD: Tanna Hernandez Measurements Intervals [place] Rate: 62 P: 11 PA: 166 QRS: -14 QRSD: 82 T: 52 QT: 494 QTc: 501 Interpretive Statements Normal sinus rhythm Inferior infarct, age undetermined Anterolateral infarct, age undetermined Prolonged QT Abnormal ECG Electronically Signed On 01-31-2025 13:02:01 CDT by Tanna Hernandez Procedure Note Provider, Historical - 01/31/[address] [address] Test Date: 2025-01-30 Pat Name: MARY JANE SELBY Department: 12 Room: [address] [place] [address] Gender: Female 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: 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 : 1945 Requested By: Order Number: [id number] Reading MD: Tanna Hernandez Measurements Intervals [place] Rate: 62 P: 11 PA: 166 QRS: -14 QRSD: 82 T: 52 QT: 494 QTc: 501 Interpretive Statements Normal sinus rhythm Inferior infarct, age undetermined Anterolateral infarct, age undetermined Prolonged QT Abnormal ECG Electronically Signed On 01-31-2025 13:02:01 CDT by Tanna Hernandez us Deepti Wilburn MD ECG ORDERABLES Final Result Performing Organization Address [facility] Co de Phone Number INTERFACE SYSTEM Refer to clinic/hospital department * (ABNORMAL) BRAIN NATRIURETIC PEPTIDE, BNP OR PROBNP (01/30/2025 9:41 AM CDT) PROBNP, N TERMINAL 3,689(H) 0 - 450 pg/mL 01/30/2025 10:29 AM CDT [facility] [employer] [facility] Comment: INTERPRETIVE COMMENT based on diagnosis: [...] ORDERABLES Final Resul t Performing Organization Address [facility] Co de Phone Number [facility] CLIA # [id number] [address] [address] [place] [address] * MAGNESIUM LEVEL (01/30/2025 9:41 AM CDT) Only the most recent of5 resultswithin the time period is included. MAGNESIUM 2.0 1.6 - 2.4 mg/dL 01/30/2025 10:29 AM CDT [facility] Blood Venipuncture / Unknown 01/30/2025 9:41 AM CDT 01/30/2025 9:49 AM CDT us Deepti Wilburn MD CHEMISTRY ORDERABLES Final Resul t [facility] CLIA # [id number] [address] [place] [id number] * ECHO TRANSESOPHAGEAL W DOPPLER AND COLOR FLOW (01/27/2025 10:48 AM CDT) EJECTION FRACTION 60 INTERFACE SYSTEM 01/27/2025 10:0 7 AM CDT Narrative INTERFACE SYSTEM - 01/27/2025 10:45 AM CDT [facility] Echocardiography Laboratory [address] [place] [address] Transesophageal Echocardiography Patient: Mary Jane Selby Study ECHO Steffi ID: JESSICA Gender: F : 1945 Age: 79 Room: [facility] Study 01/27/2025 Pt Inpatient Date: Status: Study 10:07:25 AM CSN #: [id number] Time: Ordering:Deepti Wilburn Truck Sales Representative: LEIDA Indications and History: Atrial fibrillation. Transient [...] septum: Agitated saline contrast study shows no pnaug-ft-uaro shunt. - Aortic valve: The valve is [...] transesophageal probe was inserted by the attending skid machine operator without difficulty. Image quality was adequate. Intravenous [...] Doppler. Agitated saline contrast study shows no lvgkf-yb-rnmo shunt. AORTIC VALVE: The valve is trileaflet. [...] ARTERY: The main pulmonary artery is normal-sized. [facility] are accredited with the Intersocietal Accreditation Commission - Echocardiography. Prepared and Electronically Authenticated Randall Eason MD Confirmed 01/27/2025 10:45 Procedure Note Randall Eason MD - 01/27/2025 [facility] Echocardiography Laboratory [address] [place] [address] Transesophageal Echocardiography Patient: Mary Jane Selby Study ECHO Steffi ID:TRANSESOPHEmil Gender: F : 1945 Age: 79 Room: [facility] Study 01/27/2025 Pt Inpatient Date: Status: Study 10:07:25 AM CSN #: [id number] Time: Ordering:Deepti Wilburn Truck Sales Representative: LEIDA Indications and History: Atrial fibrillation. Transient [...] septum: Agitated saline contrast study shows no oeyll-be-edxwacdya. - Aortic valve: The valve is trileaflet. [...] transesophageal probe was inserted by the attending skid machine operator without difficulty. Image quality was adequate. Intravenous [...] Doppler. Agitated saline contrast study shows no vfwyh-zi-xcvn shunt. AORTIC VALVE: The valve is trileaflet. [...] ARTERY: The main pulmonary artery is normal-sized. [facility] are accredited with theIntersocietal Accreditation Commission - Echocardiography. Prepared and Electronically Authenticated Randall Eason MD Confirmed 01/27/2025 10:45 us Deepti Wilburn MD US ORDERABLES Final Result INTERFACE SYSTEM Refer to [...] speech pathology report. Significant carotid artery calcification. us Deepti Wilburn MD DIAGNOSTIC IMAGING ORDERABLES Fi nal Result * (ABNORMAL) VITAMIN D 25 HYDROXY (01/23/2025 11:00 AM CDT) VITAMIN D TOTAL (25OH) 23(L) 30 - 100 ng/mL 01/23/2025 7:29 PM CDT [facility] Blood Venipuncture / Unknown 01/23/2025 11:00 AM CDT 01/23/2025 12:09 PM CDT Narrative [facility] - 01/23/2025 7:29 PM CDT Interpretive Data Chart: Deficient: 0 - 20 ng/mL Insufficient: 21 - 29 ng/mL Sufficient: 30 - 100 ng/mL Increased Risk of Hypercalciuria: >100 ng/ml Toxic: >150 ng/ml us Deepti Wilburn MD CHEMISTRY ORDERABLES Final Resul t Performing Organization Address [facility] Co de Phone Number [facility] CLIA # [id number] [address] [address] * (ABNORMAL) HEMOGLOBIN AND HEMATOCRIT (01/23/2025 8:34 AM CDT) Only the most recent of11 resultswithin the time period is included. HEMOGLOBIN 8.3(L) 12.0 - 16.0 g/dL 01/23/2025 9:59 AM CDT [facility] HEMATOCRIT 27.0(L) 36.0 - 46.0 % 01/23/2025 9:59 AM CDT [facility] Blood Venipuncture / Unknown 01/23/2025 8:34 AM CDT 01/23/2025 9:57 AM CDT us Garret Zuñiga DO HEMATOLOGY ORDERABLES Final R esult Performing Organization Address [facility]/ZIP Co de Phone Number [facility] CLIA # [id number] [facility] [address] * CARDIOLOGY REPORT (01/22/2025 10:27 AM CDT) us Garret Zuñiga DO CARDIAC SERVICES ORDERABLES E dited Result - Final * (ABNORMAL) MANUAL DIFFERENTIAL (01/22/2025 12:42 AM CDT) Only the most recent of5 resultswithin the time period is included. SEGMENTED NEUTROPHILS 73(H) 36 - 66 % 01/22/2025 2:06 AM T [facility] LYMPHOCYTES RELATIVE 12(L) 24 - 44 % 01/22/2025 2:06 AM T [facility] MONOCYTES RELATIVE 10 4 - 10 % 2024 2:06 AM [facility] METAMYELOCYTES RELATIVE 3(H) 0 - 1 % 01/22/2025 2:06 AM [facility] MYELOCYTES - REL (DIFF) 2(H) 0 - 1 % 01/22/2025 2:06 AM [facility] PLATELET EST. Adequate 01/22/2025 2:06 AM [facility] NEUTROPHILS ABSOLUTE COUNT 11.97(H) 2.00 - 8.00 K/uL 01/22/2025 2:06 AM [facility] LYMPHOCYTES ABSOLUTE 1.97 1.20 - 4.00 K/uL 01/22/2025 2:06 AM [facility] ATYPICAL LYMPHS ABSOLUTE 01/22/2025 2:06 AM [facility] MONOCYTES ABSOLUTE 1.64(H) 0.10 - 0.60 K/uL 01/22/2025 2:06 AM [facility] ANISOCYTOSIS 1+ /hpf 01/22/2025 2:06 AM [facility] POIKILOCYTES 1+ /hpf 01/22/2025 2:06 AM [facility] POLYCHROMASIA 1+ /hpf 01/22/2025 2:06 AM [facility] BASOPHILIC STIPPLING 1+ /hpf 01/22/2025 2:06 AM [facility] OVALOCYTES 1+ /hpf 01/22/2025 2:06 AM CDT [facility] TOTAL CELLS COUNTED IN DIFF 100 01/22/2025 2:06 AM CDT [facility] Blood Venipuncture / Unknown 01/22/2025 12:42 AM CDT 01/22/2025 1:23 AM CDT us Garret Zuñiga DO HEMATOLOGY ORDERABLES COM Fin al Result [facility] CLIA # [id number] [address] [address] [place] [address] * Critical Care (01/21/2025 4:22 PM CDT) [...] or life-threatening deterioration of the following conditions: 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 SURGICAL: Patient has a past surgical [...] PHYSICAL EXAM INITIAL VS BP: (!) 143/55 (01/12/25 1740), Heart Rate: 95 bpm (01/12/25 1801), Resp:17 (07/29/25 1740), Pulse: 88 (01/12/251739), Temp: 98.6 F (37 [...] POC 5.0 TCO2 (CALC) POC 21 (*) [facility] SITE POC ART PUNCT POC GLUCOSE - [...] are patent. Basilar artery is patent. The hot saw operator are patent. Three-vessel origin of the [...] remaining neck vasculature is patent. EKG: Intervals [place] Rate: 98 P: 68 PA: 182 QRS: 7 QRSD: 80 T: 87 [...] imminent orlife-threatening deterioration of the following conditions: ELECTORAL OFFICER failureor compromise and respiratory failure Critical care [...] PLAN OF CARE ED Course as of 01/13/251757 Tue Jan 12, 20251846 CT STROKE ACTIVATION Core R MCA infarct w/ ischemic penumbra , to occlusion or string sign Marlee with via [facility] [HM] [id number] Luis Acosta MD Physician Specialty: Family Practice Discharge Summary Signed Date of Service: 12/14/2024 2:35 PM [facility] HOSPITAL COURSE: Please see H and P for full details on admission, symptoms and initialcare. 79-year-old female with chronic right internal carotid artery occlusionand asymptomatic <50% left internal carotid artery stenosis in the settingof ongoing tobacco use disorder. Patient also has [place] 3 chroniclimb-threatening ischemia of bilateral lower extremities [...] pain. She was transferred from ICU to themedical floor today (12/13). Patient's family has been assigned and laquita plan to assist with discharge. Patient plans on living with [facility] for about one week post-discharge. She was resumed on labetalol 200 mg TID, clonidine 0.2 mg q8hr. Started onamlodipine 5 mg daily and lisinopril 20 mg bid prior to discharge. GoalSBP<140. [HM] 1855 CT STROKE ACTIVATION IMPRESSION: 1. Occlusion versus [...] occlusive diseaseas noted CTA head and neck. [HM] [address] results discussed with neurology who is aware of findings. Dr. Fallon Trendelenburg and fluids also recommends EEG and continuingantiepileptics. [] 1901 EKG 12 lead Intervals [place] Rate: 98 P: 68 PA: 182 QRS: 7 QRSD: 80 T: 87 QT: 390 QTc: 497 Interpretive Statements Normal sinus rhythm Nonspecific ST and T wave abnormality [HM] 1953 CT CHEST ABDOMEN PELVIS WO CONT [...] are recommended. 6. Additional findings as above. [HM] 1954 Discussed the case with Dr. Posada neurology regarding is patientendovascular candidate. She will review the imaging results. Hediscussed the case with Dr. Ramon neurology indicates patient is not anendovascular candidate and will put a functional consult note [HM] ED Course User Index [HM] Austyn Brown MD Medical Decision Making Amount [...] reasonable effort was made to provide timely srrcixwi-nq-xqhtrvuyuvz high patient volume. Medications Administered During the ED Stay from 01/12/2025 1731 to01/12/20252041 Date/Time Order Dose Route Action 01/12/2025 1815 CDT levETIRAcetam (KEPPRA) 500 mg/5 mL injection 2,000mg 2,000 mg IV Given 01/12/2025 1745 CDT fentaNYL PF (SUBLIMAZE) 50 mcg/mL injection 200 [id number] mcg IV Given 01/12/2025 1800 CDT propofoL [...] Heart Rate: (!) 112 bpm (01/13/251714), Resp:22 (01/13/251714), Pulse: (!) 111 (01/13/251714), Temp: 99.3 F (37.4 C) (01/13/251599), Temp src: Axillary (01/13/251599), SpO2: 93 %(01/13/251714) CLINICAL IMPRESSION Final diagnoses: [...] - 145 mmol/L 01/20/2025 2:13 PM CDT [facility] Blood Venipuncture / Unknown 01/20/2025 1:37 PM CDT 01/20/2025 1:43 PM CDT us Jeanmarie Min MD CHEMISTRY ORDERABLES Fin al Result [facility] [employer] [facility] CLIA # [id number] [address] [address] [place] [address] * BILIRUBIN DIRECT (01/20/2025 9:12 AM CDT) [facility] BILIRUBIN DIRECT 0.2 0.0 - 0.3 mg/dL 01/20/2025 9:57 AM CDT [facility] Blood Venipuncture / Unknown 01/20/2025 9:12 AM CDT 01/20/2025 9:16 AM CDT Jeanmarie Min MD CHEMISTRY ORDERABLES Fin al Result [facility] CLIA # [id number] [facility] [address] * (ABNORMAL) CBC WITHOUT DIFFERENTIAL (01/19/2025 6:22 PM CDT) Only the most recent of2 resultswithin the time period is included. [facility] WBC 19.2(H) 4.8 - 10.8 K/uL 01/19/2025 6:59 PM CDT [facility] NRBCS 7(H) <1 % 01/19/2025 6:59 PM CDT [facility] RBC 3.43(L) 4.20 - 5.40 M/uL 01/19/2025 6:59 PM CDT [facility] HEMOGLOBIN 10.1(L) 12.0 - 16.0 g/dL 01/19/2025 6:59 PM CDT [facility] HEMATOCRIT 31.4(L) 36.0 - 46.0 % 01/19/2025 6:59 PM CDT [facility] MCV 91.5 84.0 - 103.0 fL 01/19/2025 6:59 PM CDT [facility] MCH 29.4 27.0 - 34.0 pg 01/19/2025 6:59 PM CDT [facility] MCHC 32.2 30.0 - 35.0 g/dL 01/19/2025 6:59 PM CDT [facility] PLATELETS 219 140 - 440 K/uL 01/19/2025 6:59 PM CDT [facility] MPV 10.8 8.9 - 12.8 fL 01/19/2025 6:59 PM CDT [facility] RDW 15.1(H) 11.0 - 14.5 % 01/19/2025 6:59 PM CDT [facility] RDW-STDEV 49.6 37.0 - 54.0 fL 01/19/2025 6:59 PM CDT [facility] Blood Venipuncture / Unknown 01/19/2025 6:22 PM CDT 01/19/2025 6:50 PM CDT Garret Zuñiga DO HEMATOLOGY ORDERABLES Final R esult [facility] CLIA # [id number] [address] [place] [address] * TRANSFUSE RED BLOOD CELLS (01/19/2025 4:54 PM CDT) Only the most recent of2 resultswithin the time period is included. Garret Zuñiga DO BLOOD TRANSFUSION ORDERABLES Final Result * [...] the visualized colon. 3. Atrophic kidney. Jeanmarie Min MD CT ORDERABLES Final Re sult * UPPER ENDOSCOPY REPORT (01/19/2025 11:39 AM CDT) Narrative Procedure Note Garret Zuñiga DO - 01/19/2025 11:39 AM CDT [facility] GI Patient Name: Mary Jane Selby Procedure [...] Withdrawal Time Scope In: Scope Out: [address] [place], [place] Garret Zuñiga DO GI PROCEDURE ORDERABLES Final Result * PATHOLOGY (01/19/2025 11:19 AM CDT) CASE REPORT Surgical Pathology Report Case: [id number] Authorizing Provider: Garret Zuñiga DO Collected: 01/19/2025 11:19 AM Ordering Location: [facility] Received: 01/19/2025 02:13 PM Endoscopy Pathologist: Tania Machuca MD Specimen: Stomach, fundus 9:00 AM CDT [facility] FINAL DIAGNOSIS A. Stomach, fundus, biopsy - Gastric mucosa with reactive/reparative epithelial and stromal changes, consistent with resolving injury - No active gastritis, intestinal metaplasia, dysplasia, or malignancy Tania Machuca MD [id number] 9:00 AM CDT [facility] at 0900 CDT GROSS DESCRIPTION A. Received in formalin labeled [facility] -stomach biopsy fundus is a single fragment of arshad-pink soft tissue, 0.4 cm in greatest dimension. The specimen is submitted entirely in A1. Ольга Juradounod 9:00 AM CDT [facility] OPERATIVE PROCEDURE 1: ESOPHAGOGASTRODUODENOSCO PY 9:00 AM CDT [facility] CLINICAL INFORMATION YeahFundal biopsy 9:00 AM CDT [facility] COMMENT The [employer] voice-activated dictation system may have been used [...] determined by the Diagnostic Immunohistochemistry Laboratory of [facility] in compliance with CLIA'88 regulations. Some of these tests rely on the use of analyte specific reagents and are subject to specific labeling requirements by the FDA. All controls show appropriate reactivity. This testing was developed by the Diagnostic Immunohistochemistry Laboratory of [facility]. It has not been cleared or approved by the FDA. The FDA has determined that such clearance or approval is not necessary. 9:00 AM CDT [facility] Tissue ENTIRE STOMACH / Unknown Collection / Unknown 01/19/2025 11:19 AM CDT 01/19/2025 2:13 PM CDT Comment:Fundal biopsy Garret Zuñiga DO PATHOLOGY/CYTOLOGY ORDERABLES Final Result Performing Organization Address [facility] Co de Phone Number [facility] CLIA # [id number] [address] [address] [place] [address] * LACTIC ACID (01/19/2025 9:08 AM CDT) Only the most recent of5 resultswithin the time period is included. LACTIC ACID 1.8 <=2.0 mmol/L 01/19/2025 9:46 AM CDT [facility] Blood Venipuncture / Unknown 01/19/2025 9:08 AM CDT 01/19/2025 9:12 AM CDT Jeanmarie Min MD CHEMISTRY ORDERABLES Fin al Result Performing Organization Address City/[facility]/ZIP Co de Phone Number [facility] CLIA # [id number] [address] [place] [address] * PREPARE RED BLOOD CELLS (01/19/2025 8:46 AM CDT) Only the most recent of2 resultswithin the time period is included. COMPONENT TYPE [id number] [facility] [place] COMPONENT IDENTIFICATION [id number] [facility] [place] UNIT ABO O [facility] [place] UNIT RH NEG [facility] [place] CROSSMATCH Compatible [facility] [place] COMPONENT STATUS Transfused ME [facility] [place] COMPONENT EXPIRATION DATE/TIME [id number] [facility] [place] COMPONENT CODING SYSTEM 9500 [facility] [place] VOLUME, BLOOD PRODUCT 250 [facility] [place] Other, specify 01/19/2025 8: 46 AM CDT Jeanmarie Min MD LAB TRANSFUSION ORDERABL ES Edited Result - Final [facility] [place] CLIA#[id number] [address] [place] [address], * UNFRACTIONATED HEPARIN MONITORING (01/18/2025 12:39 PM CDT) Only the most recent of6 resultswithin the time period is included. [facility] ANTI-XA UNFRAC HEP 0.18 See Interpretation IU/mL 01/18/2025 1:28 PM CDT [facility] Blood Venipuncture / Unknown 01/18/2025 12:39 PM CDT 01/18/2025 1:09 PM CDT Narrative [facility] - 01/18/2025 1:28 PM CDT Therapeutic Range: PT/DVT Heparin Protocol 0.3 - 0.7 IU/ml Cardiac Heparin Protocol 0.3 - 0.6 IU/ml The reference range for this test is specific to the anticoagulant and is not appropriate for monitoring patients on a DOAC protocol. Jeanmarie Min MD HEMATOLOGY ORDERABLES Fi nal Result Performing Organization Address [facility]/ZIP Co de Phone Number [facility] CLIA # [id number] [address] [place] [address] * TYPE AND SCREEN (01/18/2025 6:24 AM CDT) ABO GROUP O 01/18/2025 7:33 AM CDT [facility] [place] RH (D) TYPE Negative 01/18/2025 7:33 AM CDT [facility] [place] ANTIBODY SCREEN Negative 01/18/2025 7:33 AM CDT [facility] [place] Blood Venipuncture / Unknown 01/18/2025 6:24 AM CDT 01/18/2025 6:39 AM CDT Reji Johns MD BLOOD BANK ORDERABLES E dited Result - Final Performing Organization Address City/[facility]/ZIP Co de Phone Number [facility] CLIA#[id number] [address] [place] [id number] [place] [address] * (ABNORMAL) IRON, TIBC, AND PERCENT SATURATION (01/18/2025 4:39 AM CDT) IRON 268(H) 37 - 145 ug/dL 01/18/2025 2:43 PM CDT [facility] TIBC 01/18/2025 2:43 PM CDT [facility] Comment:Unable to calculate due to low UIBC. IRON % SATURATION 01/18/2025 2:43 PM CDT [facility] Comment:Unable to calculate due to low UIBC. Blood Venipuncture / Unknown 01/18/2025 4:39 AM CDT 01/18/2025 5:01 AM CDT Jeanmarie Min MD CHEMISTRY ORDERABLES Fin al Result Performing Organization Address [facility] de Phone Number [facility] CLIA # [id number] [facility] [address] * (ABNORMAL) FERRITIN (01/18/2025 4:39 AM CDT) FERRITIN 457.4(H) 13.0 - 150.0 ng/mL 01/18/2025 2:43 PM CDT [facility] Blood Venipuncture / Unknown 01/18/2025 4:39 AM CDT 01/18/2025 5:01 AM CDT Jeanmarie Min MD CHEMISTRY ORDERABLES Fin al Result Performing Organization Address [facility] Phone Number [facility] CLIA # [id number] [address] [address] * PTT (01/16/2025 5:42 PM CDT) Only the most recent of2 resultswithin the time period is included. PTT 35.3 24.8 - 37.2 seconds 01/16/2025 6:30 PM CDT [facility] Blood Venipuncture / Unknown 01/16/2025 5:42 PM CDT 01/16/2025 5:50 PM CDT Narrative [facility] - 01/16/2025 6:30 PM CDT Therapeutic Range: Hi-level PE/DVT heparin protocol 80.1 - 95.0 sec Lo-level PE/DVT heparin protocol 70.1 - 85.0 sec Cardiac Heparin Protocol 70.1 - 100.0 sec Jeanmarie Min MD HEMATOLOGY ORDERABLES Fi nal Result Performing Organization Address [facility] Co de Phone Number [facility] CLIA # [id number] [address] [facility] [place] [address] * CT HEAD WO CONTRAST (01/16/2025 4:01 [...] No change since the prior study. Jeanmarie Min MD CT ORDERABLES Final Re sult * EEG VIDEO MONITORING (01/14/2025 9:02 AM CDT) Narrative Erna Aguilera MD - 01/14/2025 9:02 AM CDT Erna Aguilera MD 01/14/2025 9:07 AM [facility] EEG REPORT Mary Jane Selby [id number] DATE(s) OF TEST: 01/13/2025 - 01/14/2025 DATE OF REPORT: 01/14/2025 Start time: 12:25 PM, 01/13 Stop time: 8:06 AM, 01/14 HISTORY: 79-year-old female is being evaluated for altered mental status MEDICATIONS THAT COULD AFFECT THE EEG: Levetiracetam, propofol TECHNICAL SUMMARY: This is a digital video EEG recorded with 32 input channels on a Student[employer] system, reviewed with bipolar and referential montages [...] Erna Aguilera MD Epilepsy/ Clinical Neurophysiology/ Neurology [facility] Padmini Kennedy MD NEUROLOGY ORDERABLES Edited Resu lt - Final * VANCOMYCIN LEVEL RANDOM (01/14/2025 3:26 AM CDT) VANCOMYCIN, RANDOM 10.6 5.0 - 50.0 ug/mL 01/14/2025 4:31 AM CDT [facility] [employer] [facility] Blood Venipuncture / Unknown 01/14/2025 3:26 AM CDT 01/14/2025 3:57 AM CDT Narrative [facility] - 01/14/2025 4:31 AM CDT Vancomycin Therapeutic Ranges: Vancomycin Trough: 10 - 20 mcg/mL Vancomycin Peak: 25 - 50 mcg/mL us Kiana Suarez MD CHEMISTRY ORDERABLES Final Resul t [facility] [employer] [facility] CLIA # [id number] [address] [place] [address] [place] [address] * MRI BRAIN WO CONTRAST (01/13/2025 11:19 [...] (ABNORMAL) SEDIMENTATION RATE (01/13/2025 6:12 PM CDT) ESR (SEDIMENTATION RATE) 37(H) 0 - 20 mm/Hr 01/13/2025 6:37 PM CDT [facility] [employer] [facility] Blood Venipuncture / Unknown 01/13/2025 6:12 PM CDT 01/13/2025 6:17 PM CDT Kiana Suarez MD HEMATOLOGY ORDERABLES Final Resu lt [facility] [employer] [facility] CLIA # [id number] [address] [place] [address] * (ABNORMAL) GI PATHOGEN PCR PANEL (01/13/2025 3:51 PM CDT) Campylobacter by PCR DETECTED( A) Not Detected 01/13/2025 6:25 PM CDT [facility] Comment: Campylobacter enterocolitis is a self-limiting infection in otherwise healthy children and adults. In cases with high fever, bloody stools, and symptoms lasting greater than one week, antimicrobial treatment may be indicated and can reduce the symptoms and severity as well as reduce the likelihood of serious complications, such as Guillain-Kingston syndrome. Stool STOOL SPECIMEN / Unknown Collection / Unknown 01/13/2025 3:51 PM CDT 01/13/2025 4:05 PM CDT Narrative [facility] - 01/13/2025 6:25 PM CDT Positive GI [...] Cryptosporidium Cyclospora cayetanensis Entamoeba histolytica Giardia duodenalis us Kiana Suarez MD MICROBIOLOGY - GENERAL ORDERABLE S Final Result [facility] CLIA # [id number] [address] [address] * (ABNORMAL) C-REACTIVE PROTEIN (01/13/2025 3:51 PM CDT) CRP 60.8(H) 0.0 - 5.0 mg/L 01/13/2025 6:23 PM CDT [facility] Blood Venipuncture / Unknown 01/13/2025 3:51 PM CDT 01/13/2025 4:01 PM CDT Kiana Suarez MD CHEMISTRY ORDERABLES Final Resul t Performing Organization Address City[facility]/ZIP Co de Phone Number [facility] CLIA # [id number] [address] [facility] [place] [address] * AMMONIA LEVEL (01/13/2025 3:51 PM CDT) Pathologist [facility] AMMONIA 12.2 11.0 - 51.0 umol/L 01/13/2025 4:27 PM CDT [facility] Blood, venous Venipuncture / Unknown 01/13/2025 3:51 PM CDT 01/13/2025 4:14 PM CDT us Briana Serna NP CHEMISTRY ORDERABLES Final Result Performing Organization Address [facility] Co de Phone Number [facility] CLIA # [id number] [address] [facility] [place] [address] * ECHO COMPLETE W BUBBLE STUDY (01/13/2025 1:42 PM CDT) Pathologist [facility] EJECTION FRACTION 56 INTERFACE SYSTEM 01/13/2025 12:5 5 PM CDT Narrative INTERFACE SYSTEM - 01/13/2025 3:09 PM CDT [facility] Echocardiography Laboratory [address] [place] [address] Transthoracic Echocardiography Patient: Mary Jane Selby Study ECHO COMPLETE Nanci Kapadia ID: Gender: F : 1945 Age: 79 Room: [facility] Study 01/13/2025 Pt Inpatient Date: Status: Study 12:55:16 PM [facility] #: [id number] Time: Ordering:Padmini Kennedy Truck Sales Representative: Bibiana Castaneda RUST Indications and History: Chest Pain, unspecified. Risk [...] (H) tanya values outside specified reference range. [facility] are accredited with the [facility] Accreditation Commission - Echocardiography. Prepared and Electronically Authenticated Reji Mar Confirmed 01/13/2025 15:09 Procedure Note Reji Mar DO - 01/13/2025 [facility] Ech[facility] [address] [place] [address] Transthoracic Echocardiography Patient: Mary Jane Selby Study VINNIEJaja Kapadia ID: Gender: F : 1945 Age: 79 Room: [facility] Study 01/13/2025 Pt Inpatient Date: Status: Study 12:55:16 PM [facility] #: [id number] Time: Ordering:Padmini Kennedy Truck Sales Representative: Bibiana Castaneda RUST Indications and History: Chest Pain, unspecified. Risk [...] (H) tanya values outside specified reference range. [facility] are accredited with the[facility] Accreditation Commission - Echocardiography. Prepared and Electronically Authenticated Reji Mar Confirmed 01/13/2025 15:09 us Padmini Kennedy MD US ORDERABLES Final Result INTERFACE SYSTEM Refer to clinic/hospital department * (ABNORMAL) PNEUMONIA PATHOGEN PCR PANEL (01/13/2025 5:15 AM CDT) Escherichia coli by PCR DETECTED(A) Not Detected 01/13/2025 7:27 AM CDT [facility] Klebsiella pneumoniae group by PCR DETECTED(A) Not Detected 01/13/2025 7:27 AM CDT [facility] Staphylococcus aureus by PCR DETECTED(A) Not Detected 01/13/2025 7:27 AM CDT [facility] mecA/C and MREJ (methicillin-resi stance gene) by PCR NOT DETECTED Not Detected 01/13/2025 7:27 AM CDT [facility] Comment:Indicates presumptiv e methicillin (oxacillin) sensitivity. Sputum SPUTUM SPECIMEN OBTAINED BY ASPIRATION / Unknown Collection / Unknown 01/13/2025 5:15 AM CDT 01/13/2025 5:29 AM CDT Narrative [facility] - 01/13/2025 7:27 AM CDT NOTE: Per the dental specialist, this current lot of reagent may be insensitive for the full detection of adenoviruses. If adenovirus is within the differential diagnosis, the specimen may be submitted to a reference laboratory for further testing. If desired, order [id number] Lab Test, stating Adenovirus by PCR testing in the ordering comment and notify the Microbiology lab. A negative result does not exclude the possibility of infection. A semi-quantitative (copies/mL) result is provided for bacteria. This panel does not distinguish between nucleic acid from live or bacteria or virus. Culture is needed for recovery of bacterial isolates and antimicrobial susceptibility testing. The [employer] Array Pneumonia Pathogen PCR Panel is a [...] KPC NDM OXA-48-like VIM mecA/C and MREJ us Padmini Kennedy MD MICROBIOLOGY - GENERAL ORDERABLE S Final Result [facility] CLIA # [id number] [address] [place] [address] * (ABNORMAL) SPUTUM CULTURE WITH GRAM STAIN (01/13/2025 5:15 AM CDT) [facility] CULTURE ESCHERICHIA COLI(A) RASHEED MCG/ML 01/16/2025 9:24 AM CDT [facility] CULTURE KLEBSIELLA PNEUMONIAE(A) RASHEED MCG/ML 01/16/2025 9:24 AM CDT [facility] CULTURE STAPHYLOCOCCUS AUREUS(A) RASHEED MCG/ML 01/16/2025 9:24 AM CDT [facility] GRAM STAIN Smear contains </=10 squamous epithelial cells per low power field 01/16/2025 9:24 AM CDT [facility] GRAM STAIN >25 PMN WBC/LPF 9:24 AM T [facility] GRAM STAIN 4+ (Heavy) Gram positive cocci 01/16/2025 9:24 AM T [facility] GRAM STAIN 2+ (Few) Gram negative rods 01/16/2025 9:24 AM T [facility] Sputum SPUTUM SPECIMEN OBTAINED BY ASPIRATION / [...] TRIMETHOPRIM/ SULFAMETHOXAZOLE RASHEED MCG/ML <=10 mcg/mL: Susceptible Padmini Kennedy MD MICROBIOLOGY - GENERAL ORDERABLE S Final Result [facility] # [id number] [address] [place] [address] * TSH (01/13/2025 4:44 AM CDT) TSH 3.60 0.27 - 4.20 uIU/mL 01/13/2025 3:35 PM CDT [facility] Blood Venipuncture / Unknown 01/13/2025 4:44 AM CDT 01/13/2025 4:49 AM CDT Briana Genevieve Serna OUTREACH ANALYST CHEMISTRY ORDERABLES Final Result Performing Organization Address [facility] Co de Phone Number [facility] CLIA # [id number] [facility] [address] * (ABNORMAL) HEMOGLOBIN A1C (01/13/2025 4:44 AM CDT) HEMOGLOBIN A1C 6.6(H) <=5.6 % 01/14/2025 11:26 AM CDT [facility] [employer] [facility] EST. AVG GLUCOSE, A1C 143 mg/dL 01/14/2025 11:26 AM CDT [facility] Blood Venipuncture / Unknown 01/13/2025 4:44 AM CDT 01/13/2025 4:49 AM CDT Narrative [facility] - 01/14/2025 11:26 AM CDT HGB A1C INTERPRETATION NORMAL: <5.7% PRE-DIABETES: 5.7 - 6.4% DIABETES: 6.5% OR GREATER Padmini Kennedy MD CHEMISTRY ORDERABLES Final Resul t Performing Organization Address [facility] de Phone Number [facility] CLIA # [id number] [address] [place] [address] * (ABNORMAL) CK (01/13/2025 4:44 AM CDT) Only the most recent of2 resultswithin the time period is included. CK 565(H) 26 - 192 U/L 01/13/2025 3:45 PM CDT [facility] Blood Venipuncture / Unknown 01/13/2025 4:44 AM CDT 01/13/2025 4:49 AM CDT Briana Serna OUTREACH ANALYST CHEMISTRY ORDERABLES Final Result Performing Organization Address City/[facility] Co de Phone Number [facility] CLIA # [id number] [address] [place] [address] * (ABNORMAL) LIPID PANEL (01/13/2025 4:44 AM CDT) [facility] Signature CHOLESTEROL 90 <200 mg/dL 01/13/2025 5:29 AM CDT [facility] TRIGLYCERIDE 181(H) <150 mg/dL 01/13/2025 5:29 AM CDT [facility] HDL 35(L) 40 - 59 mg/dL 01/13/2025 5:29 AM CDT [facility] LDL CALCULATED 19 <100 mg/dL 01/13/2025 5:29 AM CDT [facility] NON-HDL CHOLESTEROL 55 <130 mg/dL 01/13/2025 5:29 AM CDT [facility] Blood Venipuncture / Unknown 01/13/2025 4:44 AM CDT 01/13/2025 4:49 AM CDT Narrative [facility] - 01/13/2025 5:29 AM CDT TOTAL CHOLESTEROL [...] Kennedy MD CHEMISTRY ORDERABLES Final Resul t [facility] CLIA # [id number] [address] [address] * POC LACTIC ACID (01/13/2025 3:03 AM CDT) Pathologist [facility] LACTIC ACID POC 1.1 <=2.0 mmol/L 01/13/2025 3:03 AM CDT [facility] SPECIMEN SOURCE, GASES POC Arterial 01/13/2025 3:03 AM CDT [facility] PUNC SITE POC ART PUNCT 01/13/2025 3:03 AM CDT [facility] Blood 01/13/2025 3:03 AM CDT 01/13/2025 3:05 AM CDT Narrative [facility] - 01/13/2025 3:03 AM CDT References ranges displayed are for Arterial samples. us Padmini Kennedy MD POINT OF CARE TESTING Final Resu lt [facility] CLIA # [id number] [facility] [address] * (ABNORMAL) BLOOD GAS ARTERIAL (01/13/2025 3:03 AM CDT) Only the most recent of2 resultswithin the time period is included. [facility] PH BLOOD POC 7.43 7.35 - 7.45 01/13/2025 3:03 AM CDT [facility] PCO2 POC 26(L) 35 - 45 mm Hg 01/13/2025 3:03 AM T [facility] PO2 POC 129(H) 80 - 105 mm Hg 01/13/2025 3:03 AM CDT [facility] HCO3 (CALC) POC 17(L) 22 - 26 mmol/L 01/13/2025 3:03 AM CDT [facility] HEMOGLOBIN POC 11.3(L) 12.0 - 18.0 g/dL 01/13/2025 3:03 AM [facility] BASE EXCESS POC -7(L) -2 - 3 mmol/L 01/13/2025 3:03 AM [facility] O2 SATURATION POC 100(H) 95 - 98 % 025 3:03 AM [facility] SODIUM POC 137(L) 138 - 146 mmol/L 01/13/2025 3:03 AM [facility] POTASSIUM POC 3.1(L) 3.5 - 4.9 mmol/L 01/13/2025 3:03 AM [facility] HEMATOCRIT POC 34(L) 38 - 51 % 01/13/2025 3:03 AM [facility] PH TEMP CORRECT 7.43 7.35 - 7.45 01/13/2025 3:03 AM [facility] PCO2 TEMP CORRECT 26(L) 35 - 45 mm Hg 01/13/2025 3:03 AM [facility] PO2 TEMP CORRECT 129(H) 80 - 105 mm Hg 01/13/2025 3:03 AM [facility] SPECIMEN SOURCE, GASES POC Arterial 01/13/2025 3:03 AM [facility] CALCIUM IONIZED POC 4.5(L) 4.8 - 5.2 mg/dL 01/13/2025 3:03 AM [facility] TCO2 (CALC) POC 18(L) 23 - 27 mmol/L 01/13/2025 3:03 AM [facility] FIO2 40.0 21.0 - 100.0 % 01/13/2025 3:03 AM [facility] Comment:FIO2 values reported <21.0 indicate O2 flow in Liters/minute. Values >/= 21.0 indicate percent O2. P/F RATIO POC 323 01/13/2025 3:03 AM [facility] Comment: P/F Ratio Interpretation ARDS SEVERITY PaO2/FiO2 Mild 200-300 Moderate 100-200 Severe <100 PEEP POC 8 01/13/2025 3:03 AM CDT [facility] SITE POC ART PUNCT 01/13/2025 3:03 AM CDT [facility] Blood, arterial 01/13/2025 3 :03 AM CDT 01/13/2025 3:05 AM CDT us Padmini Kennedy MD ABG ORDERABLES Final Result Performing Organization Address [facility]/ZIP Co de Phone Number [facility] CLIA # [id number] [address] [address] [place] [address] * BLOOD CULTURE (01/13/2025 12:45 AM CDT) Only the most recent of2 resultswithin the time period is included. Pathologist [facility] BLOOD CULTURE No growth 01/18/2025 1:06 AM CDT [facility] Blood (Peripheral) Venipuncture / Unknown 01/13/2025 12:45 AM CDT 01/13/2025 12:49 AM CDT us Padmini Kennedy MD MICROBIOLOGY - GENERAL ORDERABLE S Final Result Performing Organization Address [facility] de Phone Number [facility] CLIA # [id number] [address] [address] * TICK-BORNE PANEL, PCR (01/13/2025 12:15 AM CDT) Pathologist [facility] EHRLICHIA CHAFFEENSIS PCR NOT DETECTED 01/18/2025 12:17 AM CDT [facility] Comment: REFERENCE RANGE: NOT DETECTED This test was developed and its analytical performance characteristics have been determined by [employer]. It has not been cleared or approved by FDA. This assay has been validated pursuant to the CLIA regulations and is used for clinical purposes. BABESIA MICROTI PCR NOT DETECTED 09/2024 12:17 AM CDT [facility] Comment: REFERENCE RANGE: NOT DETECTED This test was developed and its analytical performance characteristics have been determined by [facility]. It has not been cleared or approved by FDA. This assay has been validated pursuant to the CLIA regulations and is used for clinical purposes. ANAPLASMA PHAGOCYTOPHILUM PCR NOT DETECTED 01/18/2025 12:17 AM CDT [facility] Comment: REFERENCE RANGE: NOT DETECTED This test was developed and its analytical performance characteristics have been determined by [facility]. It has not been cleared or approved by FDA. This assay has been validated pursuant to the CLIA regulations and is used for clinical purposes. EHRLICHIA EWINGII DNA, QL REAL TIME PCR NOT DETECTED 01/18/2025 12:17 AM CDT [facility] Comment: REFERENCE RANGE: NOT DETECTED This test was developed and its analytical performance characteristics have been determined by [facility]. It has not been cleared or approved by FDA. This assay has been validated pursuant to the CLIA regulations and is used for clinical purposes. BORRELIA MIYAMOTOI PCR NOT DETECTED 01/18/2025 12:17 AM CDT [facility] Comment: REFERENCE RANGE: NOT DETECTED This test detects but does not distinguish between B. miyamotoi and B. hermsii. This test was developed and its analytical performance characteristics have been determined by [facility]. It has not been cleared or approved by FDA. This assay has been validated pursuant to the CLIA regulations and is used for clinical purposes. COMMENT INFECTIOUS DISEASE SEE COMMENT 01/18/2025 12:17 AM CDT [facility] Comment: A negative result does not exclude [...] 01/18/2025 12:17 AM CDT [facility] Comment: REFERENCE RANGE: NOT DETECTED This test was developed and its analytical performance characteristics have been determined by [facility]. It has not been cleared or approved by FDA. This assay has been validated pursuant to the CLIA regulations and is used for clinical purposes. For additional information, please refer to https://education.Achieved.co.indidebt/faq/ged584 (This link is being provided for informational/ educational purposes only.) Blood Venipuncture / Unknown 01/13/2025 12:15 AM CDT 01/13/2025 12:20 AM CDT Narrative [facility] - 01/18/2025 12:17 AM CDT Performing Organization Information: Site ID: [id number] Name: [facility], Address: [address] [place], [place] [id number] Director: Sunitha Lopez MD,PhD,MADISYN Performing Organization Information: Site ID: EZ Name: [facility], Address: [address] [place] [address] Director: Sunitha Lopez MD,PhD,MADISYN Performing Organization Information: Site ID: EZ Name: [facility], Address: [address] [place], [place] [id number] Director: Sunitha Lopez MD,PhD,MADISYN Performing Organization Information: Site ID: EZ Name: [facility], Address: [address] [place], [place] [id number] Director: Sunitha Lopez MD,PhD,MADISYN Performing Organization Information: Site ID: EZ Name: [facility], Address: [address] [place] [address] Director: Sunitha Lopez MD,PhD,MADISYN us Padmini Kennedy MD CHEMISTRY ORDERABLES Final Resul t [facility] * CHAPIS MSN SPOTTED FEVER IGG/IGM (01/13/2025 12:15 AM CDT) RMSF IGG Not Detected Not Detected 01/19/2025 6:38 PM CDT [facility] RMSF IGM Not Detected Not Detected 01/19/2025 6:38 PM CDT [facility] Blood Venipuncture / Unknown 01/13/2025 12:15 AM CDT 01/13/2025 12:20 AM CDT Narrative [facility] - 01/19/2025 6:38 PM CDT Performing Organization Information: Site ID: AMD Name: [facility] Address: [address] [place] [address] [place] [address] Director: Cuba Chang M.D.,PhD Padmini Kennedy MD CHEMISTRY ORDERABLES Final Resul t [facility] * XR ABDOMEN [...] Austyn Brown MD URINE ORDERABLES Final Result [facility] CLIA # [id number] [address] [place] [address] [place] [address] * (ABNORMAL) DRUG SCREEN, URINE (01/12/2025 7:00 PM CDT) [facility] AMPHETAMINE QUAL, URINE Presumptive Positive(A) Negative 01/12/2025 7:54 PM CDT [facility] BARBITURATE QUAL, URINE Negative Negative 01/12/2025 7:54 PM CDT [facility] BENZODIAZEPINE QUAL, URINE Presumptive Positive(A) Negative 01/12/2025 7:54 PM CDT [facility] COCAINE QUAL URINE Negative Negative 01/12/2025 7:54 PM CDT [facility] OPIATE QUAL, URINE Negative Negative 01/12/2025 7:54 PM CDT [facility] CANNABINOIDS QUAL, URINE Negative Negative 01/12/2025 7:54 PM CDT [facility] OXYCODONE QUAL, URINE Negative Negative 01/12/2025 7:54 PM CDT [facility] METHADONE QUAL, URINE Negative Negative 01/12/2025 7:54 PM CDT [facility] FENTANYL QUAL, URINE Presumptive Positive(A) Negative 01/12/2025 7:54 PM CDT [facility] CREATININE, URINE 51.9 29.0 - 226.0 mg/dL 01/12/2025 7:54 PM CDT [facility] Comment:Reference Range vari es with fluid intake and diet. Urine URINE SPECIMEN OBTAINED BY CLEAN CATCH PROCEDURE / Unknown Collection / Unknown 01/12/2025 7:00 PM CDT 01/12/2025 7:05 PM CDT Narrative [facility] - 01/12/2025 7:54 PM CDT This test [...] Negative 300 ng/mL Fentanyl Negative 5 ng/mL Austyn Brown MD URINE ORDERABLES Final Result [facility] CLIA # [id number] [address] [place] [address] * (ABNORMAL) URINALYSIS WITH REFLEX MICROSCOPIC (01/12/2025 7:00 PM CDT) COLOR UA Yellow Pale to Dark Yellow 01/12/2025 7:24 PM CDT [facility] CLARITY UA Clear Clear 01/12/2025 7:24 PM CDT [facility] SPECIFIC GRAVITY UA 1.019 1.003 - 1.035 01/12/2025 7:24 PM T [facility] PH UA 6.0 5.0 - 8.0 01/12/2025 7:24 PM T [facility] LEUKOCYTE ESTERASE UA Negative Negative 01/12/2025 7:24 PM CDT [facility] NITRITE UA Negative Negative 01/12/2025 7:24 PM CDT [facility] PROTEIN UA 1+(A) Negative 01/12/2025 7:24 PM CDT [facility] GLUCOSE UA Negative Negative 01/12/2025 7:24 PM CDT [facility] KETONES UA Negative Negative 01/12/2025 7:24 PM CDT [facility] UROBILINOGEN UA <2.0 <2.0 mg/dL 7:24 PM T [facility] BILIRUBIN UA Negative Negative 01/12/2025 7:24 PM CDT [facility] BLOOD UA 1+(A) Negative 01/12/2025 7:24 PM CDT [facility] WBC UA 0-2 0 - 2 /hpf 01/12/2025 7:24 PM CDT [facility] RBC UA 0-2 0 - 2 /hpf 01/12/2025 7:24 PM CDT [facility] BACTERIA UA Negative Negative /hpf 01/12/2025 7:24 PM CDT [facility] EPITHELIAL CELLS, URINE 0-5 0 - 5 /hpf 01/12/2025 7:24 PM CDT [facility] HYALINE CAST 6-10(A) None Seen, 0-2 /lpf 01/12/2025 7:24 PM CDT [facility] Urine URINE SPECIMEN OBTAINED BY CLEAN CATCH PROCEDURE / Unknown Collection / Unknown 01/12/2025 7:00 PM CDT 01/12/2025 7:05 PM CDT Austyn Brown MD URINE ORDERABLES Final Result Performing Organization Address City[facility]/ZIP Co de Phone Number [facility] CLIA # [id number] [address] [place] [address] * (ABNORMAL) PHOSPHORUS (01/12/2025 6:50 PM CDT) PHOSPHORUS 4.6(H) 2.5 - 4.5 mg/dL 01/12/2025 7:50 PM CDT [facility] Blood Venipuncture / Unknown 01/12/2025 6:50 PM CDT 01/12/2025 7:00 PM CDT Austyn Brown MD CHEMISTRY ORDERABLES F inal Result [facility] CLIA # [id number] [address] [facility] [place] [address] * (ABNORMAL) HEPATIC FUNCTION PANEL (01/12/2025 6:50 PM CDT) Pathologist [facility] TOTAL PROTEIN 7.4 6.4 - 8.3 g/dL 01/12/2025 7:50 PM CDT [facility] ALBUMIN 4.0 3.5 - 5.2 g/dL 01/12/2025 7:50 PM CDT [facility] BILIRUBIN TOTAL 0.3 0.0 - 1.0 mg/dL 01/12/2025 7:50 PM CDT [facility] BILIRUBIN DIRECT <0.1 0.0 - 0.3 mg/dL 01/12/2025 7:50 PM CDT [facility] Comment:Hemolyzed: Result un reliable. ALKALINE PHOSPHATASE 191(H) 35 - 104 U/L 01/12/2025 7:50 PM CDT [facility] AST 58(H) 10 - 35 U/L 01/12/2025 7:50 PM CDT [facility] Comment:Hemolysis present. R esult may be falsely elevated. ALT 28 <=35 U/L 01/12/2025 7:50 PM CDT [facility] Comment:Hemolysis present. R esult may be falsely elevated. Blood Venipuncture / Unknown 01/12/2025 6:50 PM CDT 01/12/2025 7:00 PM CDT us Austyn Brown MD CHEMISTRY ORDERABLES F inal Result [facility] CLIA # [id number] [address] [address] [place] [address] * CT CHEST ABDOMEN PELVIS WO CONT [...] exam. 6. Additional minor findings as above. us Austyn Brown MD CT ORDERABLES Final Result [...] as above without evidence of acute fracture. us Austyn Brown MD CT ORDERABLES Final Result [...] are patent. Basilar artery is patent. The hot saw operator are patent. Three-vessel origin of the [...] are patent. Basilar artery is patent. The hot saw operator are patent. Three-vessel origin of the [...] Final Result from Last 3 Months Insurance [employer] [facility] * Guarantor: MARY JANE SELBY Account Type Relation to Patient Date of Phone Billing Address Personal/Family [address] [id number] RX [employer] Medicare Part D RX [employer] (INTERNAL) [facility] Advance Directives For more information, please contact: [phone] Documents on File Type Date Recorded Patient Performing Arts Road Manager Expl anation Advance Directive POA 08/09/2020 12:19 [...] 4:07 PM 08/31/2021 3:57 PM Care Teams Before And After School Daycare Worker Relationship Specialty Start Date End Date Jean Claude Nayak MD [address] [place] [address] [phone] PCP - General Family Practice 08/14/21
--- OUTSIDE RECORDS SUMMARY | 2025-03-23 14:21 | XMS_ITS | Encounter Summary ---
Author Organization [facility] Address [address] [place] [address] Care Team Providers Care Kitchen Manager Name Role Phone Jean Claude Nayak MD Primary Care Provider [phone] Reason for Visit * Reason Comments Med Refill Encounter Details Date Type Department Care Team (Late st Contact Info) Description 03/14/2025 Refill [facility] Physical Med and Rehab [facility] [address] [place] [phone] Lalo Bingham MD [address] [facility] [address] [place] [address] Social History Tobacco Use Types Packs/Day Years [...] on file Legal Sex Female 3:08 PM MICROPALEONTOLOGIST Gender Identity Not on file Sexual Orientation Not on file documented as of this encounter Plan of Treatment Upcoming Encounters Date Type Department Care Team (Late st Contact Info) Description 07/20/2025 9:00 AM MICROPALEONTOLOGIST Office Visit [facility] [address] [facility] [address] [place] [address] Jorden Arshad MD [address] [facility] [address] [place] [address] 09/13/2025 2:00 PM CDT Ancillary Procedure [facility] V[facility] Lab and [facility]in [facility]- [place] [address] [place] [address] Romero Isaac MD [address] [place] [address] 09/13/2025 2:30 PM CDT Ancillary Procedure [facility] V[facility] Lab and [facility]in [facility]- [place] [address] [place] [address] Liss Sher PA-C [address] [place] [address] 09/13/2025 3:30 PM CDT Office Visit [facility] Vascular Surgery [place] [address] [place] [address] Romero Isaac MD [address] [place] [address] Ale Carrillo DO [address] [place] [address] documented as of this encounter Visit Diagnoses Not on filedocumented in this encounter Care Teams Kitchen Manager Relationship Specialty Start Date End Date Jean Claude Nayak MD [facility] [place] [address] PCP - General Family Practice 08/14/21 documented as of this encounter
--- OUTSIDE RECORDS SUMMARY | 2025-03-23 14:21 | XMS_ITS | Encounter Summary ---
Author Organization [facility] Address [address] [place] [address] Care Team Providers Care Recreation Attendant Name Role Phone Andrey Lanza MD Primary Care Provider Emily le Encounter Details Date Type Department Care Team (Latest Contact Info) Description 09/13/2000 Outpatient Historical [facility] Gen Spec Surg [place] [address] [place] [address] Mark Drummond MD NO ADDRESS ON FILE Chronic cholecystitis (Primary Dx) Social History Tobacco Use Types Packs/Day Years Used Date Smoking Tobacco: Never Assessed Comments Unknown Sex and Gender Information Value Date Recorded Sex Assigned at Not on file Legal Sex Female 3:41 AM ANNUAL GIVING DIRECTOR Gender Identity Not on file Sexual Orientation Not on file documented as of this encounter Plan of Treatment Not on file documented as of this encounter Visit Diagnoses Diagnosis Chronic cholecystitis- Primary documented in this encounter Care Teams Recreation Attendant Relationship Specialty Start Date End Date Andrey Lanza MD NO ADDRESS ON FILE PCP - General 11/27/07 documented as of this encounter
--- OUTSIDE RECORDS SUMMARY | 2025-03-23 14:21 | XMS_ITS | Encounter Summary ---
Author Organization [facility] Address [address] [facility]: Epic Prelude ADT [place] [address] Care Team Providers Care Morning Nanny Name Role Phone Andrey Lanza MD Primary [...] on file Legal Sex Female 3:41 AM PICKLE SOLUTION MAKER Gender Identity Not on file Sexual Orientation Not on file documented as of this encounter Plan of Treatment Not on file documented as of this encounter Visit Diagnoses Not on filedocumented in this encounter Care Teams Morning Nanny Relationship Specialty Start Date End Date Andrey Lazna MD NO ADDRESS ON FILE PCP - General 11/27/07 documented as of this encounter
--- OUTSIDE RECORDS SUMMARY | 2025-03-23 14:21 | XMS_ITS | Encounter Summary ---
Author Organization [facility] Address [address] [place] [address] Care Team Providers Care Management Information Systems Director Name Role Phone Andrey Lanza MD Primary [...] Expiration Date Visits Re quested Visits Authorized [id number] Closed 08/03/2020 09/03/2021 1 1 S RECRUITMENT SPECIALIST * Radiology Services (Routine) - Closed Specialty Diagnoses / Procedures Referred By Contac t Referred To Contact Diagnoses Aortoiliac occlusive disease (CMS/HCC) Iliac artery aneurysm Iliac artery stenosis, bilateral Penetrating ulcer of aorta Procedures US AORTA Rochelle Rodriguez NP Phone: tel: fax: Referral ID Status Reason Start Date Expiration Date Visits Re quested Visits Authorized [id number] Closed 08/03/2020 09/03/2021 1 1 S RECRUITMENT SPECIALIST Encounter Details Date Type Department Care Team (Late st Contact Info) Description 08/03/2020 Ancillary Orders [facility] Cardiac Thoracic Vascular Surg [place] [address] [place] [phone] Rochelle Rodriguez, CRISTIANA [address] [phone] Aortoiliac occlusive disease (CMS/HCC); Iliac artery aneurysm; [...] on file Legal Sex Female 3:41 AM SALES RECRUITMENT SPECIALIST Gender Identity Not on file Sexual Orientation Not on file documented as of this encounter Plan of Treatment Not on file documented as of this encounter Results * US AORTA IVC [employer] (08/09/2020 1:25 PM SALES RECRUITMENT SPECIALIST) Anatomical Region Laterality Modality Abdomen Ultrasound 08/09/2020 1:25 PM SALES RECRUITMENT SPECIALIST Narrative 08/10/2020 12:15 PM SALES RECRUITMENT SPECIALIST See the ultrasound of the aorta obtained on the same day for the images and full report (accession number [id number]). Procedure Note Barron Ca MD - 08/10/2020 See the ultrasound of the aorta obtained on the same day for the images and full report (accession number [id number]). us Rochelle Rodriguez NP US ORDERABLES Final Resul t * US AORTA (08/09/2020 1:25 PM SALES RECRUITMENT SPECIALIST) Anatomical Region Laterality Modality Abdomen Ultrasound 08/09/2020 1:25 PM SALES RECRUITMENT SPECIALIST Impressions 08/11/2020 6:14 AM SALES RECRUITMENT SPECIALIST IMPRESSION: 1. Endovascular repair of the infrarenal [...] cm in diameter. Narrative 08/11/2020 6:14 AM SALES RECRUITMENT SPECIALIST EXAM: US AORTA, DIAGNOSIS/REASON FOR EXAM: Aortoiliac [...] aorta documented in this encounter Care Teams Management Information Systems Director Relationship Specialty Start Date End Date Andrey Lanza MD NO ADDRESS ON FILE PCP - General 11/27/07 documented as of this encounter
--- OUTSIDE RECORDS SUMMARY | 2025-03-23 14:21 | XMS_ITS | Encounter Summary ---
Author Organization [facility] Address [address] [place] [address] Care Team Providers Care Leather Production Worker Name Role Phone Andrey Lanza MD [...] on file Legal Sex Female 3:41 AM BASIC COMBATANT SWIMMER Gender Identity Not on file Sexual Orientation Not on file documented as of this encounter Plan of Treatment Not on file documented as of this encounter Visit Diagnoses Diagnosis Calculus of bile duct without mention of cholecystitis or obstruction- Primary documented in this encounter Care Teams Leather Production Worker Relationship Specialty Start Date End Date Andrey Lanza MD NO ADDRESS ON FILE PCP - General 11/27/07 documented as of this encounter
--- OUTSIDE RECORDS SUMMARY | 2025-03-23 14:21 | XMS_ITS | Clinical Summary ---
Author Organization [facility] Address [address] [place] [address] Care Team Providers Care Bindery Machine Setter/Set Up Operator Name Role Phone Andrey Lazna MD Primary Care Provider Unavailab le Allergies [...] 06/26/2020 Pseudoaneurysm following procedure 05/17/2020 Atherosclerosis of [place] of both lower extremities with [...] on file Legal Sex Female 3:41 AM TRANSMITTER ENGINEER IN CHARGE Gender Identity Not on file Sexual Orientation Not on file Last Filed Vital Signs Vital Sign Reading Time Taken Comments Blood Pressure 128/60 11/18/2020 11:08 AM CDT Pulse 66 11/18/2020 11:08 AM CDT Temperature 37.3 C (99.1 F) 06/26/2020 8:02 AM TRANSMITTER ENGINEER IN CHARGE Respiratory Rate 18 06/26/2020 8:02 AM TRANSMITTER ENGINEER IN CHARGE Oxygen Saturation 96% 11/18/2020 11:08 AM CDT Inhaled Oxygen Concentration - - Weight 61.2 kg (135 lb) 11/18/2020 11:08 AM CDT Height 154.9 cm (5' 1 ) 08/09/2020 12:46 PM TRANSMITTER ENGINEER IN CHARGE Body Mass Index 25.51 08/09/2020 12:46 PM TRANSMITTER ENGINEER IN CHARGE Plan of Treatment Health Maintenance Due Date Last Done Comments DTAP/TDAP/TD VACCINES (1 - Tdap) 02/02/1963 PNEUMOCOCCAL VACCINE 50+ YEARS (1 of 2 - PCV) 02/02/19 63 ZOSTER VACCINE (1 of 2) 02/02/1994 OSTEOPOROSIS SCREENING 02/02/2009 RSV VACCINE (60+ or ) (1 - 1-dose 75+ series) 02/02/2019 INFLUENZA VACCINE (#1) 2025 03/02/2020 Medical Devices Implanted Type Area Telephone Diaphragm Assembler Device Identifier Shelf Expiration Date Model / Serial / Lot Closure Perclose Proglide 10041 - [id number] Implanted:Qty: 1 on 06/20/2020 by Marito Boyer MD at [facility] Closure Device Left: Arterial LEE- VASC DEVICE [id number] 02/14/2022 20929 / / [id number] Closure Perclose Proglide 20224 - [id number] Implanted:Qty: 1 on 06/20/2020 by Marito Boyer MD at [facility] Closure Device Left: Arterial LEE- VASC DEVICE [id number] 02/14/2022 19383 / / 06/18/03 1 Angio-Seal Vip Closure Dev [id number] - [id number] Implanted:Qty: 1 on 06/20/2020 by Marito Boyer MD at [facility] Closure Device Right: Groin LEE [employer] [id number] 02/14/2021 [id number] / / [id number] Coil Azur Cx Detach 035 19cm [id number] - [id number] Implanted:Qty: 1 on 06/20/2020 by Marito Boyer MD at [facility] Coil Right: Arterial TERUMO- Relationship Science DANIEL 06/16/2024 [id number] Description:Right hypogastri c artery Coil Azur Cx Detach 035 19cm [id number] - [id number] Implanted:Qty: 1 on 06/20/2020 by Marito Boyer MD at [facility] Coil Right: Arterial TERUMO- MED DANIEL 11/14/2024 [id number] Description:Right hypogastri c artery Stent Afx Ii Bifur Vhs24-72/I16-4 0 - [id number] Implanted:Qty: 1 on 06/20/2020 by Marito Boyer MD at [facility] Stent N/A: Aorta [employer] 11/26/2022 SNH61-59 /I16-40 / [id number] / Stent Lifestream [id number] - [id number] Implanted:Qty: 1 on 06/20/2020 by Marito Boyer MD at [facility] Stent Right: Iliac Artery CR BARD- DERRICK [employer] INC [id number] 01/14/2023 [id number] / / [id number] Description:Right external i liac Stent Lifestream [id number] - [id number] Implanted:Qty: 1 on 06/20/2020 by Marito Boyer MD at [facility] Stent Right: Iliac Artery CR BARD- [employer]ERRICK [employer] [id number] 03/16/2023 [id number] 858 / / [id number] Stent Lifestream Cvr [id number] - [id number] Implanted:Qty: 1 on 06/20/2020 by Marito Boyer MD at [facility] Stent Right: Iliac Artery CR BARD[employer] [id number] 06/16/2022 [id number] 958 / / [id number] Stent Lifestream Cvr [id number] - [id number] Implanted:Qty: 1 on 06/24/2020 by Marito Boyer MD at [facility] Stent Left: Leg CR BARD- DERRICK [employer] [id number] / / Insurance [facility] DUAL COMPLETE MCR PPO D-SNP RX OPTUM RX Member Subscriber Plan / Payer (Ef fective 2015-Present) Name:Viry Castillo Relation to Subscriber:Self Name:VIRY CASTILLO Payer ID:Not on file Group ID:[id number] Type:RX Medicare Part D Address: [place] Advance Directives For more information, please contact: [phone] Documents on File Type Date Recorded Patient Head Of Integrated Media Expl anation Advance Directive POA 08/09/2020 12:19 PM Advance Directive POA * Full Code (Latest Code Status on File) Date Activated Date Inactivated Comments 06/25/2020 8:11 AM 06/26/2020 1:02 PM * Full Code Date Activated Date Inactivated Comments 06/20/2020 10:48 AM 06/20/2020 10:29 PM Care Teams Bindery Machine Setter/Set Up Operator Relationship Specialty Start Date End Date Andrey Lanza MD NO ADDRESS ON FILE PCP - General 11/27/07
--- OUTSIDE RECORDS SUMMARY | 2025-03-23 14:21 | XMS_ITS | Encounter Summary ---
Author Organization [facility] Address [address] [facility] Attn: Epic Prelude ADT [place] [address] Care Team Providers Care Bite Block Maker Name Role Phone Andrey Lanza MD Primary [...] on file Legal Sex Female 3:41 AM CASING INSPECTOR Gender Identity Not on file Sexual Orientation Not on file documented as of this encounter Plan of Treatment Not on file documented as of this encounter Visit Diagnoses Not on filedocumented in this encounter Care Teams Bite Block Maker Relationship Specialty Start Date End Date Andrey Lanza MD NO ADDRESS ON FILE PCP - General 11/27/07 documented as of this encounter
--- OUTSIDE RECORDS SUMMARY | 2025-03-23 14:21 | XMS_ITS | Encounter Summary ---
Author Organization [facility] Address [address] [place] [address] Care Team Providers Care Registered Radiographer Name Role Phone Andrey Lanza MD Primary Care Provider Emily le Encounter Details Date Type Department Care Team (Latest Contact Info) Description 10/24/2000 Outpatient Historical [facility] GASTR[facility]OLOGY Mark Chavez MD NO ADDRESS ON FILE Obstruction of bile duct (CMS/HCC) (Primary Dx) Social History Tobacco Use Types Packs/Day Years Used Date Smoking Tobacco: Never Assessed Comments Unknown Sex and Gender Information Value Date Recorded Sex Assigned at Not on file Legal Sex Female 3:41 AM REPORT CLERK Gender Identity Not on file Sexual Orientation Not on file documented as of this encounter Plan of Treatment Not on file documented as of this encounter Visit Diagnoses Diagnosis Obstruction of bile duct (CMS/HCC)- Primary Obstruction of bile duct documented in this encounter Care Teams Registered Radiographer Relationship Specialty Start Date End Date Andrey Lanza MD NO ADDRESS ON FILE PCP - General 11/27/07 documented as of this encounter
--- OUTSIDE RECORDS SUMMARY | 2025-03-23 14:21 | XMS_ITS | Encounter Summary ---
Author Organization [facility] Address [address] [place] [address] Care Team Providers Care Silvering Department Supervisor Name Role Phone Jean Claude Nayak MD Primary Care Provider [phone] Reason for Visit * Reason Comments Med Refill Encounter Details Date Type Department Care Team (Late st Contact Info) Description 03/15/2025 Refill [facility] Physical Med and Rehab [facility] [address] [place] [phone] Lalo Bingham MD [address] [facility] [address] [place] [address] Social History Tobacco Use Types Packs/Day Years [...] on file Legal Sex Female 3:08 PM MOTOR VEHICLE SALESPERSON Gender Identity Not on file Sexual Orientation Not on file documented as of this encounter Plan of Treatment Upcoming Encounters Date Type Department Care Team (Late st Contact Info) Description 07/20/2025 9:00 AM MOTOR VEHICLE SALESPERSON Office Visit [facility] [address] [place] [address] Jorden Arshad MD [address] [place] [address] 09/13/2025 2:00 PM CDT Ancillary Procedure [facility] Vascular Lab and Vein Center- [place] [address] [place] [address] Romero Isaac MD [address] [place] [address] 09/13/2025 2:30 PM CDT Ancillary Procedure [facility] Vascular Lab and Vein Center- [place] [address] [place] [address] Liss Sher PA-C [address] [place] [address] 09/13/2025 3:30 PM CDT Office Visit [facility] Vascular Surgery [place] [address] [place] [address] Romero Isaac MD [address] [place] [address] Ale Carrilol DO [address] [place] [address] documented as of this encounter Visit Diagnoses Not on filedocumented in this encounter Care Teams Silvering Department Supervisor Relationship Specialty Start Date End Date Jean Claude Nayak MD [facility] [place] [address] PCP - General Family Practice 08/14/21 documented as of this encounter
--- OUTSIDE RECORDS SUMMARY | 2025-03-23 14:21 | XMS_ITS | Encounter Summary ---
Author Organization [facility] Address [address] [place] [address] Care Team Providers Care Quality Control Projectionist Name Role Phone Jean Claude Nayak MD Primary Care Provider [phone] Reason for Visit * Reason Comments Med Refill Encounter Details Date Type Department Care Team (Late st Contact Info) Description 03/17/2025 Refill [facility] Physical Med and Rehab [facility] [address] [place] [phone] Lalo Bingham MD [address] [facility] [address] [place] [address] Social History Tobacco Use Types Packs/Day Years [...] on file Legal Sex Female 3:08 PM TECHNICAL OPERATIONS VICE PRESIDENT Gender Identity Not on file Sexual Orientation Not on file documented as of this encounter Plan of Treatment Upcoming Encounters Date Type Department Care Team (Late st Contact Info) Description 07/20/2025 9:00 AM TECHNICAL OPERATIONS VICE PRESIDENT Office Visit [facility] [address] [facility] [facility] [address] [place] [address] Jorden Arshad MD [address] [facility] [address] [place] [address] 09/13/2025 2:00 PM CDT Ancillary Procedure [facility]3] Vascular Lab and Vein Center- [place] [address] [place] [address] Romero Isaac MD [address] [place] [address] 09/13/2025 2:30 PM CDT Ancillary Procedure [facility]3] Vascular Lab and Vein Center- [place] [address] [place] [address] Liss Sher PA-C [address] [place] [address] 09/13/2025 3:30 PM CDT Office Visit [facility]3] Vascular Surgery [place] [address] [place] [address] Romero Isaac MD [address] [place] [address] Ale Carrillo DO [address] [place] [address] documented as of this encounter Visit Diagnoses Not on filedocumented in this encounter Care Teams Quality Control Projectionist Relationship Specialty Start Date End Date Jean Claude Nayak MD [facility] [place] [address] PCP - General Family Practice 08/14/21 documented as of this encounter
== END 2025-03-20 13:37 | disposition home health service (06) ==
LOC: ER 18:47 → MEDSURG 21:29 → CSU 03-20 05:14 → ER IP 03-23 14:18 → MEDSURG 03-23 14:18
PROVIDERS: Admitting Provider Internal Medicine; Emergency Provider Physician Assistant; PCP Family Medicine; Visit Provider Student in an Organized Health Care Education/Training Program
DX: R60.0 Localized edema (principal); J96.01 Acute respiratory failure with hypoxia; I48.91 Unspecified atrial fibrillation; E87.70 Fluid overload, unspecified; E11.22 Type 2 diabetes mellitus with diabetic chronic kidney disease; I12.9 Hypertensive chronic kidney disease with stage 1 through stage 4 chronic kidney disease, or unspecified chronic kidney disease; N18.9 Chronic kidney disease, unspecified; E03.9 Hypothyroidism, unspecified; Z79.82 Long term (current) use of aspirin; Z66 Do not resuscitate; J44.9 Chronic obstructive pulmonary disease, unspecified; E78.5 Hyperlipidemia, unspecified; I73.9 Peripheral vascular disease, unspecified; Z87.891 Personal history of nicotine dependence
CPT/HCPCS: 36415; 36416; 71045; 71046; 71275; 80048; 80053; 81001; 82746; 82962; 83540; 83550; 83735; 83880; 84100; 84439; 84443; 84481; 84484; 85025; 85378; 93005; 93306; 93970; 94640; 94760; 96372; 96374; 99285; G0378; J1650; J1815; J1938; J3475; J3490; J7614; J7626; J7644; J9999

== ENCOUNTER → 2025-03-25 10:22 | Outpatient (BNVA) | payer MEDICARE, SELFPAY | PROVIDERS: PCP Family Medicine; Visit Provider Thoracic Surgery (Cardiothoracic Vascular Surgery) | DX: I96 Gangrene, not elsewhere classified (principal); T24.311D Burn of third degree of right thigh, subsequent encounter; T24.312D Burn of third degree of left thigh, subsequent encounter; X58.XXXD Exposure to other specified factors, subsequent encounter | CPT/HCPCS: 97597 ==

== ENCOUNTER → 2025-04-12 12:16 | Outpatient (BNVA) | payer MEDICARE, SELFPAY | PROVIDERS: PCP Family Medicine; Visit Provider Family Medicine | DX: E87.6 Hypokalemia (principal) | CPT/HCPCS: 80048; 83735 ==

== ENCOUNTER 2025-04-14 13:11 | Emergency (ER) | payer MEDICARE, SELFPAY ==
--- OUTSIDE RECORDS SUMMARY | 2025-04-14 13:17 | XMS_ITS | Encounter Summary ---
Author Organization [facility] Address [address] [place] [address] Care Team Providers Care Contract Recruiter Name Role Phone Andrey Lanza MD Primary Care Provider Unavailab le Reason for Referral * Radiology Services (Routine) - Closed Specialty Diagnoses / Procedures Referred By Contac t Referred To Contact Diagnoses AAA (abdominal aortic aneurysm) without rupture Procedures IR FLUORO OR OTHER Marito Boyer MD Phone: tel: fax: Referral ID Status Reason Start Date Expiration Date Visits Re quested Visits Authorized [id number] Closed 06/20/2020 07/21/2021 1 1 EAR LICENSING ENGINEER Encounter Details Date Type Department Care Team (Late st Contact Info) Description 06/20/2020 Ancillary Orders [facility] Interventional Radiology [address] [place] [address] Marito Boyer MD [address] [place] [phone] AAA (abdominal aortic aneurysm) without rupture Social [...] on file Legal Sex Female 3:41 AM NUCLEAR LICENSING ENGINEER Gender Identity Not on file Sexual Orientation Not on file COVID-19 Exposure Response Date Recorded In the last month, have you been in contact with someone who was confirmed or suspected to have Coronavirus / COVID-19? No / Unsure 06/20/2020 10:40 PM NUCLEAR LICENSING ENGINEER documented as of this encounter Plan of Treatment Not on file documented as of this encounter Results * IR FLUORO OR OTHER (06/20/2020 3:43 PM NUCLEAR LICENSING ENGINEER) Narrative 06/20/2020 3:44 PM NUCLEAR LICENSING ENGINEER Order Auto Finalized. Please see associated Operative Report/Progress Note from the same date. Marito Boyer MD IR ORDERABLES Final R esult documented in this encounter Visit Diagnoses Diagnosis AAA (abdominal aortic aneurysm) without rupture Abdominal aneurysm without mention of rupture AAA (abdominal aortic aneurysm) without rupture Abdominal aneurysm without mention of rupture documented in this encounter Care Teams Contract Recruiter Relationship Specialty Start Date End Date Andrey Lanza MD NO ADDRESS ON FILE PCP - General 11/27/07 documented as of this encounter
--- OUTSIDE RECORDS SUMMARY | 2025-04-14 13:17 | XMS_ITS | Encounter Summary ---
Author Organization [facility] Address [address] [place] [address] Care Team Providers Care Bitumastic Applier Name Role Phone Jean Claude Nayak MD Primary Care Provider [phone] Encounter Details Date Type Department Care Team (Late st Contact Info) Description 04/06/2025 External Device Data ST[facility] ABSTRACTION Provider, Abstract NO ADDRESS ON FILE Social History Tobacco [...] on file Legal Sex Female 3:08 PM GLOBAL COMPENSATION ANALYST Gender Identity Not on file Sexual Orientation Not on file documented as of this encounter Plan of Treatment Upcoming Encounters Date Type Department Care Team (Late st Contact Info) Description 07/20/2025 9:00 AM GLOBAL COMPENSATION ANALYST Office Visit [facility] [address] [place] [address] Jorden Arshad MD [address] [place] [address] 09/13/2025 2:00 PM CDT Ancillary Procedure [facility] Vascular Lab and Vein Center- [place] [address] [place] [address] Romero Isaac MD [address] [place] [address] 09/13/2025 2:30 PM CDT Ancillary Procedure [facility] Vascular Lab and Vein Center- [place] [address] [place] [address] Liss Sher PA-C [address] [place] [address] 09/13/2025 3:30 PM CDT Office Visit [facility] Vascular Surgery [place] [address] [place] [address] Romero Isaac MD [address] [place] [address] Ale Carrillo DO [address] [place] [address] documented as of this encounter Visit Diagnoses Not on filedocumented in this encounter Care Teams Bitumastic Applier Relationship Specialty Start Date End Date Jean Claude Nayak MD [address] [place] [address] PCP - General Family Practice 08/14/21 documented as of this encounter
--- OUTSIDE RECORDS SUMMARY | 2025-04-14 13:17 | XMS_ITS | Encounter Summary ---
Author Organization [facility] Address [address] [place] [address] Care Team Providers Care Abattoir Manager Name Role Phone Andrey Lanza MD [...] Expiration Date Visits Re quested Visits Authorized [id number] Closed 08/03/2020 09/03/2021 1 1 E EDITOR * Radiology Services (Routine) - Closed Specialty Diagnoses / Procedures Referred By Contac t Referred To Contact Diagnoses Aortoiliac occlusive disease (CMS/HCC) Iliac artery aneurysm Iliac artery stenosis, bilateral Penetrating ulcer of aorta Procedures US AORTA Rochelle Rodriguez NP Phone: tel: fax: Referral ID Status Reason Start Date Expiration Date Visits Re quested Visits Authorized [id number] Closed 08/03/2020 09/03/2021 1 1 E EDITOR Encounter Details Date Type Department Care Team (Late st Contact Info) Description 08/03/2020 Ancillary Orders [facility] Thoracic Vascular S[facility] [place] [address] [place] [id number] Rochelle Rodriguez, CRISTIANA [address] [id number] Aortoiliac occlusive disease (CMS/HCC); Iliac artery aneurysm; [...] on file Legal Sex Female 3:41 AM STATE EDITOR Gender Identity Not on file Sexual Orientation Not on file documented as of this encounter Plan of Treatment Not on file documented as of this encounter Results * US AORTA IVC ILIAC [employer]UPLEX LTD (08/09/2020 1:25 PM STATE EDITOR) Anatomical Region Laterality Modality Abdomen Ultrasound 08/09/2020 1:25 PM STATE EDITOR Narrative 08/10/2020 12:15 PM STATE EDITOR See the ultrasound of the aorta obtained on the same day for the images and full report (accession number [id number]). Procedure Note Barron Ca MD - 08/10/2020 See the ultrasound of the aorta obtained on the same day for the images and full report (accession number [id number]). us Rochelle Rodriguez NP US ORDERABLES Final Resul t * US AORTA (08/09/2020 1:25 PM STATE EDITOR) Anatomical Region Laterality Modality Abdomen Ultrasound 08/09/2020 1:25 PM STATE EDITOR Impressions 08/11/2020 6:14 AM STATE EDITOR IMPRESSION: 1. Endovascular repair of the infrarenal [...] cm in diameter. Narrative 08/11/2020 6:14 AM STATE EDITOR EXAM: US AORTA, DIAGNOSIS/REASON FOR EXAM: Aortoiliac [...] aorta documented in this encounter Care Teams Abattoir Manager Relationship Specialty Start Date End Date Andrey Lanza MD NO ADDRESS ON FILE PCP - General 11/27/07 documented as of this encounter
--- OUTSIDE RECORDS SUMMARY | 2025-04-14 13:17 | XMS_ITS | Encounter Summary ---
Author Organization [facility] Address [address] [place] [address] Care Team Providers Care Community Health Director Name Role Phone Andrey Lanza MD Primary Care Provider Emily doran Encounter Details Date Type Department Care Team (Latest Contact Info) Description 10/24/2000 Outpatient Historical [facility] Mark Chavez MD NO ADDRESS ON FILE Obstruction of bile duct (CMS/HCC) (Primary Dx) Social History Tobacco Use Types Packs/Day Years Used Date Smoking Tobacco: Never Assessed Comments Unknown Sex and Gender Information Value Date Recorded Sex Assigned at Not on file Legal Sex Female 3:41 AM SIGN FABRICATOR Gender Identity Not on file Sexual Orientation Not on file documented as of this encounter Plan of Treatment Not on file documented as of this encounter Visit Diagnoses Diagnosis Obstruction of bile duct (CMS/HCC)- Primary Obstruction of bile duct documented in this encounter Care Teams Community Health Director Relationship Specialty Start Date End Date Andrey Lanza MD NO ADDRESS ON FILE PCP - General 11/27/07 documented as of this encounter
--- OUTSIDE RECORDS SUMMARY | 2025-04-14 13:17 | XMS_ITS | Encounter Summary ---
Author Organization [facility] Address [address] Attn: Epic Prelude ADT [place] [address] Care Team Providers Care Implementation Engineer Name Role Phone Andrey Lanza MD Primary [...] on file Legal Sex Female 3:41 AM MEDICAL RESEARCH SCIENTIST Gender Identity Not on file Sexual Orientation Not on file documented as of this encounter Plan of Treatment Not on file documented as of this encounter Visit Diagnoses Not on filedocumented in this encounter Care Teams Implementation Engineer Relationship Specialty Start Date End Date Andrey Lanza MD NO ADDRESS ON FILE PCP - General 11/27/07 documented as of this encounter
--- OUTSIDE RECORDS SUMMARY | 2025-04-14 13:17 | XMS_ITS | Encounter Summary ---
Author Organization [facility] Address [address] [place] [address] Care Team Providers Care Rubber Printing Machine Operator Name Role Phone Andrey Lanza MD Primary Care Provider Emily le Encounter Details Date Type Department Care Team (Latest Contact Info) Description 09/13/2000 Outpatient Historical [facility] Gen Spec Surg [address] [place] [address] Mark Drummond MD NO ADDRESS ON FILE Chronic cholecystitis (Primary Dx) Social History Tobacco Use Types Packs/Day Years Used Date Smoking Tobacco: Never Assessed Comments Unknown Sex and Gender Information Value Date Recorded Sex Assigned at Not on file Legal Sex Female 3:41 AM BALL MACHINE OPERATOR Gender Identity Not on file Sexual Orientation Not on file documented as of this encounter Plan of Treatment Not on file documented as of this encounter Visit Diagnoses Diagnosis Chronic cholecystitis- Primary documented in this encounter Care Teams Rubber Printing Machine Operator Relationship Specialty Start Date End Date Andrey Lanza MD NO ADDRESS ON FILE PCP - General 11/27/07 documented as of this encounter
--- OUTSIDE RECORDS SUMMARY | 2025-04-14 13:17 | XMS_ITS | Clinical Summary ---
Author Organization [facility] Address [address] [place] [address] Care Team Providers Care Terrazzo Roller Name Role Phone Andrey Lanza MD Primary [...] 06/26/2020 Pseudoaneurysm following procedure 05/17/2020 Atherosclerosis of nez perce ar juan of both lower extremities with [...] on file Legal Sex Female 3:41 AM RESTORER LACE AND TEXTILES Gender Identity Not on file Sexual Orientation Not on file Last Filed Vital Signs Vital Sign Reading Time Taken Comments Blood Pressure 128/60 11/18/2020 11:08 AM CDT Pulse 66 11/18/2020 11:08 AM CDT Temperature 37.3 C (99.1 F) 06/26/2020 8:02 AM RESTORER LACE AND TEXTILES Respiratory Rate 18 06/26/2020 8:02 AM RESTORER LACE AND TEXTILES Oxygen Saturation 96% 11/18/2020 11:08 AM CDT Inhaled Oxygen Concentration - - Weight 61.2 kg (135 lb) 11/18/2020 11:08 AM CDT Height 154.9 cm (5' 1 ) 08/09/2020 12:46 PM RESTORER LACE AND TEXTILES Body Mass Index 25.51 08/09/2020 12:46 PM RESTORER LACE AND TEXTILES Plan of Treatment Health Maintenance Due Date Last Done Comments DTAP/TDAP/TD VACCINES (1 - Tdap) 02/02/1963 PNEUMOCOCCAL VACCINE 50+ YEARS (1 of 2 - PCV) 02/02/19 63 ZOSTER VACCINE (1 of 2) 02/02/1994 OSTEOPOROSIS SCREENING 02/02/2009 RSV VACCINE (60+ or ) (1 - 1-dose 75+ series) 02/02/2019 INFLUENZA VACCINE (#1) 2025 03/02/2020 Medical Devices Implanted Type Area Desulphuring Operator Device Identifier Shelf Expiration Date Model / Serial / Lot Closure Perclose Proglide [id number] - [id number] Implanted:Qty: 1 on 06/20/2020 by Marito Boyer MD at [facility] Closure Device Left: Arterial LEE- VASC DEVICE [id number] 02/14/2022 [id number] / / [id number] Closure Perclose Proglide [id number] - [id number] Implanted:Qty: 1 on 06/20/2020 by Marito Boyer MD at [facility] Closure Device Left: Arterial LEE- VASC DEVICE [id number] 02/14/2022 19622 / / 06/18/03 1 Angio-Seal Vip Closure Dev [id number] - [id number] Implanted:Qty: 1 on 06/20/2020 by Marito Boyer MD at [facility] Closure Device Right: Groin LEE [employer] [id number] 02/14/2021 [id number] / / [id number] Coil Azur Cx Detach 035 19cm [id number] - [id number] Implanted:Qty: 1 on 06/20/2020 by Marito Boyer MD at [facility] Coil Right: Arterial TERUMO- [employer] DANIEL 06/16/2024 [id number] Description:Right hypogastri c artery Coil Azur Cx Detach 035 19cm [id number] - [id number] Implanted:Qty: 1 on 06/20/2020 by Marito Boyer MD at [facility] Coil Right: Arterial TERUMO- MED DANIEL 11/14/2024 [id number] 2 Description:Right hypogastri c artery Stent Afx Ii Bifur Uta43-50/I16-4 0 - [id number] Implanted:Qty: 1 on 06/20/2020 by Marito Boyer MD at [facility] Stent N/A: Aorta [employer] 11/26/2022 BXD40-19 /I16-40 / [id number] / Stent Lifestream [id number] - [id number] Implanted:Qty: 1 on 06/20/2020 by Marito Boyer MD at [facility] Stent Right: Iliac Artery CR BARD[employer]ERR[employer] [id number] 01/14/2023 [id number] 858 / / [id number] Description:Right external i liac Stent Lifestream [id number] - [id number] Implanted:Qty: 1 on 06/20/2020 by Marito Boyer MD at [facility] Stent Right: Iliac Artery CR BARD[employer] [id number] 03/16/2023 [id number] 858 / / [id number] Stent Lifestream Cvr [id number] - [id number] Implanted:Qty: 1 on 06/20/2020 by Marito Boyer MD at [facility] Stent Right: Iliac Artery CR BARD[employer] [id number] 06/16/2022 [id number] 958 / / [id number] Stent Lifestream Cvr [id number] - [id number] Implanted:Qty: 1 on 06/24/2020 by Marito Boyer MD at [facility] Stent Left: Leg CR BARD[employer] [id number] / / Insurance [facility] DUAL COMPLETE MCR PPO D-SNP RX [employer] RX Member Subscriber Plan / Payer (Ef fective 2015-Present) Name:Viry Castillo Relation to Subscriber:Self Name:VIRY CASTILLO Payer ID:Not on file Group ID:[id number] Type:RX Medicare Part D Address: [address] [place] Advance Directives For more information, please contact: [phone] Documents on File Type Date Recorded Patient [employer] Experimental Mechanic Expl anation Advance Directive POA 08/09/2020 12:19 PM Advance Directive POA * Full Code (Latest Code Status on File) Date Activated Date Inactivated Comments 06/25/2020 8:11 AM 06/26/2020 1:02 PM * Full Code Date Activated Date Inactivated Comments 06/20/2020 10:48 AM 06/20/2020 10:29 PM Care Teams Terrazzo Roller Relationship Specialty Start Date End Date Andrey Lanza MD NO ADDRESS ON FILE PCP - General 11/27/07
--- OUTSIDE RECORDS SUMMARY | 2025-04-14 13:17 | XMS_ITS | Encounter Summary ---
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
--- OUTSIDE RECORDS SUMMARY | 2025-04-14 13:17 | XMS_ITS | Encounter Summary ---
Author Organization [facility] Address [address] 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
--- OUTSIDE RECORDS SUMMARY | 2025-04-14 13:17 | XMS_ITS | Encounter Summary ---
Author Organization [facility] Address [address] [place] [address] Care Team Providers Care Wire Weaver Helper Name Role Phone Andrey Lanza MD Primary Care Provider Emily doran Encounter Details Date Type Department Care Team (Latest Contact Info) Description 09/25/2000 Outpatient Historical [facility] Gen Spec Surg 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
--- OUTSIDE RECORDS SUMMARY | 2025-04-14 13:18 | XMS_ITS | Clinical Summary ---
Author Organization [facility] Address [address] [place] [address] Phone Care Team Providers Care Financial Engineer Name Role Phone Jean Claude Nayak MD Primary Care Provider [phone] Allergies Active Allergy Reactions Criticality Noted Date [...] atherosclerotic ulcer of aorta 05/17 Atherosclerosis of [place] of both lower extremities with [...] Date Type Department Care Team Description 5 External Device Data STL ABSTRACTION Provider, Abstract 5 Refill [facility] Physical Med and Rehab [facility] [address] [place] [address] Lalo Bingham MD 5 Refill [facility] Physical Med and Rehab [facility] [address] [place] [address] Lalo Bingham MD 5 Refill [facility] Physical Med and Rehab [facility] [address] [place] [address] Lalo Bingham MD 5 Refill [facility] Physical Med and Rehab [facility] [address] [place] [address] Lalo Bingham MD 5 Refill [facility] Physical Med and Rehab [facility] [address] [place] [address] Lalo Bingham MD 5 Telephone [facility] General and Trauma Surgery[address] [place] [address] Letty Welch NP Santyl 5 Refill [facility] Physical Med and [facility]hab [facility] [address] [place] [address] Lalo Bingham MD 5 1:45 PM CDT Office Visit [facility] Vascular Surgery [address] [place] [address] Liss Sher PA-C Peripheral arterial disease with history of revascularization (Primary Dx); Tobacco abuse disorder; Right internal carotid occlusion; Femoral artery stenosis, right 5 12:30 PM CDT Ancillary Procedure [facility] Vascular Lab and Vein Center- [address] [place] [address] 5 Telephone [facility] Vascular Surgery [address] [place] [address] Madan Dodge MD Question 5 External Device Data STL ABSTRACTION Provider, Abstract 5 Telephone [facility] General and Trauma Surgery[address] [place] [address] Letty Welch NP PA request 5 Telephone [facility] General and Trauma Surgery[address] [place] [address] Cayetano Garibay DO Santyl Shipment 5 2:00 PM CDT Office Visit [facility] General and Trauma Surgery[address] [place] [address] Gtb, Physician Unspecified open wound, right thigh, sequela (Primary Dx); Unspecified open wound, left thigh, sequela 5 6:08 PM CDT - 5 11:20 AM CDT Hospital Encounter [facility] [address] [place] [address] Jay Mendes, MD Zachery Jenkins Bradley, MD Metabolic encephalopathy Discharge Disposition: Home Health Care Svc 5 Travel 5 Telephone [facility] Vascular Surgery [place] [address] [place] [address] Madan Dodge MD Appointment Notification 5 10:42 AM CDT Anesthesia Event [facility] Endoscopy [address] [place] [address] Flori Huerta MD 5 10:00 AM CDT - 5 10:20 AM CDT Surgery [facility] Endoscopy [address] [place] [phone] Garret Zuñiga, SMALL BOWEL ENTEROSCOPY 5 External Device Data [...] STL ABSTRACTION Provider, Abstract 5 Results Follow-Up [facility] Gastroenterology- [place] [address] [place] [phone] Garret Zuñiga, DO PATHOLOGY, CBC WITH DIFFERENTIAL, MANUAL DIFFERENTIAL 5 11:06 AM CDT Anesthesia Event [facility] Endoscopy [address] [place] [phone] Willem Nunn DO 5 9:20 AM CDT - 5 9:40 AM CDT Surgery [facility] Endoscopy [address] [place] [phone] aGrret Zuñiga, DO ESOPHAGOGASTRODUODENOSCOPY 5 External Device Data STL ABSTRACTION Provider, Abstract 5 External Device Data STL ABSTRACTION Provider, Abstract 5 Travel 5 5:31 PM CDT - 5 5:46 PM CDT Hospital Encounter [facility] 6CD Neurology [address] [place] [phone] Austyn Brown MD Anand, MD Miguel Bruno Mariam, MD Nerella, MD Elizabeth Caballero, MD Mechelle Urias, MD Nichelle Tariq, MD Akila Au, MD Angie Coleman, Jamaal Zamora MD Metabolic encephalopathy Discharge Disposition: Rehab Facility IP 5 External Device Data STL ABSTRACTION Provider, Abstract 5 External Device Data STL ABSTRACTION Provider, Abstract from Last 3 Months Immunizations Immunization Administration Dates Next Due (PREVNAR 20)(6 WKS UP) PNEUM OCOCCAL CONJUGATE VACCINE 20-VALENT (PCV20), POLYSACCHARIDE [id number] CONJUGATE, ADJUVANT 0.5 ML (PF) IM 03/04/2024,02/24/2022 [...] on file Legal Sex Female 3:08 PM ENERGY SCHEDULER Gender Identity Not on file Sexual Orientation [...] st Contact Info) Description 07/20/2025 9:00 AM ENERGY SCHEDULER Office Visit [facility] [address] [place] [address] Jorden Arshad MD [address] [facility] [address] [place] [address] 09/13/2025 2:00 PM CDT Ancillary Procedure [facility] Vascular Lab and Vein Center- [place] [address] [place] [address] Romero Isaac MD [address] [place] [address] 09/13/2025 2:30 PM CDT Ancillary Procedure [facility] Vascular Lab and Vein Center- [place] [address] [place] [address] Liss Sher PA-C [address] [place] [address] 09/13/2025 3:30 PM CDT Office Visit [facility] Vascular Surgery [place] [address] [place] [address] Romero Isaac MD [address] [place] [address] Ale Carrillo DO [address] [place] [address] Health Maintenance Due Date Last Done Comments [...] , 02/24/2022 Medical Devices Implanted Type Area Syrup Maker Device Identifier Shelf Expiration Date Model / Serial / Lot Angio-Seal Vip Closure Dev [id number] - [id number] Implanted:Qty : 1 on 06/20/2020 by Marito Boyer MD Closure Device Right: Groin LEE [facility] [employer] [id number] 02/14/2021 [id number] / / [id number] Closure Perclose Proglide 96559 - [id number] Implanted:Qty : 1 on 06/20/2020 by Marito Boyer MD Closure Device Left: Arterial LEE- VASC DEVICE [id number] 02/14/2022 63168 / / [id number] Closure Perclose Proglide 06300 - [id number] Implanted:Qty : 1 on 06/20/2020 by Marito Boyer MD Closure Device Left: Arterial LEE- VASC DEVICE [id number] 02/14/2022 10264 / / 06/18/041 Coil Azur Cx Detach 035 19cm [id number] - [id number] Implanted:Qty : 1 on 06/20/2020 by Marito Boyer MD Coil Right: Arterial TERUMO- MED DANIEL 11/14/2024 [id number] / / [id number] Description:Right hypogastri c artery Coil Azur Cx Detach 035 19cm 45-038887 - [id number] Implanted:Qty : 1 on 06/20/2020 by Marito Boyer MD Coil Right: Arterial TERBuyt.InO- [facility] 06/16/2024 [id number] / / [id number] Description:Right hypogastri c artery Cup Gleason Porocoat Acet Shell 52mm 1217-22-052 - [id number] Implanted:Qty : 1 on 08/30/2021 by Demetrius George MD at [facility] Hip Left: Hip J[employer]J- [employer] [id number] 06/16/2031 [id number] / / [id number] Liner Gleason Altrx 37t01oj Nutrl 1221-36-052 - [id number] Implanted:Qty : 1 on 08/30/2021 by Demetrius George MD at [facility] Hip Left: Hip J[employer] [id number] 06/16/2026 [id number] / / [id number] Head Fem Art/Jose Luis Cer Sz36 1365-36-320 - [id number] Implanted:Qty : 1 on 08/30/2021 by Demetrius George MD at [facility] Hip Left: Hip J&J- DEPUY KEIRA [id number] 03/16/2026 31369 6320 / / [id number] Stem Fem [place] Por Sz3 1570--090 - [id number] Implanted:Qty : 1 on 08/30/2021 by Demetrius George MD at [facility] Hip Left: Hip J[employer] [id number] 12/14/2025 1570--090 / / [id number] Screw Canc Gleason 6.5x50mm 1217-50-500 - [id number] Implanted:Qty : 1 on 08/30/2021 by Demetrius George MD at [facility] Screw Left: Hip J&J- [employer] [id number] 12/14/2030 1217-50-500 / / [id number] Stent Afx Ii Bifur Moj49-21/I16- 40 - [id number] Implanted:Qty : 1 on 06/20/2020 by Marito Boyer MD Stent N/A: Aorta [employer] INC 11/26/2022 CGN27-79/I1 6-40 / [id number] / Stent Lifestream [id number] - [id number] Implanted:Qty : 1 on 06/20/2020 by Marito Boyer MD Stent Right: Iliac Artery CR BARD- DERRICK VASC INC [id number] 01/14/2023 [id number] / / [id number] Description:Right external i liac Stent Lifestream [id number] - [id number] Implanted:Qty : 1 on 06/20/2020 by Marito Boyer MD Stent Right: Iliac Artery CR BARD[employer] [id number] 03/16/2023 [id number] / / [id number] Stent Lifestream Cvr 7u01o28 [id number] - [id number] Implanted:Qty : 1 on 06/20/2020 by Marito Boyer MD Stent Right: Iliac Artery CR BARD[employer] [id number] 06/16/2022 [id number] / / [id number] Stent Lifestream Cvr [id number] - [id number] Implanted:Qty : 1 on 06/24/2020 by Marito Boyer MD Stent Left: Leg CR BARD[employer] [id number] / / Procedures Procedure Name Priority Date/Time [...] POC GLUCOSE Routine 2025 5:26 PM CDT MT DEBRIDEMENT SUBCUTANEOUS TISSUE 1ST 20 SQ CM/< [...] 9:41 AM CDT BRAIN NATRIURETIC PEPTIDE, B COMMERCIAL LINES ACCOUNT EXECUTIVE OR PROBNP Stat 01/30/2025 9:41 AM CDT [...] POC GLUCOSE Routine 01/25/2025 10:34 PM CDT HYDRO PLANT TECHNICIAN EVALUATION Routine 01/25/2025 6:08 PM CDT POC [...] CULTURE Stat 01/13/2025 12:45 AM CDT [facility] SPOTTED FEVER AB IGG/IGM Routine [...] PM CDT Narrative 03/14/2025 10:34 AM CDT [facility] Vascular Lab and Vein Center [address] [place] [address] Noninvasive Vascular Lab Limited Lower Extremity Arterial Duplex Study Patient: Mary Jane Selby Study ID: US DUPLEX ARTERI Gender: F : 1945 Age: 80 Room: Height: 152cm Weight: 50.1kg BSA: 1.46m^2 Pt status: Outpatient Study Date: 03/11/2025 Study Time: 01:14:45 PM BSA: 1.46m^2 Ordering: Madan Dodge Interpreting:Madan Dodge Vacuum Kettle Cook: WESLEY Wood Heel Attacher:BACILIO Indications: Known disease. Labs, prior tests, procedures, [...] - Max brachial pressure (sys): 132mm Hg [facility] Vascular Lab and Vein Center is accredited with the Intersocietal Commission for the Accreditation of Vascular Laboratories (ICAVL) Prepared and Electronically Authenticated Ale Carrillo 03/14/2025 10:34 Procedure Note Ale Carrillo DO - 03/14/2025 [facility] V[facility] Lab and Vein Center [address] [place] [address] Noninvasive Vascular Lab Limited Lower Extremity Arterial Duplex Study Patient: Mary Jane Selby Study ID: US DUPLEX ARTERI Gender: F : 1945 Age: 80 Room: Height: 152cm Weight: 50.1kg BSA: 1.46m^2 Pt status: Outpatient Study Date: 03/11/2025 Study Time: 01:14:45 PM BSA: 1.46m^2 Ordering: Madan Dodge Interpreting:Madan Dodge Vacuum Kettle Cook: WESLEY Wood Heel Attacher:KGT Indications: Known disease. Labs, prior tests, procedures, [...] - Max brachial pressure (sys): 132mm Hg [facility] V[facility] Lab [facility] Vein Center is accredited withthe Intersocietal Commission for the Accreditation of Vascular Laboratories (ICAVL) Prepared and Electronically Authenticated Ale Carrillo Confirmed 03/14/2025 10:34 us Madan Dodge MD ORDERABLES Final Result * UPPER ENDOSCOPY REPORT (02/25/2025 3:12 PM CDT) Narrative Procedure Note Garret Zuñiga DO - 02/25/2025 3:12 PM CDT [facility] GI Patient Name: Mary Jane Selby [...] Withdrawal Time Scope In: Scope Out: [address] [place] Garret Zuñiga DO GI PROCEDURE ORDERABLES Edite d Result - Final Performing Organization Address City/[facility] Co de Phone Number [facility] LABORATORY SERVICES [facility] CLIA# [id number] [address] [place] [address] * (ABNORMAL) POC GLUCOSE (02/17/2025 7:10 AM CDT) Only the most recent of116 resultswithin the time period is included. GLUCOSE POC 128(H) 74 - 99 mg/dL 02/17/2025 7:10 AM CDT [facility] SPECIMEN SOURCE, GLUCOSE POC Whole Blood 02/17/2025 7:10 AM CDT [facility] Blood, whole 02/17/2025 7:10 AM CDT 02/17/2025 7:18 AM CDT us Lalo Bingham MD POINT OF CARE TESTING Michelle zamora Result Performing Organization Address City/[facility] Co de Phone Number [facility] CLIA# [id number] [address] [place], [place] [id number] [place] [address] * (ABNORMAL) CBC WITH DIFFERENTIAL (02/16/2025 4:50 AM CDT) Only the most recent of19 resultswithin the time period is included. WBC 6.8 4.8 - 10.8 K/uL 02/16/2025 8:47 AM CDT [facility] RBC 3.54(L) 4.20 - 5.40 M/uL 02/16/2025 8:47 AM CDT [facility] HEMOGLOBIN 10.4(L) 12.0 - 16.0 g/dL 02/16/2025 8:47 AM T [facility] HEMATOCRIT 34.0(L) 36.0 - 46.0 % 02/16/2025 8:47 AM CDT [facility] MCV 96.0 84.0 - 103.0 fL 02/16/2025 8:47 AM CDT [facility] MCH 29.4(L) 31.0 - 37.0 pg 02/16/2025 8:47 AM CDT [facility] MCHC 30.6 30.0 - 35.0 g/dL 02/16/2025 8:47 AM CDT [facility] RDW 15.5(H) 11.0 - 14.5 % 02/16/2025 8:47 AM CDT [facility] RDW-STDEV 54.6(H) 37.0 - 54.0 fL 02/16/2025 8:47 AM CDT [facility] PLATELETS 428 140 - 440 K/uL 02/16/2025 8:47 AM CDT [facility] MPV 9.6 8.9 - 12.8 fL 02/16/2025 8:47 AM CDT [facility] NEUTROPHILS 69 42 - 75 % 02/16/2025 8:47 AM CDT [facility] LYMPHOCYTES 19(L) 24 - 44 % 02/16/2025 8:47 AM CDT [facility] MONOCYTES 9 2 - 10 % 02/16/2025 8:47 AM CDT [facility] EOSINOPHILS 3 0 - 7 % 02/16/2025 8:47 AM CDT [facility] LABORATORY [facility] BASOPHILS 1 0 - 1 % 02/16/2025 8:47 AM CDT [facility] IMMATURE GRANULOCYTES 0 0 - 2 % 02/16/2025 8:47 AM CDT [facility] LABORAT[facility] NEUTROPHIL ABSOLUTE 4.65 2.00 - 8.00 K/uL 02/16/2025 8:47 AM CDT [facility] LYMPHOCYTE ABSOLUTE 1.27 1.20 - 4.00 K/uL 02/16/2025 8:47 AM CDT [facility] LABORATORY [facility] MONOCYTE ABSOLUTE 0.60 0.10 - 0.60 K/uL 02/16/2025 8:47 AM CDT [facility] LABORATORY [facility] EOSINOPHIL ABSOLUTE 0.18 0.00 - 0.70 K/uL 02/16/2025 8:47 AM CDT [facility] LABORAT[facility] BASOPHILS ABSOLUTE 0.07 0.00 - 0.20 K/uL 02/16/2025 8:47 AM CDT [facility] LABORATORY [facility] IMMATURE GRANULOCYTES ABSOLUTE 0.03 0.00 - 0.10 K/uL 02/16/2025 8:47 AM [facility] LABORATORY [facility] Blood Venipuncture / Unknown 02/16/2025 4:50 AM CDT 02/16/2025 8:15 AM CDT us Thi Ward ANP HEMATOLOGY ORDERABLES Michelle l Result [facility] CLIA #[id number] [address] [place] [address] * (ABNORMAL) BASIC METABOLIC PANEL (02/13/2025 5:18 AM CDT) Only the most recent of8 resultswithin the time period is included. [facility] SODIUM 136 136 - 145 mmol/L 02/13/2025 9:17 AM CDT [facility] LABOR[facility] POTASSIUM 4.1 3.5 - 5.1 mmol/L 02/13/2025 9:17 AM CDT [facility] CHLORIDE 100 98 - 107 mmol/L 02/13/2025 9:17 AM CDT [facility] CO2 23 22 - 29 mmol/L 02/13/2025 9:17 AM CDT [facility] CALCIUM 8.9 8.8 - 10.2 mg/dL 02/13/2025 9:17 AM CDT [facility] BUN 25(H) 8 - 23 mg/dL 02/13/2025 9:17 AM CDT [facility] CREATININE 1.04(H) 0.51 - 0.95 mg/dL 02/13/2025 9:17 AM T [facility] Comment:The GFR result is no t clinically significant on patients <18 or >70 years of age. GLUCOSE 107(H) 74 - 99 mg/dL 02/13/2025 9:17 AM T [facility] GFR 54 mL/min/1. 73 sq meter 02/13/2025 9:17 AM T [facility] Comment:eGFR calculated with 2020 CKD-EPI equation. Vegetarian diet, extremely high or low muscle mass, and may affect results. Cystatin C with Glomerular Filtration Rate is a suitable alternative for these patients. ANION GAP 13 9 - 20 mmol/L 02/13/2025 9:17 AM T [facility] Blood BLOOD SPECIMEN / Unknown Venipuncture / Unknown 02/13/2025 5:18 AM CDT 02/13/2025 8:54 AM CDT us Christo Cadena MD CHEMISTRY ORDERABLES Fi nal Result [facility] CLIA # [id number] [address] [place] [address] * Debridement (2025 2:00 PM CDT) Narrative [...] 136 - 145 mmol/L 02/02/2025 8:06 AM [facility] LABORATORY [facility] POTASSIUM 3.2(L) 3.4 - 4.5 mmol/L 02/02/2025 8:06 AM [facility] LABORATORY [facility] CHLORIDE 95(L) 98 - 107 mmol/L 02/02/2025 8:06 AM [facility] CO2 32(H) 22 - 29 mmol/L 02/02/2025 8:06 AM [facility] CALCIUM 8.7 8.6 - 10.0 mg/dL 02/02/2025 8:06 AM [facility] BUN 18 8 - 23 mg/dL 02/02/2025 8:06 AM [facility] CREATININE 1.07(H) 0.51 - 0.95 mg/dL 02/02/2025 8:06 AM [facility] Comment:The GFR result is no t clinically significant on patients <18 or >70 years of age. GLUCOSE 114(H) 74 - 99 mg/dL 02/02/2025 8:06 AM [facility] Comment:Reference range appl ies to fasting patients only. TOTAL PROTEIN 5.8(L) 6.6 - 8.7 g/dL 02/02/2025 8:06 AM [facility] ALBUMIN 3.0(L) 4.0 - 4.9 g/dL 02/02/2025 8:06 AM [facility] BILIRUBIN TOTAL 0.4 0.0 - 1.0 mg/dL 02/02/2025 8:06 AM [facility] ALKALINE PHOSPHATASE 175(H) 35 - 104 U/L 02/02/2025 8:06 AM [facility] AST 29 5 - 32 U/L 02/02/2025 8:06 AM [facility] ALT 35(H) 5 - 33 U/L 02/02/2025 8:06 AM [facility] GFR 52 mL/min/1.7 3 sq meter 02/02/2025 8:06 AM [facility] Comment:eGFR calculated with 2020 CKD-EPI equation. Vegetarian diet, extremely high or low muscle mass, and may affect results. Cystatin C with Glomerular Filtration Rate is a suitable alternative for these patients. ANION GAP 12 9 - 20 mmol/L 02/02/2025 8:06 AM [facility] Blood BLOOD SPECIMEN / Unknown Venipuncture / Unknown 02/02/2025 4:20 AM CDT 02/02/2025 7:47 AM CDT us Thi Ward ANP CHEMISTRY ORDERABLES Final Result [facility] CLIA #[id number] [address] [address] * XR CHEST PA OR AP 1 [...] proposed needle course. A 10 cm 5 [place] Adaptive Digital Power centesis catheter was inserted and approximately 400 [...] proposed needle course. A 10 cm 5 [place] Yueh centesis catheter was inserted and approximately [...] 22(H) <11 ng/L 01/30/2025 11:55 PM CDT [facility] DELTA 6HR TROPONIN T 0 See Interp. 01/30/2025 11:55 PM CDT [facility] Blood Venipuncture / Unknown 01/30/2025 11:17 PM CDT 01/30/2025 11:23 PM CDT Narrative [facility] - 01/30/2025 11:55 PM CDT Troponin elevated. Delta indeterminate. Delay in collection of timed specimen beyond recommended collection interval. Results must be interpreted in clinical context. Deepti Wilburn MD CHEMISTRY ORDERABLES Final Resul t [facility] CLIA # [id number] [address] [place] [address] [place] [address] * (ABNORMAL) TROPONIN 2 HR, 5TH GEN (01/30/2025 7:44 PM CDT) Only the most recent of2 resultswithin the time period is included. TROPONIN T, 2 HR 5TH GEN 24(H) <=10 ng/L 01/30/2025 8:46 PM CDT [facility] DELTA 2HR TROPONIN T 2 See Interp. 01/30/2025 8:46 PM CDT [facility] Blood Venipuncture / Unknown 01/30/2025 7:44 PM CDT 01/30/2025 7:59 PM CDT Narrative [facility] - 01/30/2025 8:46 PM CDT Troponin elevated. Delta not changing. Delay in collection of timed specimen beyond recommended collection interval. Results must be interpreted in clinical context. Deepti Wilburn MD CHEMISTRY ORDERABLES Final Resul t Performing Organization Address [facility] de Phone Number [facility] CLIA # [id number] [facility] [address] [address] [place] [address] * (ABNORMAL) TROPONIN BASELINE, 5TH GEN (01/30/2025 5:40 PM CDT) Only the most recent of2 resultswithin the time period is included. TROPONIN T, BASELINE 5TH GEN 22(H) <=10 ng/L 01/30/2025 6:17 PM CDT [facility] Blood Venipuncture / Unknown 01/30/2025 5:40 PM CDT 01/30/2025 5:44 PM CDT [facility] - 01/30/2025 6:17 PM CDT Troponin elevated. Deepti Wilburn MD CHEMISTRY ORDERABLES Final Resul t Performing Organization Address [facility] Co de Phone Number [facility] CLIA # [id number] [address] [address] * (ABNORMAL) PROTIME-INR (01/30/2025 1:54 PM CDT) Only the most recent of3 resultswithin the time period is included. PROTIME 15.3(H) 12.7 - 14.9 Seconds 01/30/2025 2:31 PM CDT [facility] INR 1.1 0.8 - 1.2 01/30/2025 2:31 PM CDT [facility] Blood Venipuncture / Unknown 01/30/2025 1:54 PM CDT 01/30/2025 2:06 PM CDT Narrative [facility] - 01/30/2025 2:31 PM CDT Expected Values for INR: DVT/PE Goal INR 2.5; range 2.0 - 3.0 Valve Replacement Tissue Goal INR 2.5; range 2.0 - 3.0 Valve Replacement Mechanical Goal INR 3.0; range 2.5 - 3.5 POST-CO Goal INR 2.5; range 2.0 - 3.0 or Goal INR 3.0; range 2.5 - 3.5 Atrial Fibrillation Goal INR 2.5; range 2.0 - 3.0 Ischemic Stroke Goal INR 2.5; range 2.0 - 3.0 us Deepti Wilburn MD HEMATOLOGY ORDERABLES Final Resu lt [facility] CLIA # [id number] [address] [address] * EKG 12-LEAD (01/30/2025 9:44 AM CDT) Only the most recent of3 resultswithin the time period is included. 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: [id number] : 1945 Requested By: Order Number: [id number] Reading MD: Tanna Hernandez Measurements Intervals [place] Rate: 62 P: 11 MT: 166 QRS: -14 QRSD: 82 T: 52 QT: 494 QTc: 501 Interpretive Statements Normal sinus rhythm Inferior infarct, age undetermined Anterolateral infarct, age undetermined Prolonged QT Abnormal ECG Electronically Signed On 01-31-2025 13:02:01 CDT by Tanna Hernandez Procedure Note Provider, Historical - 01/31/2025 [facility] [address] [place] [address] Test Date: 2025-01-30 Pat Name: MARY JANE SELBY Department: 12 Room: [address] [place] [address] 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: Female 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: [id number] : 1945 Requested By: Order Number: [id number] Reading MD: Tanna Hernandez Measurements Intervals [place] Rate: 62 P: 11 MT: 166 QRS: -14 QRSD: 82 T: 52 [...] - 450 pg/mL 01/30/2025 10:29 AM CDT [facility] LABORATORY SERVICES [facility] Comment: INTERPRETIVE COMMENT based on diagnosis: [...] 9:41 AM CDT 01/30/2025 9:49 AM CDT Deepti Wilburn MD CHEMISTRY ORDERABLES Final Resul t Performing Organization Address [facility] Co de Phone Number [facility] CLIA # [id number] [address] [address] * MAGNESIUM LEVEL (01/30/2025 9:41 AM CDT) Only the most recent of5 resultswithin the time period is included. MAGNESIUM 2.0 1.6 - 2.4 mg/dL 01/30/2025 10:29 AM CDT [facility] Blood Venipuncture / Unknown 01/30/2025 9:41 AM CDT 01/30/2025 9:49 AM CDT Deepti Wilburn MD CHEMISTRY ORDERABLES Final Resul t Performing Organization Address [facility] de Phone Number [facility] CLIA # [id number] [address] [address] * ECHO TRANSESOPHAGEAL W DOPPLER AND COLOR FLOW (01/27/2025 10:48 AM CDT) EJECTION FRACTION 60 INTERFACE SYSTEM 01/27/2025 10:0 7 AM CDT Narrative INTERFACE SYSTEM - 01/27/2025 10:45 AM CDT [facility] Cardiovascular Services Echocardiography Laboratory [address] [place] [address] Transesophageal Echocardiography Patient: Mary Jane Selby Study ECHO Steffi ID: TRANSESNEETU Gender: F : 1945 Age: 79 Room: [facility] Study 01/27/2025 Pt Inpatient Date: Status: Study 10:07:25 AM CSN #: [id number] Time: Ordering:Deepti Wilburn Vacuum Kettle Cook: LEIDA Indications and History: Atrial fibrillation. Transient [...] septum: Agitated saline contrast study shows no fwhpm-jy-yxei shunt. - Aortic valve: The valve is [...] transesophageal probe was inserted by the attending senior trainer without difficulty. Image quality was adequate. Intravenous [...] Doppler. Agitated saline contrast study shows no vvjre-bk-fyqc shunt. AORTIC VALVE: The valve is trileaflet. [...] ARTERY: The main pulmonary artery is normal-sized. [facility] Echo Labs are accredited with the Intersocietal Accreditation Commission - Echocardiography. Prepared and Electronically Authenticated Randall Eason MD Confirmed 01/27/2025 10:45 Procedure Note Randall Eason MD - 01/27/2025 [facility] Cardiovascular Services Echocardiography Laboratory [facility] [place] [address] Transesophageal Echocardiography Patient: Mary Jane Selby Study ECHO Steffi ID:JESSICA Gender: F : 1945 Age: 79 Room: [facility] 01/27/2025 Pt Inpatient Date: Status: Study 10:07:25 AM CSN #: [id number] Time: Ordering:Deepti Wilburn Vacuum Kettle Cook: LEIDA Indications and History: Atrial fibrillation. Transient [...] septum: Agitated saline contrast study shows no fmmfo-aq-gmzceijdq. - Aortic valve: The valve is trileaflet. [...] transesophageal probe was inserted by the attending senior trainer without difficulty. Image quality was adequate. Intravenous [...] Doppler. Agitated saline contrast study shows no beyzc-ba-aexa shunt. AORTIC VALVE: The valve is trileaflet. [...] ARTERY: The main pulmonary artery is normal-sized. [facility] Echo Labs are accredited with the[facility] Accreditation Commission - Echocardiography. Prepared and [...] carotid artery calcification. Narrative Procedure Note Nixon Jack DO - 01/26/2025 IMPRESSION: Please see below. [...] - 100 ng/mL 01/23/2025 7:29 PM CDT [facility] Blood Venipuncture / Unknown 01/23/2025 11:00 AM CDT 01/23/2025 12:09 PM CDT Narrative [facility] [employer] [facility] - 01/23/2025 7:29 PM CDT Interpretive Data Chart: Deficient: 0 - 20 ng/mL Insufficient: 21 - 29 ng/mL Sufficient: 30 - 100 ng/mL Increased Risk of Hypercalciuria: >100 ng/ml Toxic: >150 ng/ml Deepti Wilburn MD CHEMISTRY ORDERABLES Final Resul t [facility] # [id number] [address] [place] [address] * (ABNORMAL) HEMOGLOBIN AND HEMATOCRIT (01/23/2025 8:34 AM CDT) Only the most recent of11 resultswithin the time period is included. HEMOGLOBIN 8.3(L) 12.0 - 16.0 g/dL 01/23/2025 9:59 AM CDT [facility] HEMATOCRIT 27.0(L) 36.0 - 46.0 % 01/23/2025 9:59 AM CDT [facility] Blood Venipuncture / Unknown 01/23/2025 8:34 AM CDT 01/23/2025 9:57 AM CDT Garret Zuñiga DO HEMATOLOGY ORDERABLES Final R esult [facility] CLDONIS # [id number] [address] [facility] [facility] [address] * CARDIOLOGY REPORT (01/22/2025 10:27 AM CDT) Garret Zuñiga DO CARDIAC SERVICES ORDERABLES E dited Result - Final * (ABNORMAL) MANUAL DIFFERENTIAL (01/22/2025 12:42 AM CDT) Only the most recent of5 resultswithin the time period is included. SEGMENTED NEUTROPHILS 73(H) 36 - 66 % 01/22/2025 2:06 AM T [facility] LYMPHOCYTES RELATIVE 12(L) 24 - 44 % 01/22/2025 2:06 AM T [facility] MONOCYTES RELATIVE 10 4 - 10 % 2024 2:06 AM T [facility] METAMYELOCYTES RELATIVE 3(H) 0 - 1 % 01/22/2025 2:06 AM [facility] MYELOCYTES - REL (DIFF) 2(H) 0 - 1 % 01/22/2025 2:06 AM [facility] PLATELET EST. Adequate 01/22/2025 2:06 AM T [facility] NEUTROPHILS ABSOLUTE COUNT 11.97(H) 2.00 - 8.00 K/uL 01/22/2025 2:06 AM [facility] LYMPHOCYTES ABSOLUTE 1.97 1.20 - 4.00 K/uL 01/22/2025 2:06 AM [facility] ATYPICAL LYMPHS ABSOLUTE 01/22/2025 2:06 AM [facility] MONOCYTES ABSOLUTE 1.64(H) 0.10 - 0.60 K/uL 01/22/2025 2:06 AM [facility] ANISOCYTOSIS 1+ /hpf 01/22/2025 2:06 AM CDT [facility] POIKILOCYTES 1+ /hpf 01/22/2025 2:06 AM CDT [facility] POLYCHROMASIA 1+ /hpf 01/22/2025 2:06 AM CDT [facility] BASOPHILIC STIPPLING 1+ /hpf 01/22/2025 2:06 AM CDT [facility] OVALOCYTES 1+ /hpf 01/22/2025 2:06 AM CDT [facility] TOTAL CELLS COUNTED IN DIFF 100 01/22/2025 2:06 AM CDT [facility] Blood Venipuncture / Unknown 01/22/2025 12:42 AM CDT 01/22/2025 1:23 AM CDT us Garret Zuñiga DO HEMATOLOGY ORDERABLES COM Fin al Result Performing Organization Address City/State/[facility] Co de Phone Number [facility] CLIA # [id number] [facility] [address] * Critical Care (01/21/2025 4:22 PM CDT) [...] or life-threatening deterioration of the following conditions: 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 SURGICAL: Patient has a past surgical [...] Heart Rate: 95 bpm (01/12/25 1801), Resp:17 (01/12/251739), Pulse: 88 (01/12/251739), Temp: 98.6 [...] POC 5.0 TCO2 (CALC) POC 21 (*) [facility] SITE POC ART PUNCT POC GLUCOSE [...] are patent. Basilar artery is patent. The automotive refinish technician are patent. Three-vessel origin of the aortic [...] remaining neck vasculature is patent. 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 79-year-old female with chronic right internal carotid artery occlusionand asymptomatic <50% left internal carotid artery stenosis in the settingof ongoing tobacco use disorder. 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 She was transferred from ICU to [facility] floor today (12/13). Patient's family has been assigned and [facility] plan to assist with discharge. Patient plans on living with [facility] for about one week post-discharge. She was [...] diseaseas noted CTA head and neck. [HM] [address] results discussed with neurology who is aware of findings. Dr. Ramonrecabdiaziz Trendelenburg and fluids also recommends EEG and continuingantiepileptics. [] 1901 EKG 12 lead Intervals [place] Rate: 98 P: 68 MT: 182 QRS: 7 QRSD: 80 T: 87 [...] reasonable effort was made to provide timely imfwueqw-cz-vlcmakzavbn high patient volume. Medications Administered During the ED Stay from 01/12/2025 1731 to01/12/20252041 Date/Time Order Dose Route Action 01/12/2025 1815 CDT levETIRAcetam (KEPPRA) 500 mg/5 mL injection 2,000mg 2,000 mg IV Given 01/12/2025 1745 CDT fentaNYL PF (SUBLIMAZE) 50 mcg/mL injection 200 kee752 mcg IV Given 01/12/2025 1800 CDT propofoL [...] - 145 mmol/L 01/20/2025 2:13 PM CDT [facility] Blood Venipuncture / Unknown 01/20/2025 1:37 PM CDT 01/20/2025 1:43 PM CDT Jeanmarie Min MD CHEMISTRY ORDERABLES Fin al Result Performing Organization Address City/[facility] Co de Phone Number [facility] CLIA # [id number] [address] [address] [place] [address] * BILIRUBIN DIRECT (01/20/2025 9:12 AM CDT) BILIRUBIN DIRECT 0.2 0.0 - 0.3 mg/dL 01/20/2025 9:57 AM CDT [facility] Blood Venipuncture / Unknown 01/20/2025 9:12 AM CDT 01/20/2025 9:16 AM CDT Jeanmarie Min MD CHEMISTRY ORDERABLES Fin al Result Performing Organization Address [facility] de Phone Number [facility] CLIA # [id number] [address] [address] * (ABNORMAL) CBC WITHOUT DIFFERENTIAL (01/19/2025 6:22 PM CDT) Only the most recent of2 resultswithin the time period is included. WBC 19.2(H) 4.8 - 10.8 K/uL 01/19/2025 6:59 PM CDT [facility] NRBCS 7(H) <1 % 01/19/2025 6:59 PM CDT [facility] RBC 3.43(L) 4.20 - 5.40 M/uL 01/19/2025 6:59 PM CDT [facility] HEMOGLOBIN 10.1(L) 12.0 - 16.0 g/dL 01/19/2025 6:59 PM CDT [facility] HEMATOCRIT 31.4(L) 36.0 - 46.0 % 01/19/2025 6:59 PM CDT [facility] MCV 91.5 84.0 - 103.0 fL 01/19/2025 6:59 PM CDT [facility] MCH 29.4 27.0 - 34.0 pg 01/19/2025 6:59 PM CDT [facility] MCHC 32.2 30.0 - 35.0 g/dL 01/19/2025 6:59 PM CDT [facility] PLATELETS 219 140 - 440 K/uL 01/19/2025 6:59 PM CDT [facility] MPV 10.8 8.9 - 12.8 fL 01/19/2025 6:59 PM CDT [facility] RDW 15.1(H) 11.0 - 14.5 % 01/19/2025 6:59 PM CDT [facility] RDW-STDEV 49.6 37.0 - 54.0 fL 01/19/2025 6:59 PM CDT [facility] Blood Venipuncture / Unknown 01/19/2025 6:22 PM CDT 01/19/2025 6:50 PM CDT us Garret Zuñiga DO HEMATOLOGY ORDERABLES Final R esult [facility] CLIA # [id number] [address] [place] [address] [place], [place] [id number] * TRANSFUSE RED BLOOD CELLS (01/19/2025 4:54 PM CDT) Only the most recent of2 resultswithin the time period is included. us Garret Zuñiga DO BLOOD TRANSFUSION ORDERABLES Final [...] throughout the visualized colon. 3. Atrophic kidney. [facility] Ladan Min MD CT ORDERABLES Final Re sult * UPPER ENDOSCOPY REPORT (01/19/2025 11:39 AM CDT) Narrative Procedure Note Garret Zuñiga DO - 01/19/2025 11:39 AM CDT [facility] GI Patient Name: Mary Jane Selby [...] Withdrawal Time Scope In: Scope Out: [address] [place], [place] Garret Zuñiga DO GI PROCEDURE ORDERABLES Final Result * PATHOLOGY (01/19/2025 11:19 AM CDT) CASE REPORT Surgical Pathology Report Case: [id number] Authorizing Provider: Garret Zuñiga DO Collected: 01/19/2025 11:19 AM Ordering Location: [facility] Received: 01/19/2025 02:13 PM Endoscopy Pathologist: Tania Machuca MD Specimen: Stomach, fundus 9:00 AM CDT [facility] FINAL DIAGNOSIS A. Stomach, fundus, biopsy - Gastric mucosa with reactive/reparative epithelial and stromal changes, consistent with resolving injury - No active gastritis, intestinal metaplasia, dysplasia, or malignancy Tania Machuca MD [id number] 9:00 AM CDT [facility] at 0900 CDT GROSS DESCRIPTION A. Received in formalin labeled [facility] -stomach biopsy fundus is a single fragment of arshad-pink soft tissue, 0.4 cm in greatest dimension. The specimen is submitted entirely in A1. Ольга Arevalo 08/06/202 5 9:00 AM CDT [facility] OPERATIVE PROCEDURE 1: ESOPHAGOGASTRODUODENOSCO PY 5 9:00 AM CDT [facility] CLINICAL INFORMATION YeahFundal biopsy 5 9:00 AM CDT [facility] COMMENT The [employer] voice-activated dictation system may have been used [...] determined by the Diagnostic Immunohistochemistry Laboratory of [facility] in compliance with CLIA'88 regulations. Some of these tests rely on the use of analyte specific reagents and are subject to specific labeling requirements by the FDA. All controls show appropriate reactivity. This testing was developed by the Diagnostic Immunohistochemistry Laboratory of [facility]. It has not been cleared or approved by the FDA. The FDA has determined that such clearance or approval is not necessary. 9:00 AM CDT [facility] Tissue ENTIRE STOMACH / Unknown Collection / Unknown 01/19/2025 11:19 AM CDT 01/19/2025 2:13 PM CDT Comment:Fundal biopsy Garret uZñiga DO PATHOLOGY/CYTOLOGY ORDERABLES Final Result [facility] CLIA # [id number] [address] [place] [address] * LACTIC ACID (01/19/2025 9:08 AM CDT) Only the most recent of5 resultswithin the time period is included. LACTIC ACID 1.8 <=2.0 mmol/L 01/19/2025 9:46 AM CDT [facility] Blood Venipuncture / Unknown 01/19/2025 9:08 AM CDT 01/19/2025 9:12 AM CDT Jeanmarie Min MD CHEMISTRY ORDERABLES Fin al Result Performing Organization Address City/[facility]/ZIP Co de Phone Number [facility] [employer] [facility] CLIA # [id number] [address] [address] * PREPARE RED BLOOD CELLS (01/19/2025 8:46 AM CDT) Only the most recent of2 resultswithin the time period is included. Pathologist [facility] COMPONENT TYPE [id number] [facility]ATORY [facility] [place] COMPONENT IDENTIFICATION [id number] [facility] [place] UNIT ABO O [facility] [place] UNIT RH NEG [facility] [place] CROSSMATCH Compatible [facility] [place] COMPONENT STATUS Transfused ME [facility] LABORATORY SERVICES -- [place] COMPONENT EXPIRATION DATE/TIME [id number] [facility] [place] COMPONENT CODING SYSTEM 9500 [facility] [place] VOLUME, BLOOD PRODUCT 250 [facility] [place] Other, specify 01/19/2025 8: 46 AM CDT Jeanmarie Min MD LAB TRANSFUSION ORDERABL ES Edited Result - Final Performing Organization Address City/[facility]/ZIP Co de Phone Number [facility] [employer] [facility][id number] [address] [place] [address], * UNFRACTIONATED HEPARIN MONITORING (01/18/2025 12:39 PM CDT) Only the most recent of6 resultswithin the time period is included. ANTI-XA UNFRAC HEP 0.18 See Interpretation IU/mL 01/18/2025 1:28 PM CDT [facility] [employer] [facility] Blood Venipuncture / Unknown 01/18/2025 12:39 PM CDT 01/18/2025 1:09 PM CDT [facility] LABORATORY SERVICES [facility] [place] - 01/18/2025 1:28 PM CDT Therapeutic Range: PT/DVT Heparin Protocol 0.3 - 0.7 IU/ml Cardiac Heparin Protocol 0.3 - 0.6 IU/ml The reference range for this test is specific to the anticoagulant and is not appropriate for monitoring patients on a DOAC protocol. Jeanmarie Min MD HEMATOLOGY ORDERABLES Fi nal Result Performing Organization Address [facility] Co de Phone Number [facility] CLIA # [id number] [address] [address] * TYPE AND SCREEN (01/18/2025 6:24 AM CDT) ABO GROUP O 01/18/2025 7:33 AM CDT [facility] LABORATORY [facility] RH (D) TYPE Negative 01/18/2025 7:33 AM CDT [facility] ANTIBODY SCREEN Negative 01/18/2025 7:33 AM CDT [facility] LABORATORY [facility] Blood Venipuncture / Unknown 01/18/2025 6:24 AM CDT 01/18/2025 6:39 AM CDT Reji Johns MD BLOOD BANK ORDERABLES E dited Result - Final Performing Organization Address City/[facility]/ZIP Co de Phone Number [facility] [employer] [facility] CLIA#[id number] [facility] [place], [place] [address] [place] [address] * (ABNORMAL) IRON, TIBC, AND PERCENT SATURATION (01/18/2025 4:39 AM CDT) IRON 268(H) 37 - 145 ug/dL 01/18/2025 2:43 PM CDT [facility] [employer] [facility] TIBC 01/18/2025 2:43 PM CDT [facility] Comment:Unable to calculate due to low UIBC. IRON % SATURATION 01/18/2025 2:43 PM CDT [facility] Comment:Unable to calculate due to low UIBC. Blood Venipuncture / Unknown 01/18/2025 4:39 AM CDT 01/18/2025 5:01 AM CDT Jeanmarie Min MD CHEMISTRY ORDERABLES Fin al Result Performing Organization Address City/[facility]/ZIP Co de Phone Number [facility] CLIA # [id number] [address] [address] [place] [address] * (ABNORMAL) FERRITIN (01/18/2025 4:39 AM CDT) FERRITIN 457.4(H) 13.0 - 150.0 ng/mL 01/18/2025 2:43 PM CDT [facility] Blood Venipuncture / Unknown 01/18/2025 4:39 AM CDT 01/18/2025 5:01 AM CDT Jeanmarie Min MD CHEMISTRY ORDERABLES Fin al Result Performing Organization Address [facility] de Phone Number [facility] CLIA # [id number] [address] [address] * PTT (01/16/2025 5:42 PM CDT) Only the most recent of2 resultswithin the time period is included. PTT 35.3 24.8 - 37.2 seconds 01/16/2025 6:30 PM CDT [facility] Blood Venipuncture / Unknown 01/16/2025 5:42 PM CDT 01/16/2025 5:50 PM CDT Narrative [facility] - 01/16/2025 6:30 PM CDT Therapeutic Range: Hi-level PE/DVT heparin protocol 80.1 - 95.0 sec Lo-level PE/DVT heparin protocol 70.1 - 85.0 sec Cardiac Heparin Protocol 70.1 - 100.0 sec Jeanmarie Min MD HEMATOLOGY ORDERABLES Fi nal Result [facility] CLIA # [id number] [address] [facility] [place] [address] * CT HEAD WO CONTRAST (01/16/2025 4:01 [...] CDT Erna Aguilera MD 01/14/2025 9:07 AM [facility] EEG REPORT Mary Jane Selby [id number] DATE(s) OF TEST: 01/13/2025 - 01/14/2025 DATE OF REPORT: 01/14/2025 Start time: 12:25 PM, 01/13 Stop time: 8:06 AM, 01/14 HISTORY: 79-year-old female is being evaluated for altered mental status MEDICATIONS THAT COULD AFFECT THE EEG: Levetiracetam, propofol TECHNICAL SUMMARY: This is a digital video EEG recorded with 32 input channels on a Edi[employer] system, reviewed with bipolar and referential montages [...] Erna Aguilera MD Epilepsy/ Clinical Neurophysiology/ Neurology [facility] Padmini Kennedy MD NEUROLOGY ORDERABLES Edited Resu lt - Final * VANCOMYCIN LEVEL RANDOM (01/14/2025 3:26 AM CDT) VANCOMYCIN, RANDOM 10.6 5.0 - 50.0 ug/mL 01/14/2025 4:31 AM CDT [facility] Blood Venipuncture / Unknown 01/14/2025 3:26 AM CDT 01/14/2025 3:57 AM CDT Narrative [facility] - 01/14/2025 4:31 AM CDT Vancomycin Therapeutic Ranges: Vancomycin Trough: 10 - 20 mcg/mL Vancomycin Peak: 25 - 50 mcg/mL Kiana Suarez MD CHEMISTRY ORDERABLES Final Resul t [facility] CLIA # [id number] [address] [place] [address] * MRI BRAIN WO CONTRAST (01/13/2025 11:19 [...] - 20 mm/Hr 01/13/2025 6:37 PM CDT [facility] Blood Venipuncture / Unknown 01/13/2025 6:12 PM CDT 01/13/2025 6:17 PM CDT us Kiana Suarez MD HEMATOLOGY ORDERABLES Final Resu lt [facility] CLIA # [id number] [facility] [address] [place] [address] * (ABNORMAL) GI PATHOGEN PCR PANEL (01/13/2025 3:51 PM CDT) Pathologist [facility] Campylobacter by PCR DETECTED( A) Not Detected 01/13/2025 6:25 PM CDT [facility] Comment: Campylobacter enterocolitis is a self-limiting infection in otherwise healthy children and adults. In cases with high fever, bloody stools, and symptoms lasting greater than one week, antimicrobial treatment may be indicated and can reduce the symptoms and severity as well as reduce the likelihood of serious complications, such as Guillain-Hudson syndrome. Stool STOOL SPECIMEN / Unknown Collection / Unknown 01/13/2025 3:51 PM CDT 01/13/2025 4:05 PM CDT Narrative [facility] - 01/13/2025 6:25 PM CDT Positive GI [...] ORDERABLE S Final Result Performing Organization Address [facility] Co de Phone Number [facility] [employer] [facility] CLIA # [id number] [address] [address] * (ABNORMAL) C-REACTIVE PROTEIN (01/13/2025 3:51 PM CDT) CRP 60.8(H) 0.0 - 5.0 mg/L 01/13/2025 6:23 PM CDT [facility] Blood Venipuncture / Unknown 01/13/2025 3:51 PM CDT 01/13/2025 4:01 PM CDT Kiana Suarez MD CHEMISTRY ORDERABLES Final Resul t Performing Organization Address [facility] Co de Phone Number [facility] CLIA # [id number] [address] [address] * AMMONIA LEVEL (01/13/2025 3:51 PM CDT) AMMONIA 12.2 11.0 - 51.0 umol/L 01/13/2025 4:27 PM CDT [facility] Blood, venous Venipuncture / Unknown 01/13/2025 3:51 PM CDT 01/13/2025 4:14 PM CDT Briana Serna NP CHEMISTRY ORDERABLES Final Result Performing Organization Address [facility] Co de Phone Number [facility] [employer] [facility] CLIA # [id number] [address] [address] [place] [address] * ECHO COMPLETE W BUBBLE STUDY (01/13/2025 1:42 PM CDT) EJECTION FRACTION 56 INTERFACE SYSTEM 01/13/2025 12:5 5 PM CDT Narrative INTERFACE SYSTEM - 01/13/2025 3:09 PM CDT [facility] Cardiovascular Services Echocardiography Laboratory [address] [place] [id number] Transthoracic Echocardiography Patient: Mary Jane Selby Study ECHO COMPLETE Nanci Kapadia ID: Gender: F : 1945 Age: 79 Room: [facility] Study 01/13/2025 Pt Inpatient Date: Status: Study 12:55:16 PM CSN #: [id number] Time: Ordering:Padmini Kennedy Vacuum Kettle Cook: Bibiana Castaneda [facility] Indications and History: Chest Pain, unspecified. Risk [...] (H) tanya values outside specified reference range. [facility] Echo Labs are accredited with the Intersocietal Accreditation Commission - Echocardiography. Prepared and Electronically Authenticated Reji Mar Confirmed 01/13/2025 15:09 Procedure Note Reji Mar DO - 01/13/2025 [facility] Cardiovascular Services Echocardiography Laboratory [address] [place] [id number] Transthoracic Echocardiography Patient: Mary Jane Selby Study ECHOCOMGUSJaja Kapadia ID: Gender: F : 1945 Age: 79 Room: [facility] Study 01/13/2025 Pt Inpatient Date: Status: Study 12:55:16 PM CSN #: [id number] Time: Ordering:Padmini Kennedy Vacuum Kettle Cook: Bibiana Castaneda [facility] Indications and History: Chest Pain, unspecified. Risk [...] (H) tanya values outside specified reference range. [facility] Echo Labs are accredited with theIntersocietal Accreditation Commission - Echocardiography. Prepared and Electronically Authenticated Reji Mar Confirmed 01/13/2025 15:09 us Padmini Kennedy MD US ORDERABLES Final Result INTERFACE SYSTEM Refer to clinic/hospital department * (ABNORMAL) PNEUMONIA PATHOGEN PCR PANEL (01/13/2025 5:15 AM CDT) [facility] Escherichia coli by PCR DETECTED(A) Not Detected 01/13/2025 7:27 AM CDT [facility] Klebsiella pneumoniae group by PCR DETECTED(A) Not Detected 01/13/2025 7:27 AM CDT [facility] Staphylococcus aureus by PCR DETECTED(A) Not Detected 01/13/2025 7:27 AM CDT [facility] mecA/C and MREJ (methicillin-resi stance gene) by PCR NOT DETECTED Not Detected 01/13/2025 7:27 AM CDT [facility] Comment:Indicates presumptiv e methicillin (oxacillin) sensitivity. Sputum SPUTUM SPECIMEN OBTAINED BY ASPIRATION / Unknown Collection / Unknown 01/13/2025 5:15 AM CDT 01/13/2025 5:29 AM CDT Narrative [facility] - 01/13/2025 7:27 AM CDT NOTE: Per the flavor maker, this current lot of reagent may be insensitive for the full detection of adenoviruses. If adenovirus is within the differential diagnosis, the specimen may be submitted to a reference laboratory for further testing. If desired, order [id number] Lab Test, stating Adenovirus by PCR testing [...] MICROBIOLOGY - GENERAL ORDERABLE S Final Result [facility] CLDONIS # [id number] [address] [address] [place] [address] * (ABNORMAL) SPUTUM CULTURE WITH GRAM STAIN (01/13/2025 5:15 AM CDT) [facility] CULTURE ESCHERICHIA COLI(A) RASHEED MCG/ML 01/16/2025 9:24 AM CDT [facility] CULTURE KLEBSIELLA PNEUMONIAE(A) RASHEED MCG/ML 01/16/2025 9:24 AM CDT [facility] CULTURE STAPHYLOCOCCUS AUREUS(A) RASHEED MCG/ML 01/16/2025 9:24 AM CDT [facility] GRAM STAIN Smear contains </=10 squamous epithelial cells per low power field 01/16/2025 9:24 AM CDT [facility] GRAM STAIN >25 PMN WBC/LPF 9:24 AM CDT [facility] GRAM STAIN 4+ (Heavy) Gram positive cocci 01/16/2025 9:24 AM CDT [facility] GRAM STAIN 2+ (Few) Gram negative rods 01/16/2025 9:24 AM T [facility] Sputum SPUTUM SPECIMEN OBTAINED BY ASPIRATION / [...] MICROBIOLOGY - GENERAL ORDERABLE S Final Result [facility] # [id number] [address] [place] [address] * TSH (01/13/2025 4:44 AM CDT) Pathologist [facility] TSH 3.60 0.27 - 4.20 uIU/mL 01/13/2025 3:35 PM CDT [facility] Blood Venipuncture / Unknown 01/13/2025 4:44 AM CDT 01/13/2025 4:49 AM CDT us Briana Serna NP CHEMISTRY ORDERABLES Final Result [facility] CLIA # [id number] [address] [address] * (ABNORMAL) HEMOGLOBIN A1C (01/13/2025 4:44 AM CDT) [facility] HEMOGLOBIN A1C 6.6(H) <=5.6 % 01/14/2025 11:26 AM CDT [facility] EST. AVG GLUCOSE, A1C 143 mg/dL 01/14/2025 11:26 AM CDT [facility] Blood Venipuncture / Unknown 01/13/2025 4:44 AM CDT 01/13/2025 4:49 AM CDT Narrative [facility] - 01/14/2025 11:26 AM CDT HGB A1C INTERPRETATION NORMAL: <5.7% PRE-DIABETES: 5.7 - 6.4% DIABETES: 6.5% OR GREATER Padmini Kennedy MD CHEMISTRY ORDERABLES Final Resul t Performing Organization Address City/[facility]/ZIP Co de Phone Number [facility] CLIA # [id number] [address] [address] * (ABNORMAL) CK (01/13/2025 4:44 AM CDT) Only the most recent of2 resultswithin the time period is included. Pathologist [facility] CK 565(H) 26 - 192 U/L 01/13/2025 3:45 PM CDT [facility] Blood Venipuncture / Unknown 01/13/2025 4:44 AM CDT 01/13/2025 4:49 AM CDT Briana Genevieve Serna [employer] ACCOUNT EXECUTIVE CHEMISTRY ORDERABLES Final Result [facility] CLIA # [id number] [address] [address] [place] [address] * (ABNORMAL) LIPID PANEL (01/13/2025 4:44 AM CDT) CHOLESTEROL 90 <200 mg/dL 01/13/2025 5:29 AM CDT [facility] TRIGLYCERIDE 181(H) <150 mg/dL 01/13/2025 5:29 AM CDT [facility] HDL 35(L) 40 - 59 mg/dL 01/13/2025 5:29 AM CDT [facility] LDL CALCULATED 19 <100 mg/dL 01/13/2025 5:29 AM CDT [facility] NON-HDL CHOLESTEROL 55 <130 mg/dL 01/13/2025 5:29 AM CDT [facility] Blood Venipuncture / Unknown 01/13/2025 4:44 AM CDT 01/13/2025 4:49 AM CDT Narrative [facility] - 01/13/2025 5:29 AM CDT TOTAL CHOLESTEROL [...] ORDERABLES Final Resul t Performing Organization Address [facility] Co de Phone Number [facility] CLIA # [id number] [facility] [id number] * POC LACTIC ACID (01/13/2025 3:03 AM CDT) LACTIC ACID POC 1.1 <=2.0 mmol/L 01/13/2025 3:03 AM CDT [facility] SPECIMEN SOURCE, GASES POC Arterial 01/13/2025 3:03 AM CDT [facility] PUNC SITE POC ART PUNCT 01/13/2025 3:03 AM CDT [facility] Blood 01/13/2025 3:03 AM CDT 01/13/2025 3:05 AM CDT Narrative [facility] [employer] [facility] - 01/13/2025 3:03 AM CDT References ranges displayed are for Arterial samples. us Padmini Kennedy MD POINT OF CARE TESTING Final Resu lt Performing Organization Address [facility] de Phone Number [facility] CLIA # [id number] [address] [address] * (ABNORMAL) BLOOD GAS ARTERIAL (01/13/2025 3:03 AM CDT) Only the most recent of2 resultswithin the time period is included. PH BLOOD POC 7.43 7.35 - 7.45 01/13/2025 3:03 AM CDT [facility] PCO2 POC 26(L) 35 - 45 mm Hg 01/13/2025 3:03 AM [facility] PO2 POC 129(H) 80 - 105 mm Hg 01/13/2025 3:03 AM [facility] HCO3 (CALC) POC 17(L) 22 - 26 mmol/L 01/13/2025 3:03 AM [facility] HEMOGLOBIN POC 11.3(L) 12.0 - 18.0 g/dL 01/13/2025 3:03 AM [facility] BASE EXCESS POC -7(L) -2 - 3 mmol/L 01/13/2025 3:03 AM [facility] O2 SATURATION POC 100(H) 95 - 98 % 025 3:03 AM [facility] SODIUM POC 137(L) 138 - 146 mmol/L 01/13/2025 3:03 AM [facility] POTASSIUM POC 3.1(L) 3.5 - 4.9 mmol/L 01/13/2025 3:03 AM [facility] HEMATOCRIT POC 34(L) 38 - 51 % 01/13/2025 3:03 AM [facility] PH TEMP CORRECT 7.43 7.35 - 7.45 01/13/2025 3:03 AM [facility] PCO2 TEMP CORRECT 26(L) 35 - 45 mm Hg 01/13/2025 3:03 AM [facility] PO2 TEMP CORRECT 129(H) 80 - 105 mm Hg 01/13/2025 3:03 AM [facility] SPECIMEN SOURCE, GASES POC Arterial 01/13/2025 3:03 AM [facility] CALCIUM IONIZED POC 4.5(L) 4.8 - 5.2 mg/dL 01/13/2025 3:03 AM [facility] TCO2 (CALC) POC 18(L) 23 - 27 mmol/L 01/13/2025 3:03 AM [facility] FIO2 40.0 21.0 - 100.0 % 01/13/2025 3:03 AM CDT [facility] Comment:FIO2 values reported <21.0 indicate O2 flow in Liters/minute. Values >/= 21.0 indicate percent O2. P/F RATIO POC 323 01/13/2025 3:03 AM CDT [facility] Comment: P/F Ratio Interpretation ARDS SEVERITY PaO2/FiO2 Mild 200-300 Moderate 100-200 Severe <100 PEEP POC 8 01/13/2025 3:03 AM CDT [facility] PUNC SITE POC ART PUNCT 01/13/2025 3:03 AM CDT [facility] Blood, arterial 01/13/2025 3 :03 AM CDT 01/13/2025 3:05 AM CDT Pdamini Kennedy MD ABG ORDERABLES Final Result Performing Organization Address [facility]/ZIP Co de Phone Number [facility] CLIA # [id number] [facility] [address] [place] [address] * BLOOD CULTURE (01/13/2025 12:45 AM CDT) Only the most recent of2 resultswithin the time period is included. [facility] BLOOD CULTURE No growth 01/18/2025 1:06 AM CDT [facility] Blood (Peripheral) Venipuncture / Unknown 01/13/2025 12:45 AM CDT 01/13/2025 12:49 AM CDT Padmini Kennedy MD MICROBIOLOGY - GENERAL ORDERABLE S Final Result Performing Organization Address City/[facility]/ZIP Co de Phone Number [facility] CLIA # [id number] [address] [address] [place] [address] * TICK-BORNE PANEL, PCR (01/13/2025 12:15 AM CDT) [facility] EHRLICHIA CHAFFEENSIS PCR NOT DETECTED 01/18/2025 12:17 AM CDT [facility] Comment: REFERENCE RANGE: NOT DETECTED This test was developed and its analytical performance characteristics have been determined by [employer]. It has not been cleared or approved by FDA. This assay has been validated pursuant to the CLIA regulations and is used for clinical purposes. BABESIA MICROTI PCR NOT DETECTED 09/2024 12:17 AM CDT [facility] Comment: REFERENCE RANGE: NOT DETECTED This test was developed and its analytical performance characteristics have been determined by [employer]. It has not been cleared or approved by FDA. This assay has been validated pursuant to the CLIA regulations and is used for clinical purposes. ANAPLASMA PHAGOCYTOPHILUM PCR NOT DETECTED 01/18/2025 12:17 AM CDT [facility] Comment: REFERENCE RANGE: NOT DETECTED This test was developed and its analytical performance characteristics have been determined by [employer]. It has not been cleared or approved by FDA. This assay has been validated pursuant to the CLIA regulations and is used for clinical purposes. EHRLICHIA EWINGII DNA, QL REAL TIME PCR NOT DETECTED 01/18/2025 12:17 AM CDT [facility] Comment: REFERENCE RANGE: NOT DETECTED This test was developed and its analytical performance characteristics have been determined by [employer]. It has not been cleared or [...] analytical performance characteristics have been determined by [employer]. It has not been cleared or [...] 01/18/2025 12:17 AM CDT [facility] Comment: REFERENCE RANGE: NOT DETECTED This test was developed and its analytical performance characteristics have been determined by [employer]. It has not been cleared or approved by FDA. This assay has been validated pursuant to the CLIA regulations and is used for clinical purposes. For additional information, please refer to https://[employer]/faq/bck400 (This link is being provided for informational/ educational purposes only.) Blood Venipuncture / Unknown 01/13/2025 12:15 AM CDT 01/13/2025 12:20 AM CDT Narrative [facility] - 01/18/2025 12:17 AM CDT Performing Organization Information: Site ID: EZ Name: [employer]/[facility], Address: [address] [place] [address] Director: Sunitha Lopez MD,PhD,MADISYN Performing Organization Information: Site ID: EZ Name: [employer]/[facility], Address: [address] [place] [address] Director: Sunitha Lopez MD,PhD,MADISYN Performing Organization Information: Site ID: EZ Name: [employer]/[facility], Address: [address] [place] [address] Director: Sunitha Lopez MD,PhD,MADISYN Performing Organization Information: Site ID: EZ Name: [employer]/[facility], Address: [address] [place] [address] Director: Sunitha Lopez MD,PhD,MADISYN Performing Organization Information: Site ID: EZ Name: [employer]/[facility], Address: [address] [place] [address] Director: Sunitha Lopez MD,PhD,MADISYN Padmini Kennedy MD CHEMISTRY ORDERABLES Final Resul t Performing Organization Address [facility] Co de Phone Number [facility] * CHAPIS MTN SPOTTED FEVER IGG/IGM (01/13/2025 12:15 AM CDT) [...] Performing Organization Information: Site ID: AMD Name: [employer]/[facility] [place] Address: [address] [place] [address] [place] [address] Director: Cuba Chang M.D.,PhD Padmini Kennedy MD CHEMISTRY ORDERABLES Final Resul t Performing Organization Address [facility] de Phone Number [facility] [...] Austyn Brown MD URINE ORDERABLES Final Result [id number] [address] [place] [address] * (ABNORMAL) DRUG SCREEN, URINE (01/12/2025 7:00 PM CDT) Pathologist [facility] AMPHETAMINE QUAL, URINE Presumptive Positive(A) Negative 01/12/2025 7:54 PM CDT [facility] BARBITURATE QUAL, URINE Negative Negative 01/12/2025 7:54 PM CDT [facility] BENZODIAZEPINE QUAL, URINE Presumptive Positive(A) Negative 01/12/2025 7:54 PM CDT [facility] COCAINE QUAL URINE Negative Negative 01/12/2025 7:54 PM CDT [facility] OPIATE QUAL, URINE Negative Negative 01/12/2025 7:54 PM CDT [facility] CANNABINOIDS QUAL, URINE Negative Negative 01/12/2025 7:54 PM CDT [facility] OXYCODONE QUAL, URINE Negative Negative 01/12/2025 7:54 PM CDT [facility] METHADONE QUAL, URINE Negative Negative 01/12/2025 7:54 PM CDT [facility] FENTANYL QUAL, URINE Presumptive Positive(A) Negative 01/12/2025 7:54 PM [facility] CREATININE, URINE 51.9 29.0 - 226.0 mg/dL 01/12/2025 7:54 PM [facility] Comment:Reference Range vari es with fluid intake and diet. Urine URINE SPECIMEN OBTAINED BY CLEAN CATCH PROCEDURE / Unknown Collection / Unknown 01/12/2025 7:00 PM CDT 01/12/2025 7:05 PM CDT Narrative [facility] - 01/12/2025 7:54 PM CDT This test [...] Austyn Brown MD URINE ORDERABLES Final Result [facility] CLIA # [id number] [address] [place] [address] * (ABNORMAL) URINALYSIS WITH REFLEX MICROSCOPIC (01/12/2025 7:00 PM CDT) COLOR UA Yellow Pale to Dark Yellow 01/12/2025 7:24 PM [facility] CLARITY UA Clear Clear 01/12/2025 7:24 PM [facility] SPECIFIC GRAVITY UA 1.019 1.003 - 1.035 01/12/2025 7:24 PM [facility] PH UA 6.0 5.0 - 8.0 01/12/2025 7:24 PM [facility] LEUKOCYTE ESTERASE UA Negative Negative 01/12/2025 7:24 PM [facility] NITRITE UA Negative Negative 01/12/2025 7:24 PM T [facility] PROTEIN UA 1+(A) Negative 01/12/2025 7:24 PM CDT [facility] GLUCOSE UA Negative Negative 01/12/2025 7:24 PM CDT [facility] KETONES UA Negative Negative 01/12/2025 7:24 PM CDT [facility] UROBILINOGEN UA <2.0 <2.0 mg/dL 7:24 PM CDT [facility] BILIRUBIN UA Negative Negative 01/12/2025 7:24 PM CDT [facility] BLOOD UA 1+(A) Negative 01/12/2025 7:24 PM CDT [facility] WBC UA 0-2 0 - 2 /hpf 01/12/2025 7:24 PM CDT [facility] RBC UA 0-2 0 - 2 /hpf 01/12/2025 7:24 PM CDT [facility] BACTERIA UA Negative Negative /hpf 01/12/2025 7:24 PM CDT [facility] EPITHELIAL CELLS, URINE 0-5 0 - 5 /hpf 01/12/2025 7:24 PM CDT [facility] HYALINE CAST 6-10(A) None Seen, 0-2 /lpf 01/12/2025 7:24 PM CDT [facility] Urine URINE SPECIMEN OBTAINED BY CLEAN CATCH PROCEDURE / Unknown Collection / Unknown 01/12/2025 7:00 PM CDT 01/12/2025 7:05 PM CDT us Austyn Brown MD URINE ORDERABLES Final Result [facility] CLIA # [id number] [address] [place] [address] [place], [place] [address] * (ABNORMAL) PHOSPHORUS (01/12/2025 6:50 PM CDT) PHOSPHORUS 4.6(H) 2.5 - 4.5 mg/dL 01/12/2025 7:50 PM CDT [facility] Blood Venipuncture / Unknown 01/12/2025 6:50 PM CDT 01/12/2025 7:00 PM CDT Austyn Brown MD CHEMISTRY ORDERABLES F inal Result [facility] CLIA # [id number] [address] [address] [facility] [place] [address] * (ABNORMAL) HEPATIC FUNCTION PANEL (01/12/2025 6:50 PM CDT) Pathologist [facility] TOTAL PROTEIN 7.4 6.4 - 8.3 g/dL 01/12/2025 7:50 PM CDT [facility] ALBUMIN 4.0 3.5 - 5.2 g/dL 01/12/2025 7:50 PM CDT [facility] BILIRUBIN TOTAL 0.3 0.0 - 1.0 mg/dL 01/12/2025 7:50 PM CDT [facility] BILIRUBIN DIRECT <0.1 0.0 - 0.3 mg/dL 01/12/2025 7:50 PM CDT [facility] Comment:Hemolyzed: Result un reliable. ALKALINE PHOSPHATASE 191(H) 35 - 104 U/L 01/12/2025 7:50 PM CDT [facility] AST 58(H) 10 - 35 U/L 01/12/2025 7:50 PM CDT [facility] Comment:Hemolysis present. R esult may be falsely elevated. ALT 28 <=35 U/L 01/12/2025 7:50 PM CDT [facility] Comment:Hemolysis present. R esult may be falsely elevated. Blood Venipuncture / Unknown 01/12/2025 6:50 PM CDT 01/12/2025 7:00 PM CDT Austyn Brown MD CHEMISTRY ORDERABLES F inal Result [facility] # [id number] [address] [address] [place] [address] * CT CHEST ABDOMEN PELVIS WO CONT [...] exam. 6. Additional minor findings as above. Austyn Brown MD CT ORDERABLES Final Result [...] are patent. Basilar artery is patent. The automotive refinish technician are patent. Three-vessel origin of the aortic [...] vasculature is patent. Narrative Procedure Note Cuba Burns DO - 01/12/2025 IMPRESSION: Please see below. [...] are patent. Basilar artery is patent. The automotive refinish technician are patent. Three-vessel origin of the aortic [...] Final Result from Last 3 Months Insurance * Guarantor: MARY JANE SELBY Account Type Relation to Patient Date of Phone Billing Address Personal/Family [address] [place] [address] RX [employer] Medicare Part D RX [employer] PLANS (INTERNAL) [facility] Advance Directives For more information, please contact: [phone] Documents on File Type Date Recorded Patient Res Habilitation Assistant Expl anation Advance Directive POA 08/09/2020 12:19 [...] 4:07 PM 08/31/2021 3:57 PM Care Teams Financial Engineer Relationship Specialty Start Date End Date Jean Claude Nayak MD [address] [place] [phone] PCP - General Family Practice 08/14/21
--- OUTSIDE RECORDS SUMMARY | 2025-04-14 13:18 | XMS_ITS | Encounter Summary ---
Author Organization [facility] Address [address] [place] [address] Care Team Providers Care Band Cutter Name Role Phone Jean Claude Nayak MD Primary Care Provider [phone] Reason for Visit * Reason Comments Med Refill Encounter Details Date Type Department Care Team (Late st Contact Info) Description 04/01/2025 Refill [facility] Med [facility] [address] [place] [phone] Lalo Bingham MD [address] [facility] [address] [place] [address] Social History Tobacco Use Types Packs/Day Years [...] on file 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 Gender Identity Not on file Sexual Orientation Not on file documented as of this encounter Plan of Treatment Upcoming Encounters Date Type Department Care Team (Late st Contact Info) Description 07/20/2025 9:00 AM BICYCLE FITTER Office Visit [facility] [address] [place] [address] Jorden Arshad MD [address] [place] [address] 09/13/2025 2:00 PM CDT Ancillary Procedure [facility] [place] [address] [place] [phone] Romero Isaac MD [address] [place] [phone] 09/13/2025 2:30 PM CDT Ancillary Procedure [facility] [place] [address] [place] [address] Liss Sher PA-C [address] [place] [address] 09/13/2025 3:30 PM CDT Office Visit [facility] Vascular Surgery [place] [address] [place] [address] Romero Isaac MD [address] [place] [address] Ale Carrillo DO [address] [place] [address] documented as of this encounter Visit Diagnoses Not on filedocumented in this encounter Care Teams Band Cutter Relationship Specialty Start Date End Date Jean Claude Nayak MD [facility] [place] [address] PCP - General Family Practice 08/14/21 documented as of this encounter
--- OUTSIDE RECORDS SUMMARY | 2025-04-14 13:18 | XMS_ITS | Encounter Summary ---
Author Organization [facility] Address [address] [place] [address] Care Team Providers Care Press Tender Short Goods Name Role Phone Jean Claude Nayak MD Primary Care Provider [phone] Reason for Visit * Reason Comments Med Refill Encounter Details Date Type Department Care Team (Late st Contact Info) Description 03/30/2025 Refill [facility] Physical Med and Rehab [facility] [address] [place] [phone] Lalo Bingham MD [address] [facility] [address] [place] [address] Social History Tobacco Use Types Packs/Day Years [...] on file 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 Gender Identity Not on file Sexual Orientation Not on file documented as of this encounter Plan of Treatment Upcoming Encounters Date Type Department Care Team (Late st Contact Info) Description 07/20/2025 9:00 AM MELLOWING MACHINE OPERATOR Office Visit [facility] [address] [place] [address] Jorden Arshad MD [address] [place] [address] 09/13/2025 2:00 PM CDT Ancillary Procedure [facility] [place] [address] [place] [address] Romero Isaac MD [address] [place] [address] 09/13/2025 2:30 PM CDT Ancillary Procedure [facility] [place] [address] [place] [address] Liss Sher PA-C [address] [place] [address] 09/13/2025 3:30 PM CDT Office Visit [facility] Vascular Surgery [place] [address] [place] [address] Romero Isaac MD [address] [place] [address] Ale Carrillo DO [address] [place] [address] documented as of this encounter Visit Diagnoses Not on filedocumented in this encounter Care Teams Press Tender Short Goods Relationship Specialty Start Date End Date Jean Claude Nayak MD [facility] [place] [address] PCP - General Family Practice 08/14/21 documented as of this encounter
--- OUTSIDE RECORDS SUMMARY | 2025-04-14 13:18 | XMS_ITS | Encounter Summary ---
Author Organization [facility] Address [address] [place] [address] Care Team Providers Care Grinding Room Supervisor Name Role Phone Jean Claude Nayak MD Primary Care Provider [phone] Reason for Visit * Reason Comments Med Refill Encounter Details Date Type Department Care Team (Late st Contact Info) Description 03/30/2025 Refill [facility] Physical Med and Rehab [facility] [address] [place] [phone] Lalo Bingham MD [address] [facility] [address] [place] [address] Social History Tobacco Use Types Packs/Day Years [...] on file 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 Gender Identity Not on file Sexual Orientation Not on file documented as of this encounter Plan of Treatment Upcoming Encounters Date Type Department Care Team (Late st Contact Info) Description 07/20/2025 9:00 AM MACHINE CAGE MAKER Office Visit [facility] [address] [facility] [address] [place] [address] Jorden Arshad MD [address] [facility] [address] [place] [address] 09/13/2025 2:00 PM CDT Ancillary Procedure [facility] [place] [address] [place] [address] Romero Isaac MD [address] [place] [address] 09/13/2025 2:30 PM CDT Ancillary Procedure [facility] [place] [address] [place] [address] Liss Sher PA-C [address] [place] [address] 09/13/2025 3:30 PM CDT Office Visit [facility] Vascular Surgery [place] [address] [place] [address] Romero Isaac MD [address] [place] [address] Ale Carrillo DO [address] [place] [address] documented as of this encounter Visit Diagnoses Not on filedocumented in this encounter Care Teams Grinding Room Supervisor Relationship Specialty Start Date End Date Jean Claude Nayak MD [facility] [place] [address] PCP - General Family Practice 08/14/21 documented as of this encounter
[2025-04-14 13:20] VITALS: BP 173/79; PULSE 60; RESP 16; TEMP 36.3; O2SAT 96
--- NOTE | 2025-04-14 14:08 | W.ED.RECABL ---
HPI - Recheck/Abnormal Lab/Rx General: Chief Complaint: Recheck/Abnormal Lab/Rx Stated Complaint: Adnormal labs Time Seen by Provider: 04/14/25 14:08 History of Present Illness: 80-year-old female directed to the emergency room by her primary care doctor for hypokalemia. She is on potassium supplements as well as magnesium supplements. She is also on Bumex 3 mg twice a day. Related Data Home Medications ?Medication ?Instructions ?Recorded ?Confirmed ascorbic acid (vitamin C) 500 mg 1,000 mg PO QAM 02/15/20 04/12/25 tablet cholecalciferol (vitamin D3) 25 25 mcg PO QAM 05/16/22 04/12/25 mcg (1,000 unit) capsule acetaminophen 500 mg tablet 500 mg PO Q4H PRN Pain 05/14/23 04/12/25 vitamin E 268 mg (400 unit) capsule 1 cap PO DAILY 05/14/23 04/12/25 aspirin 81 mg tablet 81 mg PO DAILY 02/24/25 04/12/25 atorvastatin 40 mg tablet (Lipitor) 40 mg PO DAILY 02/24/25 04/12/25 folic acid 400 mcg tablet 400 mcg PO QAM 02/24/25 04/12/25 ferrous sulfate 325 mg (65 mg 325 mg PO DIRECTED 03/18/25 04/12/25 iron) tablet Previous Rx's ?Medication ?Instructions ?Recorded RSV vaccine #1 ea 04/29/24 clonidine HCl 0.2 mg tablet See Rx Instructions .Route 02/16/25 .COMPLEX #270 tabs hydrochlorothiazide 25 mg tablet See Rx Instructions .Route 02/16/25 .COMPLEX #90 tabs levothyroxine 75 mcg tablet See Rx Instructions .Route 02/16/25 .COMPLEX #50 tabs levothyroxine 88 mcg tablet See Rx Instructions .Route 02/16/25 .COMPLEX #45 tabs magnesium oxide 400 mg PO DAILY #30 caps 03/04/25 metoprolol succinate 50 mg 50 mg PO BID #180 tabs 03/15/25 tablet,extended release 24 hr alprazolam 0.25 mg tablet 0.25 mg PO BEDTIME #30 tabs 03/17/25 hydralazine 50 mg tablet 50 mg PO TID #90 tabs 03/17/25 clopidogrel 75 mg tablet See Rx Instructions .Route 03/31/25 .COMPLEX #90 tabs bumetanide 2 mg tablet 3 mg (1.5 x 2 mg) PO BID #90 tabs 04/07/25 dapagliflozin propanediol 10 mg 10 mg PO DAILY #30 tabs 04/13/25 tablet (Farxiga) potassium chloride 20 mEq 40 meq (2 x 20 mEq) PO BID #120 04/14/25 tablet,extended tabs release(part/cryst) (Klor-Con M) Allergies Allergy/AdvReac Type Severity Reaction Status Date / Time lisinopril AdvReac Severe ALGY-Swell Verified 12/25/24 13:05 Lip/Tongue/Throat Review of Systems Const: Denies: fever(s) or chills Card: Denies: chest pain Resp: Denies: dyspnea GI: Denies: abdominal pain : Denies: dysuria, urinary frequency or urinary urgency Musc: Denies: neck pain or back pain Skin/Breast: Denies: rash PFSH ED PFSH: Medical History Atrophy of right kidney Vitamin B12 deficiency History of hypothyroidism History of COPD Hx of hyperlipidemia History of peripheral arterial disease Surgical History S/P hip replacement Hx of cholecystectomy Hx of section S/P AAA repair Family History Other Clotting disorder Hyperlipidemia Hypertension Lung disease Stroke Social History Smoking and tobacco/nicotine status: former use of tobacco/nicotine Quit status (tobacco/nicotine): has quit using Former quit date comment: Quit smoking December 2024 Alcohol intake: never Substance/Drug Use: never Additional social history: Patient wants DNR status as discussed with Anastacio Brito MD on 03/18/2025 in the presence of her daughter Sharon Glez Physical Exam Const: GENERAL APPEARANCE: cooperative ORIENTATION/CONSCIOUSNESS: Yes awake, Yes oriented to person, Yes oriented to place and Yes oriented to time HENMT: COMMON NORMALS: normocephalic, atraumatic and hearing grossly normal bilaterally HEAD & SCALP: normocephalic and atraumatic Resp: COMMON NORMALS: normal respiratory effort, No retractions, No use of accessory muscles and clear to auscultation bilaterally AUSCULTATION: clear to auscultation bilaterally Cardio: COMMON NORMALS: regular rate, regular rhythm and No murmurs present (Cardio) RATE: regular rate RHYTHM: regular rhythm GI: COMMON NORMALS: Soft to palpation and No hepatosplenomegaly present AUSCULTATION: Yes normoactive bowel sounds PALPATION: Yes Soft to palpation, No Tenderness to palpation present (GI), No Guarding due to palpation present (GI) and Yes No hepatosplenomegaly present Extremity: COMMON NORMALS: normal to inspection, capillary refill normal, no clubbing, cyanosis or edema, no calf tenderness and no pedal edema Neuro: SENSORIUM/ORIENTATION: Yes oriented to person, Yes oriented to place and Yes oriented to time Skin: COMMON NORMALS: no rashes or lesions noted GENERAL SKIN EXAM: no rashes or lesions noted Course Vital Signs: Vital signs: Vital Signs Temperature 97.4 F L 04/14/25 13:20 Pulse Rate 59 L 04/14/25 15:15 Respiratory Rate 12 04/14/25 15:07 Blood Pressure 160/66 04/14/25 15:15 Pulse Oximetry 94 04/14/25 15:15 Oxygen Delivery Me thod Room Air 04/14/25 15:07 MDM - Recheck/Abnormal Lab/Rx Medical Decision Making Exam unremarkable repeat labs show potassium of 3.2 she is given potassium supple magnesium slightly elevated. Discharge home follow-up with her primary care doctor return if has further problems. Medical Records I reviewed the patient's medical records. Lab Data I reviewed the patient's lab results. 04/14/25 14:28 04/14/25 14:28 Laboratory Results WBC 7.77 10^3/uL (3.29-11.43) 04/14/25 14: RBC 4.24 10^6/uL (3.85-5.65) 04/14/25 14:28 Hgb 11.90 g/dL (11.27-16.99) 04/14/25 14:28 Hct 37.9 % (36-47) 04/14/25 14: MCV 89.4 fl (85-98) 04/14/25 14: MCH 28.1 pg (27-33) 04/14/25 14:28 MCHC 31.4 g/dL (30-55) 04/14/25 14: RDW 15.1 % (12.1-15.1) 04/14/25 14: Plt Count 362 10^3/cmm (157-399) 04/14/25 14:28 MPV 9.3 fL (7.4-10.4) 04/14/25 14: Neut % (Auto) 63.6 % 04/14/25 14: Lymph % (Auto) 23.9 % 04/14/25 14:28 Mclennan % (Auto) 8.9 % 04/14/25 14: Eos % (Auto) 1.9 % 04/14/25 14: Baso % (Auto) 1.3 % 04/14/25 14: Neut # (Auto) 4.94 10^3/uL (1.8-7.7) 04/14/25 14: Lymph # (Auto) 1.9 10^3/uL (0.8-4.8) 04/14/25 14:28 Mclennan # (Auto) 0.7 10^3/uL (0.2-0.9) 04/14/25 14: Eos # (Auto) 0.2 10^3/uL (0.0-0.8) 04/14/25 14: Baso # (Auto) 0.1 10^3/uL (0.0-0.1) 04/14/25 14: Nucleated RBC % (auto) 0 % 04/14/25 14: Nucleated RBCs # 0.0 /100WBC 04/14/25 14:28 Sodium 135 mmol/L (136-145) L 04/14/25 14:28 Potassium 3.2 mmol/L (3.5-5.1) L 04/14/25 14:28 Chloride 92 mmol/L (98-107) L 04/14/25 14:28 Carbon Dioxide 28 mmol/L (22-29) 04/14/25 14:28 Anion Gap 18.2 (5-19) 04/14/25 14:28 BUN 46 mg/dL (8-23) H 04/14/25 14:28 Creatinine 1.5 mg/dL (0.5-0.9) H 04/14/25 14:28 GFR Calculation Not Reportable 04/14/25 14: Glucose 149 mg/dL (65-115) H 04/14/25 14:28 Calculated Osmolality 295 mOsm/kg (285-295) 04/14/25 14:28 Calcium 9.8 mg/dL (8.5-10.5) 04/14/25 14:28 Magnesium 2.4 mg/dL (1.7-2.3) H 04/14/25 14:28 Total Bilirubin 0.2 mg/dL (0.15-1.2) 04/14/25 14:28 AST 34 U/L (0-32) H 04/14/25 14: ALT 23 U/L (0-33) 04/14/25 14: Alkaline Phosphatase 194 U/L (35-105) H 04/14/25 14:28 Total Protein 7.6 g/dL (6.6-8.7) 04/14/25 14: Albumin 4.0 g/dL (3.5-5.2) 04/14/25 14: Globulin 3.6 g/dL (1.3-4.6) 04/14/25 14:28 No radiology studies performed this visit Discharge Plan Discharge Patient Disposition: Home Clinical Impression: Hypokalemia Condition: Stable Prescriptions: No Action ascorbic acid (vitamin C) 500 mg tablet 1,000 mg PO QAM aspirin 81 mg tablet 81 mg PO DAILY atorvastatin [Lipitor] 40 mg tablet 40 mg PO DAILY cholecalciferol (vitamin D3) 25 mcg (1,000 unit) capsule 25 mcg PO QAM (DME) RSV vaccine See Rx Instructions .ROUTE .MEDSUPPLY Qty: 1 0RF Rx Instructions: Give one dose IM per guidelines. levothyroxine 88 mcg tablet See Rx Instructions .ROUTE .COMPLEX Qty: 45 3RF Dose Instruction: TAKE 1 TABLET BY MOUTH EVERY DAY IN THE MORNING WITH WATER,ON EVEN DAYS OF THE MONTH (1/2HR PRIOR TO EATING) Rx Instructions: TAKE 1 TABLET BY MOUTH EVERY DAY IN THE MORNING WITH WATER,ON EVEN DAYS OF THE MONTH (1/2HR PRIOR TO EATING) clonidine HCl 0.2 mg tablet See Rx Instructions .ROUTE .COMPLEX Qty: 270 3RF Dose Instruction: TAKE 1 TABLET BY MOUTH THREE TIMES A DAY Rx Instructions: TAKE 1 TABLET BY MOUTH THREE TIMES A DAY levothyroxine 75 mcg tablet See Rx Instructions .ROUTE .COMPLEX Qty: 50 3RF Dose Instruction: TAKE 1 TABLET BY MOUTH IN THE MORNING ON THE ODD DAYS OF THE MONTH 1/2 HOUR BEFORE BREAKFAST WITH WATER ONLY Rx Instructions: TAKE 1 TABLET BY MOUTH IN THE MORNING ON THE ODD DAYS OF THE MONTH 1/2 HOUR BEFORE BREAKFAST WITH WATER ONLY hydrochlorothiazide 25 mg tablet See Rx Instructions .ROUTE .COMPLEX Qty: 90 3RF Dose Instruction: TAKE 1 TABLET BY MOUTH DAILY FOR HIGH BLOOD PRESSURE Rx Instructions: TAKE 1 TABLET BY MOUTH DAILY FOR HIGH BLOOD PRESSURE magnesium oxide 400 mg magnesium capsule 400 mg PO DAILY Qty: 30 3RF metoprolol succinate 50 mg tablet extended release 24 hr 50 mg PO BID Qty: 180 3RF hydralazine 50 mg tablet 50 mg PO TID Qty: 90 3RF alprazolam 0.25 mg tablet 0.25 mg PO BEDTIME Qty: 30 2RF clopidogrel 75 mg tablet See Rx Instructions .ROUTE .COMPLEX Qty: 90 3RF Dose Instruction: TAKE 1 TABLET BY MOUTH DAILY . Rx Instructions: TAKE 1 TABLET BY MOUTH DAILY . bumetanide 2 mg tablet 3 mg PO BID Qty: 90 3RF dapagliflozin propanediol [Farxiga] 10 mg tablet 10 mg PO DAILY Qty: 30 6RF potassium chloride [Klor-Con M20] 20 mEq tablet,ER particles/crystals 40 meq PO BID Qty: 120 2RF acetaminophen 500 mg Tablet 500 mg PO Q4H PRN (Reason: Pain) Patient Comments: prn vitamin E 268 mg (400 unit) Capsule 1 cap PO DAILY folic acid 400 mcg tablet 400 mcg PO QAM ferrous sulfate 325 mg (65 mg iron) tablet 325 mg PO DIRECTED Discharge Orders: Discharge ED (Routine); Ordered 04/14/25 Ordered By: Lester Emery Referrals: Jean Claude Nayak MD [Primary Care Provider, Family Practice] Discharge Diet: Usual diet Discharge Activity: Resume usual activity Patient Instructions: Opioid Safety, Pain Management, Patient Portal & Santos Instructions Activity Restrictions/Additional Instructions: Thank you for choosing [facility] for your healthcare needs today. It is very important that you follow up as instructed or that you return to the Emergency Department should you have concerns or if your condition changes or worsens in any way. Emergency department visits are focused on emergent conditions, in some cases you may require further evaluation on an outpatient basis. You were seen in the emergency room after being directed here by your primary care doctor your repeat potassium was 3.2 we did give you potassium supplement. Continue to take all your previously prescribed medications and follow-up with your primary care doctor. No emergent condition at this time. (Please note that included in your discharge packet is information concerning opioid safety and pain management. This information is given to all patients were discharged from the ER regardless of their discharge diagnosis or the medicines they usually take or are prescribed.) Print Language: Italian Coding Level of Care Code ED Federal Mediator for Jacinto Ventura
[2025-04-14 14:29] VITALS: BP 145/66; PULSE 61; RESP 16; O2SAT 92
[2025-04-14 14:34] LABS: Hematocrit 37.9 % (36-47); Hemoglobin 11.90 g/dL (11.27-16.99); Mean Corpuscular HGB Conc 31.4 g/dL (30-55); Mean Corpuscular Hemoglobin 28.1 pg (27-33); Mean Corpuscular Volume 89.4 fl (85-98); Nucleated Red Blood Cells % 0 %; Platelet Count 362 10^3/cmm (157-399); Red Blood Count 4.24 10^6/uL (3.85-5.65); White Blood Count 7.77 10^3/uL (3.29-11.43)
[2025-04-14 14:39] VITALS: BP 161/71; PULSE 58; RESP 12; O2SAT 92
[2025-04-14 14:56] LABS: Alanine Aminotransferase 23 U/L (0-33); Albumin Level 4.0 g/dL (3.5-5.2); Alkaline Phosphatase 194 U/L (35-105); Blood Urea Nitrogen 46 mg/dL (8-23); Calcium 9.8 mg/dL (8.5-10.5); Carbon Dioxide 28 mmol/L (22-29); Chloride 92 mmol/L (98-107); Creatinine Clr Calc Pharmacy 24.6432; Globulin 3.6 g/dL (1.3-4.6); Glucose 149 mg/dL (65-115); Magnesium 2.4 mg/dL (1.7-2.3); Osmolality Calculated 295 mOsm/kg (285-295); Sodium 135 mmol/L (136-145); Total Protein 7.6 g/dL (6.6-8.7)
[2025-04-14 14:57] LABS: Anion Gap 18.2 (5-19); Aspartate Amino Transferase 34 U/L (0-32); Potassium 3.2 mmol/L (3.5-5.1)
[2025-04-14] MEDS: potassium chloride oral liq 20 mEq/15 mL UDC 40 MEQ PO (15:04)
[2025-04-14 15:07] VITALS: BP 160/66; PULSE 61; RESP 12; O2SAT 95
[2025-04-14 15:15] VITALS: BP 160/66; PULSE 59; O2SAT 94
== END 2025-04-14 15:16 | disposition home or self-care (01) ==
PROVIDERS: Physician Assistant; Emergency Provider Family Medicine; PCP Family Medicine
DX: E87.6 Hypokalemia (principal); Z79.82 Long term (current) use of aspirin; Z87.891 Personal history of nicotine dependence; J44.9 Chronic obstructive pulmonary disease, unspecified; E78.5 Hyperlipidemia, unspecified
CPT/HCPCS: 80053; 83735; 85025; 99283; J9999

== ENCOUNTER → 2025-05-24 09:21 | Outpatient (BNVA) | payer MEDICARE, SELFPAY | PROVIDERS: PCP Family Medicine; Visit Provider Family Medicine | DX: Z51.81 Encounter for therapeutic drug level monitoring (principal); E11.9 Type 2 diabetes mellitus without complications; E87.6 Hypokalemia | CPT/HCPCS: 80053; 83036; 83735; 85025 ==

== ENCOUNTER 2025-06-12 18:00 | Observation (INO) | payer MEDICARE, SELFPAY ==
--- NOTE | 2025-06-12 18:06 | ECG_ITS ---
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
--- OUTSIDE RECORDS SUMMARY | 2025-06-12 18:06 | XMS_ITS | Encounter Summary ---
Author Organization [facility] Address [address] [place] [address] Care Team Providers Care Sports Team Manager Name Role Phone Andrey Lanza MD [...] Expiration Date Visits Re quested Visits Authorized [id number] Closed 08/03/2020 09/03/2021 1 1 E WRECKER * Radiology Services (Routine) - Closed Specialty Diagnoses / Procedures Referred By Contac t Referred To Contact Diagnoses Aortoiliac occlusive disease (CMS/HCC) Iliac artery aneurysm Iliac artery stenosis, bilateral Penetrating ulcer of aorta Procedures US AORTA Rochelle Rodriguez NP Phone: tel: fax: Referral ID Status Reason Start Date Expiration Date Visits Re quested Visits Authorized [id number] Closed 08/03/2020 09/03/2021 1 1 E WRECKER Encounter Details Date Type Department Care Team (Late st Contact Info) Description 08/03/2020 Ancillary Orders [facility] Cardiac Thoracic Vascular Surg [place] [address] [place] [phone] Rochelle Rodriguez, CRISTIANA [address] [place] [phone] Aortoiliac occlusive disease (CMS/HCC); Iliac artery aneurysm; [...] on file Legal Sex Female 3:41 AM HOUSE WRECKER Gender Identity Not on file Sexual Orientation Not on file documented as of this encounter Plan of Treatment Not on file documented as of this encounter Results * US AORTA IVC ILIAC DUPLEX LTD (08/09/2020 1:25 PM HOUSE WRECKER) Anatomical Region Laterality Modality Abdomen Ultrasound 08/09/2020 1:25 PM HOUSE WRECKER Narrative 08/10/2020 12:15 PM HOUSE WRECKER See the ultrasound of the aorta obtained on the same day for the images and full report (accession number [id number]). Procedure Note Barron Ca MD - 08/10/2020 See the ultrasound of the aorta obtained on the same day for the images and full report (accession number [id number]). us Rochelle Rodriguez NP US ORDERABLES Final Resul t * US AORTA (08/09/2020 1:25 PM HOUSE WRECKER) Anatomical Region Laterality Modality Abdomen Ultrasound 08/09/2020 1:25 PM HOUSE WRECKER Impressions 08/11/2020 6:14 AM HOUSE WRECKER IMPRESSION: 1. Endovascular repair of the infrarenal [...] cm in diameter. Narrative 08/11/2020 6:14 AM HOUSE WRECKER EXAM: US AORTA, DIAGNOSIS/REASON FOR EXAM: Aortoiliac [...] aorta documented in this encounter Care Teams Sports Team Manager Relationship Specialty Start Date End Date Andrey Lanza MD NO ADDRESS ON FILE PCP - General 11/27/07 documented as of this encounter
--- OUTSIDE RECORDS SUMMARY | 2025-06-12 18:06 | XMS_ITS | Encounter Summary ---
Author Organization [facility] Address [address] [place] [address] 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
--- OUTSIDE RECORDS SUMMARY | 2025-06-12 18:06 | XMS_ITS | Encounter Summary ---
Author Organization [facility] Address [address] [place] [address] Care Team Providers Care Before School Babysitter Name Role Phone Andrey Lanza MD Primary Care Provider Emily doran Encounter Details Date Type Department Care Team (Latest Contact Info) Description 10/24/2000 Outpatient Historical [facility] Mark Chavez MD NO ADDRESS ON FILE Obstruction of bile duct (CMS/HCC) (Primary Dx) Social History Tobacco Use Types Packs/Day Years Used Date Smoking Tobacco: Never Assessed Comments Unknown Sex and Gender Information Value Date Recorded Sex Assigned at Not on file Legal Sex Female 3:41 AM PATIENT PORTAL CONCIERGE Gender Identity Not on file Sexual Orientation Not on file documented as of this encounter Plan of Treatment Not on file documented as of this encounter Visit Diagnoses Diagnosis Obstruction of bile duct (CMS/HCC)- Primary Obstruction of bile duct documented in this encounter Care Teams Before School Babysitter Relationship Specialty Start Date End Date Andrey Lanza MD NO ADDRESS ON FILE PCP - General 11/27/07 documented as of this encounter
--- OUTSIDE RECORDS SUMMARY | 2025-06-12 18:06 | XMS_ITS | Encounter Summary ---
Author Organization [facility] Address [address] [place] [address] Care Team Providers Care Executive Advisor Name Role Phone Andrey Lanza MD Primary Care Provider Emily doran Encounter Details Date Type Department Care Team (Latest Contact Info) Description 09/25/2000 Outpatient Historical [facility] Gen Spec Surg 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
--- OUTSIDE RECORDS SUMMARY | 2025-06-12 18:06 | XMS_ITS | Clinical Summary ---
Author Organization [facility] tone Address [address] [place] [address] Care Team Providers Care Supervisor Advice Name Role Phone Andrey Lanza MD Primary [...] 06/26/2020 Pseudoaneurysm following procedure 05/17/2020 Atherosclerosis of [place] of both lower extremities with [...] on file Legal Sex Female 3:41 AM DELIVERY TABLE FEEDER Gender Identity Not on file Sexual Orientation Not on file Last Filed Vital Signs Vital Sign Reading Time Taken Comments Blood Pressure 128/60 11/18/2020 11:08 AM CDT Pulse 66 11/18/2020 11:08 AM CDT Temperature 37.3 C (99.1 F) 06/26/2020 8:02 AM DELIVERY TABLE FEEDER Respiratory Rate 18 06/26/2020 8:02 AM DELIVERY TABLE FEEDER Oxygen Saturation 96% 11/18/2020 11:08 AM CDT Inhaled Oxygen Concentration - - Weight 61.2 kg (135 lb) 11/18/2020 11:08 AM CDT Height 154.9 cm (5' 1 ) 08/09/2020 12:46 PM DELIVERY TABLE FEEDER Body Mass Index 25.51 08/09/2020 12:46 PM DELIVERY TABLE FEEDER Plan of Treatment Health Maintenance Due Date Last Done Comments DTAP/TDAP/TD VACCINES (1 - Tdap) 02/02/1963 PNEUMOCOCCAL VACCINE 50+ YEARS (1 of 2 - PCV) 02/02/19 63 ZOSTER VACCINE (1 of 2) 02/02/1994 OSTEOPOROSIS SCREENING 02/02/2009 RSV VACCINE (60+ or ) (1 - 1-dose 75+ series) 02/02/2019 INFLUENZA VACCINE (#1) 2025 03/02/2020 Medical Devices Implanted Type Area Switchboard Installer Device Identifier Shelf Expiration Date Model / Serial / Lot Closure Perclose Proglide 83521 - [id number] Implanted:Qty: 1 on 06/20/2020 by Marito Boyer MD at [facility] Closure Device Left: Arterial LEE- VASC DEVICE [id number] 02/14/2022 84298 / / [id number] Closure Perclose Proglide 68879 - [id number] Implanted:Qty: 1 on 06/20/2020 by Marito Boyer MD at [facility] Closure Device Left: Arterial LEE- VASC DEVICE [id number] 02/14/2022 27785 / / 06/18/03 1 Angio-Seal Vip Closure Dev [id number] - [id number] Implanted:Qty: 1 on 06/20/2020 by Marito Boyer MD at [facility] Closure Device Right: Groin LEE [employer] [id number] 02/14/2021 [id number] / / [id number] Coil Azur Cx Detach 035 19cm 45-252886 - [id number] Implanted:Qty: 1 on 06/20/2020 by Marito Boyer MD at [facility] Coil Right: Arterial TERUMO- Saber Hacer DANIEL 06/16/2024 [id number] 2 Description:Right hypogastri c artery Coil Azur Cx Detach 035 19cm [id number] - [id number] Implanted:Qty: 1 on 06/20/2020 by Marito Boyer MD at [facility] Coil Right: Arterial TERUMO- MED DANIEL 11/14/2024 [id number] 2 Description:Right hypogastri c artery Stent Afx Ii Bifur Bsf69-40/I16-4 0 - [id number] Implanted:Qty: 1 on 06/20/2020 by Marito Boyer MD at [facility] Stent N/A: Aorta [employer] INC 11/26/2022 VRR33-76 /I16-40 / [id number] / Stent Lifestream [id number] - [id number] Implanted:Qty: 1 on 06/20/2020 by Marito Boyer MD at [facility] Stent Right: Iliac Artery CR BARD- DERIRCK VASC INC [id number] 01/14/2023 [id number] 858 / / [id number] Description:Right external i liac Stent Lifestream 9e83p37qz [id number] - [id number] Implanted:Qty: 1 on 06/20/2020 by Marito Boyer MD at [facility] Stent Right: Iliac Artery CR BARD- DERRICK VASC INC [id number] 03/16/2023 [id number] 858 / / [id number] Stent Lifestream Cvr 9t76m82 [id number] - [id number] Implanted:Qty: 1 on 06/20/2020 by Marito Boyer MD at [facility] Stent Right: Iliac Artery CR BARD- DERRICK [employer]ASC INC [id number] 06/16/2022 [id number] 958 / / [id number] Stent Lifestream Cvr 1v28u986 [id number] - [id number] Implanted:Qty: 1 on 06/24/2020 by Marito Boyer MD at [facility] Stent Left: Leg CR BARD- DERRICK VASC INC [id number] / / Insurance [facility] DUAL COMPLETE MCR PPO D-SNP RX OPTUM RX Member Subscriber Plan / Payer (Ef fective 2015-Present) Name:Viry Castillo Relation to Subscriber:Self Name:VIRY CASTILLO Payer ID:Not on file Group ID:[id number] Type:RX Medicare Part D Address: [address] Advance Directives For more information, please contact: [phone] Documents on File Type Date Recorded 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
--- OUTSIDE RECORDS SUMMARY | 2025-06-12 18:06 | XMS_ITS | Encounter Summary ---
Author Organization [facility] Address [address] [place] [address] Care Team Providers Care Product Safety Expert Name Role Phone Andrey Lanza MD Primary Care Provider Unavailab le Reason for Referral * Radiology Services (Routine) - Closed Specialty Diagnoses / Procedures Referred By Contac t Referred To Contact Diagnoses AAA (abdominal aortic aneurysm) without rupture Procedures IR FLUORO OR OTHER Marito Boyer MD Phone: tel: fax: Referral ID Status Reason Start Date Expiration Date Visits Re quested Visits Authorized [id number] Closed 06/20/2020 07/21/2021 1 1 HANDISER RETAIL REPRESENTATIVE Encounter Details Date Type Department Care Team (Late st Contact Info) Description 06/20/2020 Ancillary Orders [facility] Interventional Radiology [address] [place] [address] Marito Boyer MD [address] [place] [phone] AAA (abdominal aortic aneurysm) without rupture Social [...] on file Legal Sex Female 3:41 AM MERCHANDISER RETAIL REPRESENTATIVE Gender Identity Not on file Sexual Orientation Not on file COVID-19 Exposure Response Date Recorded In the last month, have you been in contact with someone who was confirmed or suspected to have Coronavirus / COVID-19? No / Unsure 06/20/2020 10:40 PM MERCHANDISER RETAIL REPRESENTATIVE documented as of this encounter Plan of Treatment Not on file documented as of this encounter Results * IR FLUORO OR OTHER (06/20/2020 3:43 PM MERCHANDISER RETAIL REPRESENTATIVE) Narrative 06/20/2020 3:44 PM MERCHANDISER RETAIL REPRESENTATIVE Order Auto Finalized. Please see associated Operative Report/Progress Note from the same date. Marito Boyer MD IR ORDERABLES Final R esult documented in this encounter Visit Diagnoses Diagnosis AAA (abdominal aortic aneurysm) without rupture Abdominal aneurysm without mention of rupture AAA (abdominal aortic aneurysm) without rupture Abdominal aneurysm without mention of rupture documented in this encounter Care Teams Product Safety Expert Relationship Specialty Start Date End Date Andrey Lanza MD NO ADDRESS ON FILE PCP - General 11/27/07 documented as of this encounter
--- OUTSIDE RECORDS SUMMARY | 2025-06-12 18:06 | XMS_ITS | Encounter Summary ---
Author Organization [facility] Address [address] [place] [address] Care Team Providers Care Design Engineer Marine Equipment Name Role Phone Andrey Lanza MD Primary Care Provider Emily le Encounter Details Date Type Department Care Team (Latest Contact Info) Description 09/13/2000 Outpatient Historical [facility] [address] [place] [address] Mark Drummond MD NO ADDRESS ON FILE Chronic cholecystitis (Primary Dx) Social History Tobacco Use Types Packs/Day Years Used Date Smoking Tobacco: Never Assessed Comments Unknown Sex and Gender Information Value Date Recorded Sex Assigned at Not on file Legal Sex Female 3:41 AM DIRECTOR OF SPECIAL SERVICES Gender Identity Not on file Sexual Orientation Not on file documented as of this encounter Plan of Treatment Not on file documented as of this encounter Visit Diagnoses Diagnosis Chronic cholecystitis- Primary documented in this encounter Care Teams Design Engineer Marine Equipment Relationship Specialty Start Date End Date Andrey Lanza MD NO ADDRESS ON FILE PCP - General 11/27/07 documented as of this encounter
--- OUTSIDE RECORDS SUMMARY | 2025-06-12 18:06 | XMS_ITS | Clinical Summary ---
Author Organization [facility] Address [address] [place] [address] Phone Care Team Providers Care Turnstile Collector Name Role Phone Jean Claude Nayak MD Primary Care Provider [phone] Allergies Active Allergy Reactions Criticality Noted Date [...] 12 hours. 60 Tablet 5 Active miconazole (DAVID,MACARENA,R BEBO AF) 2 % Cream Apply to [...] atherosclerotic ulcer of aorta 05/17 Atherosclerosis of [place] of both lower extremities with [...] Encounters Date Type Department Care Team Description 05/18/2025 External Device Data STL ABSTRACTION Provider, Abstract 05/07/2025 Refill [facility] [address] [place] [address] Lalo Bingham MD 05/05/2025 Refill [facility] [address] [place] [address] Lalo Bingham MD 04/18/2025 Refill [facility] [address] [place] [address] Lalo Bingham MD 04/06/2025 External Device Data STL ABSTRACTION Provider, Abstract 04/01/2025 Refill [facility] [address] [place] [phone] Lalo Bingham MD 03/30/2025 Refill [facility] [address] [place] [phone] Lalo Bingham MD 03/30/2025 Refill [facility] [address] [place] [address] Lalo Bingham MD 03/17/2025 Refill [facility] [address] [place] [address] Lalo Bingham MD 03/15/2025 Refill [facility] [address] [place] [address] Lalo Bignham MD 03/15/2025 Telephone [facility] General and Trauma Surgery-[address] [place] [phone] Letty Welch NP Santyl 03/14/20[facility] [address] [place] [address] Lalo Bingham MD from Last 3 Months Immunizations Immunization Administration Dates Next Due (PREVNAR 20)(6 WKS UP) PNEUM OCOCCAL CONJUGATE VACCINE 20-VALENT (PCV20), POLYSACCHARIDE [id number] CONJUGATE, ADJUVANT 0.5 ML (PF) IM 03/04/2024,02/24/2022 [...] Date Smoking Tobacco: Every Day Cigarettes 0.5 26 Started: 1999 Passive Smoke Exposure: Current Smokeless [...] on file Legal Sex Female 3:08 PM MANAGER STORY Gender Identity Not on file Sexual Orientation [...] st Contact Info) Description 07/20/2025 9:00 AM MANAGER STORY Office Visit [facility] [address] [place] [address] Jorden Arshad MD [address] [place] [address] 09/13/2025 2:00 PM CDT Ancillary Procedure [facility] [place] [address] [place] [address] Romero Isaac MD [address] [place] [address] 09/13/2025 2:30 PM CDT Ancillary Procedure [facility] [place] [address] [place] [address] Liss Sher PA-C [address] [facility] [address] [place] [address] 09/13/2025 3:30 PM CDT Office Visit [facility] V[facility] [place] [address] [place] [address] Romero Isaac MD [address] [place] [address] Ale Carrillo DO [address] [place] [address] Health Maintenance Due Date Last Done Comments DIABETES ANNUAL FOOT EXAM 02/02/1962 DIABETES ANNUAL RETINAL EXAM 02/02/1962 DIABETES MICROALBUMIN ANNUAL SCREEN 02/02/1962 DTAP/TDAP/TD VACCINES (1 - Tdap) 02/02/1963 ZOSTER VACCINE (1 of 2) 02/02/1994 OSTEOPOROSIS SCREENING 02/02/2009 RSV VACCINE (60+ or ) (1 - 1-dose 75+ series) 02/02/2019 INFLUENZA VACCINE (#1) 2025 3, 02/24/2022, 03/02/2020 DIABETES HBA1C Q 6 MONTHS 07/16/2025 01/13/2025 LDL CHOLESTEROL ANNUAL 01/13/2026 01/13/2025 PNEUMOCOCCAL VACCINE 50+ YEARS Completed 03/04/2024 , 02/24/2022 Medical Devices Implanted Type Area Watch Repairer Apprentice Device Identifier Shelf Expiration Date Model / Serial / Lot Angio-Seal Vip Closure Dev [id number] - [id number] Implanted:Qty : 1 on 06/20/2020 by Marito Boyer MD Closure Device Right: Groin LEE [employer] [id number] 02/14/2021 186279 / / [id number] Closure Perclose Proglide 87164 - [id number] Implanted:Qty : 1 on 06/20/2020 by Marito Boyer MD Closure Device Left: Arterial LEE- VASC DEVICE [id number] 02/14/2022 14244 / / [id number] Closure Perclose Proglide 63892 - [id number] Implanted:Qty : 1 on 06/20/2020 by Marito Boyer MD Closure Device Left: Arterial LEE- VASC DEVICE [id number] 02/14/2022 36147 / / 06/18/041 Coil Azur Cx Detach 035 19cm 45-687641 - [id number] Implanted:Qty : 1 on 06/20/2020 by Marito Boyer MD Coil Right: Arterial TERUMO- MED DANIEL 11/14/2024 45-311351 / / [id number] Description:Right hypogastri c artery Coil Azur Cx Detach 035 19cm 45-589204 - [id number] Implanted:Qty : 1 on 06/20/2020 by Marito Boyer MD Coil Right: Arterial TERUMO- MED DANIEL 06/16/2024 [id number] / / [id number] Description:Right hypogastri c artery Cup White Oak Porocoat Acet Shell 52mm 1217-22-052 - [id number] Implanted:Qty : 1 on 08/30/2021 by Demetrius George MD at [facility] Hip Left: Hip J&J- [employer] [id number] 06/16/2031 [id number] / / [id number] Liner [place] Altrx 98t63aw Nutrl 1221-36-052 - [id number] Implanted:Qty : 1 on 08/30/2021 by Demetrius George MD at [facility] Hip Left: Hip J[employer]- [employer] [id number] 06/16/2026 [id number] / / [id number] Head Fem Art/Jose Luis Cer Sz36 1365-36-320 - [id number] Implanted:Qty : 1 on 08/30/2021 by Demetrius George MD at [facility] Hip Left: Hip J&J- DEPUY KEIRA [id number] 03/16/2026 33765 6320 / / [id number] Stem Fem Pyatt Por Sz3 - [id number] Implanted:Qty : 1 on 08/30/2021 by Demetrius George MD at [facility] Hip Left: Hip J&J- [employer] [id number] 12/14/2025 1570 / / [id number] Screw Canc White [place] 6.5x50mm 1217-50-500 - [id number] Implanted:Qty : 1 on 08/30/2021 by Demetrius George MD at [facility] Screw Left: Hip J&J- [employer] [id number] 12/14/2030 1217-50-500 / / [id number] Stent Afx Ii Bifur Xcu54-24/I16- 40 - [id number] Implanted:Qty : 1 on 06/20/2020 by Marito Boyer MD Stent N/A: Aorta [employer]OLOGIX INC 11/26/2022 QOA01-20/I1 6-40 / [id number] / Stent Lifestream [id number] - [id number] Implanted:Qty : 1 on 06/20/2020 by Marito Boyer MD Stent Right: Iliac Artery CR BARD- DERRICK VASC INC [id number] 01/14/2023 [id number] / / [id number] Description:Right external i liac Stent Lifestream 7w69p07gb [id number] - [id number] Implanted:Qty : 1 on 06/20/2020 by Marito Boyer MD Stent Right: Iliac Artery CR BARD- DERR[employer] INC [id number] 03/16/2023 [id number] / / [id number] Stent Lifestream Cvr 6a24c94 [id number] - [id number] Implanted:Qty : 1 on 06/20/2020 by Marito Boyer MD Stent Right: Iliac Artery CR BARD- DERR[employer]ASC INC [id number] 06/16/2022 [id number] / / [id number] Stent Lifestream Cvr 5w04v189 [id number] - [id number] Implanted:Qty : 1 on 06/24/2020 by Marito Boyer MD Stent Left: Leg CR BARD- DERRICK VASC INC [id number] / / Procedures Procedure Name Priority Date/Time Associated Diagnosis Comments LIPID PANEL Routine 01/13/2025 4:44 AM CDT HEMOGLOBIN A1C Routine 01/13/2025 4:44 AM CDT from Last 3 Months or Most Recently Relevant to Health Maintenance Results * (ABNORMAL) HEMOGLOBIN A1C (01/13/2025 4:44 AM CDT) HEMOGLOBIN A1C 6.6(H) <=5.6 % 01/14/2025 11:26 AM CDT [facility] EST. AVG GLUCOSE, A1C 143 mg/dL 01/14/2025 11:26 AM CDT [facility] Blood Venipuncture / Unknown 01/13/2025 4:44 AM CDT 01/13/2025 4:49 AM CDT Narrative [facility] - 01/14/2025 11:26 AM CDT HGB A1C INTERPRETATION NORMAL: <5.7% PRE-DIABETES: 5.7 - 6.4% DIABETES: 6.5% OR GREATER us Padmini Rivera MD CHEMISTRY ORDERABLES Final Resul t [facility] CLIA # [id number] [address] [place] [address] [place] [address] * (ABNORMAL) LIPID PANEL (01/13/2025 4:44 AM CDT) CHOLESTEROL 90 <200 mg/dL 01/13/2025 5:29 AM [facility] TRIGLYCERIDE 181(H) <150 mg/dL 01/13/2025 5:29 AM [facility] HDL 35(L) 40 - 59 mg/dL 01/13/2025 5:29 AM [facility] LDL CALCULATED 19 <100 mg/dL 01/13/2025 5:29 AM [facility] NON-HDL CHOLESTEROL 55 <130 mg/dL 01/13/2025 5:29 AM [facility] Blood Venipuncture / Unknown 01/13/2025 4:44 AM T 01/13/2025 4:49 AM CDT [facility] - 01/13/2025 5:29 AM CDT TOTAL CHOLESTEROL [...] for Lipid Panels (NCEP/AMA) . us Padmini Rivera MD CHEMISTRY ORDERABLES Final Resul t [id number] [address] [place] [address] from Last 3 Months or Most Recently Relevant to Health Maintenance Insurance [employer] O MCR * Guarantor: VIRY CASTILLO Account Type Relation to Patient Date of Phone Billing Address Personal/Family [address] [id number] RX [employer] Medicare Part D RX MARCELINO PLANS (INTERNAL) [facility] Internal Plans Advance Directives For more information, please contact: [phone] Documents on File Type Date Recorded Patient Assistant Refinery Operator Expl anation Advance Directive POA 08/09/2020 [...] 4:07 PM 08/31/2021 3:57 PM Care Teams Turnstile Collector Relationship Specialty Start Date End Date Jean Claude Nayak MD [address] [place] [phone] PCP - General Family Practice 08/14/21
--- OUTSIDE RECORDS SUMMARY | 2025-06-12 18:06 | XMS_ITS | Encounter Summary ---
Author Organization [facility] Address [address] Alvarez: Epic Prelude ADT [place] [address] Care Team Providers Care Set Up Operator Tool Name Role Phone Andrey Lanza MD Primary [...] on file Legal Sex Female 3:41 AM A&P TECHNICIAN Gender Identity Not on file Sexual Orientation Not on file documented as of this encounter Plan of Treatment Not on file documented as of this encounter Visit Diagnoses Not on filedocumented in this encounter Care Teams Set Up Operator Tool Relationship Specialty Start Date End Date Andrey Lanza MD NO ADDRESS ON FILE PCP - General 11/27/07 documented as of this encounter
--- OUTSIDE RECORDS SUMMARY | 2025-06-12 18:06 | XMS_ITS | Encounter Summary ---
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
[2025-06-12 18:08] VITALS: BP 128/71; PULSE 134; RESP 18; TEMP 36.7; O2SAT 97
--- NOTE | 2025-06-12 18:25 | XRR_ITS ---
PROCEDURE INFORMATION: Exam: XR Chest Exam date and time: 06/12/2025 6:34 PM Age: 80 years old Clinical indication: Cough; Additional info: Dyspnea/cough TECHNIQUE: Imaging protocol: Radiologic exam of the chest. Views: 1 view. COMPARISON: CT angio chest PE protcl [id number] 03/19/2025 3:31 PM FINDINGS: Lungs: No consolidation. Pleural spaces: No pleural effusion. No pneumothorax. Heart/Mediastinum: Heart size appears mildly prominent. Bones/joints: Unremarkable. XR/XR chest 1V portable [id number] IMPRESSION: No acute pulmonary disease.
--- NOTE | 2025-06-12 18:33 | W.ED.ARRPALP ---
HPI - Arrhythmia/Palpitations General: Chief Complaint: Arrhythmia/Palpitations Stated Complaint: High HR Breathing Heavy Tired Time Seen by Provider: 06/12/25 18:16 History of Present Illness: 80-year-old female with a known history of atrial fibrillation presents emergency room having fatigue weakness rapid heart rate and palpitations been going on throughout today. She denies any shortness of breath or chest pain. She is currently on aspirin and clopidogrel as well as metoprolol for rate control. She denies having missed any medications. No orthopnea. With any activity she does become fatigued quickly. Related Data Home Medications ?Medication ?Instructions ?Recorded ?Confirmed ascorbic acid (vitamin C) 500 mg 1,000 mg PO QAM 02/15/20 06/15/25 tablet cholecalciferol (vitamin D3) 25 25 mcg PO QAM 05/16/22 06/15/25 mcg (1,000 unit) capsule acetaminophen 500 mg tablet 500 mg PO Q4H PRN Pain 05/14/23 06/15/25 vitamin E 268 mg (400 unit) capsule 1 cap PO DAILY 05/14/23 06/15/25 aspirin 81 mg tablet 81 mg PO QPM 02/24/25 06/15/25 atorvastatin 40 mg tablet (Lipitor) 40 mg PO DAILY 02/24/25 06/15/25 folic acid 400 mcg tablet 400 mcg PO QAM 02/24/25 06/15/25 ferrous sulfate 325 mg (65 mg 325 mg PO .QOD 03/18/25 06/15/25 iron) tablet magnesium oxide 400 mg PO DAILY 06/13/25 06/15/25 Previous Rx's ?Medication ?Instructions ?Recorded RSV vaccine #1 ea 04/29/24 clonidine HCl 0.2 mg tablet See Rx Instructions .Route 02/16/25 .COMPLEX #270 tabs hydrochlorothiazide 25 mg tablet See Rx Instructions .Route 02/16/25 .COMPLEX #90 tabs levothyroxine 75 mcg tablet See Rx Instructions .Route 02/16/25 .COMPLEX #50 tabs levothyroxine 88 mcg tablet See Rx Instructions .Route 02/16/25 .COMPLEX #45 tabs metoprolol succinate 50 mg 50 mg PO BID #180 tabs 03/15/25 tablet,extended release 24 hr alprazolam 0.25 mg tablet 0.25 mg PO BEDTIME #30 tabs 03/17/25 hydralazine 50 mg tablet 50 mg PO TID #90 tabs 03/17/25 clopidogrel 75 mg tablet See Rx Instructions .Route 03/31/25 .COMPLEX #90 tabs bumetanide 2 mg tablet 3 mg (1.5 x 2 mg) PO BID #90 tabs 04/07/25 dapagliflozin propanediol 10 mg 10 mg PO DAILY #30 tabs 04/13/25 tablet (Farxiga) potassium chloride 20 mEq 40 meq (2 x 20 mEq) PO BID #120 04/14/25 tablet,extended tabs release(part/cryst) (Klor-Con M) Allergies Allergy/AdvReac Type Severity Reaction Status Date / Time lisinopril AdvReac Severe ALGY-Swell Verified 06/12/25 18:11 Lip/Tongue/Throat Review of Systems Const: Denies: fever(s) or chills Card: Reports: palpitations, irregular heart rhythm, edema, swelling of feet/ankles, dyspnea on exertion and orthopnea; Denies: chest pain Resp: Denies: dyspnea GI: Denies: abdominal pain : Denies: dysuria, urinary frequency or urinary urgency Musc: Denies: neck pain or back pain Skin/Breast: Denies: rash PFSH ED PFSH: Medical History Atrophy of right kidney Vitamin B12 deficiency History of hypothyroidism History of COPD Hx of hyperlipidemia History of peripheral arterial disease Surgical History S/P hip replacement Hx of cholecystectomy Hx of section S/P AAA repair Family History Other Clotting disorder Hyperlipidemia Hypertension Lung disease Stroke Social History Smoking and tobacco/nicotine status: former use of tobacco/nicotine Quit status (tobacco/nicotine): has quit using Former quit date comment: Quit smoking December 2024 Alcohol intake: never Substance/Drug Use: never Additional social history: Patient wants DNR status as discussed with Anastacio Brito MD on 03/18/2025 in the presence of her daughter Sharon Glez Physical Exam Const: GENERAL APPEARANCE: cooperative ORIENTATION/CONSCIOUSNESS: Yes awake, Yes oriented to person, Yes oriented to place and Yes oriented to time HENMT: COMMON NORMALS: normocephalic, atraumatic and hearing grossly normal bilaterally HEAD & SCALP: normocephalic and atraumatic Resp: COMMON NORMALS: normal respiratory effort, No retractions, No use of accessory muscles and clear to auscultation bilaterally AUSCULTATION: clear to auscultation bilaterally Cardio: COMMON NORMALS: No murmurs present (Cardio) RATE: tachycardic RHYTHM: abnormal rhythm irregularly irregular GI: COMMON NORMALS: Soft to palpation and No hepatosplenomegaly present AUSCULTATION: Yes normoactive bowel sounds PALPATION: Yes Soft to palpation, No Tenderness to palpation present (GI), No Guarding due to palpation present (GI) and Yes No hepatosplenomegaly present Extremity: COMMON NORMALS: normal to inspection, capillary refill normal, no clubbing, cyanosis or edema, no calf tenderness and no pedal edema Neuro: SENSORIUM/ORIENTATION: Yes oriented to person, Yes oriented to place and Yes oriented to time Skin: COMMON NORMALS: no rashes or lesions noted GENERAL SKIN EXAM: no rashes or lesions noted Course Vital Signs: Vital signs: Vital Signs Temperature 97.9 F 06/13/25 07:55 Pulse Rate 64 06/13/25 12:51 Respiratory Rate 16 06/13/25 12:51 Blood Pressure 128/44 06/13/25 12:51 Pulse Oximetry 99 06/13/25 12:51 Oxygen Delivery Me thod Room Air 06/13/25 04:00 MDM - Arrhythmia/Palpitations Medical Decision Making 80-year-old female presents emergency room in atrial fibrillation with rapid ventricular response. Treatment initiated with Cardizem bolus and drip started. Patient's rate controlled. Labs reviewed as found on the chart. CBC normal white count normal platelet count is normal. BNP mildly elevated at 1072. Anion gap elevated at 124.1 creatinine 1.5. Chest x-ray reviewed on the chart some cardiomegaly mild increased in pulmonary vasculature some which is likely related to technique. No masses no effusions Medical Records I reviewed the patient's medical records. Lab Data I reviewed the patient's lab results. 06/12/25 18:25 06/13/25 04:45 Radiology Impressions Chest X-Ray 06/12/25 18:25 IMPRESSION: No acute pulmonary disease. Laboratory Results WBC 9.13 10^3/uL (3.29-11.43) 06/12/25 18: RBC 5.15 10^6/uL (3.85-5.65) 06/12/25 18: Hgb 14.80 g/dL (11.27-16.99) 06/12/25 18: Hct 45.4 % (36-47) 06/12/25 18: MCV 88.2 fl (85-98) 06/12/25 18: MCH 28.7 pg (27-33) 06/12/25 18: MCHC 32.6 g/dL (30-55) 06/12/25 18: RDW 16.0 % (12.1-15.1) H 06/12/25 18: Plt Count 343 10^3/cmm (157-399) 06/12/25: MPV 10.0 fL (7.4-10.4) 06/12/25 18: Neut % (Auto) 60.8 % 06/12/25 18: Lymph % (Auto) 27.3 % 06/12/25 18: [place] % (Auto) 9.7 % 06/12/25 18: Eos % (Auto) 1.0 % 06/12/25: Baso % (Auto) 0.9 % 06/12/25: Neut # (Auto) 5.55 10^3/uL (1.8-7.7) 06/12/25: Lymph # (Auto) 2.5 10^3/uL (0.8-4.8) 06/12/25 18: [place] # (Auto) 0.9 10^3/uL (0.2-0.9) 06/12/25: Eos # (Auto) 0.1 10^3/uL (0.0-0.8) 06/12/25 18: Baso # (Auto) 0.1 10^3/uL (0.0-0.1) 06/12/25 18: Nucleated RBC % (auto) 0 % 06/12/25 18: Nucleated RBCs # 0.0 /100WBC 06/12/25 18:25 Sodium 139 mmol/L (136-145) 06/12/25 18:25 Potassium 3.1 mmol/L (3.5-5.1) L 06/12/25 18:25 Chloride 92 mmol/L (98-107) L 06/12/25 18:25 Carbon Dioxide 26 mmol/L (22-29) 06/12/25 18:25 Anion Gap 24.1 (5-19) H 06/12/25 18:25 BUN 43 mg/dL (8-23) H 06/12/25 18:25 Creatinine 1.5 mg/dL (0.5-0.9) H 06/12/25 18:25 GFR Calculation Not Reportable 06/12/25 18: Glucose 173 mg/dL (65-115) H 06/12/25 18:25 Calculated Osmolality 303 mOsm/kg (285-295) H 06/12/25 18:25 Calcium 10.5 mg/dL (8.5-10.5) 06/12/25 18: Magnesium 2.5 mg/dL (1.7-2.3) H 06/12/25 18:25 Total Bilirubin 0.3 mg/dL (0.15-1.2) 06/12/25 18:25 AST 38 U/L (0-32) H 06/12/25 18:25 ALT 29 U/L (0-33) 06/12/25 18:25 Alkaline Phosphatase 276 U/L (35-105) H 06/12/25 18:25 NT-Pro-B Natriuret Pep 1072 pg/mL (0-450) H 06/12/25 18:25 Total Protein 7.6 g/dL (6.6-8.7) 06/12/25 18:25 Albumin 4.8 g/dL (3.5-5.2) 06/12/25 18: Globulin 2.8 g/dL (1.3-4.6) 06/12/25 18:25 All radiology interpretation(s) finalized by discharge EKG Data EKG 1: I personally reviewed and interpreted this EKG as follows: Interpretation: EKG 06/12/2025 1806. A-fib RVR rate of 136 [address]Tc [address] changes. Compared to 03/19/2025 no significant change. Other EKG comments: Chest X-Ray 06/12/25 18:25 IMPRESSION: No acute pulmonary disease. Discharge Plan Discharge Patient Disposition: Admitted As Inpatient Admit Provider: Cullen Choe Clinical Impression: Atrial fibrillation with RVR, Diabetes mellitus type 2, controlled, Hypertension, Hypothyroidism, CKD (chronic kidney disease) Condition: Stable Discharge Diet: Advance as tolerated Discharge Activity: Resume usual activity Coding Level of Care Code ED Gis Engineer for [facility] Audrey
[2025-06-12 18:44] LABS: Hematocrit 45.4 % (36-47); Hemoglobin 14.80 g/dL (11.27-16.99); Mean Corpuscular HGB Conc 32.6 g/dL (30-55); Mean Corpuscular Hemoglobin 28.7 pg (27-33); Mean Corpuscular Volume 88.2 fl (85-98); Nucleated Red Blood Cells % 0 %; Platelet Count 343 10^3/cmm (157-399); Red Blood Count 5.15 10^6/uL (3.85-5.65); White Blood Count 9.13 10^3/uL (3.29-11.43)
[2025-06-12] MEDS: dilTIAZem 5 mg/mL SDV 5 mL 20 MG IVP (18:49)
[2025-06-12 18:50] VITALS: BP 128/92; PULSE 116
[2025-06-12 19:03] LABS: Alanine Aminotransferase 29 U/L (0-33); Albumin Level 4.8 g/dL (3.5-5.2); Alkaline Phosphatase 276 U/L (35-105); Aspartate Amino Transferase 38 U/L (0-32); Blood Urea Nitrogen 43 mg/dL (8-23); Calcium 10.5 mg/dL (8.5-10.5); Carbon Dioxide 26 mmol/L (22-29); Chloride 92 mmol/L (98-107); Globulin 2.8 g/dL (1.3-4.6); Glucose 173 mg/dL (65-115); NT Pro B Type Natriuretic Pept 1072 pg/mL (0-450); Osmolality Calculated 303 mOsm/kg (285-295); Sodium 139 mmol/L (136-145); Total Protein 7.6 g/dL (6.6-8.7)
[2025-06-12 19:07] LABS: Anion Gap 24.1 (5-19); Potassium 3.1 mmol/L (3.5-5.1)
[2025-06-12 19:23] VITALS: BP 127/78; PULSE 121; O2SAT 93
[2025-06-12] MEDS: DILTIAZEM HCL/D5W 125 MG/125 ML BAG IV (19:46)
--- NOTE | 2025-06-12 21:12 | PM.HP ---
Providers/Chief Complaint Primary Care Provider: Jean Claude Nayak MD Chief Complaint: High HR Breathing Heavy Tired History of Present Illness Viry Selby is a 80 year old female with history significant for HFpEF(EF 63%), prior CVA with left-sided weakness, atrial fibrillation, CKD, and diabetes, who presents with complaints of shortness of breath. She states she was in her usual state of health until the day of presentation when she experienced heavy breathing per family in the room. She also experienced palpitations. Family went to check a pulse ox and found her heart rate to be 146. This is just after taking her routine medications including metoprolol. She waited 1 hour to recheck and was still in the 140s. Normally, her rates are in the 50s. Given the elevated heart rates and shortness of breath, failure decided to bring her into the hospital for further evaluation and management. Of note, the patient did miss a single dose of her metoprolol at approximately 10 PM the night prior to presentation. Otherwise, she has been adherent to her prescribed occasions. No recent illnesses. No chest pain. During my encounter, she states that her breathing is better. Medications/Allergies Home Medications ?Medication ?Instructions ?Recorded ?Confirmed ?Last Taken ?Type ascorbic acid (vitamin C) 500 mg 1,000 mg PO QAM 02/15/20 05/24/25 03/18/25 08:00 History tablet cholecalciferol (vitamin D3) 25 25 mcg PO QAM 05/16/22 05/24/25 03/18/25 08:00 History mcg (1,000 unit) capsule acetaminophen 500 mg tablet 500 mg PO Q4H PRN Pain 05/14/23 05/24/25 Unknown History vitamin E 268 mg (400 unit) capsule 1 cap PO DAILY 05/14/23 05/24/25 03/18/25 09:00 History RSV vaccine #1 ea 04/29/24 05/24/25 Unknown Rx clonidine HCl 0.2 mg tablet See Rx Instructions .Route 02/16/25 05/24/25 03/18/25 14:00 Rx .COMPLEX #270 tabs hydrochlorothiazide 25 mg tablet See Rx Instructions .Route 02/16/25 05/24/25 03/18/25 09:00 Rx .COMPLEX #90 tabs levothyroxine 75 mcg tablet See Rx Instructions .Route 09/08/1105/24/25 03/17/25 07:00 Rx .COMPLEX #50 tabs levothyroxine 88 mcg tablet See Rx Instructions .Route 02/16/25 05/24/25 03/18/25 07:00 Rx .COMPLEX #45 tabs aspirin 81 mg tablet 81 mg PO DAILY 02/24/25 05/24/25 03/18/25 08:00 History atorvastatin 40 mg tablet (Lipitor) 40 mg PO DAILY 02/24/25 05/24/25 03/18/25 08:30 History folic acid 400 mcg tablet 400 mcg PO QAM 02/24/25 05/24/25 03/18/25 08:30 History metoprolol succinate 50 mg 50 mg PO BID #180 tabs 03/15/25 05/24/25 03/18/25 08:00 Rx tablet,extended release 24 hr alprazolam 0.25 mg tablet 0.25 mg PO BEDTIME #30 tabs 03/17/25 05/24/25 03/17/25 19:00 Rx hydralazine 50 mg tablet 50 mg PO TID #90 tabs 03/17/25 05/24/25 03/18/25 08:00 Rx ferrous sulfate 325 mg (65 mg 325 mg PO DIRECTED 03/18/25 05/24/25 03/18/25 History iron) tablet clopidogrel 75 mg tablet See Rx Instructions .Route 03/31/25 05/24/25 Unknown Rx .COMPLEX #90 tabs bumetanide 2 mg tablet 3 mg (1.5 x 2 mg) PO BID #90 tabs 04/07/25 05/24/25 Unknown Rx dapagliflozin propanediol 10 mg 10 mg PO DAILY #30 tabs 04/13/25 05/24/25 Unknown Rx tablet (Farxiga) potassium chloride 20 mEq 40 meq (2 x 20 mEq) PO BID #120 04/14/25 05/24/25 Unknown Rx tablet,extended tabs release(part/cryst) (Klor-Con M) magnesium oxide 400 mg PO .QOD #30 caps 06/01/25 Unknown Rx Allergies Allergy/AdvReac Type Severity Reaction Status Date / Time lisinopril AdvReac Severe ALGY-Swell Verified 06/12/25 18:11 Lip/Tongue/Throat PFSH Acute PFSH: Medical History (Updated 06/12/25 @ 21:18 by Cullen Choe MD) Atrophy of right kidney Vitamin B12 deficiency History of hypothyroidism History of COPD Hx of hyperlipidemia History of peripheral arterial disease Surgical History S/P hip replacement Hx of cholecystectomy Hx of section S/P AAA repair Family History Other Clotting disorder Hyperlipidemia Hypertension Lung disease Stroke Social History Smoking and tobacco/nicotine status: former use of tobacco/nicotine Quit status (tobacco/nicotine): has quit using Former quit date comment: Quit smoking December 2024 Alcohol intake: never Substance/Drug Use: never Additional social history: Patient wants DNR status as discussed with Anastacio Brito MD on 03/18/2025 in the presence of her daughter Sharon Glez Vitals/I&O/Wt Last Vital Signs Temp 98.1 F 06/12/25 18:08 Pulse 121 H 06/12/25 19:23 Resp 18 06/12/25 18:08 BP 127/78 06/12/25 19:23 Pulse Ox 93 06/12/25 19:23 O2 Del Method Room Air 06/12/25 18:08 Weight last 48 hrs Weight 56.155 kg Physical Exam Narrative: General well-developed well-nourished, appears of documented age CV: irregularly irregular, tachycardia, no murmurs rubs or gallops Lungs: clear to auscultation bilaterally no rales or wheezes Abdomen: Soft, nondistended, nontender Extremities: No lower extremity edema appreciated Data 06/12/25 18:25 06/12/25 18:25 A&P Assessment and plan 1. Atrial fibrillation with RVR: - ER has placed patient on a diltiazem infusion. Continue this for now - Okay to place patient on CSU for close monitoring while on telemetry - Continue care metoprolol succinate 50 mg twice daily. Give a dose this evening - Not on anticoagulation: previously declined due to recurrent falls 2. Hypokalemia: - Replete PRN - Check Mg level 3. CKD (chronic kidney disease): - At baseline. Monitor 4. Hypothyroidism: - Continue home regiment of levothyroxine 5. Hypertension: - Continue home antihypertensives 6. Diabetes mellitus type 2, controlled: - Place on low SSI 7. (HFpEF) heart failure with preserved ejection fraction: - Not in acute exacerbation. Continue home regiment PDMP PDMP Reviewed: Not Reviewed Attestations Medical Necessity Statement*: Patient will require inpatient admission of greater than two midnights to control afib rvr Coding Level of Care Code Acute Code for Chg Fwd Diagnoses Atrial fibrillation with RVR I48.91 Hypokalemia E87.6 CKD (chronic kidney disease) N18.9 Hypothyroidism E03.9 Hypertension I10 Diabetes mellitus type 2, controlled E11.9 (HFpEF) heart failure with preserved ejection fraction I50.30
[2025-06-12 21:16] VITALS: BP 110/79; PULSE 127; O2SAT 91
[2025-06-12 22:30] LABS: Magnesium 2.5 mg/dL (1.7-2.3)
[2025-06-12 23:28] VITALS: BP 133/61; PULSE 98; O2SAT 91
[2025-06-12 23:34] VITALS: BP 133/61; PULSE 119; O2SAT 92
[2025-06-13] VITALS (8 sets, daily range): BP systolic 128–167; BP diastolic 43–82; PULSE 61–90; RESP 16–23; TEMP 36.6–36.9; O2SAT 95–100
[2025-06-13] MEDS: metoprolol succinate ER (24 HR) 50 mg Tablet PO ×2 (01:25→05:18)
[2025-06-13] MEDS: heparin 5,000 unit/mL INJ 1 mL 5000 UNIT SUBCUT ×2 (01:27→07:58)
--- NOTE | 2025-06-13 02:54 | PC.NURSE ---
upon arrival to floor patient is in sinus rhythm with rates in the 50s. Cardizem IV was running at 15mls, turned off IV and notified hospitalist.
[2025-06-13] MEDS: ferrous sulfate EC 325 mg Tablet PO (05:17)
[2025-06-13] MEDS: DAPAGLIFLOZIN 10 MG TABLET PO (05:17)
[2025-06-13 05:28] LABS: Blood Urea Nitrogen 40 mg/dL (8-23); Calcium 10.2 mg/dL (8.5-10.5); Carbon Dioxide 26 mmol/L (22-29); Chloride 97 mmol/L (98-107); Glucose 303 mg/dL (65-115); Osmolality Calculated 313 mOsm/kg (285-295); Sodium 141 mmol/L (136-145)
[2025-06-13 05:29] LABS: Anion Gap 21.3 (5-19); Potassium 3.3 mmol/L (3.5-5.1)
--- NOTE | 2025-06-13 09:10 | PC.PHAR ---
Pt no longer taking Protonix 40mg daily or Spironolactone 25mg qam.
--- NOTE | 2025-06-13 12:50 | PC.NURSE ---
Patient discharged to home. Instruction provided regarding follow up information, There are no medication changes. Patient verbalized complete understanding. Patient denies pain or needs. No distress observed. Patient taken by wheelchair to private vehicle.
--- NOTE | 2025-06-13 13:23 | P.DS_ITS ---
Discharge Providers Date of Admission: 06/12/25 20:31 Date of Discharge: June 13, 2025 Attending Provider at Admission: Cullen Choe MD Attending Provider at Discharge: Geremias De Anda MD Primary Care Provider: Jean Claude Nayak MD Diagnoses at Discharge Discharge Diagnosis 1. Atrial fibrillation with RVR: 2. Hypokalemia: 3. CKD (chronic kidney disease): 4. Acquired hypothyroidism: 5. Primary hypertension: 6. Controlled type 2 diabetes mellitus without complication, with long-term current use of insulin: 7. (HFpEF) heart failure with preserved ejection fraction: Reason for Visit Reason for Visit: High HR Breathing Heavy Tired Brief History: As per the previous notes: Viry Selby is a 80 year old female with history significant for HFpEF(EF 63%), prior CVA with left-sided weakness, atrial fibrillation, CKD, and diabetes, who presents with complaints of shortness of breath. She states she was in her usual state of health until the day of presentation when she experienced heavy breathing per family in the room. She also experienced palpitations. Family went to check a pulse ox and found her heart rate to be 146. This is just after taking her routine medications including metoprolol. She waited 1 hour to recheck and was still in the 140s. Normally, her rates are in the 50s. Given the elevated heart rates and shortness of breath, failure decided to bring her into the hospital for further evaluation and management. Of note, the patient did miss a single dose of her metoprolol at approximately 10 PM the night prior to presentation. Otherwise, she has been adherent to her prescribed occasions. No recent illnesses. No chest pain. During my encounter, she states that her breathing is better. Hospital Course Hospital Course During patient hospital stay, the patient only required Cardizem for few hours and when she was sent to the cardiac stepdown unit for monitoring she was off Cardizem drip. After resuming home medication, the patient heart rate and blood pressure were stable. Her labs were reviewed. She had mild hypokalemia that was corrected. She did not voice any complaints. I personally reviewed the EKG which showed atrial fibrillation and the patient is already on adequate management. Patient was provided with medications that were were reconciled after confirmation and according to patient comorbidities and appropriate follow-ups and referrals were provided at the time of discharge. patient understanding/establishing the stability of the current condition was considered during discharge with all the risk and benefits thoroughly explained. Patient condition has been discussed at length with the patient/family, I have independently reviewed the chart labs imaging/diagnostics/EKG. the goals of care and code status with the patient/family/NOK/legal hobbies and crafts sales representative, and documented accordingly. The management has been done according to the current clinical condition with respect to patient goals of care and based on recommendations/guidelines. The patient/family has been informed about the current condition and further plan of care. Agreed with the plan of care and understood without any language barrier. Every effort was made to ensure accuracy of clinical pharmacy manager. Any obvious errors or omissions should be clarified with the author of the document. Physical Exam Narrative: General: Alert and oriented, lying comfortably without any distress HEENT: Normocephalic, atraumatic, grossly unremarkable exam Cardio: normal rate rhythm, normal S1-S2 without any murmurs, rubs, or gallops and JVD normal Respiratory: normal vascular breathing on auscultation without any wheezes, stridor, rhonchi GI: Abdomen soft, nontender, nondistended, normoactive bowel sounds present all 4 quadrants, Neuro: intact cranial nerves motor and sensory and cerebellar/coordination function without any focal neurological deficit Behavior: Appropriate and cooperative Extremities: Adequate palpable pulses, mild trace edema Discharge Data Studies Completed and Pending Completed Studies During Hospitalization Category Date Time Status XR chest 1V portable 12132 Stat Exams 06/12/25 18:25 Completed Radiology Impressions Chest X-Ray 06/12/25 18: IMPRESSION: No acute pulmonary disease. Laboratory Results WBC 9.13 10^3/uL (3.29-11.43) 06/12/25 18: RBC 5.15 10^6/uL (3.85-5.65) 06/12/25 18: Hgb 14.80 g/dL (11.27-16.99) 06/12/25 18: Hct 45.4 % (36-47) 06/12/25 18: MCV 88.2 fl (85-98) 06/12/25 18: MCH 28.7 pg (27-33) 06/12/25 18: MCHC 32.6 g/dL (30-55) 06/12/25 18: RDW 16.0 % (12.1-15.1) H 06/12/25 18:25 Plt Count 343 10^3/cmm (157-399) 06/12/25 18: MPV 10.0 fL (7.4-10.4) 06/12/25 18:25 Neut % (Auto) 60.8 % 06/12/25 18:25 Lymph % (Auto) 27.3 % 06/12/25 18: [place] % (Auto) 9.7 % 06/12/25 18: Eos % (Auto) 1.0 % 06/12/25 18:25 Baso % (Auto) 0.9 % 06/12/25 18: Neut # (Auto) 5.55 10^3/uL (1.8-7.7) 06/12/25 18: Lymph # (Auto) 2.5 10^3/uL (0.8-4.8) 06/12/25 18: [place] # (Auto) 0.9 10^3/uL (0.2-0.9) 06/12/25 18: Eos # (Auto) 0.1 10^3/uL (0.0-0.8) 06/12/25 18:25 Baso # (Auto) 0.1 10^3/uL (0.0-0.1) 06/12/25 18: Nucleated RBC % (auto) 0 % 06/12/25 18: Nucleated RBCs # 0.0 /100WBC 06/12/25 18:25 Sodium 141 mmol/L (136-145) 06/13/25 04:45 Potassium 3.3 mmol/L (3.5-5.1) L 06/13/25 04:45 Chloride 97 mmol/L (98-107) L 06/13/25 04:45 Carbon Dioxide 26 mmol/L (22-29) 06/13/25 04:45 Anion Gap 21.3 (5-19) H 06/13/25 04:45 BUN 40 mg/dL (8-23) H 06/13/25 04:45 Creatinine 1.5 mg/dL (0.5-0.9) H 06/13/25 04:45 GFR Calculation Not Reportable 06/13/25 04:45 Glucose 303 mg/dL (65-115) H 06/13/25 04:45 POC Glucose 261 mg/dL (70-110) H 06/13/25 10:31 Calculated Osmolality 313 mOsm/kg (285-295) H 06/13/25 04:45 Calcium 10.2 mg/dL (8.5-10.5) 06/13/25 04:45 Magnesium 2.5 mg/dL (1.7-2.3) H 06/12/25 18:25 Total Bilirubin 0.3 mg/dL (0.15-1.2) 06/12/25 18:25 AST 38 U/L (0-32) H 06/12/25 18:25 ALT 29 U/L (0-33) 06/12/25 18:25 Alkaline Phosphatase 276 U/L (35-105) H 06/12/25 18:25 NT-Pro-B Natriuret Pep 1072 pg/mL (0-450) H 06/12/25 18:25 Total Protein 7.6 g/dL (6.6-8.7) 06/12/25 18:25 Albumin 4.8 g/dL (3.5-5.2) 06/12/25 18:25 Globulin 2.8 g/dL (1.3-4.6) 06/12/25 18:25 Vitals Last Vital Signs Temp 97.9 F 06/13/25 07:55 Pulse 64 06/13/25 12:51 Resp 16 06/13/25 12:51 BP 128/44 06/13/25 12:51 Pulse Ox 99 06/13/25 12:51 O2 Del Method Room Air 06/13/25 04:00 Discharge Plan Discharge Patient Disposition: Home Condition: Stable Prescriptions: Continued ascorbic acid (vitamin C) 500 mg tablet 1,000 mg PO QAM aspirin 81 mg tablet 81 mg PO QPM atorvastatin [Lipitor] 40 mg tablet 40 mg PO DAILY cholecalciferol (vitamin D3) 25 mcg (1,000 unit) capsule 25 mcg PO QAM (DME) RSV vaccine See Rx Instructions .ROUTE .MEDSUPPLY Qty: 1 0RF Rx Instructions: Give one dose IM per guidelines. levothyroxine 88 mcg tablet See Rx Instructions .ROUTE .COMPLEX Qty: 45 3RF Dose Instruction: TAKE 1 TABLET BY MOUTH EVERY DAY IN THE MORNING WITH WATER,ON EVEN DAYS OF THE MONTH (1/2HR PRIOR TO EATING) Rx Instructions: TAKE 1 TABLET BY MOUTH EVERY DAY IN THE MORNING WITH WATER,ON EVEN DAYS OF THE MONTH (1/2HR PRIOR TO EATING) clonidine HCl 0.2 mg tablet See Rx Instructions .ROUTE .COMPLEX Qty: 270 3RF Dose Instruction: TAKE 1 TABLET BY MOUTH THREE TIMES A DAY Rx Instructions: TAKE 1 TABLET BY MOUTH THREE TIMES A DAY levothyroxine 75 mcg tablet See Rx Instructions .ROUTE .COMPLEX Qty: 50 3RF Dose Instruction: TAKE 1 TABLET BY MOUTH IN THE MORNING ON THE ODD DAYS OF THE MONTH 1/2 HOUR BEFORE BREAKFAST WITH WATER ONLY Rx Instructions: TAKE 1 TABLET BY MOUTH IN THE MORNING ON THE ODD DAYS OF THE MONTH 1/2 HOUR BEFORE BREAKFAST WITH WATER ONLY hydrochlorothiazide 25 mg tablet See Rx Instructions .ROUTE .COMPLEX Qty: 90 3RF Dose Instruction: TAKE 1 TABLET BY MOUTH DAILY FOR HIGH BLOOD PRESSURE Rx Instructions: TAKE 1 TABLET BY MOUTH DAILY FOR HIGH BLOOD PRESSURE metoprolol succinate 50 mg tablet extended release 24 hr 50 mg PO BID Qty: 180 3RF hydralazine 50 mg tablet 50 mg PO TID Qty: 90 3RF alprazolam 0.25 mg tablet 0.25 mg PO BEDTIME Qty: 30 2RF clopidogrel 75 mg tablet See Rx Instructions .ROUTE .COMPLEX Qty: 90 3RF Dose Instruction: TAKE 1 TABLET BY MOUTH DAILY . Rx Instructions: TAKE 1 TABLET BY MOUTH DAILY . bumetanide 2 mg tablet 3 mg PO BID Qty: 90 3RF dapagliflozin propanediol [Farxiga] 10 mg tablet 10 mg PO DAILY Qty: 30 6RF potassium chloride [Klor-Con M20] 20 mEq tablet,ER particles/crystals 40 meq PO BID Qty: 120 2RF acetaminophen 500 mg Tablet 500 mg PO Q4H PRN (Reason: Pain) Patient Comments: prn vitamin E 268 mg (400 unit) Capsule 1 cap PO DAILY folic acid 400 mcg tablet 400 mcg PO QAM ferrous sulfate 325 mg (65 mg iron) tablet 325 mg PO .QOD magnesium oxide 400 mg magnesium Tablet 400 mg PO DAILY Discharge Order = DC NOW: Discharge Order (Routine); Ordered 06/13/25 Ordered By: Geremias De Anda Referrals: José Luis Clifton M.D [Physician, Cardiology] - 1 month Referral Note: case of at fib and HFpEF for follow up We have notified your physician's clinic of the need for a follow-up appointment to be scheduled. If you have not heard from them within the next 2 business days, please call them directly. Jean Claude Nayak MD [Primary Care Provider, [facility]] - 4-7 days Referral Note: We have notified your physician's clinic of the need for a follow-up appointment to be scheduled. If you have not heard from them within the next 2 business days, please call them directly. Discharge Diet: Advance as tolerated Discharge Activity: Resume usual activity Patient Instructions: Heart Failure (DC), A-fib (Atrial Fibrillation) (DC), Opioid Safety, Patient Portal & Santos Instructions Discharge Attestations Time Spent in Discharge Care*: greater than 30 min Specific Discharge Activities: educating patient, educating and/or supporting family/caregiver, discussing with pcp/other providers, discussing with therapeutic case manager/social workers/dc planners, documenting/other paperwork and evaluating patient/reviewing data Status at Discharge: Cognitive status at discharge: cognitively intact , Behavioral status at discharge: cooperative , Functional status at discharge: independent ambulation , Overall status at discharge: patient is back to baseline Quality Metrics Clinical Quality Measures [ No reported AMI, CVA or VTE this stay] Coding Level of Care Code Acute Code for Chg Fwd Diagnoses Atrial fibrillation with RVR I48.91 Hypokalemia E87.6 CKD (chronic kidney disease) N18.9 Acquired hypothyroidism E03.9 Hypothyroidism type: acquired Primary hypertension I10 Hypertension type: primary hypertension Controlled type 2 diabetes mellitus without complication, with long-term current use of insulin E11.9 (HFpEF) heart failure with preserved ejection fraction I50.30
--- OUTSIDE RECORDS SUMMARY | 2025-06-18 09:42 | XMS_ITS | Encounter Summary ---
Author Organization [facility] Address [address] [place] [address] Care Team Providers Care Narrative Writer Name Role Phone Andrey Lanza MD Primary Care Provider Emily doran Encounter Details Date Type Department Care Team (Latest Contact Info) Description 10/24/2000 Outpatient Historical [facility] Mark Chavez MD NO ADDRESS ON FILE Obstruction of bile duct (CMS/HCC) (Primary Dx) Social History Tobacco Use Types Packs/Day Years Used Date Smoking Tobacco: Never Assessed Comments Unknown Sex and Gender Information Value Date Recorded Sex Assigned at Not on file 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
--- OUTSIDE RECORDS SUMMARY | 2025-06-18 09:42 | XMS_ITS | Encounter Summary ---
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
--- OUTSIDE RECORDS SUMMARY | 2025-06-18 09:42 | XMS_ITS | Encounter Summary ---
Author Organization [facility] Address [address] [place] [address] Care Team Providers Care Re Etcher Name Role Phone Andrey Lanza MD Primary Care Provider Emily doran Encounter Details Date Type Department Care Team (Latest Contact Info) Description 09/25/2000 Outpatient Historical [facility] Gen Spec Surg 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
--- OUTSIDE RECORDS SUMMARY | 2025-06-18 09:42 | XMS_ITS | Clinical Summary ---
Author Organization [facility] Address [address] 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 Gender Identity Not on file Sexual Orientation Not on file Last Filed Vital Signs Vital Sign Reading Time Taken Comments Blood Pressure 128/60 11/18/2020 11:08 AM CDT Pulse 66 11/18/2020 11:08 AM CDT Temperature 37.3 C (99.1 F) 06/26/2020 8:02 AM ASSURANCE SOURCING MANAGER Respiratory Rate 18 06/26/2020 8:02 AM ASSURANCE SOURCING MANAGER Oxygen Saturation 96% 11/18/2020 11:08 AM CDT Inhaled Oxygen Concentration - - Weight 61.2 kg (135 lb) 11/18/2020 11:08 AM CDT Height 154.9 cm (5' 1 ) 08/09/2020 12:46 PM ASSURANCE SOURCING MANAGER Body Mass Index 25.51 08/09/2020 12:46 PM ASSURANCE SOURCING MANAGER Plan of Treatment Health Maintenance Due Date Last Done Comments DTAP/TDAP/TD VACCINES (1 - Tdap) 02/02/1963 PNEUMOCOCCAL VACCINE 50+ YEARS (1 of 2 - PCV) 02/02/19 63 ZOSTER VACCINE (1 of 2) 02/02/1994 OSTEOPOROSIS SCREENING 02/02/2009 RSV VACCINE (60+ or ) (1 - 1-dose 75+ series) 02/02/2019 INFLUENZA VACCINE (#1) 2025 03/02/2020 Medical Devices Implanted Type Area Kickboxing Instructor Device Identifier Shelf Expiration Date Model / Serial / Lot Closure Perclose Proglide 39310 - [id number] Implanted:Qty: 1 on 06/20/2020 by Marito Boyer MD at [facility] Closure Device Left: Arterial LEE- VASC DEVICE [id number] 02/14/2022 11068 / / [id number] Closure Perclose Proglide 03289 - [id number] Implanted:Qty: 1 on 06/20/2020 by Marito Boyer MD at [facility] Closure Device Left: Arterial LEE- VASC DEVICE [id number] 02/14/2022 35839 / / 06/18/03 1 Angio-Seal Vip Closure Dev [id number] - [id number] Implanted:Qty: 1 on 06/20/2020 by Marito Boyer MD at [facility] Closure Device Right: Groin LEE [employer] [id number] 02/14/2021 [id number] / / [id number] Coil Azur Cx Detach 035 19cm [id number] - [id number] Implanted:Qty: 1 on 06/20/2020 by Marito Boyer MD at [facility] Coil Right: Arterial TERUMO- [employer] DANIEL 06/16/2024 [id number] Description:Right hypogastri c artery Coil Azur Cx Detach 035 19cm [id number] - [id number] Implanted:Qty: 1 on 06/20/2020 by Marito Boyer MD at [facility] Coil Right: Arterial TERUMO- MED DANIEL 11/14/2024 [id number] Description:Right hypogastri c artery Stent Afx Ii Bifur Ebr12-16/I16-4 0 - [id number] Implanted:Qty: 1 on 06/20/2020 by Marito Boyer MD at [facility] Stent N/A: Aorta [employer] 11/26/2022 IWA23-67 /I16-40 / [id number] / Stent Lifestream [id number] - [id number] Implanted:Qty: 1 on 06/20/2020 by Marito Boyer MD at [facility] Stent Right: Iliac Artery CR BARD- [employer]ERR[employer] [id number] 01/14/2023 [id number] 858 / / [id number] Description:Right external i liac Stent Lifestream [id number] - [id number] Implanted:Qty: 1 on 06/20/2020 by Marito Boyer MD at [facility] Stent Right: Iliac Artery CR BARD- [employer]ERR[employer] [id number] 03/16/2023 [id number] / / [id number] Stent Lifestream Cvr [id number] - [id number] Implanted:Qty: 1 on 06/20/2020 by Marito Boyer MD at [facility] Stent Right: Iliac Artery CR BARD- [employer] [id number] 06/16/2022 [id number] / / [id number] Stent Lifestream Cvr [id number] - [id number] Implanted:Qty: 1 on 06/24/2020 by Marito Boyer MD at [facility] Stent Left: Leg CR BARD- DERR[employer] [id number] / / Insurance [facility] DUAL COMPLETE MCR PPO D-SNP RX [employer] RX Member Subscriber Plan / Payer (Ef fective 2015-Present) Name:Viry Castillo Relation to Subscriber:Self Name:VIRY ACSTILLO Payer ID:Not on file Group ID:[id number] Type:RX Medicare Part D Address: [address] Advance Directives For more information, please contact: [phone] Documents on File Type Date Recorded 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
--- OUTSIDE RECORDS SUMMARY | 2025-06-18 09:42 | XMS_ITS | Encounter Summary ---
Author Organization [facility] Address [address] [place] [address] Care Team Providers Care Actuarial Trainee Name Role Phone Andrey Lanza MD Primary [...] Expiration Date Visits Re quested Visits Authorized [id number] Closed 08/03/2020 09/03/2021 1 1 ORA OPERATIONS CONSULTANT * Radiology Services (Routine) - Closed Specialty Diagnoses / Procedures Referred By Contac t Referred To Contact Diagnoses Aortoiliac occlusive disease (CMS/HCC) Iliac artery aneurysm Iliac artery stenosis, bilateral Penetrating ulcer of aorta Procedures US AORTA Rochelle Rodriguez NP Phone: tel: fax: Referral ID Status Reason Start Date Expiration Date Visits Re quested Visits Authorized [id number] Closed 08/03/2020 09/03/2021 1 1 ORA OPERATIONS CONSULTANT Encounter Details Date Type Department Care Team (Late st Contact Info) Description 08/03/2020 Ancillary Orders [facility] Cardiac Thoracic Vascular Surg [place] [address] [place] [id number] Rochelle Rodriguez, CRISTIANA [address] [phone] Aortoiliac occlusive disease (CMS/HCC); Iliac artery aneurysm; [...] on file Legal Sex Female 3:41 AM SEPHORA OPERATIONS CONSULTANT Gender Identity Not on file Sexual Orientation Not on file documented as of this encounter Plan of Treatment Not on file documented as of this encounter Results * US AORTA IVC ILIAC DUPLEX LTD (08/09/2020 1:25 PM SEPHORA OPERATIONS CONSULTANT) Anatomical Region Laterality Modality Abdomen Ultrasound 08/09/2020 1:25 PM SEPHORA OPERATIONS CONSULTANT Narrative 08/10/2020 12:15 PM SEPHORA OPERATIONS CONSULTANT See the ultrasound of the aorta obtained on the same day for the images and full report (accession number [id number]). Procedure Note Barron Ca MD - 08/10/2020 See the ultrasound of the aorta obtained on the same day for the images and full report (accession number [id number]). us Rochelle Rodriguez NP US ORDERABLES Final Resul t * US AORTA (08/09/2020 1:25 PM SEPHORA OPERATIONS CONSULTANT) Anatomical Region Laterality Modality Abdomen Ultrasound 08/09/2020 1:25 PM SEPHORA OPERATIONS CONSULTANT Impressions 08/11/2020 6:14 AM SEPHORA OPERATIONS CONSULTANT IMPRESSION: 1. Endovascular repair of the infrarenal [...] cm in diameter. Narrative 08/11/2020 6:14 AM SEPHORA OPERATIONS CONSULTANT EXAM: US AORTA, DIAGNOSIS/REASON FOR EXAM: Aortoiliac [...] aorta documented in this encounter Care Teams Actuarial Trainee Relationship Specialty Start Date End Date Andrey Lanza MD NO ADDRESS ON FILE PCP - General 11/27/07 documented as of this encounter
--- OUTSIDE RECORDS SUMMARY | 2025-06-18 09:42 | XMS_ITS | Encounter Summary ---
Author Organization [facility] Address 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
--- OUTSIDE RECORDS SUMMARY | 2025-06-18 09:42 | XMS_ITS | Encounter Summary ---
Author Organization [facility] Address [address] [place] [address] Care Team Providers Care Still Cleaner Name Role Phone Andrey Lanza MD Primary Care Provider Emily le Encounter Details Date Type Department Care Team (Latest Contact Info) Description 09/13/2000 Outpatient Historical [facility] Gen Spec Surg 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
--- OUTSIDE RECORDS SUMMARY | 2025-06-18 09:42 | XMS_ITS | Encounter Summary ---
Author Organization [facility] Address [address] [place] [address] Care Team Providers Care Tool Mechanic Name Role Phone Andrey Lanza MD Primary Care Provider Unavailab le Reason for Referral * Radiology Services (Routine) - Closed Specialty Diagnoses / Procedures Referred By Contac t Referred To Contact Diagnoses AAA (abdominal aortic aneurysm) without rupture Procedures IR FLUORO OR OTHER Marito Boyer MD Phone: tel: fax: Referral ID Status Reason Start Date Expiration Date Visits Re quested Visits Authorized [id number] Closed 06/20/2020 07/21/2021 1 1 O VISUAL SPECIALIST Encounter Details Date Type Department Care Team (Late st Contact Info) Description 06/20/2020 Ancillary Orders [facility] Interventional Radiology OR [address] [place] [address] [place] [address] Marito Boyer MD [address] [phone] AAA (abdominal aortic aneurysm) without rupture Social [...] on file Legal Sex Female 3:41 AM AUDIO VISUAL SPECIALIST Gender Identity Not on file Sexual Orientation Not on file COVID-19 Exposure Response Date Recorded In the last month, have you been in contact with someone who was confirmed or suspected to have Coronavirus / COVID-19? No / Unsure 06/20/2020 10:40 PM AUDIO VISUAL SPECIALIST documented as of this encounter Plan of Treatment Not on file documented as of this encounter Results * IR FLUORO OR OTHER (06/20/2020 3:43 PM AUDIO VISUAL SPECIALIST) Narrative 06/20/2020 3:44 PM AUDIO VISUAL SPECIALIST Order Auto Finalized. Please see associated Operative Report/Progress Note from the same date. Marito Boyer MD IR ORDERABLES Final R esult documented in this encounter Visit Diagnoses Diagnosis AAA (abdominal aortic aneurysm) without rupture Abdominal aneurysm without mention of rupture AAA (abdominal aortic aneurysm) without rupture Abdominal aneurysm without mention of rupture documented in this encounter Care Teams Tool Mechanic Relationship Specialty Start Date End Date Andrey Lanza MD NO ADDRESS ON FILE PCP - General 11/27/07 documented as of this encounter
--- OUTSIDE RECORDS SUMMARY | 2025-06-18 09:42 | XMS_ITS | Clinical Summary ---
Author Organization [facility] Address [address] [place] [address] Phone Care Team Providers Care Vinyl Installer Name Role Phone Jean Claude Nayak MD Primary Care Provider [phone] Allergies Active Allergy Reactions Criticality Noted Date [...] atherosclerotic ulcer of aorta 05/17 Atherosclerosis of knik ar juan of both lower extremities with [...] Refill [facility] [address] [place] [phone] Lalo Bingham MD 05/05/2025 Refill [facility] [address] [place] [phone] Lalo Bingham MD 04/18/2025 Refill [facility] [address] [place] [phone] Lalo Bingham MD 04/06/2025 External Device Data STL ABSTRACTION Provider, Abstract 04/01/2025 Refill [facility] [address] [place] [phone] Lalo Bingham MD 03/30/2025 Refill [facility] [address] [place] [phone] Lalo Bingham MD 03/30/2025 [facility] [address] [place] [phone] Lalo Bingham MD from Last 3 Months Immunizations Immunization Administration Dates Next Due (PREVNAR 20)(6 WKS UP) PNEUM OCOCCAL CONJUGATE VACCINE 20-VALENT (PCV20), POLYSACCHARIDE [id number] CONJUGATE, ADJUVANT 0.5 ML (PF) IM 03/04/2024,02/24/2022 [...] on file Legal Sex Female 3:08 PM AIRCRAFT ENGINEER Gender Identity Not on file Sexual [...] st Contact Info) Description 07/20/2025 9:00 AM AIRCRAFT ENGINEER Office Visit [facility] [address] [place] [address] Jorden Arshad MD [address] [place] [address] 09/13/2025 2:00 PM CDT Ancillary Procedure [facility] [place] [address] [place] [address] Romero Isaac MD [address] [place] [address] 09/13/2025 2:30 PM CDT Ancillary Procedure [facility] [address] [place] [address] Liss Sher PA-C [address] [place] [address] 09/13/2025 3:30 PM CDT Office Visit [facility] [place] [address] [place] [address] Romero Isaac MD [address] [place] [address] Ale Carrillo DO [address] [facility] [address] [place] [phone] Health Maintenance Due Date Last Done Comments [...] , 02/24/2022 Medical Devices Implanted Type Area Box Builder Device Identifier Shelf Expiration Date Model / Serial / Lot Angio-Seal Vip Closure Dev [id number] - [id number] Implanted:Qty : 1 on 06/20/2020 by Marito Boyer MD Closure Device Right: Groin LEE [employer] [id number] 02/14/2021 [id number] / / [id number] Closure Perclose Proglide 22691 - [id number] Implanted:Qty : 1 on 06/20/2020 by Marito Boyer MD Closure Device Left: Arterial LEE- VASC DEVICE [id number] 02/14/2022 [id number] / / [id number] Closure Perclose Proglide 11986 - [id number] Implanted:Qty : 1 on 06/20/2020 by Marito Boyer MD Closure Device Left: Arterial LEE- VASC DEVICE [id number] 02/14/2022 81218 / / 06/18/ Coil Azur Cx Detach 035 19cm 45-540375 - [id number] Implanted:Qty : 1 on 06/20/2020 by Marito Boyer MD Coil Right: Arterial TERUMO- MED DANIEL 11/14/2024 [id number] / / [id number] Description:Right hypogastri c artery Coil Azur Cx Detach 035 19cm 45-244439 - [id number] Implanted:Qty : 1 on 06/20/2020 by Marito Boyer MD Coil Right: Arterial TERUMO- [place] DANIEL 06/16/2024 [id number] / / [id number] Description:Right hypogastri c artery Cup [place] Porocoat Acet Shell 52mm 1217-22-052 - [id number] Implanted:Qty : 1 on 08/30/2021 by Demetrius George MD at [facility] Hip Left: Hip J[employer]J- [employer] [id number] 06/16/2031 [id number] / / [id number] Liner [place] Altrx 12a34ja Nutrl 1221-36-052 - [id number] Implanted:Qty : 1 on 08/30/2021 by Demetrius George MD at [facility] Hip Left: Hip J[employer]- [employer] [id number] 06/16/2026 [id number] / / [id number] Head Fem Art/Jose Luis Cer Sz36 1365-36-320 - [id number] Implanted:Qty : 1 on 08/30/2021 by Demetrius George MD at [facility] Hip Left: Hip J&J- DEPUY KEIRA [id number] 03/16/2026 54497 6320 / / [id number] Stem Fem [place] Por Sz3 1570 - [id number] Implanted:Qty : 1 on 08/30/2021 by Demetrius George MD at [facility] Hip Left: Hip J[employer] [id number] 12/14/2025 157 / / [id number] Screw Canc [place] 6.5x50mm 1217-50-500 - [id number] Implanted:Qty : 1 on 08/30/2021 by Demetrius George MD at [facility] Screw Left: Hip J&J- [employer] [id number] 12/14/2030 1217-50-500 / / [id number] Stent Afx Ii Bifur Igw27-64/I16- 40 - [id number] Implanted:Qty : 1 on 06/20/2020 by Marito Boyer MD Stent N/A: Aorta [employer] 11/26/2022 CUL45-81/I1 6-40 / [id number] / Stent Lifestream [id number] - [id number] Implanted:Qty : 1 on 06/20/2020 by Marito Boyer MD Stent Right: Iliac Artery CR BARD- [employer] [id number] 01/14/2023 [id number] / / [id number] Description:Right external i liac Stent Lifestream [id number] - [id number] Implanted:Qty : 1 on 06/20/2020 by Marito Boyer MD Stent Right: Iliac Artery CR BARD[employer] [id number] 03/16/2023 [id number] / / [id number] Stent Lifestream Cvr 4r34e22 [id number] - [id number] Implanted:Qty : 1 on 06/20/2020 by Marito Boyer MD Stent Right: Iliac Artery CR BARD[employer] [id number] 06/16/2022 [id number] / / [id number] Stent Lifestream Cvr 8m00o604 [id number] - [id number] Implanted:Qty : 1 on 06/24/2020 by Marito Boyer MD Stent Left: Leg CR BARD[employer] [id number] / / Procedures Procedure Name Priority Date/Time Associated Diagnosis Comments LIPID PANEL Routine 01/13/2025 4:44 AM CDT HEMOGLOBIN A1C Routine 01/13/2025 4:44 AM CDT from Last 3 Months or Most Recently Relevant to Health Maintenance Results * (ABNORMAL) HEMOGLOBIN A1C (01/13/2025 4:44 AM CDT) HEMOGLOBIN A1C 6.6(H) <=5.6 % 01/14/2025 11:26 AM CDT [facility] EST. AVG GLUCOSE, A1C 143 mg/dL 01/14/2025 11:26 AM CDT [facility] Blood Venipuncture / Unknown 01/13/2025 4:44 AM CDT 01/13/2025 4:49 AM CDT [facility] - 01/14/2025 11:26 AM CDT HGB A1C INTERPRETATION NORMAL: <5.7% PRE-DIABETES: 5.7 - 6.4% DIABETES: 6.5% OR GREATER us Padmini Rivera MD CHEMISTRY ORDERABLES Final Resul t [facility] # [id number] [address] [place] [address] * (ABNORMAL) LIPID PANEL (01/13/2025 4:44 AM CDT) Pathologist [facility] CHOLESTEROL 90 <200 mg/dL 01/13/2025 5:29 AM CDT [facility] TRIGLYCERIDE 181(H) <150 mg/dL 01/13/2025 5:29 AM CDT [facility] HDL 35(L) 40 - 59 mg/dL 01/13/2025 5:29 AM CDT [facility] LDL CALCULATED 19 <100 mg/dL 01/13/2025 5:29 AM CDT [facility] NON-HDL CHOLESTEROL 55 <130 mg/dL 01/13/2025 5:29 AM CDT [facility] Blood Venipuncture / Unknown 01/13/2025 4:44 AM CDT 01/13/2025 4:49 AM CDT [facility] - 01/13/2025 5:29 AM CDT TOTAL [...] Rivera MD CHEMISTRY ORDERABLES Final Resul t [facility] # [id number] Critical access hospital[address] [address] from Last 3 Months or Most Recently Relevant to Health Maintenance Insurance * Guarantor: VIRY CASTILLO Account Type Relation to Patient Date of Phone Billing Address Personal/Family [address] [place] [address] RX [employer] Medicare Part D RX [employer] PLANS (INTERNAL) [facility] Advance Directives For more information, please contact: [phone] Documents on File Type Date Recorded Patient Dietary Supervisor Expl anation Advance Directive POA 08/09/2020 [...] 4:07 PM 08/31/2021 3:57 PM Care Teams Vinyl Installer Relationship Specialty Start [place] [address] [place] [phone] PCP - General Family Practice 08/14/21
--- OUTSIDE RECORDS SUMMARY | 2025-06-18 09:42 | XMS_ITS | Encounter Summary ---
Author Organization [facility] Address [address] 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
== END 2025-06-13 12:52 | disposition home or self-care (01) ==
LOC: ER 22:15 → CSU 06-13 01:11 → ER IP 06-18 09:38
PROVIDERS: Admitting Provider Family Medicine; Emergency Provider Family Medicine; PCP Family Medicine; Visit Provider Student in an Organized Health Care Education/Training Program
DX: I48.91 Unspecified atrial fibrillation (principal); E87.6 Hypokalemia; E03.9 Hypothyroidism, unspecified; E11.22 Type 2 diabetes mellitus with diabetic chronic kidney disease; I13.0 Hypertensive heart and chronic kidney disease with heart failure and stage 1 through stage 4 chronic kidney disease, or unspecified chronic kidney disease; N18.9 Chronic kidney disease, unspecified; I50.89 Other heart failure; Z79.4 Long term (current) use of insulin; Z79.02 Long term (current) use of antithrombotics/antiplatelets; Z79.82 Long term (current) use of aspirin; Z86.73 Personal history of transient ischemic attack (TIA), and cerebral infarction without residual deficits; J44.9 Chronic obstructive pulmonary disease, unspecified; Z87.891 Personal history of nicotine dependence; Z66 Do not resuscitate
CPT/HCPCS: 36415; 36416; 71045; 80048; 80053; 82962; 83735; 83880; 85025; 93005; 96365; 96366; 96372; 96375; 99285; G0378; J1644; J1815; J3490; J9999